=== PATIENT | female | born 1945 | race Hispanic/Latino ===

== ENCOUNTER 2022-07-14 13:40 | Inpatient (IN) | payer MEDICARE, MEDICAID, SELFPAY ==
[2022-07-14] VITALS (11 sets, daily range): BP systolic 140–164; BP diastolic 77–98; PULSE 63–81; RESP 12–17; TEMP 36.3–37.1; O2SAT 96–100; BMI 23.0
--- NOTE | ~2022-07-14 | MR_ITS ---
MRI of the brain Clinical History: Altered mental status, left arm weakness Technique: Axial and sagittal T1-weighted images were acquired. These were followed by axial T2-weigh noa, diffusion weighted, gradient, and FLAIR images. Following intravenous administration of 10 cc Mu ltiHance gadolinium, T1-weighted fat-sat imaging was performed in the axial and coronal planes. Findings: There is no acute infarct, acute intracranial hemorrhage, or mass lesion. There are moderat e to advanced chronic white matter changes throughout the periventricular white matter bilaterally. P robable small chronic lacunar infarct in the right periventricular white matter. Ventricles and subarachnoid spaces are unremarkable. Orbits are unremarkable. Paranasal sinuses and m astoid air cells are clear. Major intracranial flow voids are intact. Sagittal midline structures are intact. No abnormal postcontrast enhancement identified. IMPRESSION: No acute infarct, intracranial hemorrhage or mass lesion. Moderate to advanced chronic microvascular ischemic changes and small chronic lacunar infarct in the right periventricular white matter. Reviewed, dictated and finalized at location M. IMPRESSION: No acute infarct, intracranial hemorrhage or mass lesion. Moderate to advanced chronic microvascular ischemic changes and small chronic l acunar infarct in the right periventricular white matter.
--- NOTE | ~2022-07-14 | XR_ITS ---
EXAMINATION: XR elbow LT 2V DATE: 07/14/2022 18:20 INDICATION: Limited movement at the left elbow TECHNIQUE: Anteroposterior and lateral views of the left elbow were obtained. COMPARISON: None. FINDINGS: Smooth corticated margins along a chronic nonunited fracture across the base of the olecranon with ap proximately 5 mm proximal distraction. No other fractures identified. Mild osteoarthritis at the left elbow with nonuniform joint space narrowing greatest at the radiocapitellar articulation. Small simi inal osteophytes about the radial head. Prominent soft tissue swelling about the left elbow without e vident joint effusion. IMPRESSION: 1. 5 mm distraction of a chronic nonunited fracture across the base of the olecranon. Reviewed, dictated and finalized at location A. IMPRESSION: 1. 5 mm distraction of a chronic nonunited fracture across the base of the olec ranon.
--- NOTE | ~2022-07-14 | US_ITS ---
EXAMINATION: US arterial ankle brachial ind DATE: 07/16/2022 17:05 INDICATION: Claudication. Peripheral arterial disease. TECHNIQUE: Segmental pressures and plethysmographic and Doppler waveforms of the brachial and lower e xtremity arteries were obtained. COMPARISON: None. FINDINGS: Right and left brachial artery pressures of 131 mm Hg and 118 mm Hg, respectively, are concordant (no rmal difference <= 30 mmHg). The right ankle-brachial index (ALICIA) could not be measured due to inability to cuff occlude the arter ies (normal >= 0.9-1.0). The right great toe-brachial index (TBI) is 0.69 (normal >= 0.65). Arterial Doppler waveforms are biphasic at the ankle. The left ALICIA could not be measured due to inability to cuff occlude the arteries. The left TBI is 0.4 8. Arterial Doppler waveforms are biphasic at the ankle. IMPRESSION: 1. Mildly decreased left TBI and nondiagnostic left ALICIA, consistent with left-sided arterial occlusiv e disease. 2. Normal right TBI and nondiagnostic right ALICIA. No significant right-sided arterial occlusive diseas e. Reviewed, dictated and finalized at location A. IMPRESSION: 1. Mildly decreased left TBI and nondiagnostic left ALICIA, consistent with left-s ided arterial occlusive disease. 2. Normal right TBI and nondiagnostic right ALICIA. No significant right-sided art erial occlusive disease.
--- NOTE | ~2022-07-14 | US_ITS ---
EXAMINATION: US abdomen limited DATE: 07/15/2022 11:39 INDICATION: Elevated liver enzymes TECHNIQUE: Multiple grayscale and Doppler ultrasound images of the abdomen were obtained. COMPARISON: None available FINDINGS: The head and body of the pancreas are normal. The pancreatic tail is obscured by bowel gas. The liver is normal with normal echogenicity and echotexture. No surface nodularity. Normal hepatope meagan flow in the main portal vein. The gallbladder is normal with no abnormal wall thickening, pericho lecystic fluid or stones. The normal common bile duct measures 3 mm. There was no sonographic Babcock sign. IMPRESSION: 1. Normal sonographic study of the gallbladder. Reviewed, dictated and finalized at location F.
--- NOTE | ~2022-07-14 | XR_ITS ---
EXAMINATION: XR chest 1V portable DATE: 07/14/2022 15:54 INDICATION: Shortness of breath TECHNIQUE: frontal view of the chest was obtained. COMPARISON: None FINDINGS: Cardiomegaly with pulmonary vascular congestion, diffuse bilateral increased interstitial pattern wit h a few peripheral Toni B-lines consistent with mild pulmonary edema. No pneumothorax or definitive pleural effusion. Median sternotomy wires and mediastinal surgical clips are seen, likely from prior coronary artery bypass grafting. Moderate degenerative skeletal changes in the thoracic spine and ri ght shoulder. IMPRESSION: 1. Likely congestive heart failure with cardiomegaly and mild pulmonary edema. Reviewed, dictated and finalized at location A.
--- NOTE | ~2022-07-14 | CT_ITS ---
EXAMINATION: CT brain wo con DATE: 07/14/2022 16:40 INDICATION: Left arm weakness. Recurrent falls. TECHNIQUE: Computed tomography (CT) of the head was performed without intravenous contrast. Sagittal and coronal reconstructions were performed. The mA was adjusted according to patient size. Iterative reconstruction technique was employed. The dose-length product was 756.67 mGy-cm. COMPARISON: None FINDINGS: No fracture. Small old lacunar infarcts at the bilateral basal ganglia. No acute intracranial hemorrh age, acute infarction or abnormal extra axial fluid collection. There is moderate scattered white mat ter hypoattenuation consistent with chronic small vessel ischemic disease. Symmetric prominence of th e sulci and ventricles consistent with moderate age-appropriate diffuse cerebral volume loss. No mass /mass effect. Changes of bilateral intraocular lens replacement. The orbits, paranasal sinuses and ma stoid air cells are normal. Arachnoid granulations eroding into the bilateral occipital bones at the level of the transverse sinuses. Intracranial calcified cerebral atherosclerosis is noted. IMPRESSION: 1. Small old lacunar infarcts at the bilateral basal ganglia. No acute intracranial process. 2. Age-related changes including moderate diffuse volume loss and moderate scattered white matter hyp oattenuation consistent with chronic small vessel ischemic disease. Reviewed, dictated and finalized at location A. IMPRESSION: 1. Small old lacunar infarcts at the bilateral basal ganglia. No acute intracra nial process. 2. Age-related changes including moderate diffuse volume loss and moderate scat tered white matter hypoattenuation consistent with chronic small vessel ischemi c disease.
--- NOTE | 2022-07-14 14:12 | ECG_ITS ---
Measurements Intervals [place] Rate: 62 P: 71 CA: 162 QRS: -38 QRSD: 169 T: 159 QT: 505 QTc: 517 Interpretive Statements SINUS RHYTHM MARKED LEFT AXIS DEVIATION [QRS AXIS < -30] LEFT BUNDLE BRANCH BLOCK [120+ ms QRS DURATION, 80+ ms Q/S IN V1/V2, 85+ ms R IN I/aVL/V5/V6] NO PREVIOUS ECG AVAILABLE FOR COMPARISON Electronically Signed On 07-15-2022 13:35:25 CDT by Genny Mendosa M.D.
[2022-07-14 15:24] LABS: Basophils Percent Auto 0.4 % (0.2-1.2); Eosinophils Percent Auto 0.1 % (0-4.4); Hematocrit 41.2 % (37.0-47.0); Hemoglobin 12.7 g/dL (12.0-15.0); Immature Granulocyte Absolute 0.02 K/mm3 (0.00-0.031); Immature Granulocyte Percent A 0.3 % (0-0.5); Lymphocytes Absolute Auto 0.42 K/mm3 (0.9-3.2); Lymphocytes Percent Auto 5.8 % (18.3-44.2); Mean Corpuscular HGB Conc 30.8 g/dl (32-36); Mean Corpuscular Hemoglobin 26.6 pg (26-34); Mean Corpuscular Volume 86.2 fl (80-100); Mean Platelet Volume 11.1 fl (7.4-10.4); Monocytes Absolute Auto 0.7 K/mm3 (0.1-0.6); Monocytes Percent Auto 9.9 % (2.6-8.5); Neutrophils Percent Auto 83.5 % (45.5-73.1); Platelet Count Result 239 k/mm3 (150-375); Red Blood Count 4.78 M/mm3 (4.2-5.4); Red Cell Distribution Width 17.6 % (11.5-14.5); White Blood Count 7.2 K/mm3 (4.5-10.0)
--- NOTE | 2022-07-14 15:30 | PC.NURSE ---
Patient has medicine bottles from [facility] in [place], [place]. That pharmacy is closed at this time. Patient nor daughter at bedside able to verify what medications patient is taking.
[2022-07-14 16:29] LABS: INR 1.1
[2022-07-14 16:30] LABS: Partial Thromboplastin Time 25.7 SECONDS (22.3-36.8)
[2022-07-14 16:32] LABS: Add Urine Microscopic? YES; Appearance Urine Clear (Clear); Bacteria Urine None Seen /hpf; Bilirubin Urine Negative (Negative); Color Urine Yellow (Yellow); Glucose Urine UA 1+ mg/dL (Negative); Ketones Urine Negative (Negative); Leukocyte Esterase Ur 1+ LEU/UL (Negative); Need Manual Microscopic Reviewed; Nitrate Urine Negative (Negative); Protein Urine 2+ mg/dL (Negative); RBC Urine 0-2 /hpf (0-2); Specific Grav Ur 1.022 (1.001-1.035); Squamous Epithelial Cell Urine None seen /hpf (Few); Urobilinogen Urine 0.2 mg/dL (<2.0); WBC Urine 0-5 /hpf
[2022-07-14 17:06] LABS: Alanine Aminotransferase 69 U/L (6-35); Albumin Level 2.9 g/dL (3.5-5.1); Alkaline Phosphatase 186 U/L (38-126); Anion Gap 5 mmol/L (8-16); Aspartate Amino Transferase 36 U/L (14-36); Blood Urea Nitrogen 32 mg/dL (7-17); Calcium 8.2 mg/dL (8.4-10.2); Carbon Dioxide 25 mmol/L (22-30); Chloride 107 mmol/L (98-107); Estimated CRCL calculation 42 ml/min; Estimated Glomerular Filt Rate > 60; Glucose 290 mg/dL (65-110); Sodium 137 mmol/L (137-145)
[2022-07-14 17:07] LABS: NT Pro B Type Natriuretic Pept 12100 pg/mL (19.9-100)
--- NOTE | 2022-07-14 17:33 | ED.GENADULT ---
HPI - General Adult General Chief complaint: Extremity Problem,Nontraumatic Stated complaint: extremity swelling Time Seen by Provider: 07/14/22 15:29 Source: patient, family and RN notes reviewed Mode of arrival: wheelchair Limitations: dementia History of Present Illness HPI narrative: This is a 77 year old female with history of DM, hypertension, CAD s/p CABG who presents for failure to thrive. Patient's daughter states they were called by patient's neighbor's 3 weeks ago, and they reported patient was unable to take care of herself. They report patient was having decline in health. She has had swelling to bilateral legs and hands for 3 weeks. Her daughter states they went to [place] to move patient out of her apartment 4 days ago. She states she noticed patient seemed to be shortness of breath with exertion and patient also reported to her chest pain. She also noticed patient has been unable to move her left hand for 4 days. Patient denies headache, nausea, vomiting. Patient's daughter states she has not seen patient in 5 years . Her sister saw patient in February, and they report she was fine and able to dance. Related Data Home Medications Medication Instructions Recorded Confirmed atorvastatin 40 mg tablet 40 mg PO DAILY 07/14/22 07/14/22 escitalopram oxalate 5 mg tablet 5 mg PO HS 07/14/22 07/14/22 glipizide 5 mg tablet 5 mg PO BID 07/14/22 07/14/22 lisinopril 40 mg tablet 40 mg PO DAILY 07/14/22 07/14/22 olmesartan 20 mg tablet (Benicar) 20 mg PO DAILY 07/14/22 07/14/22 Allergies Allergy/AdvReac Type Severity Reaction Status Date / Time No Known Allergies Allergy Verified 07/14/22 21:08 Review of Systems Constitutional: Constitutional: Denies weakness Cardiovascular: Cardiovascular: Reports chest pain, Denies syncope, Denies rapid heart rate, Denies irregular heart rhythm, Reports leg edema and Reports dyspnea Respiratory: Respiratory: Denies chest congestion, Denies hemoptysis, Denies excessive phlegm production and Reports dyspnea Gastrointestinal: Gastrointestinal: Denies abdominal pain, Denies hematochezia, Denies diarrhea and Denies vomiting Genitourinary: Genitourinary: Denies hematuria and Denies dysuria Musculoskeletal: Musculoskeletal: Denies joint swelling, Denies loss of height and Denies muscle weakness Neurologic: Denies syncope, Reports focal weakness and Denies weakness PMFSH Past Medical History Medical History (Updated 07/14/22 @ 23:59 by Joyce Alfaro MD) CAD (coronary artery disease) Congestive heart failure Diabetes mellitus Fracture of left elbow Hyperlipidemia Hypertension Surgical History Surgical History (Updated 07/14/22 @ 17:34 by Joyce Alfaro MD) Hx of CABG Family History Family History (Updated 07/14/22 @ 20:49 by Vicki Merino NP) Unknown Adopted Social History Social History (Updated 07/14/22 @ 20:50 by Vicki Merino NP) Social History: The patient is and has 2 children. 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 Up until 4 days ago she was living in a senior citizen apartment complex. Her daughter is the durable power contracts attorney for healthcare. Code status full code Smoking status: Never smoker Second hand tobacco smoke exposure: No Alcohol intake: never Substance use: never Substance use type: does not use Lack of Transportation: No Lack of Food: Never True Current Housing: I Have Housing Concerned About Future Housing: No Difficulty Paying Gas/Electric Bills: No Difficulty Paying for Meds: No Currently Unemployed: No Education: Grade School Difficulty w/ Childcare or Family Care: No Spiritual care concerns: No Exam Const: General: no acute distress and ill appearing Other: oriented to person and place. She thinks its 1995 HENGA: Head: normal to inspection Ears: external ears normal Mouth: Yes Normal oral and palatal mucosa present, Yes lip n
--- NOTE | 2022-07-14 18:11 | PM.IMHP ---
H&P: HPI History of Present Illness Date/Time: 07/14/22 18:11 Chief Complaint: Extremity swelling Narrative: This is a 77-year-old female patient who was recently brought back from [place] by her 2 daughters. The patient had been living in [facility] on her own in a senior citizen apartment complex. The patient's daughter stated that she was called by the patient's neighbors proximally 3 weeks ago and they reported that the patient was unable to take care of herself. She had a decline in her health. She had bilateral leg swelling and hands for 3 weeks. The patient will be staying with her daughter. The patient was also noticed to have difficulty moving her left arm. The patient's daughter stated that she has not seen this patient in the last 5 years. However her other sister did see her in February and stated that she was moving around fine and dancing. It is not known what medications the patient has been taking or if she even has been taking them. Some of the medicine bottles were dated as being refilled last year. Left elbow x-ray was read as?5 mm distraction of a chronic nonunited fracture across the base of the olecranon. Head CT was read as the followingSmall old lacunar infarcts at the bilateral basal ganglia. No acute intracranial process. 2. Age-related changes including moderate diffuse volume loss and moderate scattered white matter hypoattenuation consistent with chronic small vessel ischemic disease. Chest x-ray was read as likely congestive heart failure with cardiomegaly and mild pulmonary edema. The patient has swelling to her lower extremities with multiple ulcerated areas and swelling to her hands with a bruise to her right hand. Blood glucose was noted to be 290. Troponin 0.058 alk line phosphatase 186. ALT 69 BNP [id number]. The patient was given IV Lasix in the emergency room. The patient is being admitted to inpatient status on the date of service of 07/14/2022 Review of Systems Review of Systems: All systems reviewed & are unremarkable except as noted in HPI and below Constitutional: Constitutional: Reports as per HPI and Reports no additional constitutional complaints Eyes: Eyes: Reports as per HPI and Reports no additional eye complaints ENT: Reports system reviewed and no additional complaints, except as documented and Reports Normal hearing present Cardiovascular: Cardiovascular: Reports no additional cardiovascular complaints Respiratory: Respiratory: Reports no additional respiratory complaints and Reports no additional respiratory complaints Gastrointestinal: Gastrointestinal: Reports as per HPI and Reports no additional gastrointestinal complaints Musculoskeletal: Musculoskeletal: Reports no additional musculoskeletal complaints Integumentary/Breasts: Skin/Breast: Reports system reviewed and no additional complaints, except as docu and Reports as per HPI Neurologic: Reports system reviewed and no additional complaints, except as documented, Reports as per HPI and Reports Normal hearing present Psychiatric: Psychiatric: Reports no additional psychiatric complaints and Reports as per HPI Endocrine: Endocrine: Reports no additional endocrine complaints Hematologic/Lymphatic: Hematologic/Lymphatic: Reports no additional hematologic/lymphatic complaints Allergic/Immunologic: Allergic/Immunologic: Reports no additional allergic/immunologic complaints [facility] Past Medical History Medical History (Updated 07/14/22 @ 21:01 by Vicki Merino NP) CAD (coronary artery disease) Congestive heart failure Diabetes mellitus Fracture of left elbow Hyperlipidemia Hypertension Surgical History Surgical History (Updated 07/14/22 @ 17:34 by Joyce Alfaro MD) Hx of CABG Family History Family History (Updated 07/14/22 @ 20:49 by Vicki Merino NP) Unknown Adopted Social History Social History (Updated 07/14/22 @ 20:50 by Vicki Merino NP) Social History: The patient is and has 2
--- NOTE | 2022-07-14 20:24 | ADMGEN ---
This patient, Oksana Wheeler, was admitted to IMU Room 213-01 on 07/14/22 at 2016. Patient/family oriented to hospital policies and general routines including ID bracelet, bed and alarms, visiting hours, pain management, procedures, bathroom and other care routines, personal items, smoking policy, room service/diet, and visiting hours. Information on how to activate the Rapid Response Team has been discussed. Patient/Family are encouraged to report perceived risks to care and to ask questions if they do not understand what they are told or what they should do.
[2022-07-14 21:00] LABS: Glucose Point of Care 321 mg/dl (65-105)
[2022-07-14] MEDS: FUROSEMIDE INJ 40 MG/4 ML VIAL IV PUSH (21:36)
[2022-07-14] MEDS: metroNIDAZOLE 500 MG/ISO 100ML 500 MG/100 ML BAG 100 MG IVPB (21:44)
[2022-07-14 22:13] LABS: Troponin I 0.052 ng/mL (0.000-0.034)
[2022-07-15] VITALS (16 sets, daily range): BP systolic 112–160; BP diastolic 48–82; PULSE 54–81; RESP 14–20; TEMP 36.4–36.5; O2SAT 97–100
[2022-07-15 02:04] LABS: Troponin I 0.052 ng/mL (0.000-0.034)
[2022-07-15] MEDS: metroNIDAZOLE 500 MG/ISO 100ML 500 MG/100 ML BAG 100 MG IVPB ×3 (06:21→21:37)
[2022-07-15 06:40] LABS: Basophils Percent Auto 0.3 % (0.2-1.2); Eosinophils Percent Auto 0.4 % (0-4.4); Hematocrit 42.5 % (37.0-47.0); Hemoglobin 13.2 g/dL (12.0-15.0); Immature Granulocyte Absolute 0.02 K/mm3 (0.00-0.031); Immature Granulocyte Percent A 0.3 % (0-0.5); Lymphocytes Percent Auto 7.4 % (18.3-44.2); Mean Corpuscular HGB Conc 31.1 g/dl (32-36); Mean Corpuscular Hemoglobin 26.7 pg (26-34); Monocytes Absolute Auto 0.8 K/mm3 (0.1-0.6); Monocytes Percent Auto 11.3 % (2.6-8.5); Neutrophils Absolute Auto 5.4 K/mm3 (1.3-6.7); Neutrophils Percent Auto 80.3 % (45.5-73.1); Platelet Count Result 230 k/mm3 (150-375); Red Blood Count 4.94 M/mm3 (4.2-5.4); Red Cell Distribution Width 17.7 % (11.5-14.5); White Blood Count 6.7 K/mm3 (4.5-10.0)
[2022-07-15 06:57] LABS: Lactic Acid Reflex 1.9 mmol/L (0.7-2.0)
[2022-07-15 07:01] LABS: Alanine Aminotransferase 64 U/L (6-35); Alkaline Phosphatase 177 U/L (38-126); Anion Gap 6 mmol/L (8-16); Aspartate Amino Transferase 29 U/L (14-36); Bilirubin,Total 1.1 mg/dL (0.2-1.3); Blood Urea Nitrogen 28 mg/dL (7-17); Carbon Dioxide 28 mmol/L (22-30); Chloride 103 mmol/L (98-107); Estimated CRCL calculation 42 ml/min; Estimated Glomerular Filt Rate > 60; Glucose 337 mg/dL (65-110); Magnesium 1.8 mg/dL (1.6-2.3); Potassium 3.2 mmol/L (3.4-5.0); Sodium 137 mmol/L (137-145)
[2022-07-15 07:10] LABS: Hemoglobin A1C 11.6 % (<5.7)
[2022-07-15 07:28] LABS: Hepatitis B Surface Antigen Negative (Negative)
[2022-07-15 07:34] LABS: HAV RESULT Negative (Negative); Hepatitis B Core IgM Result Negative (Negative)
[2022-07-15 07:46] LABS: Hepatitis C Virus Antibody Negative (Negative)
[2022-07-15 07:59] LABS: Glucose Point of Care 312 mg/dl (65-105)
[2022-07-15] MEDS: OLMESARTAN MEDOXOMIL 20 MG TABLET PO (10:01)
[2022-07-15] MEDS: ATORVASTATIN 40 MG TABLET PO (10:01)
[2022-07-15] MEDS: ENOXAPARIN 40 MG/0.4 ML SYRINGE SUB-Q (10:02)
[2022-07-15] MEDS: lisinopriL 20 MG TABLET 40 MG PO (10:02)
[2022-07-15] MEDS: ASPIRIN 81 MG ENTERIC TABLET PO (10:02)
[2022-07-15] MEDS: FUROSEMIDE INJ 40 MG/4 ML VIAL IV PUSH ×2 (10:02→21:05)
[2022-07-15] MEDS: glipiZIDE 5 MG TABLET PO ×2 (10:13→18:13)
--- NOTE | 2022-07-15 11:41 | PCSTNOTE ---
Patient is a Samoan speaker, understands a little Mohawk and knows a few Mohawk words. Her daughter Gail is present at bedside and helping as buggy driver. Portions of [place] Adult Language and Speech Evaluation were administered. Moderately impaired auditory comprehension and verbal expression are present, and cognitive linguistic abilities appear to be impaired (20% correct out of 5 orientation questions). Daughter states that patient resides with her now and family will be providing care and assistance. Due to cognitive linguistic deficits patient is a poor candidate for speech/language therapy to address language impairments. No further speech therapy is recommended for this patient. Thank you for the referral of this patient.
[2022-07-15 11:50] LABS: Glucose Point of Care 272 mg/dl (65-105)
[2022-07-15] MEDS: INSULIN ASPART (*BKC) 100 UNITS/ML SUB-Q ×2 (13:13→18:13)
--- NOTE | 2022-07-15 13:40 | PM.IMPN ---
Progress Note: A&P Assessment and Plan (1) Cellulitis: Code(s): L03.90 - Cellulitis, unspecified Status: Acute Assessment and Plan: The patient has multiple abrasions to her lower extremity. She is diabetic. She was started on antibiotics is per antibiotic stewardship for diabetic cellulitis. She was started on Flagyl, vancomycin, and cefepime. Blood cultures have been ordered White blood cell count normal Lactic acid normal CRP elevated at 5.1 continue to trend. Procalcitonin pending (2) Congestive heart failure: Qualifiers: Heart failure chronicity: acute on chronic Heart failure type: unspecified Qualified Code(s): I50.9 - Heart failure, unspecified Code(s): I50.9 - Heart failure, unspecified Status: Acute Assessment and Plan: Per patient's daughter patient has history of heart disease post CABG although unsure of heart failure. Patient is not on any medications indicating congestive heart failure. The patient has anasarca. Abdominal ultrasound has been ordered due to elevated liver enzymes however this could just be portal hypertension. CK normal An echo has been ordered Continue with IV Lasix. May consider Dykes catheter due to her multiple sores to her legs an accurate I&O Congestive heart failure teaching Strict I&O Elevated troponin although they are flat and trending down. Elevation likely due to dehydration and CHF exacerbation. (3) Hypertension: Code(s): I10 - Essential (primary) hypertension Status: Acute Assessment and Plan: The patient was started on lisinopril P.r.n. hydralazine (4) Fracture of left elbow: Code(s): S42.402A - Unspecified fracture of lower end of left humerus, initial encounter for closed fracture Status: Acute Assessment and Plan: PT OT evaluation greatly be appreciated sales development coordinator consult for rehab (5) Hyperlipidemia: Code(s): E78.5 - Hyperlipidemia, unspecified Status: Acute Assessment and Plan: Continue with home medications (6) Diabetes mellitus: Code(s): E11.9 - Type 2 diabetes mellitus without complications Status: Acute Assessment and Plan: Patient started on Lantus 12 units q.h.s. and moderate sliding scale Accu-Cheks, hypoglycemic protocol Hemoglobin A1c 11.6 May resume home medications Subjective Date/time seen: 07/15/22 13:40 Interval history: Swedish-speaking elderly woman that has daughter at bedside able to translate. Patient told the daughter that her right lower leg has been painful. She does have some discoloration of the lower extremities and states that this is all new. Patient had a fall not too long ago and refused to be seen in the ED. the cause of the fall is not known. Since the fall patient has steadily declined. She presented with bilateral lower extremity edema and fluid weeping from the lower extremities. Per daughter patient was confused. Today patient is less confused and able to recognize her daughter by name. Review of Systems Review of Systems: All systems reviewed & are unremarkable except as noted in HPI and below Exam Narrative: GENERAL: Comfortable, no acute distress HENMT: moist mucous membranes EYES: EOM intact b/l NECK: no lymphadenopathy RESPIRATORY: clear to auscultation CARDIO: RRR GI: soft, nontender, bowel sounds present SKIN/EXTREMITIES: Bilateral lower extremity erythema and multiple sores present from mid should to the ankles. Plus two pitting edema over the hips. Objective Data Vital Signs Vital Signs: Vital Signs - 24 hr 07/14/22 14:05 07/14/22 15:01 07/14/22 15:31 Temperature 97.3 F L Pulse Rate 69 63 74 Respiratory Rate 14 12 17 Blood Pressure 142/83 H 150/88 H 150/90 H Pulse Oximetry 98 Oxygen Delivery Room Air 07/14/22 16:46 07/14/22 17:01 07/14/22 18:31
[2022-07-15 14:12] LABS: Creatine Kinase 53 U/L (30-135)
[2022-07-15 14:35] LABS: Troponin I 0.042 ng/mL (0.000-0.034)
[2022-07-15 14:59] LABS: CRP 5.1 mg/dL (<1.0)
[2022-07-15 15:46] LABS: Procalcitonin 0.1 ng/mL
[2022-07-15 16:47] LABS: Lactic Acid Reflex 2.9 mmol/L (0.7-2.0)
[2022-07-15 16:48] LABS: Glucose Point of Care 214 mg/dl (65-105)
[2022-07-15 19:36] LABS: Reflex Lactic Acid Yes or No Add Lactic
[2022-07-15 20:19] LABS: Glucose Point of Care 266 mg/dl (65-105)
[2022-07-15 20:39] LABS: Lactic Acid 2.6 mmol/L (0.7-2.0)
[2022-07-15] MEDS: ESCITALOPRAM OXALATE 5 MG TABLET PO (21:04)
[2022-07-15] MEDS: INSULIN GLARGINE (*BKC) 100 UNITS/ML 12 UNITS SUB-Q (21:05)
[2022-07-16] VITALS (17 sets, daily range): BP systolic 101–145; BP diastolic 44–67; PULSE 49–64; RESP 14–16; TEMP 35.9–36.5; O2SAT 97–100
[2022-07-16 04:49] LABS: Basophils Percent Auto 0.4 % (0.2-1.2); Eosinophils Absolute Auto 0.1 K/mm3 (0-0.3); Hematocrit 41.6 % (37.0-47.0); Hemoglobin 13.1 g/dL (12.0-15.0); Immature Granulocyte Absolute 0.03 K/mm3 (0.00-0.031); Immature Granulocyte Percent A 0.4 % (0-0.5); Lymphocytes Absolute Auto 0.84 K/mm3 (0.9-3.2); Lymphocytes Percent Auto 11.9 % (18.3-44.2); Mean Corpuscular HGB Conc 31.5 g/dl (32-36); Mean Corpuscular Hemoglobin 26.7 pg (26-34); Mean Corpuscular Volume 84.9 fl (80-100); Mean Platelet Volume 11.7 fl (7.4-10.4); Monocytes Absolute Auto 0.7 K/mm3 (0.1-0.6); Monocytes Percent Auto 10.1 % (2.6-8.5); Neutrophils Absolute Auto 5.3 K/mm3 (1.3-6.7); Neutrophils Percent Auto 75.2 % (45.5-73.1); Platelet Count Result 242 k/mm3 (150-375); Red Cell Distribution Width 17.2 % (11.5-14.5); White Blood Count 7.1 K/mm3 (4.5-10.0)
[2022-07-16 05:00] LABS: Alanine Aminotransferase 59 U/L (6-35); Albumin Level 3.1 g/dL (3.5-5.1); Alkaline Phosphatase 165 U/L (38-126); Anion Gap 3 mmol/L (8-16); Aspartate Amino Transferase 39 U/L (14-36); Bilirubin,Total 0.9 mg/dL (0.2-1.3); Blood Urea Nitrogen 34 mg/dL (7-17); Calcium 8.1 mg/dL (8.4-10.2); Carbon Dioxide 37 mmol/L (22-30); Chloride 98 mmol/L (98-107); Estimated CRCL calculation 31 ml/min; Estimated Glomerular Filt Rate 48; Glucose 83 mg/dL (65-110); Magnesium 1.6 mg/dL (1.6-2.3); Phosphorus 3.8 mg/dL (2.5-4.5); Potassium 3.1 mmol/L (3.4-5.0); Sodium 138 mmol/L (137-145)
[2022-07-16] MEDS: metroNIDAZOLE 500 MG/ISO 100ML 500 MG/100 ML BAG 100 MG IVPB ×3 (05:27→22:43)
--- NOTE | 2022-07-16 06:00 | ECHO_ITS ---
Patient Info Name: Oksana Wheeler Age: 77 years : 1945 Gender: Female Ht: 63 in Wt: 129 lbs BSA: 1.62 m2 HR: 49 bpm BP: 131 / 65 mmHg Heart Rhythm: Sinus Rhythm, Bradycardia Technical Quality: Good Exam Date: 07/16/2022 8:42 AM Exam Location: [facility] Card Pulmonary Patient Status: Inpatient Admit Date: 07/14/2022 Staff Ordering Physician: Joyce Alfaro MD Director Career Services: Belle Beyer RDCS Attending Provider: Chuy Coe MD Referring Physician: Angelina WILKES; Exam Type: CA echo doppler color flow Study Info Indications - chf Complete two-dimensional, color flow and Doppler transthoracic echocardiogram is performed. Summary 1. Complete two-dimensional, color flow and Doppler transthoracic echocardiogram is performed. 2. Left ventricular chamber dimension is moderately enlarged. 3. Left ventricular systolic function is severely reduced, estimated at 25-30%. 4. There is no increased left ventricular wall thickness. 5. Left ventricular septal wall motion is abnormal with septal motion related to bundle branch block. 6. The left ventricular diastolic function is grade III diastolic dysfunction. 7. Left atrial chamber dimension is moderately enlarged. 8. There is no aortic valve stenosis. 9. There is moderate to severe mitral valve regurgitation. 10. There is mild tricuspid valve regurgitation. 11. Mild pulmonary hypertension, estimated pulmonary arterial systolic pressure is 44 mmHg. 12. Left pleural effusion. Left Ventricle Left ventricular chamber dimension is moderately enlarged. Left ventricular systolic function is severely reduced, estimated at 25-30%. There is no increased left ventricular wall thickness. Left ventricular septal wall motion is abnormal with septal motion related to bundle branch block. The left ventricular diastolic function is grade III diastolic dysfunction. Right Ventricle Right ventricular chamber dimension is normal. Right ventricular systolic function is reduced. TAPSE 1.2. Left Atria Left atrial chamber dimension is moderately enlarged. Right Atria Right atrial chamber dimension is mildly enlarged. Aortic Valve The aortic valve is trileaflet. There is no aortic valve stenosis. There is trace aortic valve regurgitation. Pulmonic Valve The pulmonic valve is normal. There is mild pulmonic regurgitation. Mitral Valve The mitral valve has thickened leaflets. There is moderate to severe mitral valve regurgitation. The mitral valve annulus is mildly calcified. Tricuspid Valve The tricuspid valve leaflets are normal. There is mild tricuspid valve regurgitation. Mild pulmonary hypertension, estimated pulmonary arterial systolic pressure is 44 mmHg. Pericardium/Pleural The pericardium appears normal. There is trivial pericardial effusion. Left pleural effusion. Inferior Vena Cava Normal inferior vena cava with <50% collapse upon inspiration consistent with elevated right atrial pressure, 10 mmHg. Aorta The aortic root size at the sinus of Valsalva is normal. There is mild aortic atherosclerosis. Left Ventricular Outflow Tract Name Value Normal LVOT 2D LVOT Diameter 2.0 cm LVOT Doppler LVOT Peak Gradient 4 mmHg
[2022-07-16 08:14] LABS: Glucose Point of Care 75 mg/dl (65-105)
[2022-07-16] MEDS: POTASSIUM CHLORIDE 20 MEQ TABLET 40 MEQ PO (10:18)
[2022-07-16] MEDS: ATORVASTATIN 40 MG TABLET PO (10:19)
[2022-07-16] MEDS: ENOXAPARIN 40 MG/0.4 ML SYRINGE SUB-Q (10:19)
[2022-07-16] MEDS: OLMESARTAN MEDOXOMIL 20 MG TABLET PO (10:19)
[2022-07-16] MEDS: lisinopriL 20 MG TABLET 40 MG PO (10:19)
[2022-07-16] MEDS: ASPIRIN 81 MG ENTERIC TABLET PO (10:19)
[2022-07-16] MEDS: glipiZIDE 5 MG TABLET PO (10:19)
[2022-07-16] MEDS: FUROSEMIDE INJ 40 MG/4 ML VIAL IV PUSH (10:19)
[2022-07-16 13:26] LABS: Glucose Point of Care 180 mg/dl (65-105)
--- NOTE | 2022-07-16 16:01 | P.PNIM_ITS ---
Progress Note: A&P Assessment and Plan (1) Cellulitis: Code(s): L03.90 - Cellulitis, unspecified Status: Acute Assessment and Plan: The patient has multiple abrasions to her lower extremity. She is diabetic. She was started on antibiotics is per antibiotic stewardship for diabetic cellulitis. * She was started on Flagyl, vancomycin, and cefepime. * Blood cultures No growth to date * White blood cell count normal * Lactic acid elevated at 2.9 and trending down * CRP elevated at 5.1. continue to trend. * Procalcitonin 0.1 (2) Congestive heart failure: Qualifiers: Heart failure chronicity: acute on chronic Heart failure type: unspecified Qualified Code(s): I50.9 - Heart failure, unspecified Code(s): I50.9 - Heart failure, unspecified Status: Acute Assessment and Plan: Per patient's daughter patient has history of heart disease post CABG although unsure of heart failure. Patient is not on any medications indicating congestive heart failure. * The patient has anasarca. * Abdominal ultrasound has been ordered due to elevated liver enzymes however this could just be portal hypertension. * CK normal * EKG revealing left bundle-branch block, sinus rhythm * Echocardiogram with EF of 25-30%, septal wall motion is abnormal with septal motion related to bundle branch block, grade 3 diastolic dysfunction, moderate to severe mitral valve regurg, mild tricuspid valve regurg, mild pulmonary hypertension at 44 mm Hg and left pleural effusion. * Continue with IV Lasix. * Dykes catheter due to her multiple sores to her legs an accurate I&O * Congestive heart failure teaching * Strict I&O * Elevated troponin although they are flat and trending down. Elevation likely due to dehydration and CHF exacerbation. (3) Hypertension: Code(s): I10 - Essential (primary) hypertension Status: Acute Assessment and Plan: * The patient was started on lisinopril * P.r.n. hydralazine (4) Fracture of left elbow: Code(s): S42.402A - Unspecified fracture of lower end of left humerus, initial encounter for closed fracture Status: Acute Assessment and Plan: * PT OT evaluation greatly be appreciated * blood bank coordinator consult for rehab (5) Hyperlipidemia: Code(s): E78.5 - Hyperlipidemia, unspecified Status: Acute Assessment and Plan: Continue with home medications (6) Diabetes mellitus: Code(s): E11.9 - Type 2 diabetes mellitus without complications Status: Acute Assessment and Plan: * Patient started on Lantus 12 units q.h.s. and moderate sliding scale * Accu-Cheks, hypoglycemic protocol * Hemoglobin A1c 11.6 * May resume home medications Subjective Date/time seen: 07/16/22 16:01 Interval history: Use nurse wound care today to communicate with the patient. She is still having pain in her lower extremities with sitting and standing. The pain has improved since she has arrived to the hospital. Patient states that she had lower extremity swelling for approximately 3 weeks and she did see a doctor and he did not give her any medication for this. She appears to be more lively today and is requesting a shower. She denies ever having chest pain and shortness of breath. Lower extremity edema resolved with mild pitting edema over her hips. Review of Systems Review of Systems: Daniel mchugh
--- NOTE | 2022-07-16 16:01 | PM.IMPN ---
Progress Note: A&P Assessment and Plan (1) Cellulitis: Code(s): L03.90 - Cellulitis, unspecified Status: Acute Assessment and Plan: The patient has multiple abrasions to her lower extremity. She is diabetic. She was started on antibiotics is per antibiotic stewardship for diabetic cellulitis. She was started on Flagyl, vancomycin, and cefepime. Blood cultures No growth to date White blood cell count normal Lactic acid elevated at 2.9 and trending down CRP elevated at 5.1. continue to trend. Procalcitonin 0.1 (2) Congestive heart failure: Qualifiers: Heart failure chronicity: acute on chronic Heart failure type: unspecified Qualified Code(s): I50.9 - Heart failure, unspecified Code(s): I50.9 - Heart failure, unspecified Status: Acute Assessment and Plan: Per patient's daughter patient has history of heart disease post CABG although unsure of heart failure. Patient is not on any medications indicating congestive heart failure. The patient has anasarca. Abdominal ultrasound has been ordered due to elevated liver enzymes however this could just be portal hypertension. CK normal EKG revealing left bundle-branch block, sinus rhythm Echocardiogram with EF of 25-30%, septal wall motion is abnormal with septal motion related to bundle branch block, grade 3 diastolic dysfunction, moderate to severe mitral valve regurg, mild tricuspid valve regurg, mild pulmonary hypertension at 44 mm Hg and left pleural effusion. Continue with IV Lasix. Dykes catheter due to her multiple sores to her legs an accurate I&O Congestive heart failure teaching Strict I&O Elevated troponin although they are flat and trending down. Elevation likely due to dehydration and CHF exacerbation. (3) Hypertension: Code(s): I10 - Essential (primary) hypertension Status: Acute Assessment and Plan: The patient was started on lisinopril P.r.n. hydralazine (4) Fracture of left elbow: Code(s): S42.402A - Unspecified fracture of lower end of left humerus, initial encounter for closed fracture Status: Acute Assessment and Plan: PT OT evaluation greatly be appreciated family services coordinator consult for rehab (5) Hyperlipidemia: Code(s): E78.5 - Hyperlipidemia, unspecified Status: Acute Assessment and Plan: Continue with home medications (6) Diabetes mellitus: Code(s): E11.9 - Type 2 diabetes mellitus without complications Status: Acute Assessment and Plan: Patient started on Lantus 12 units q.h.s. and moderate sliding scale Accu-Cheks, hypoglycemic protocol Hemoglobin A1c 11.6 May resume home medications Subjective Date/time seen: 07/16/22 16:01 Interval history: Use muffler hand today to communicate with the patient. She is still having pain in her lower extremities with sitting and standing. The pain has improved since she has arrived to the hospital. Patient states that she had lower extremity swelling for approximately 3 weeks and she did see a doctor and he did not give her any medication for this. She appears to be more lively today and is requesting a shower. She denies ever having chest pain and shortness of breath. Lower extremity edema resolved with mild pitting edema over her hips. Review of Systems Review of Systems: All systems reviewed & are unremarkable except as noted in HPI and below Exam Narrative: GENERAL: Comfortable, no acute distress HENMT: moist mucous membranes EYES: EOM intact b/l NECK: no lymphadenopathy RESPIRATORY: clear to auscultation CARDIO: RRR GI: soft, nontender, bowel sounds present SKIN/EXTREMITIES: Bilateral lower extremity erythema and multiple sores present from mid should to the ankles. +1 pitting edema over the hips. Objective Data Vital Signs Vital Signs: Vital Signs - 24 hr
[2022-07-16 18:17] LABS: Glucose Point of Care 160 mg/dl (65-105)
[2022-07-16 20:06] LABS: Glucose Point of Care 182 mg/dl (65-105)
[2022-07-16] MEDS: ESCITALOPRAM OXALATE 5 MG TABLET PO (20:38)
[2022-07-16] MEDS: FUROSEMIDE INJ 40 MG/4 ML VIAL 20 MG IV PUSH (20:39)
[2022-07-16] MEDS: INSULIN GLARGINE (*BKC) 100 UNITS/ML 12 UNITS SUB-Q (22:41)
[2022-07-16] MEDS: POTASSIUM CHLORIDE 20 MEQ TABLET.ER PO (22:52)
[2022-07-17] VITALS (10 sets, daily range): BP systolic 84–136; BP diastolic 45–64; PULSE 53–66; RESP 14–18; TEMP 36.2–36.5; O2SAT 96–99
[2022-07-17 04:53] LABS: Basophils Percent Auto 0.6 % (0.2-1.2); Eosinophils Absolute Auto 0.2 K/mm3 (0-0.3); Eosinophils Percent Auto 2.9 % (0-4.4); Hematocrit 39.6 % (37.0-47.0); Hemoglobin 12.6 g/dL (12.0-15.0); Immature Granulocyte Absolute 0.01 K/mm3 (0.00-0.031); Immature Granulocyte Percent A 0.2 % (0-0.5); Lymphocytes Absolute Auto 0.78 K/mm3 (0.9-3.2); Lymphocytes Percent Auto 14.9 % (18.3-44.2); Mean Corpuscular HGB Conc 31.8 g/dl (32-36); Mean Corpuscular Hemoglobin 26.8 pg (26-34); Mean Corpuscular Volume 84.3 fl (80-100); Mean Platelet Volume 11.6 fl (7.4-10.4); Monocytes Absolute Auto 0.5 K/mm3 (0.1-0.6); Monocytes Percent Auto 10.2 % (2.6-8.5); Neutrophils Absolute Auto 3.7 K/mm3 (1.3-6.7); Neutrophils Percent Auto 71.2 % (45.5-73.1); Platelet Count Result 220 k/mm3 (150-375); Red Cell Distribution Width 16.9 % (11.5-14.5); White Blood Count 5.2 K/mm3 (4.5-10.0)
[2022-07-17 05:05] LABS: Potassium 3.2 mmol/L (3.4-5.0)
[2022-07-17 05:13] LABS: Alanine Aminotransferase 48 U/L (6-35); Albumin Level 2.7 g/dL (3.5-5.1); Alkaline Phosphatase 119 U/L (38-126); Anion Gap 1 mmol/L (8-16); Aspartate Amino Transferase 31 U/L (14-36); Bilirubin,Total 0.9 mg/dL (0.2-1.3); Blood Urea Nitrogen 29 mg/dL (7-17); Calcium 7.8 mg/dL (8.4-10.2); Carbon Dioxide 39 mmol/L (22-30); Chloride 96 mmol/L (98-107); Estimated CRCL calculation 42 ml/min; Estimated Glomerular Filt Rate > 60; Glucose 146 mg/dL (65-110); Magnesium 1.5 mg/dL (1.6-2.3); Sodium 136 mmol/L (137-145)
[2022-07-17] MEDS: metroNIDAZOLE 500 MG/ISO 100ML 500 MG/100 ML BAG 100 MG IVPB ×3 (05:59→22:02)
[2022-07-17 07:39] LABS: Glucose Point of Care 86 mg/dl (65-105)
[2022-07-17] MEDS: OLMESARTAN MEDOXOMIL 20 MG TABLET PO (08:23)
[2022-07-17] MEDS: ENOXAPARIN 40 MG/0.4 ML SYRINGE SUB-Q (08:23)
[2022-07-17] MEDS: lisinopriL 20 MG TABLET 40 MG PO (08:23)
[2022-07-17] MEDS: POTASSIUM CHLORIDE 20 MEQ TABLET PO (08:23)
[2022-07-17] MEDS: FUROSEMIDE INJ 40 MG/4 ML VIAL 20 MG IV PUSH ×2 (08:23→20:59)
[2022-07-17] MEDS: ATORVASTATIN 40 MG TABLET PO (08:23)
[2022-07-17] MEDS: POTASSIUM CHLORIDE 20 MEQ TABLET.ER PO ×2 (08:24→17:27)
[2022-07-17] MEDS: glipiZIDE 5 MG TABLET PO ×2 (08:24→17:27)
[2022-07-17] MEDS: ASPIRIN 81 MG ENTERIC TABLET PO (08:24)
[2022-07-17] MEDS: MAGNESIUM SULFATE 3GM/D5W100ML 3 GM/100 ML BAG IVPB (09:21)
--- NOTE | 2022-07-17 09:22 | P.CDI_ITS ---
CDI Query Clarification Request Elevated BNP on 07/14/22 lab work. Documented CHF in patients medical history. CHF noted in the assessment and plan. Chest Xray from 07/14/22 notes pulmonary edema. Edema noted in the documentation. Patient receiving Lasix. Please specify type and acuity of heart failure if known. * Acute * Chronic * Acute on Chronic * Unknown * Systolic * Diastolic * Combined Systolic and Diastolic * Unknown
[2022-07-17 12:35] LABS: Glucose Point of Care 202 mg/dl (65-105)
[2022-07-17] MEDS: INSULIN ASPART (*BKC) 100 UNITS/ML SUB-Q ×2 (13:28→17:26)
--- NOTE | 2022-07-17 14:19 | P.PNIM_ITS ---
Progress Note: A&P Assessment and Plan (1) Cellulitis: Code(s): L03.90 - Cellulitis, unspecified Status: Acute Assessment and Plan: The patient has multiple abrasions to her lower extremity. She is diabetic. She was started on antibiotics is per antibiotic stewardship for diabetic cellulitis. * She was started on Flagyl, vancomycin, and cefepime. * Blood cultures No growth to date * White blood cell count normal * Lactic acid elevated at 2.9 and trending down * CRP elevated at 5.1. continue to trend. * Procalcitonin 0.1 (2) Congestive heart failure: Qualifiers: Heart failure chronicity: acute on chronic Heart failure type: unspecified Qualified Code(s): I50.9 - Heart failure, unspecified Code(s): I50.9 - Heart failure, unspecified Status: Acute Assessment and Plan: Per patient's daughter patient has history of heart disease post CABG although unsure of heart failure. Patient is not on any medications indicating congestive heart failure. * The patient has anasarca. * Abdominal ultrasound has been ordered due to elevated liver enzymes however this could just be portal hypertension. * CK normal * EKG revealing left bundle-branch block, sinus rhythm * Echocardiogram with EF of 25-30%, septal wall motion is abnormal with septal motion related to bundle branch block, grade 3 diastolic dysfunction, moderate to severe mitral valve regurg, mild tricuspid valve regurg, mild pulmonary hypertension at 44 mm Hg and left pleural effusion. * Cardiology consulted. * Continue with IV Lasix. * Dykes catheter due to her multiple sores to her legs an accurate I&O * Congestive heart failure teaching * Strict I&O * Elevated troponin although they are flat and trending down. Elevation likely due to dehydration and CHF exacerbation. (3) Hypertension: Code(s): I10 - Essential (primary) hypertension Status: Acute Assessment and Plan: * The patient was started on lisinopril * P.r.n. hydralazine (4) Fracture of left elbow: Code(s): S42.402A - Unspecified fracture of lower end of left humerus, initial encounter for closed fracture Status: Acute Assessment and Plan: * PT OT evaluation greatly be appreciated * talent coordinator consult for rehab (5) Hyperlipidemia: Code(s): E78.5 - Hyperlipidemia, unspecified Status: Acute Assessment and Plan: Continue with home medications (6) Diabetes mellitus: Code(s): E11.9 - Type 2 diabetes mellitus without complications Status: Acute Assessment and Plan: * Patient started on Lantus 12 units q.h.s. and moderate sliding scale * Accu-Cheks, hypoglycemic protocol * Hemoglobin A1c 11.6 * May resume home medications Subjective Date/time seen: 07/17/22 14:19 Interval history: Pt up to chair with daughter in the room. She is doing well today. She appears to be in better spirits. she is still having some lower extremity pain with standing and experiencing itching due to dry skin over lower extremities. Denies chest pain, shortness of breath. feeling less weak overall. Review of Systems Review of Systems: All systems reviewed & are unremarkable except as noted in HPI and below Exam Narrative: GENERAL: Comfortable, no acute distress HENMT: moist mucous membranes EYES: EOM inta
--- NOTE | 2022-07-17 14:19 | PM.IMPN ---
Progress Note: A&P Assessment and Plan (1) Cellulitis: Code(s): L03.90 - Cellulitis, unspecified Status: Acute Assessment and Plan: The patient has multiple abrasions to her lower extremity. She is diabetic. She was started on antibiotics is per antibiotic stewardship for diabetic cellulitis. She was started on Flagyl, vancomycin, and cefepime. Blood cultures No growth to date White blood cell count normal Lactic acid elevated at 2.9 and trending down CRP elevated at 5.1. continue to trend. Procalcitonin 0.1 (2) Congestive heart failure: Qualifiers: Heart failure chronicity: acute on chronic Heart failure type: unspecified Qualified Code(s): I50.9 - Heart failure, unspecified Code(s): I50.9 - Heart failure, unspecified Status: Acute Assessment and Plan: Per patient's daughter patient has history of heart disease post CABG although unsure of heart failure. Patient is not on any medications indicating congestive heart failure. The patient has anasarca. Abdominal ultrasound has been ordered due to elevated liver enzymes however this could just be portal hypertension. CK normal EKG revealing left bundle-branch block, sinus rhythm Echocardiogram with EF of 25-30%, septal wall motion is abnormal with septal motion related to bundle branch block, grade 3 diastolic dysfunction, moderate to severe mitral valve regurg, mild tricuspid valve regurg, mild pulmonary hypertension at 44 mm Hg and left pleural effusion. Cardiology consulted. Continue with IV Lasix. Dykes catheter due to her multiple sores to her legs an accurate I&O Congestive heart failure teaching Strict I&O Elevated troponin although they are flat and trending down. Elevation likely due to dehydration and CHF exacerbation. (3) Hypertension: Code(s): I10 - Essential (primary) hypertension Status: Acute Assessment and Plan: The patient was started on lisinopril P.r.n. hydralazine (4) Fracture of left elbow: Code(s): S42.402A - Unspecified fracture of lower end of left humerus, initial encounter for closed fracture Status: Acute Assessment and Plan: PT OT evaluation greatly be appreciated medical office coordinator consult for rehab (5) Hyperlipidemia: Code(s): E78.5 - Hyperlipidemia, unspecified Status: Acute Assessment and Plan: Continue with home medications (6) Diabetes mellitus: Code(s): E11.9 - Type 2 diabetes mellitus without complications Status: Acute Assessment and Plan: Patient started on Lantus 12 units q.h.s. and moderate sliding scale Accu-Cheks, hypoglycemic protocol Hemoglobin A1c 11.6 May resume home medications Subjective Date/time seen: 07/17/22 14:19 Interval history: Pt up to chair with daughter in the room. She is doing well today. She appears to be in better spirits. she is still having some lower extremity pain with standing and experiencing itching due to dry skin over lower extremities. Denies chest pain, shortness of breath. feeling less weak overall. Review of Systems Review of Systems: All systems reviewed & are unremarkable except as noted in HPI and below Exam Narrative: GENERAL: Comfortable, no acute distress HENMT: moist mucous membranes EYES: EOM intact b/l NECK: no lymphadenopathy RESPIRATORY: clear to auscultation CARDIO: RRR GI: soft, nontender, bowel sounds present SKIN/EXTREMITIES: Bilateral lower extremity erythema and multiple sores present from mid should to the ankles. +1 pitting edema over right hip Objective Data Vital Signs Vital Signs: Vital Signs - 24 hr 07/16/22 16:00 07/16/22 16:00 07/16/22 18:09 Temperature 97.1 F L Pulse Rate 61 60 Respiratory Rate 16 Blood Pressure 138/67 Pulse Oximetry 99 Oxygen Delivery Room Air 07/16/22 18:00 07/16/22 20:0
[2022-07-17 16:45] LABS: Glucose Point of Care 327 mg/dl (65-105)
[2022-07-17] MEDS: SODIUM CHLORIDE 0.9% IV 500 ML IV CONT (17:26)
[2022-07-17 19:57] LABS: Glucose Point of Care 409 mg/dl (65-105)
[2022-07-17] MEDS: ESCITALOPRAM OXALATE 5 MG TABLET PO (21:00)
[2022-07-17] MEDS: INSULIN GLARGINE (*BKC) 100 UNITS/ML 12 UNITS SUB-Q (21:10)
[2022-07-17 22:33] LABS: Glucose Point of Care 305 mg/dl (65-105)
--- NOTE | 2022-07-18 00:34 | PC.NURSE ---
Patient's daughter was here tonight. She stated that she works and would not be able to stay with her mother around the clock. She feels that her mother would benefit from physical rehab to get stronger before she comes home. Daughter left a copy of patients medicare card which has been placed on the chart.
--- NOTE | 2022-07-18 04:44 | PC.NURSE ---
[facility] faxed and verbal Report given to Maria Isabel DOYLE on [facility]. Patient transferring via bed with all belongings to room 254. No change from previous assessment.
--- NOTE | 2022-07-18 04:59 | PC.NURSE ---
RECEIVED PT VIA TRANSFER FROM [facility] IN BED. PT BELONGINGS, CHART, AND MEDS GIVEN TO ME BY FENCE MANUFACTURE SUPERVISOR. PT APPEARS COMFORTABLE IN BED
[2022-07-18] MEDS: metroNIDAZOLE 500 MG/ISO 100ML 500 MG/100 ML BAG 100 MG IVPB ×2 (05:11→14:49)
[2022-07-18 07:53] LABS: Hematocrit 41.7 % (37.0-47.0); Hemoglobin 12.9 g/dL (12.0-15.0); Mean Corpuscular HGB Conc 30.9 g/dl (32-36); Mean Corpuscular Hemoglobin 26.7 pg (26-34); Mean Corpuscular Volume 86.2 fl (80-100); Mean Platelet Volume 11.4 fl (7.4-10.4); Platelet Count Result 252 k/mm3 (150-375); Red Blood Count 4.84 M/mm3 (4.2-5.4); Red Cell Distribution Width 16.9 % (11.5-14.5); White Blood Count 6.7 K/mm3 (4.5-10.0)
[2022-07-18 08:15] LABS: Glucose Point of Care 69 mg/dl (65-105)
[2022-07-18 08:16] LABS: Blood Urea Nitrogen 25 mg/dL (7-17); Calcium 8.5 mg/dL (8.4-10.2); Carbon Dioxide > 40 mmol/L (22-30); Chloride 96 mmol/L (98-107); Estimated CRCL calculation 47 ml/min; Estimated Glomerular Filt Rate > 60; Glucose 72 mg/dL (65-110); Potassium 3.5 mmol/L (3.4-5.0); Sodium 138 mmol/L (137-145)
[2022-07-18 09:33] VITALS: BP 100/47; PULSE 62; RESP 16; TEMP 36.3; O2SAT 99
--- NOTE | 2022-07-18 09:45 | PC.NURSE ---
call to IMU to see if IV antibiotic dose is on their unit, they will look for dose and send if it is there
[2022-07-18] MEDS: OLMESARTAN MEDOXOMIL 20 MG TABLET PO (09:52)
[2022-07-18] MEDS: glipiZIDE 5 MG TABLET PO ×2 (09:56→17:49)
[2022-07-18] MEDS: lisinopriL 20 MG TABLET 40 MG PO (09:56)
[2022-07-18] MEDS: FUROSEMIDE INJ 40 MG/4 ML VIAL 20 MG IV PUSH (09:56)
[2022-07-18] MEDS: ATORVASTATIN 40 MG TABLET PO (09:56)
[2022-07-18] MEDS: ASPIRIN 81 MG ENTERIC TABLET PO (09:56)
[2022-07-18] MEDS: POTASSIUM CHLORIDE 20 MEQ TABLET.ER PO (09:57)
[2022-07-18] MEDS: ENOXAPARIN 40 MG/0.4 ML SYRINGE SUB-Q (09:57)
[2022-07-18] MEDS: EUCERIN CREAM 120 GM JAR 1 APPLIC TOPICAL (09:57)
--- NOTE | 2022-07-18 10:35 | PM.CNCAR ---
Assessment and Plan Assessment and plan (1) Congestive heart failure: Qualifiers: Heart failure chronicity: acute on chronic Heart failure type: unspecified Qualified Code(s): I50.9 - Heart failure, unspecified Code(s): I50.9 - Heart failure, unspecified Status: Acute (2) CAD (coronary artery disease): Code(s): I25.10 - Atherosclerotic heart disease of creek coronary artery without angina pectoris Status: Acute Plan This is a 77-year-old lady known to have multivessel coronary disease who underwent surgical revascularization in 2009 and appears to have been lost to follow-up since then. She enters the hospital with a variety of complaints she does have some volume overload on exam with lower extremity edema and has been treated with some intravenous furosemide with improvement. She has a very small amount of edema now and essentially clear sounding chest. I recommend starting by transitioning her medication for optimal guideline directed medical therapy for LV systolic dysfunction. I will discontinue the furosemide at this time and replace that with spironolactone. I will discontinue her lisinopril and anticipate starting Entresto while she is in the hospital. I will start low-dose metoprolol succinate as well. At this point it is my impression we will be treating this lady in a conservative fashion in terms of invasive evaluation etc.. Before any of that could be considered or discuss she needs to be placed on appropriate medical therapy for her LV systolic dysfunction obviously she has a newly diagnosed ischemic cardiomyopathy which is clearly chronic. If the medication list is accurate she was being treated both with JUVENAL-inhibitor and ARB which is generally discouraged. Will follow this lady with you and arrange for appropriate office follow-up after this discharge Enio Ross MD [facility] History of Present Illness History of Present Illness Consult date/time: 07/18/22 10:35 Reason For Visit: chf exacerbation,left arm weakness Narrative: This is a 77-year-old woman I am seeing at the request of the hospitalist because of left ventricular systolic dysfunction noted on echocardiogram that was performed couple of days ago. The patient is unknown to me prior to this encounter. The history is very difficult since she speaks very little [place]ian. The patient according to the record was brought to the hospital several days ago for evaluation because of symptoms of generalized weakness, inability to take care of herself, lower extremity edema and difficulty moving her left arm. She was found her evaluation to have sinus rhythm left bundle branch block on her ECG. An echocardiogram was done 07/16/2022 and interpreted by my partner, Dr. Rg as showing evidence of chronic appearing left ventricular systolic dysfunction with LV enlargement and a low ejection fraction of 20-25%. As result of this we are seeing her in consultation. The patient is a very poor historian regarding the details of her previous health or of the reason that she is hospitalized now. Her principal complaint to me was that she came into the hospital because of lower extremity pain. She says that is better now and she does not have any symptoms of chest pain shortness of breath she denies any orthopnea or PND. According to the records the patient has a history of coronary artery disease and underwent a coronary angiogram at this hospital in March of 2009 which demonstrated multivessel coronary disease at that time according to records she had preserved LV systolic function and coronary bypass grafting was recommended this was performed at [facility] in March of 2009. The patient received a LAURA graft to her LAD, a saphenous vein graft to the posterolateral branch of the right coronary had a radial artery graft to the obtuse marginal branch. Reasons that I do not have available to me she was obviously lost a follow-up and katia
[2022-07-18 11:00] VITALS: BMI 23.0
[2022-07-18 11:12] LABS: Glucose Point of Care 255 mg/dl (65-105)
[2022-07-18 11:54] LABS: Glucose Point of Care 203 mg/dl (65-105)
--- NOTE | 2022-07-18 12:18 | P.DS_ITS ---
DS: Admitting Diagnosis Discharge Date 07/18/22 Admitting Diagnosis CHF exacerbation DS: Discharge Diagnosis Discharge Diagnosis (1) Cellulitis: Code(s): L03.90 - Cellulitis, unspecified Status: Acute Assessment and Plan: The patient has multiple abrasions to her lower extremity. She is diabetic. She was started on antibiotics is per antibiotic stewardship for diabetic cellulitis. * She was started on Flagyl, vancomycin, and cefepime. * Blood cultures No growth to date * White blood cell count normal * Lactic acid elevated at 2.9 and trending down * CRP elevated at 5.1. continue to trend. * Procalcitonin 0.1 (2) Congestive heart failure: Qualifiers: Heart failure chronicity: chronic Heart failure type: systolic Qualified Code(s): I50.22 - Chronic systolic (congestive) heart failure Code(s): I50.9 - Heart failure, unspecified Status: Acute Assessment and Plan: Per patient's daughter patient has history of heart disease post CABG although unsure of heart failure. Patient is not on any medications indicating congestive heart failure. * The patient has anasarca. * Abdominal ultrasound has been ordered due to elevated liver enzymes however this could just be portal hypertension. * CK normal * EKG revealing left bundle-branch block, sinus rhythm * Echocardiogram with EF of 25-30%, septal wall motion is abnormal with septal motion related to bundle branch block, grade 3 diastolic dysfunction, moderate to severe mitral valve regurg, mild tricuspid valve regurg, mild pulmonary hypertension at 44 mm Hg and left pleural effusion. * Cardiology consulted. * Continue with IV Lasix. * Dykes catheter due to her multiple sores to her legs an accurate I&O * Congestive heart failure teaching * Strict I&O * Elevated troponin although they are flat and trending down. Elevation likely due to dehydration and CHF exacerbation. Patient with left ventricular systolic dysfunction and newly diagnose ischemic cardiomyopathy that is chronic (3) Hypertension: Code(s): I10 - Essential (primary) hypertension Status: Acute Assessment and Plan: * The patient was started on lisinopril * P.r.n. hydralazine (4) Fracture of left elbow: Code(s): S42.402A - Unspecified fracture of lower end of left humerus, initial encounter for closed fracture Status: Acute Assessment and Plan: * PT OT evaluation greatly be appreciated * accounts payable payroll coordinator consult for rehab (5) Hyperlipidemia: Code(s): E78.5 - Hyperlipidemia, unspecified Status: Acute Assessment and Plan: Continue with home medications (6) Diabetes mellitus: Code(s): E11.9 - Type 2 diabetes mellitus without complications Status: Acute Assessment and Plan: * Patient started on Lantus 12 units q.h.s. and moderate sliding scale * Accu-Cheks, hypoglycemic protocol * Hemoglobin A1c 11.6 * May resume home medications DS: Summary Hospital Course Hospital Course: This is a 77-year-old female that presented to the ED on 06/24/2022 with chief complaint of bilateral lower extremity weakness and swelling. Patient is from [place] and was recently brought back to [place] due to being unable to take care of herself. Patient's daughter states that she is typically very active and is able to take care of herself, walk and talk but they got a c
--- NOTE | 2022-07-18 12:18 | PM.DS ---
DS: Admitting Diagnosis Discharge Date 07/18/22 Admitting Diagnosis CHF exacerbation DS: Discharge Diagnosis Discharge Diagnosis (1) Cellulitis: Code(s): L03.90 - Cellulitis, unspecified Status: Acute Assessment and Plan: The patient has multiple abrasions to her lower extremity. She is diabetic. She was started on antibiotics is per antibiotic stewardship for diabetic cellulitis. She was started on Flagyl, vancomycin, and cefepime. Blood cultures No growth to date White blood cell count normal Lactic acid elevated at 2.9 and trending down CRP elevated at 5.1. continue to trend. Procalcitonin 0.1 (2) Congestive heart failure: Qualifiers: Heart failure chronicity: chronic Heart failure type: systolic Qualified Code(s): I50.22 - Chronic systolic (congestive) heart failure Code(s): I50.9 - Heart failure, unspecified Status: Acute Assessment and Plan: Per patient's daughter patient has history of heart disease post CABG although unsure of heart failure. Patient is not on any medications indicating congestive heart failure. The patient has anasarca. Abdominal ultrasound has been ordered due to elevated liver enzymes however this could just be portal hypertension. CK normal EKG revealing left bundle-branch block, sinus rhythm Echocardiogram with EF of 25-30%, septal wall motion is abnormal with septal motion related to bundle branch block, grade 3 diastolic dysfunction, moderate to severe mitral valve regurg, mild tricuspid valve regurg, mild pulmonary hypertension at 44 mm Hg and left pleural effusion. Cardiology consulted. Continue with IV Lasix. Dykes catheter due to her multiple sores to her legs an accurate I&O Congestive heart failure teaching Strict I&O Elevated troponin although they are flat and trending down. Elevation likely due to dehydration and CHF exacerbation. Patient with left ventricular systolic dysfunction and newly diagnose ischemic cardiomyopathy that is chronic (3) Hypertension: Code(s): I10 - Essential (primary) hypertension Status: Acute Assessment and Plan: The patient was started on lisinopril P.r.n. hydralazine (4) Fracture of left elbow: Code(s): S42.402A - Unspecified fracture of lower end of left humerus, initial encounter for closed fracture Status: Acute Assessment and Plan: PT OT evaluation greatly be appreciated regional office coordinator consult for rehab (5) Hyperlipidemia: Code(s): E78.5 - Hyperlipidemia, unspecified Status: Acute Assessment and Plan: Continue with home medications (6) Diabetes mellitus: Code(s): E11.9 - Type 2 diabetes mellitus without complications Status: Acute Assessment and Plan: Patient started on Lantus 12 units q.h.s. and moderate sliding scale Accu-Cheks, hypoglycemic protocol Hemoglobin A1c 11.6 May resume home medications DS: Summary Hospital Course Hospital Course: This is a 77-year-old female that presented to the ED on 06/24/2022 with chief complaint of bilateral lower extremity weakness and swelling. Patient is from [place] and was recently brought back to [place] due to being unable to take care of herself. Patient's daughter states that she is typically very active and is able to take care of herself, walk and talk but they got a call from her neighbor stating that patient had been acting weird over the past couple weeks. When patient presented she had bilateral lower extremity weakness with weeping bilateral ankles and wounds. Patient has no known history of CHF. Head CT revealing small old lacunar infarcts at the bilateral basal ganglia with no acute intracranial process, age-related changes. Chest x-ray likely congestive heart failure with cardiomegaly and mild pulmonary edema. Patient had recently fallen approximately 3 weeks ago and si
[2022-07-18] MEDS: INSULIN ASPART (*BKC) 100 UNITS/ML SUB-Q ×2 (12:35→17:47)
[2022-07-18 13:23] VITALS: BP 96/54; PULSE 67; RESP 16; TEMP 36.6; O2SAT 98
--- NOTE | 2022-07-18 16:31 | P.PNIM_ITS ---
Progress Note: A&P Assessment and Plan (1) Cellulitis: Code(s): L03.90 - Cellulitis, unspecified Status: Acute Assessment and Plan: The patient has multiple abrasions to her lower extremity. She is diabetic. She was started on antibiotics is per antibiotic stewardship for diabetic cellulitis. * She was started on Flagyl, vancomycin, and cefepime and transitioned to doxy for a total of 7 days of therapy. * Blood cultures No growth to date * White blood cell count normal * Lactic acid elevated at 2.9 and trending down * CRP elevated at 5.1. continue to trend. * Procalcitonin 0.1 (2) Congestive heart failure: Qualifiers: Heart failure chronicity: chronic Heart failure type: systolic Qualified Code(s): I50.22 - Chronic systolic (congestive) heart failure Code(s): I50.9 - Heart failure, unspecified Status: Acute Assessment and Plan: Per patient's daughter patient has history of heart disease post CABG although unsure of heart failure. Patient is not on any medications indicating congestive heart failure. * The patient has anasarca. * Abdominal ultrasound has been ordered due to elevated liver enzymes however this could just be portal hypertension. * CK normal * EKG revealing left bundle-branch block, sinus rhythm * Echocardiogram with EF of 25-30%, septal wall motion is abnormal with septal motion related to bundle branch block, grade 3 diastolic dysfunction, moderate to severe mitral valve regurg, mild tricuspid valve regurg, mild pulmonary hypertension at 44 mm Hg and left pleural effusion. * Cardiology consulted. * Continue with IV Lasix. * Dykes catheter due to her multiple sores to her legs an accurate I&O * Congestive heart failure teaching * Strict I&O * Elevated troponin although they are flat and trending down. Elevation likely due to dehydration and CHF exacerbation. Patient with left ventricular systolic dysfunction and newly diagnose ischemic cardiomyopathy that is chronic (3) Hypertension: Code(s): I10 - Essential (primary) hypertension Status: Acute Assessment and Plan: * The patient was started on lisinopril * P.r.n. hydralazine (4) Fracture of left elbow: Code(s): S42.402A - Unspecified fracture of lower end of left humerus, initial encounter for closed fracture Status: Acute Assessment and Plan: * PT OT evaluation greatly be appreciated * occupational health coordinator consult for rehab (5) Hyperlipidemia: Code(s): E78.5 - Hyperlipidemia, unspecified Status: Acute Assessment and Plan: Continue with home medications (6) Diabetes mellitus: Code(s): E11.9 - Type 2 diabetes mellitus without complications Status: Acute Assessment and Plan: * Patient started on Lantus 12 units q.h.s. and moderate sliding scale * Accu-Cheks, hypoglycemic protocol * Hemoglobin A1c 11.6 * May resume home medications Subjective Date/time seen: 07/18/22 16:31 Interval history: Patient is doing well needing and working well with therapy. Patient was seen by Cardiology today and they made some medication changes. Is advised patient do follow-up with Cardiology when she is discharged. per cardiology patient was supposed to be on Entresto although has not been started yet. I imagine patient will be started on Entresto before she is discharged. Patient is not having any chest pa
--- NOTE | 2022-07-18 16:31 | PM.IMPN ---
Progress Note: A&P Assessment and Plan (1) Cellulitis: Code(s): L03.90 - Cellulitis, unspecified Status: Acute Assessment and Plan: The patient has multiple abrasions to her lower extremity. She is diabetic. She was started on antibiotics is per antibiotic stewardship for diabetic cellulitis. She was started on Flagyl, vancomycin, and cefepime and transitioned to doxy for a total of 7 days of therapy. Blood cultures No growth to date White blood cell count normal Lactic acid elevated at 2.9 and trending down CRP elevated at 5.1. continue to trend. Procalcitonin 0.1 (2) Congestive heart failure: Qualifiers: Heart failure chronicity: chronic Heart failure type: systolic Qualified Code(s): I50.22 - Chronic systolic (congestive) heart failure Code(s): I50.9 - Heart failure, unspecified Status: Acute Assessment and Plan: Per patient's daughter patient has history of heart disease post CABG although unsure of heart failure. Patient is not on any medications indicating congestive heart failure. The patient has anasarca. Abdominal ultrasound has been ordered due to elevated liver enzymes however this could just be portal hypertension. CK normal EKG revealing left bundle-branch block, sinus rhythm Echocardiogram with EF of 25-30%, septal wall motion is abnormal with septal motion related to bundle branch block, grade 3 diastolic dysfunction, moderate to severe mitral valve regurg, mild tricuspid valve regurg, mild pulmonary hypertension at 44 mm Hg and left pleural effusion. Cardiology consulted. Continue with IV Lasix. Dykes catheter due to her multiple sores to her legs an accurate I&O Congestive heart failure teaching Strict I&O Elevated troponin although they are flat and trending down. Elevation likely due to dehydration and CHF exacerbation. Patient with left ventricular systolic dysfunction and newly diagnose ischemic cardiomyopathy that is chronic (3) Hypertension: Code(s): I10 - Essential (primary) hypertension Status: Acute Assessment and Plan: The patient was started on lisinopril P.r.n. hydralazine (4) Fracture of left elbow: Code(s): S42.402A - Unspecified fracture of lower end of left humerus, initial encounter for closed fracture Status: Acute Assessment and Plan: PT OT evaluation greatly be appreciated career based intervention coordinator consult for rehab (5) Hyperlipidemia: Code(s): E78.5 - Hyperlipidemia, unspecified Status: Acute Assessment and Plan: Continue with home medications (6) Diabetes mellitus: Code(s): E11.9 - Type 2 diabetes mellitus without complications Status: Acute Assessment and Plan: Patient started on Lantus 12 units q.h.s. and moderate sliding scale Accu-Cheks, hypoglycemic protocol Hemoglobin A1c 11.6 May resume home medications Subjective Date/time seen: 07/18/22 16:31 Interval history: Patient is doing well needing and working well with therapy. Patient was seen by Cardiology today and they made some medication changes. Is advised patient do follow-up with Cardiology when she is discharged. per cardiology patient was supposed to be on Entresto although has not been started yet. I imagine patient will be started on Entresto before she is discharged. Patient is not having any chest pain or shortness of breath. She has mild lower extremity pain with ambulation but at rest she feels great. She is to be discharged home when it is time. Expect patient can be discharged tomorrow. Review of Systems Review of Systems: All systems reviewed & are unremarkable except as noted in HPI and below Exam Narrative: GENERAL: Comfortable, no acute distress HENMT: moist mucous membranes EYES: EOM intact b/l NECK: no lymphadenopathy RESPIRATORY: clear to auscultation CARDIO: RRR GI: soft,
[2022-07-18 16:52] LABS: Glucose Point of Care 248 mg/dl (65-105)
[2022-07-18] MEDS: INSULIN GLARGINE (*BKC) 100 UNITS/ML 15 UNITS SUB-Q (20:03)
[2022-07-18] MEDS: DOXYCYCLINE HYCLATE 100 MG TABLET PO (20:04)
[2022-07-18] MEDS: ESCITALOPRAM OXALATE 5 MG TABLET PO (20:04)
[2022-07-18 20:06] VITALS: BP 144/66; PULSE 69; RESP 16; TEMP 36.7; O2SAT 97
[2022-07-18 20:13] LABS: Glucose Point of Care 224 mg/dl (65-105)
[2022-07-19 06:11] LABS: Potassium 3.5 mmol/L (3.4-5.0)
[2022-07-19 08:16] LABS: Glucose Point of Care 57 mg/dl (65-105)
[2022-07-19 08:23] VITALS: BP 155/74; PULSE 67; RESP 16; TEMP 36.3; O2SAT 99
[2022-07-19 08:24] VITALS: O2SAT 99
[2022-07-19 08:42] LABS: Glucose Point of Care 77 mg/dl (65-105)
[2022-07-19] MEDS: SPIRONOLACTONE 25 MG TABLET PO (08:47)
[2022-07-19] MEDS: ENOXAPARIN 40 MG/0.4 ML SYRINGE SUB-Q (08:47)
[2022-07-19] MEDS: OLMESARTAN MEDOXOMIL 20 MG TABLET PO (08:47)
[2022-07-19] MEDS: ASPIRIN 81 MG ENTERIC TABLET PO (08:47)
[2022-07-19] MEDS: DOXYCYCLINE HYCLATE 100 MG TABLET PO (08:47)
[2022-07-19] MEDS: ATORVASTATIN 40 MG TABLET PO (08:47)
[2022-07-19] MEDS: EMPAGLIFLOZIN 10 MG TABLET PO (08:47)
--- NOTE | 2022-07-19 08:47 | PM.PNCARD ---
Progress Note: A&P Assessment and Plan (1) Congestive heart failure: Qualifiers: Heart failure chronicity: chronic Heart failure type: systolic Qualified Code(s): I50.22 - Chronic systolic (congestive) heart failure Code(s): I50.9 - Heart failure, unspecified Status: Acute Assessment and Plan: Combined systolic and diastolic heart failure. She has been transitioned to appropriate GDMT. Continue current medical regimen with Metoprolol, spironolactone, jardiance. Last JUVENAL dose yesterday a.m. - can start Entresto this evening (36 hour washout period) lasix p.r.n. - looks euvolemic today CHF counseling Outpatient follow up (2) CAD (coronary artery disease): Code(s): I25.10 - Atherosclerotic heart disease of [place] coronary artery without angina pectoris Status: Acute Assessment and Plan: History of multivessel CAD s/p CABG in 2009. Her CAD is stable at this time. Continue ASA Continue statin Continue aggressive risk factor modification for CAD Subjective Date/time seen: 07/19/22 08:47 Cardiology follow up for CMY, CHF Interval history: She states she is feeling much better today. She notes she has no pain or itching in her legs. Denies any shortness of breath. No swelling. Review of Systems Review of Systems: All systems reviewed & are unremarkable except as noted in HPI and below Exam Const: General: comfortable and no acute distress Other: Thin chronically ill-appearing lady watching television and 80 her lunch appears to be in no distress of any kind HENMT: Mouth: Yes moist mucous membranes Eyes: Sclera: sclerae normal Pupils: Equal, round and reactive pupils present Neck: Neck: supple Thyroid: thyroid normal Resp: Effort & Inspection: normal respiratory effort Auscultation: clear to auscultation bilaterally, no crackles, no rales, no rhonchi and no wheezes Cardio: Rate: regular rate Rhythm: regular rhythm Heart sounds: Murmur heart sound present systolic GI: Auscultation: normal bowel sounds Skin: General skin exam: normal color Neuro: Cranial nerves: Yes Equal, round and reactive pupils present Other: Alert and oriented Extrem: Other: Extremities are adequately perfused distal pulses are diminished. No edema. Objective Data Vital Signs Vital Signs: Vital Signs - 24 hr 07/18/22 09:33 07/18/22 13:23 07/18/22 20:06 Temperature 36.3 C L 36.6 C 36.7 C Pulse Rate 62 67 69 Respiratory Rate 16 16 16 Blood Pressure 100/47 L 96/54 L 144/66 H Pulse Oximetry 99 98 97 Oxygen Delivery 07/18/22 20:00 07/19/22 08:23 07/19/22 08:24 Temperature 36.3 C L Pulse Rate 67 Respiratory Rate 16 Blood Pressure 155/74 H Pulse Oximetry 99 99 Oxygen Delivery Room Air Room Air Intake/Output Intake/Output: Intake & Output 07/16/22 07/17/22 07/18/22 07/19/22 23:59 23:59 23:59 23:59 Intake Total 1120 1530 1760 50 Output Total 4600 1500 2550 Balance -3480 30 -790 50 Meds/Results Medications: Active Medications Generic Name Dose Route Start Last Admin Trade Name Freq PRN Reason Stop Dose Admin Acetaminophen 650 mg 07/18/22 16:37 Acetaminophen 325 Mg Tablet PO Q4H PRN Mild Pain (1-3) or Fever Aspirin 81 mg 07/15/22 09:00 07/18/22 09:56 Aspirin 81 Mg Enteric Tablet PO 81 mg QAM SONNY Administration Atorvastatin Calcium 40 mg 07/15/22 09:00 07/18/22 09:56 Atorvastatin 40 Mg Tablet PO 40 mg DAILY SONNY Administration Dextrose 12.5 gm 07/14/22 20:48 Dextrose 50% 25 Gm/50 Ml Syringe IV PUSH PRN PRN Hypoglycemia Protocol Doxycycline Hyclate 100 mg 07/18/22 21:00 07/18/22 20:04 Doxycycline Hyclate 100 Mg Tablet PO 07/21/22 23:59 100 mg Q12HR SONNY Administration Empagliflozin 10 mg 07/19/22 09:00 Empagliflozin 10 Mg Tablet PO DAILY SONNY Enoxaparin Sodium 40 mg 07/15/22 09:00 07/18/22 09:57 Enoxaparin 40 Mg
[2022-07-19] MEDS: EUCERIN CREAM 120 GM JAR 1 APPLIC TOPICAL (08:48)
[2022-07-19 08:53] VITALS: BP 151/74; PULSE 63; RESP 14; O2SAT 97
[2022-07-19 08:55] VITALS: PULSE 63
[2022-07-19] MEDS: METOPROLOL SUCCINATE EXT REL 25 MG TABCR PO (08:55)
[2022-07-19 09:14] LABS: Basophils Percent Auto 0.7 % (0.2-1.2); Eosinophils Absolute Auto 0.1 K/mm3 (0-0.3); Eosinophils Percent Auto 1.3 % (0-4.4); Hematocrit 41.2 % (37.0-47.0); Hemoglobin 12.6 g/dL (12.0-15.0); Immature Granulocyte Absolute 0.02 K/mm3 (0.00-0.031); Immature Granulocyte Percent A 0.3 % (0-0.5); Lymphocytes Absolute Auto 0.72 K/mm3 (0.9-3.2); Lymphocytes Percent Auto 12.1 % (18.3-44.2); Mean Corpuscular HGB Conc 30.6 g/dl (32-36); Mean Corpuscular Hemoglobin 26.3 pg (26-34); Mean Platelet Volume 11.8 fl (7.4-10.4); Monocytes Absolute Auto 0.8 K/mm3 (0.1-0.6); Monocytes Percent Auto 13.2 % (2.6-8.5); Neutrophils Absolute Auto 4.3 K/mm3 (1.3-6.7); Neutrophils Percent Auto 72.4 % (45.5-73.1); Platelet Count Result 249 k/mm3 (150-375); Red Blood Count 4.79 M/mm3 (4.2-5.4); Red Cell Distribution Width 16.5 % (11.5-14.5)
[2022-07-19 09:24] LABS: Alanine Aminotransferase 63 U/L (6-35); Albumin Level 2.9 g/dL (3.5-5.1); Alkaline Phosphatase 138 U/L (38-126); Anion Gap 1 mmol/L (8-16); Aspartate Amino Transferase 90 U/L (14-36); Bilirubin,Total 0.8 mg/dL (0.2-1.3); Blood Urea Nitrogen 30 mg/dL (7-17); Calcium 8.6 mg/dL (8.4-10.2); Carbon Dioxide 38 mmol/L (22-30); Chloride 97 mmol/L (98-107); Estimated CRCL calculation 47 ml/min; Estimated Glomerular Filt Rate > 60; Glucose 52 mg/dL (65-110); Magnesium 1.9 mg/dL (1.6-2.3); Potassium 3.8 mmol/L (3.4-5.0); Sodium 136 mmol/L (137-145)
--- NOTE | 2022-07-19 11:30 | P.DS_ITS ---
DS: Admitting Diagnosis Discharge Date 07/19/22 1130 Admitting Diagnosis CHF exacerbation/cellulitis DS: Discharge Diagnosis Discharge Diagnosis (1) Cellulitis: Code(s): L03.90 - Cellulitis, unspecified Status: Acute Assessment and Plan: The patient has multiple abrasions to her lower extremity.? She is diabetic.? She was started on antibiotics is per antibiotic stewardship for diabetic cellulitis. * She was started on Flagyl, vancomycin, and cefepime and transitioned to doxy for a total of 7 days of therapy. * Blood cultures No growth to date * White blood cell count normal * Lactic acid elevated at 2.9? and trending down * CRP elevated at 5.1. continue to trend. * Procalcitonin 0.1 (2) Congestive heart failure: Qualifiers: Heart failure chronicity: chronic Heart failure type: systolic Qual ified Code(s): I50.22 - Chronic systolic (congestive) heart failure Code(s): I50.9 - Heart failure, unspecified Status: Acute Assessment and Plan: Per patient's daughter patient has history of heart disease post CABG although unsure of heart failure.? Patient is not on any medications indicating congestive heart failure. * The patient has anasarca. * Abdominal ultrasound has been ordered due to elevated liver enzymes however this could just be portal hypertension. * CK normal * EKG revealing left bundle-branch block, sinus rhythm * Echocardiogram with EF of 25-30%, septal wall motion is abnormal with septal motion related to bundle branch block, grade 3 diastolic dysfunction, moderate to severe mitral valve regurg, mild tricuspid valve regurg, mild pulmonary hypertension at 44 mm Hg and left pleural effusion. * Appears to be a acute on chronic systolic and diastolic heart failure and exacerbation * Cardiology consulted. * Congestive heart failure teaching * Strict I&O * Elevated troponin although they are flat and trending down. Elevation likely due to dehydration and CHF exacerbation. ?Patient with left ventricular systolic dysfunction and newly diagnose ischemic cardiomyopathy that is chronic (3) Hypertension: Code(s): I10 - Essential (primary) hypertension Status: Acute Assessment and Plan: * The patient was started on lisinopril * P.r.n. hydralazine * Blood pressure stable at 151/74 (4) Fracture of left elbow: Code(s): S42.402A - Unspecified fracture of lower end of left humerus, initial encounter for closed fracture Status: Acute Assessment and Plan: * PT OT evaluation greatly be appreciated * fulfillment coordinator consult for rehab (5) Hyperlipidemia: Code(s): E78.5 - Hyperlipidemia, unspecified Status: Acute Assessment and Plan: Continue with home medications (6) Diabetes mellitus: Code(s): E11.9 - Type 2 diabetes mellitus without complications Status: Acute Assessment and Plan: * Patient started on Lantus 12 units q.h.s. and moderate sliding scale * Accu-Cheks, hypoglycemic protocol * Hemoglobin A1c 11.6 * May resume home medications * Glucose noted to be low this morning at 52 however recheck was 77. Patient remained asymptomatic DS: Summary Hospital Course Hospital Course: This is a 77-year-old female that presented to the ED on 06/24/2022 with chief complaint of bilateral lower extremity weakness and swelling. Patient is from [facility]
--- NOTE | 2022-07-19 11:30 | PM.DS ---
DS: Admitting Diagnosis Discharge Date 07/19/22 1130 Admitting Diagnosis CHF exacerbation/cellulitis DS: Discharge Diagnosis Discharge Diagnosis (1) Cellulitis: Code(s): L03.90 - Cellulitis, unspecified Status: Acute Assessment and Plan: The patient has multiple abrasions to her lower extremity.? She is diabetic.? She was started on antibiotics is per antibiotic stewardship for diabetic cellulitis. She was started on Flagyl, vancomycin, and cefepime and transitioned to doxy for a total of 7 days of therapy. Blood cultures No growth to date White blood cell count normal Lactic acid elevated at 2.9? and trending down CRP elevated at 5.1. continue to trend. Procalcitonin 0.1 (2) Congestive heart failure: Qualifiers: Heart failure chronicity: chronic Heart failure type: systolic Qualified Code(s): I50.22 - Chronic systolic (congestive) heart failure Code(s): I50.9 - Heart failure, unspecified Status: Acute Assessment and Plan: Per patient's daughter patient has history of heart disease post CABG although unsure of heart failure.? Patient is not on any medications indicating congestive heart failure. The patient has anasarca. Abdominal ultrasound has been ordered due to elevated liver enzymes however this could just be portal hypertension. CK normal EKG revealing left bundle-branch block, sinus rhythm Echocardiogram with EF of 25-30%, septal wall motion is abnormal with septal motion related to bundle branch block, grade 3 diastolic dysfunction, moderate to severe mitral valve regurg, mild tricuspid valve regurg, mild pulmonary hypertension at 44 mm Hg and left pleural effusion. Appears to be a acute on chronic systolic and diastolic heart failure and exacerbation Cardiology consulted. Congestive heart failure teaching Strict I&O Elevated troponin although they are flat and trending down. Elevation likely due to dehydration and CHF exacerbation. ?Patient with left ventricular systolic dysfunction and newly diagnose ischemic cardiomyopathy that is chronic (3) Hypertension: Code(s): I10 - Essential (primary) hypertension Status: Acute Assessment and Plan: The patient was started on lisinopril P.r.n. hydralazine Blood pressure stable at 151/74 (4) Fracture of left elbow: Code(s): S42.402A - Unspecified fracture of lower end of left humerus, initial encounter for closed fracture Status: Acute Assessment and Plan: PT OT evaluation greatly be appreciated field care coordinator consult for rehab (5) Hyperlipidemia: Code(s): E78.5 - Hyperlipidemia, unspecified Status: Acute Assessment and Plan: Continue with home medications (6) Diabetes mellitus: Code(s): E11.9 - Type 2 diabetes mellitus without complications Status: Acute Assessment and Plan: Patient started on Lantus 12 units q.h.s. and moderate sliding scale Accu-Cheks, hypoglycemic protocol Hemoglobin A1c 11.6 May resume home medications Glucose noted to be low this morning at 52 however recheck was 77. Patient remained asymptomatic DS: Summary Hospital Course Hospital Course: This is a 77-year-old female that presented to the ED on 06/24/2022 with chief complaint of bilateral lower extremity weakness and swelling. Patient is from [place] and was recently brought back to [place] due to being unable to take care of herself. Patient's daughter states that she is typically very active and is able to take care of herself, walk and talk but they got a call from her neighbor stating that patient had been acting weird over the past couple weeks. When patient presented she had bilateral lower extremity weakness with weeping bilateral ankles and wounds. Patient has no known history of CHF. Head CT revealing small old lacunar infarcts at the bilateral basal ganglia with no acute
[2022-07-19 12:12] LABS: Glucose Point of Care 192 mg/dl (65-105)
[2022-07-19 14:36] VITALS: BP 125/71; PULSE 64; RESP 17; TEMP 36.3; O2SAT 100
== END 2022-07-19 16:40 | disposition home or self-care (01) | DRG 602 ==
LOC: ANHED 15:29 → ANHIMU 20:06 → ANH2MED 07-18 12:43 → ANHIMU 07-20 12:05
PROVIDERS: Emergency Medicine; Internal Medicine Critical Care Medicine; Nurse Practitioner; Admitting Provider Family Medicine; Emergency Provider General Practice; Visit Provider Nurse Practitioner
DX: L03.115 Cellulitis of right lower limb (principal); I50.43 Acute on chronic combined systolic (congestive) and diastolic (congestive) heart failure; I43 Cardiomyopathy in diseases classified elsewhere; S52.022K Displaced fracture of olecranon process without intraarticular extension of left ulna, subsequent encounter for closed fracture with nonunion; L03.116 Cellulitis of left lower limb; E11.628 Type 2 diabetes mellitus with other skin complications; E11.65 Type 2 diabetes mellitus with hyperglycemia; E86.0 Dehydration; E78.5 Hyperlipidemia, unspecified; I25.10 Atherosclerotic heart disease of native coronary artery without angina pectoris; I27.20 Pulmonary hypertension, unspecified; I08.1 Rheumatic disorders of both mitral and tricuspid valves; I11.0 Hypertensive heart disease with heart failure; R79.89 Other specified abnormal findings of blood chemistry; W19.XXXD Unspecified fall, subsequent encounter; Z86.73 Personal history of transient ischemic attack (TIA), and cerebral infarction without residual deficits; Z95.1 Presence of aortocoronary bypass graft; Z79.84 Long term (current) use of oral hypoglycemic drugs
CPT/HCPCS: 36415; 70450; 70553; 71045; 73070; 76705; 80048; 80053; 80074; 80202; 81001; 82550; 82948; 83036; 83605; 83735; 83880; 84100; 84132; 84145; 84443; 84484; 85025; 85027; 85610; 85730; 86140; 87040; 92523; 93005; 93306; 93922; 96365; 97110; 97161; 97165; 97530; 97535; 99285; A9270; A9577; J0692; J1650; J1815; J1940; J3370; J3475; J7040

== ENCOUNTER 2022-08-30 13:44 | Observation (INO) | payer OTHER, MEDICAID, SELFPAY ==
[2022-08-30] VITALS (30 sets, daily range): BP systolic 140–158; BP diastolic 68–100; PULSE 60–88; RESP 13–20; TEMP 36.4; O2SAT 90–100; BMI 21.0
--- NOTE | ~2022-08-30 | XR_ITS ---
XR chest 2V 08/30/2022 14:25 Indication: Shortness of breath. Procedure: AP and lateral views of the chest Comparison: 07/14/2022 Findings: Cardiomegaly. Mild interstitial edema. Status post median sternotomy for CABG. No pleural e ffusion or pneumothorax. No acute osseous abnormality. There is a chronic superior endplate compressi on fracture of the upper lumbar spine. There are degenerative changes of the right shoulder with loos e bodies inferior to the joint space. Impression: 1: Cardiomegaly with mild interstitial edema. Reviewed, dictated and finalized at location L. Impression: 1: Cardiomegaly with mild interstitial edema.
--- NOTE | ~2022-08-30 | CT_ITS ---
EXAMINATION: CT abdomen pelvis w con DATE: 08/31/2022 14:48 INDICATION: Abnormal liver function tests. TECHNIQUE: Computed tomography (CT) of the abdomen and pelvis was performed with 100 mL Omnipaque 350 intravenous contrast. Automated exposure control and iterative reconstruction technique were employe d. The dose-length product was 347.49 mGy-cm. COMPARISON: Chest CT 08/30/2022, chest two views 08/29/22, chest single view 07/14/22. FINDINGS: The visualized portions of the lung bases demonstrate small pleural effusions and mild depe ndent atelectasis. There is smooth septal thickening, consistent with mild pulmonary edema. Cardiomeg nellie is noted. There are coronary artery calcifications. No pericardial effusion. Median sternotomy wi res are noted. The liver is normal. There is contrast in the gallbladder. Gallbladder wall thickening is likely secondary to interstitial edema. The spleen, pancreas, and adrenal glands are normal. Ther e is cortical thinning of the kidneys. Body wall edema is noted. There is trace pelvic ascites. There is diverticulosis of the colon without evidence of diverticulitis. There are changes of appendectomy . There are no dilated loops of bowel. There are no pathologically enlarged lymph nodes. There is gricelda cified atherosclerosis of the aorta and many of the other arteries. There is moderate stenosis of yannick iac axis. There is a subacute burst fracture of L1 with 2/5 loss of height, new or worsened from 07/14. There is mild thoracic spondylosis and severe lumbar spondylosis. IMPRESSION: 1. Anasarca including mild pulmonary edema and small pleural effusions. 2. Subacute burst fracture of L1, new or worsened from 07/14/2022. Reviewed, dictated and finalized at location A.
--- NOTE | ~2022-08-30 | CT_ITS ---
EXAMINATION: CTA chest PE protocol DATE: 08/30/2022 18:29 INDICATION: +dimer, CP, SOB TECHNIQUE: Computed tomography angiography (CTA) of the chest was performed with 100 mL Omnipaque-350 intravenous contrast timed to evaluate the pulmonary arteries. Coronal maximum intensity projection 3D-reconstructions were created by the technologist. The dose-length product (DLP) was 199.26 mGy-cm. Automated exposure control and iterative reconstruction technique were employed. COMPARISON: X-ray chest, same date. FINDINGS: Lung parenchyma and airways: Scattered groundglass opacities in a somewhat mosaic distribution, with interlobular septal thickening. Pleura: Small volume bilateral pleural fluid collections. Thoracic inlet, axillae and chest wall: Unremarkable. Thoracic aorta: Ascending arch ectasia. Moderate aortic calcification. Mediastinum: Dilated central pulmonary arteries as can be seen with pulmonary arterial hypertension. Heart and pericardium: Cardiomegaly. Contrast is limited to the right side of the heart. Coronary artery calcifications: Moderate. Upper abdomen: Hepatic vein contrast reflux. Moderate anterior wedge deformity at L1, with vertebral body sclerosis. Bones: No acute osseous finding. Pulmonary arteries: Study quality: Adequate. No pulmonary emboli detected. IMPRESSION: No CT evidence of acute pulmonary embolus. Mild pulmonary edema. Small bilateral pleural effusions. E vidence of right heart strain/failure and decreased cardiac output. Moderate anterior wedge compressi on fracture at L1, presumably chronic unless accompanied by acute pain/tenderness, possibly pathologi c given associated sclerosis, correlate with history of malignancy. Reviewed, dictated and finalized at location K. IMPRESSION: No CT evidence of acute pulmonary embolus. Mild pulmonary edema. Small bilatera l pleural effusions. Evidence of right heart strain/failure and decreased cardi ac output. Moderate anterior wedge compression fracture at L1, presumably chron ic unless accompanied by acute pain/tenderness, possibly pathologic given assoc iated sclerosis, correlate with history of malignancy.
--- NOTE | 2022-08-30 13:50 | ECG_ITS ---
Measurements Intervals [place] Rate: 63 P: 20 [place]: 160 QRS: -28 QRSD: 172 T: 143 QT: 530 QTc: 546 Interpretive Statements SINUS RHYTHM LEFT BUNDLE BRANCH BLOCK [120+ ms QRS DURATION, 80+ ms Q/S IN V1/V2, 85+ ms R IN I/aVL/V5/V6] COMPARED TO ECG 07/14/2022 14:16:01 NO SIGNIFICANT CHANGES Electronically Signed On 08-30-2022 14:07:28 CDT by Genny Mendosa M.D.
[2022-08-30 14:20] LABS: Basophils Absolute Auto 0.1 K/mm3 (0.0-0.1); Basophils Percent Auto 0.9 % (0.2-1.2); Eosinophils Absolute Auto 0.1 K/mm3 (0-0.3); Eosinophils Percent Auto 1.7 % (0-4.4); Hematocrit 36.6 % (37.0-47.0); Hemoglobin 10.9 g/dL (12.0-15.0); Immature Granulocyte Absolute 0.01 K/mm3 (0.00-0.031); Immature Granulocyte Percent A 0.2 % (0-0.5); Lymphocytes Absolute Auto 0.72 K/mm3 (0.9-3.2); Lymphocytes Percent Auto 12.4 % (18.3-44.2); Mean Corpuscular HGB Conc 29.8 g/dl (32-36); Mean Corpuscular Hemoglobin 26.3 pg (26-34); Mean Corpuscular Volume 88.2 fl (80-100); Monocytes Absolute Auto 0.6 K/mm3 (0.1-0.6); Monocytes Percent Auto 9.5 % (2.6-8.5); Neutrophils Absolute Auto 4.4 K/mm3 (1.3-6.7); Neutrophils Percent Auto 75.3 % (45.5-73.1); Nucleated Red Blood Cells Perc 0.5 % (0.0-0.2); Platelet Count Result 247 k/mm3 (150-375); Red Blood Count 4.15 M/mm3 (4.2-5.4); Red Cell Distribution Width 17.8 % (11.5-14.5); White Blood Count 5.8 K/mm3 (4.5-10.0)
[2022-08-30 14:31] LABS: Alanine Aminotransferase 81 U/L (6-35); Albumin Level 3.6 g/dL (3.5-5.1); Alkaline Phosphatase 193 U/L (38-126); Anion Gap 7 mmol/L (8-16); Aspartate Amino Transferase 69 U/L (14-36); Bilirubin,Total 1.4 mg/dL (0.2-1.3); Blood Urea Nitrogen 35 mg/dL (7-17); Calcium 8.6 mg/dL (8.4-10.2); Carbon Dioxide 22 mmol/L (22-30); Chloride 111 mmol/L (98-107); Estimated Glomerular Filt Rate > 60; Glucose 264 mg/dL (65-110); Potassium 4.4 mmol/L (3.4-5.0); Sodium 140 mmol/L (137-145)
--- NOTE | 2022-08-30 16:06 | ED.SOB ---
HPI - SOB/Dyspnea General Chief Complaint: Shortness of Breath/Dyspnea <ANGEL Rubin Last Filed: 08/30/22 20:54> Stated Complaint: difficulty breathing <ANGEL Rubin Last Filed: 08/30/22 20:54> Time Seen by Provider: 08/30/22 15:33 <ANGEL Rubin Last Filed: 08/30/22 20:54> Source: patient and family <ANGEL Rubin Last Filed: 08/30/22 20:54> Mode of arrival: ambulatory <ANGEL Rubin Last Filed: 08/30/22 20:54> Limitations: language barrier <ANGEL Rubin Last Filed: 08/30/22 20:54> History of Present Illness HPI Narrative: Patient is a 77-year-old female, with PMH CHF, DM, hypertension, CAD s/p CABG, who presents to the ED with report of nausea/vomiting and shortness of breath. Patient is primarily Nauruan-speaking. Daughter at bedside assisted in providing information. Patient developed nausea and vomiting this morning and had multiple episodes of emesis. She also developed shortness of breath, worse with exertion. Daughter reports patient became easily winded with even walking to and from the bathroom. Daughter states she noticed some shortness of breath yesterday as well, but this became worse today. Patient also reported having midsternal chest pain associated with the shortness of breath and vomiting this morning. She denies any current nausea, shortness of breath, chest pain. She denies abdominal pain, fevers, cough, lower extremity pain or swelling. Daughter reports patient was recently admitted here for congestive heart failure and did have marked lower extremity edema at that time. <ANGEL Rubin Last Filed: 08/30/22 20:54> Related Data Home Medications: Home Medications Medication Instructions Recorded Confirmed atorvastatin 40 mg tablet 40 mg PO DAILY 07/14/22 08/30/22 escitalopram oxalate 5 mg tablet 5 mg PO HS 07/14/22 08/30/22 <ANGEL Rubin Last Filed: 08/30/22 20:54> Allergies/Adverse Reactions: Allergies Allergy/AdvReac Type Severity Reaction Status Date / Time No Known Allergies Allergy Verified 07/14/22 21:08 <Alee Cantrell PA-C - Last Filed: 08/30/22 20:54> Review of Systems Review of Systems: CONSTITUTIONAL: Denies fever, chills, or sweats. ENT: Denies rhinorrhea, congestion, sore throat. CARDIOVASCULAR: See HPI. RESPIRATORY: See HPI. GASTROINTESTINAL: See HPI. GENITOURINARY: Denies dysuria or hematuria. SKIN: Denies rash or itching. MUSCULOSKELETAL: Denies back pain, joint pain, or myalgia. NEUROLOGIC: Denies headache, numbness, or weakness. <Alee Cantrell PA-C - Last Filed: 08/30/22 20:54> All systems reviewed & are unremarkable except as noted in HPI and below <Alee Cantrell PA-C - Last Filed: 08/30/22 20:54> [facility] Past Medical History Medical History: Medical History CAD (coronary artery disease) Congestive heart failure Diabetes mellitus Fracture of left elbow Hyperlipidemia Hypertension <Alee Cantrell PA-C - Last Filed: 08/30/22 20:54> Surgical History Surgical History: Surgical History Hx of CABG <Alee Cantrell PA-C - Last Filed: 08/30/22 20:54> Family History Family History: Family History Unknown Adopted <Alee Cantrell PA-C - Last Filed: 08/30/22 20:54> Social History Social History: Social History Social History: The patient is and has 2 children. 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 Up until 4 days ago she was living in a senior citizen apartment complex. Her daughter is the durable power state's attorney for healthcare. Code status full code S
[2022-08-30 16:22] LABS: Schistocytes None Seen (NORMAL)
[2022-08-30 16:26] LABS: INR 1.4; Prothrombin Time 17.7 Seconds (11.1-14.7)
[2022-08-30 16:27] LABS: Partial Thromboplastin Time 27.4 SECONDS (22.3-36.8)
[2022-08-30 16:33] LABS: Hypochromasia 1+ (NORMAL); Ovalocytes 1+ (NORMAL); Platelet Estimate Adequate (Adequate)
[2022-08-30 16:38] LABS: NT Pro B Type Natriuretic Pept 20000 pg/mL (19.9-100); Troponin I < 0.012 ng/mL (0.000-0.034)
[2022-08-30 16:55] LABS: D Dimer 3.38 ug/mL (<0.48)
[2022-08-30 19:55] LABS: Troponin I < 0.012 ng/mL (0.000-0.034)
[2022-08-30 21:21] LABS: Creatine Kinase 67 U/L (30-135)
[2022-08-30 21:34] LABS: Troponin I 0.014 ng/mL (0.000-0.034)
[2022-08-30] MEDS: FUROSEMIDE INJ 40 MG/4 ML VIAL IV PUSH (21:57)
--- NOTE | 2022-08-30 22:39 | ADMGEN ---
This patient, Oksana Wheeler, was admitted to IMU Room 209-01. Patient/family oriented to hospital policies and general routines including ID bracelet, bed and alarms, visiting hours, pain management, procedures, bathroom and other care routines, personal items, smoking policy, room service/diet, and visiting hours. Information on how to activate the Rapid Response Team has been discussed. Patient/Family are encouraged to report perceived risks to care and to ask questions if they do not understand what they are told or what they should do.
--- NOTE | 2022-08-30 23:32 | PM.IMHP ---
H&P: HPI History of Present Illness Date/Time: 08/30/22 23:32 Chief Complaint: Chest pain Narrative: This is a 77-year-old female with past medical history significant for heart failure ejection fraction calculated to be between 25% to 30%, recent admission and discharge from [facility] treated for congestive heart failure exacerbation patient discharged home comes back today with daughter due to retrosternal chest pain, nonradiating, shortness of breath mainly at exertion. Patient denies any dizziness, lightheadedness, syncope, near syncope, no palpitations, no nausea, no vomiting, no abdominal pain, no fevers ,no rigors ,no chills. Preliminary workup was significant for brain natriuretic peptide of 20,000, elevated D-dimer, troponin x3 was undetectable. CT PE protocol was reported as: EXAMINATION: CTA chest PE protocol DATE: 08/30/2022 18:29 INDICATION: +dimer, CP, SOB TECHNIQUE: Computed tomography angiography (CTA) of the chest was performed with 100 mL Omnipaque-350 intravenous contrast timed to evaluate the pulmonary arteries. Coronal maximum intensity projection 3D-reconstructions were created by the technologist. The dose-length product (DLP) was 199.26 mGy-cm. Automated exposure control and iterative reconstruction technique were employed. COMPARISON: X-ray chest, same date. ? FINDINGS:? Lung parenchyma and airways: Scattered groundglass opacities in a somewhat mosaic distribution, with interlobular septal thickening. Pleura: Small volume bilateral pleural fluid collections. Thoracic inlet, axillae and chest wall: Unremarkable. Thoracic aorta: Ascending arch ectasia. Moderate aortic calcification. Mediastinum: Dilated central pulmonary arteries as can be seen with pulmonary arterial hypertension. Heart and pericardium: Cardiomegaly. Contrast is limited to the right side of the heart. Coronary artery calcifications: Moderate. Upper abdomen: Hepatic vein contrast reflux. Moderate anterior wedge deformity at L1, with vertebral body sclerosis. Bones: No acute osseous finding. Pulmonary arteries: Study quality: Adequate. No pulmonary emboli detected. IMPRESSION: No CT evidence of acute pulmonary embolus. Mild pulmonary edema. Small bilateral pleural effusions. Evidence of right heart strain/failure and decreased cardiac output. Moderate anterior wedge compression fracture at L1, presumably chronic unless accompanied by acute pain/tenderness, possibly pathologic given associated sclerosis, correlate with history of malignancy. A chest x-ray was reported as: XR chest 2V 08/30/2022 14:25 Indication: Shortness of breath. Procedure: AP and lateral views of the chest Comparison: 07/14/2022 Findings: Cardiomegaly. Mild interstitial edema. Status post median sternotomy for CABG. No pleural effusion or pneumothorax. No acute osseous abnormality. There is a chronic superior endplate compression fracture of the upper lumbar spine. There are degenerative changes of the right shoulder with loose bodies inferior to the joint space. Impression: 1: Cardiomegaly with mild interstitial edema. EKG Rate 63 VT 160 QRSd 172 QT 530 QTc 546 --[place]-- P 20 QRS -28 T 143 SINUS RHYTHM LEFT BUNDLE BRANCH BLOCK [120+ ms QRS DURATION, 80+ ms Q/S IN V1/V2, 85+ ms R IN I/aVL/V5/V6] COMPARED TO ECG 07/14/2022 14:16:01 NO SIGNIFICANT CHANGES Electronically Signed On 08-30-2022 14:07:28 CDT by Genny Mendosa M.D. Review of Systems Review of Systems: Shortness of breath, retrosternal chest pain Constitutional: Constitutional: Denies chills, Denies fatigue, Denies fever(s), Denies malaise and Denies night sweats Comments: Decreased stamina Eyes: Eyes: Denies change in vision ENT: Denies dysphagia and Denies odynophagia Cardiovascular: Cardiovascular: Reports chest pain, Denies edema, Denies lightheadedness, Denies radiating jaw, neck or arm pain, Denies palpitations, Reports dyspnea and Reports orthopnea Respiratory
[2022-08-31] VITALS (10 sets, daily range): BP systolic 131–168; BP diastolic 68–92; PULSE 56–76; RESP 14–20; TEMP 35.6–36.4; O2SAT 95–100
[2022-08-31] MEDS: SACUBITRIL/VALSARTAN 24-26 MG TABLET 1 TAB PO ×3 (01:20→20:41)
[2022-08-31] MEDS: ESCITALOPRAM OXALATE 5 MG TABLET PO ×2 (01:21→20:41)
[2022-08-31] MEDS: ATORVASTATIN 40 MG TABLET PO (08:36)
[2022-08-31] MEDS: FUROSEMIDE INJ 40 MG/4 ML VIAL 20 MG IV PUSH (08:36)
[2022-08-31] MEDS: SPIRONOLACTONE 25 MG TABLET PO (08:36)
[2022-08-31] MEDS: METOPROLOL SUCCINATE EXT REL 25 MG TABCR PO (08:36)
[2022-08-31] MEDS: ASPIRIN 81 MG ENTERIC TABLET PO (08:36)
--- NOTE | 2022-08-31 09:04 | P.PNIM_ITS ---
Progress Note: A&P Assessment and Plan (1) Acute on chronic systolic CHF (congestive heart failure), NYHA class 4: Code(s): I50.23 - Acute on chronic systolic (congestive) heart failure Status: Acute Assessment and Plan: Patient presented to the ED with complaints of chest pain and dyspnea on exertion. * 07/16/2022 transthoracic echocardiogram showed chronic combined systolic and diastolic heart failure with EF 25-30% moderate to severe mitral regurgitation, tricuspid regurgitation and mild pulmonary hypertension. * ED workup showed BNP 61501, and increased from prior admission * Chest x-ray and CTA chest showed cardiomegaly and mild interstitial edema * Patient was treated with Lasix 40 mg IV x1 in the ED and initiated on IV 20 mg b.i.d. upon admission * Continue daily weights, strict I's and O's. 08/31 patient appears to be-1.4 L since admission and weight 54 kg improved from prior admission * Cardiology consulted and appreciate recommendations-no further diuresis was recommended patient is on optimal goal directed medical therapy at this time * Continue Entresto, spironolactone, metoprolol, and Jardiance at home doses * Monitor BMP daily while on diuretic therapy (2) Compression fracture of L1 lumbar vertebra: Qualifiers: Encounter type: initial encounter Qualified Code(s): S32.010A - Wedge compression fracture of first lumbar vertebra, initial encounter for closed fracture Code(s): S32.010A - Wedge compression fracture of first lumbar vertebra, initial encounter for closed fracture Status: Acute Assessment and Plan: Noted on imaging. Pathologic fracture cannot be ruled out. * No known h/o malignancy. * Her daughter reports she has had multiple falls. * No c/o back pain. * CT abd/pelvis with subacute fracture. (3) Transaminitis: Code(s): R74.01 - Elevation of levels of liver transaminase levels Status: Acute Assessment and Plan: On admission T bili 1.4, AST 69, ALT 81, alk-phos 193. * Prior ultrasound with no sonographic evidence of the liver or gallbladder disease * CT abdomen and pelvis obtained no liver disease but does show some anasarca and mild pulmonary edema. May be secondary to hepatic congestion * L1 compression fracture might be contributing to elevated alk phos (4) Pulmonary hypertension: Code(s): I27.20 - Pulmonary hypertension, unspecified Status: Chronic Assessment and Plan: Chronic, no oxygen needs at this time. (5) Diabetes mellitus: Qualifiers: Diabetes mellitus complication status: with hyperglycemia Diabetes mellitus terminal makeup operator insulin use: without terminal makeup operator use Diabetes mellitus type: type 2 Qualified Code(s): E11.65 - Type 2 diabetes mellitus with hyperglycemia Code(s): E11.9 - Type 2 diabetes mellitus without complications Status: Chronic Assessment and Plan: Chronic, A1c 11% on prior admission. * Continue Jardiance. * Accu-checks AC/HS with moderate aspart sliding scale and hypoglycemic protocol * She does not appear to be on any other diabetes medications. Adjust medications based on glucose levels. (6) Hypertension: Qualifiers: Hypertension type: primary hypertension Qualified Code(s): I10 - Essential (primary) hypertension Code(s): I10 - Essential (primary) hypertension Status: Chronic Assessment and Plan: Chronic, monitor vitals. Continue Entresto, spironolactone, and metoprolol at home doses. (7) Ischemic cardiomyopathy: Code(s): I25.5 - Ischemi
--- NOTE | 2022-08-31 09:04 | PM.IMPN ---
Progress Note: A&P Assessment and Plan (1) Acute on chronic systolic CHF (congestive heart failure), NYHA class 4: Code(s): I50.23 - Acute on chronic systolic (congestive) heart failure Status: Acute Assessment and Plan: Patient presented to the ED with complaints of chest pain and dyspnea on exertion. 07/16/2022 transthoracic echocardiogram showed chronic combined systolic and diastolic heart failure with EF 25-30% moderate to severe mitral regurgitation, tricuspid regurgitation and mild pulmonary hypertension. ED workup showed BNP 39957, and increased from prior admission Chest x-ray and CTA chest showed cardiomegaly and mild interstitial edema Patient was treated with Lasix 40 mg IV x1 in the ED and initiated on IV 20 mg b.i.d. upon admission Continue daily weights, strict I's and O's. 08/31 patient appears to be-1.4 L since admission and weight 54 kg improved from prior admission Cardiology consulted and appreciate recommendations-no further diuresis was recommended patient is on optimal goal directed medical therapy at this time Continue Entresto, spironolactone, metoprolol, and Jardiance at home doses Monitor BMP daily while on diuretic therapy (2) Compression fracture of L1 lumbar vertebra: Qualifiers: Encounter type: initial encounter Qualified Code(s): S32.010A - Wedge compression fracture of first lumbar vertebra, initial encounter for closed fracture Code(s): S32.010A - Wedge compression fracture of first lumbar vertebra, initial encounter for closed fracture Status: Acute Assessment and Plan: Noted on imaging. Pathologic fracture cannot be ruled out. No known h/o malignancy. Her daughter reports she has had multiple falls. No c/o back pain. CT abd/pelvis with subacute fracture. (3) Transaminitis: Code(s): R74.01 - Elevation of levels of liver transaminase levels Status: Acute Assessment and Plan: On admission T bili 1.4, AST 69, ALT 81, alk-phos 193. Prior ultrasound with no sonographic evidence of the liver or gallbladder disease CT abdomen and pelvis obtained no liver disease but does show some anasarca and mild pulmonary edema. May be secondary to hepatic congestion L1 compression fracture might be contributing to elevated alk phos (4) Pulmonary hypertension: Code(s): I27.20 - Pulmonary hypertension, unspecified Status: Chronic Assessment and Plan: Chronic, no oxygen needs at this time. (5) Diabetes mellitus: Qualifiers: Diabetes mellitus complication status: with hyperglycemia Diabetes mellitus usp insulin use: without laborer marine terminal use Diabetes mellitus type: type 2 Qualified Code(s): E11.65 - Type 2 diabetes mellitus with hyperglycemia Code(s): E11.9 - Type 2 diabetes mellitus without complications Status: Chronic Assessment and Plan: Chronic, A1c 11% on prior admission. Continue Jardiance. Accu-checks AC/HS with moderate aspart sliding scale and hypoglycemic protocol She does not appear to be on any other diabetes medications. Adjust medications based on glucose levels. (6) Hypertension: Qualifiers: Hypertension type: primary hypertension Qualified Code(s): I10 - Essential (primary) hypertension Code(s): I10 - Essential (primary) hypertension Status: Chronic Assessment and Plan: Chronic, monitor vitals. Continue Entresto, spironolactone, and metoprolol at home doses. (7) Ischemic cardiomyopathy: Code(s): I25.5 - Ischemic cardiomyopathy Status: Chronic Assessment and Plan: Chronic, continue aspirin, lipitor and beta-star. Plan CODE STATUS: FULL CODE Discharge disposition: from home. Discharge home if stable tomorrow. Time Spent With Patient Time with patient: 25 - 35 minutes Subjective Date/time seen: 08/31/22 09:04 Interval history: Patient primarily Grenadian-spea
[2022-08-31 10:20] LABS: Alanine Aminotransferase 89 U/L (6-35); Albumin Level 3.5 g/dL (3.5-5.1); Alkaline Phosphatase 183 U/L (38-126); Anion Gap 8 mmol/L (8-16); Aspartate Amino Transferase 71 U/L (14-36); Bilirubin,Total 1.5 mg/dL (0.2-1.3); Blood Urea Nitrogen 36 mg/dL (7-17); Calcium 8.7 mg/dL (8.4-10.2); Carbon Dioxide 26 mmol/L (22-30); Chloride 108 mmol/L (98-107); Estimated CRCL calculation 37 ml/min; Estimated Glomerular Filt Rate > 60; Glucose 202 mg/dL (65-110); Potassium 3.7 mmol/L (3.4-5.0); Sodium 142 mmol/L (137-145)
--- NOTE | 2022-08-31 10:40 | PM.CNCAR ---
Assessment and Plan Assessment and plan (1) Ischemic cardiomyopathy: Code(s): I25.5 - Ischemic cardiomyopathy Status: Acute Plan This is a 77-year-old lady who is known to have multivessel coronary disease and a significant ischemic myopathy. Recent admission here with decompensated heart failure seems to be well compensated at this time. She entered the hospital emergency room yesterday with some nausea also reporting some symptoms of exertional shortness of breath. She does have a low cardiac output and very large ventricle and so I would not be surprised if exertional shortness of breath continues to be part of her symptoms. She does not appear at this time to be in a state of decompensated heart failure appears to be essentially euvolemic. She has very small pleural effusions on chest x-ray but comparison to the x-ray from the recent admission to things look much better in my opinion. I do not believe I would recommend adding more diuretics to her regimen at this time as objectively she is quite stable. Appropriate follow-up in our office is already scheduled for this. He is on appropriate guideline directed medical regimen for her ischemic cardiomyopathy. Enio Ross MD [facility] History of Present Illness History of Present Illness Consult date/time: 08/31/22 10:40 Reason For Visit: CHF Exacerbation,R Heart Strain,Pleural Effusions Narrative: This is a 77-year-old woman with coronary artery disease and a well-delineated history of ischemic cardiomyopathy was being seen at the request of the hospitalist today for the stated reason of CHF exacerbation. She is a somewhat difficult historian since she speaks little Mauritian but apparently was brought to the hospital yesterday because of symptoms of some shortness of breath and some nausea that were occurring at home. The patient appears to be comfortable at this time she denies any difficulty breathing at this time nor does she have any she symptoms of chest pain. She appears to be resting comfortably flat in bed breathing room air when I came in to see her. She has a history of coronary artery disease dating back to 2009 at which time she underwent catheterization at this hospital demonstrating multivessel disease and a prompting referral over at [facility] for surgical myocardial revascularization. These details are dictated in my consult note from 1 month ago. In any event she was lost to follow-up in the intervening years and came into the hospital here I just over a month ago with shortness of breath obvious volume overload decompensated heart failure. She had an echocardiogram at that time demonstrating a low ejection fraction significant mitral regurgitation and secondary pulmonary hypertension to a moderate extent. She was started on standard medical regimen for this including aspirin, atorvastatin, metoprolol succinate, Entresto, spironolactone and Jardiance. She stabilized she became euvolemic and was discharged to home. She was seen in our office for follow-up 1 1 occasion since the discharge and was compensated at that time. She offers no other complaints at this time. Troponins were sampled yesterday upon a recurrent admission to the hospital and they are negative. Her electrocardiogram shows sinus rhythm with a left bundle branch block is unchanged from a tracing from the recent admission. In this setting I am seeing her in consultation. Review of Systems Constitutional: Constitutional: Reports lethargy Eyes: Eyes: Reports no additional eye complaints ENT: Reports system reviewed and no additional complaints, except as documented Cardiovascular: Cardiovascular: Reports as per HPI Respiratory: Respiratory: Reports dyspnea on exertion Gastrointestinal: Gastrointestinal: Reports as per HPI and Reports nausea Musculoskeletal: Musculoskeletal: Reports no additional musculoskeletal complaints Integumentary/Breasts: Skin/Breast: Rep
[2022-08-31] MEDS: ENOXAPARIN 40 MG/0.4 ML SYRINGE SUB-Q (10:48)
--- NOTE | 2022-08-31 10:55 | PCCARD ---
Verbal cancellation of echocardiogram given by Manager Hris , .
[2022-08-31 12:26] LABS: Glucose Point of Care 218 mg/dl (65-105)
[2022-08-31] MEDS: INSULIN ASPART (*BKC) 100 UNITS/ML SUB-Q ×2 (12:27→20:41)
[2022-08-31 16:43] LABS: Glucose Point of Care 82 mg/dl (65-105)
--- NOTE | 2022-08-31 17:13 | PC.NURSE ---
This patient, Oksana Wheeler, was transferred to [[id number] ] on 08/31/22 at 1713. Personal belongings sent with patient. Report given to [VIVEK Kruse @ [phone] ]. Appropriate documentation sent with patient.
--- NOTE | 2022-08-31 17:35 | PCDIET ---
This patient, Oksana Wheeler, was received from [facility] on 08/31/22 at 1725. Patient/family oriented to unit policies and routines.
[2022-08-31 21:12] LABS: Glucose Point of Care 223 mg/dl (65-105)
[2022-09-01] VITALS: BP 151/73; PULSE 63; RESP 14; TEMP 36.4; O2SAT 96
[2022-09-01 06:00] VITALS: BP 173/88; PULSE 66; RESP 14; TEMP 36.5; O2SAT 94
[2022-09-01 07:31] LABS: Anion Gap 10 mmol/L (8-16); Blood Urea Nitrogen 36 mg/dL (7-17); Calcium 8.5 mg/dL (8.4-10.2); Carbon Dioxide 22 mmol/L (22-30); Chloride 109 mmol/L (98-107); Estimated CRCL calculation 37 ml/min; Estimated Glomerular Filt Rate > 60; Glucose 273 mg/dL (65-110); Lactate Dehydrogenase 400 U/L (120-246); Potassium 3.8 mmol/L (3.4-5.0); Sodium 141 mmol/L (137-145)
[2022-09-01 08:00] VITALS: PULSE 80; RESP 14; O2SAT 94
[2022-09-01 08:01] LABS: Glucose Point of Care 260 mg/dl (65-105)
[2022-09-01 08:36] VITALS: PULSE 80
[2022-09-01] MEDS: EMPAGLIFLOZIN 10 MG TABLET PO (08:36)
[2022-09-01] MEDS: SACUBITRIL/VALSARTAN 24-26 MG TABLET 1 TAB PO (08:36)
[2022-09-01] MEDS: ATORVASTATIN 40 MG TABLET PO (08:36)
[2022-09-01] MEDS: METOPROLOL SUCCINATE EXT REL 25 MG TABCR PO (08:36)
[2022-09-01] MEDS: SPIRONOLACTONE 25 MG TABLET PO (08:36)
[2022-09-01] MEDS: ENOXAPARIN 40 MG/0.4 ML SYRINGE SUB-Q (08:36)
[2022-09-01] MEDS: ASPIRIN 81 MG ENTERIC TABLET PO (08:36)
[2022-09-01] MEDS: INSULIN ASPART (*BKC) 100 UNITS/ML SUB-Q ×2 (08:37→12:14)
--- NOTE | 2022-09-01 09:42 | PM.PNCARD ---
Progress Note: A&P Assessment and Plan (1) Ischemic cardiomyopathy: Code(s): I25.5 - Ischemic cardiomyopathy Status: Chronic Assessment and Plan: : Feels okay with any chest pain or shortness of breath. Continue metoprolol, Entresto, spironolactone. Blood pressure is elevated today and there is room for up titration of medical regimen which can be performed as an outpatient. (2) CAD (coronary artery disease): Code(s): I25.10 - Atherosclerotic heart disease of [place] coronary artery without angina pectoris Status: Acute Assessment and Plan: Continue aspirin, statin and BP regimen as above (3) Hypertension: Qualifiers: Hypertension type: primary hypertension Qualified Code(s): I10 - Essential (primary) hypertension Code(s): I10 - Essential (primary) hypertension Status: Chronic Assessment and Plan: Titrate Entresto and metoprolol as an outpatient Subjective Date/time seen: 09/01/22 09:42 Interval history: 77-year-old lady who is known to have multivessel coronary disease and a significant ischemic myopathy. Date of service 09/01/2022: She feels okay without any chest pain or shortness of breath today. Review of Systems Constitutional: Constitutional: Reports lethargy Eyes: Eyes: Denies blurry vision ENT: Reports Normal hearing present Cardiovascular: Cardiovascular: Denies chest pain Respiratory: Respiratory: Denies dyspnea Gastrointestinal: Gastrointestinal: Reports as per HPI and Reports nausea Musculoskeletal: Musculoskeletal: Reports no additional musculoskeletal complaints Integumentary/Breasts: Skin/Breast: Reports system reviewed and no additional complaints, except as docu Neurologic: Reports system reviewed and no additional complaints, except as documented Endocrine: Endocrine: Reports no additional endocrine complaints Hematologic/Lymphatic: Hematologic/Lymphatic: Reports no additional hematologic/lymphatic complaints Allergic/Immunologic: Allergic/Immunologic: Reports no additional allergic/immunologic complaints Exam Const: General: comfortable and no acute distress Other: Pleasant frail elderly lady comfortable cooperative reports no active complaints of dyspnea or chest pain HENMT: Mouth: Yes moist mucous membranes Eyes: Sclera: sclerae normal Neck: Neck: supple Other: No carotid bruits, patient has about 2 cm of JVD with a V-wave visible with the patient at about 30?. Resp: Effort & Inspection: normal respiratory effort Auscultation: clear to auscultation bilaterally Cardio: Rate: regular rate Rhythm: regular rhythm Other: The PMI is enlarged and laterally displaced in the anterior axillary line. There is a grade 1-2 holosystolic murmur at the apex. GI: Auscultation: normal bowel sounds Skin: General skin exam: normal color Neuro: Other: Alert and oriented x3 Extrem: Other: Adequately perfused, no edema at all Objective Data Vital Signs Vital Signs: Vital Signs - 24 hr 08/31/22 10:00 08/31/22 16:31 08/31/22 17:30 Temperature 36.1 C L 36.0 C L Pulse Rate 71 59 L 56 L Respiratory Rate 18 16 Blood Pressure 131/68 142/78 H Pulse Oximetry 100 95 Oxygen Delivery 08/31/22 22:38 09/01/22 00:00 09/01/22 06:00 Temperature 36.4 C 36.4 C 36.5 C Pulse Rate 72 63 66 Respiratory Rate 14 14 14 Blood Pressure 168/92 H 151/73 H 173/88 H Pulse Oximetry 96 96 94 Oxygen Delivery 09/01/22 08:36 09/01/22 08:00 Temperature Pulse Rate 80 80 Respiratory Rate 14 Blood Pressure Pulse Oximetry 94 Oxygen Delivery Room Air Intake/Output Intake/Output: Intake & Output 08/29/22 08/30/22 08/31/22 09/01/22 23:59 23:59 23:59 23:59 Intake Total 640 690 Output Total 2900 Balance -2260 690 Meds/Results Medications: Active Medications Generic Name Dose Route Start Last Admin Trade Name Freq PRN Reason Stop Dose Admin Acetaminophe
[2022-09-01] MEDS: metFORMIN HCL XR 500 MG TAB.SR.24H PO (10:35)
--- NOTE | 2022-09-01 11:54 | P.DS_ITS ---
DS: Admitting Diagnosis Discharge Date 09/01/2022 Admitting Diagnosis Acute on chronic CHF exacerbation L1 compression fracture DS: Discharge Diagnosis Discharge Diagnosis (1) Acute on chronic systolic CHF (congestive heart failure), NYHA class 4: Code(s): I50.23 - Acute on chronic systolic (congestive) heart failure Status: Acute Assessment and Plan: Patient presented to the ED with complaints of chest pain and dyspnea on exertion. * 07/16/2022 transthoracic echocardiogram showed chronic combined systolic and diastolic heart failure with EF 25-30% moderate to severe mitral regurgitation, tricuspid regurgitation and mild pulmonary hypertension. * ED workup showed BNP 81873, and increased from prior admission * Chest x-ray and CTA chest showed cardiomegaly and mild interstitial edema * Patient was treated with Lasix 40 mg IV x1 in the ED and initiated on IV 20 mg b.i.d. upon admission * Continue daily weights, strict I's and O's. * 08/31 patient appears to be-1.4 L since admission and weight 54 kg improved from prior admission * 09/01 I/O -1L and weight 52.8 kg * Cardiology consulted and appreciate recommendations-no further diuresis was recommended patient is on optimal goal directed medical therapy at this time * Continue Entresto, spironolactone, metoprolol, and Jardiance at home doses * Stable. Appears euvolemic. (2) Compression fracture of L1 lumbar vertebra: Qualifiers: Encounter type: initial encounter Qualified Code(s): S32.010A - Wedge compression fracture of first lumbar vertebra, initial encounter for closed fracture Code(s): S32.010A - Wedge compression fracture of first lumbar vertebra, initial encounter for closed fracture Status: Acute Assessment and Plan: Noted on imaging. Pathologic fracture cannot be ruled out. * No known h/o malignancy. * Her daughter reports she has had multiple falls. * No c/o back pain. * CT abd/pelvis with subacute fracture, no evidence of malignancy. (3) Transaminitis: Code(s): R74.01 - Elevation of levels of liver transaminase levels Status: Acute Assessment and Plan: On admission T bili 1.4, AST 69, ALT 81, alk-phos 193. * Prior ultrasound with no sonographic evidence of the liver or gallbladder disease * Hepatitis last admission negative. * CT abdomen and pelvis obtained no liver disease but does show some anasarca and mild pulmonary edema. May be secondary to hepatic congestion although patient appears compensated. * L1 compression fracture might be contributing to elevated alk phos (4) Pulmonary hypertension: Code(s): I27.20 - Pulmonary hypertension, unspecified Status: Chronic Assessment and Plan: Chronic, no oxygen needs at this time. (5) Diabetes mellitus: Qualifiers: Diabetes mellitus complication status: with hyperglycemia Diabetes mellitus alf insulin use: without terminal supervisor use Diabetes mellitus type: type 2 Qualified Code(s): E11.65 - Type 2 diabetes mellitus with hyperglycemia Code(s): E11.9 - Type 2 diabetes mellitus without complications Status: Chronic Assessment and Plan: Chronic, A1c 11% on prior admission. * Glucose >200s but <250s. Continue Jardiance, but increase dose to 25 mg daily for DMT2 coverage as well as CHF. * Added Metformin XL 500 mg PO daily in am. * Accu-checks AC/HS with moderate aspart sliding scale and hypoglycemic protocol * She does not appear to be on any other diabetes medications. Adjust medications based on glucose levels.
--- NOTE | 2022-09-01 11:54 | PM.DS ---
DS: Admitting Diagnosis Discharge Date 09/01/2022 Admitting Diagnosis Acute on chronic CHF exacerbation L1 compression fracture DS: Discharge Diagnosis Discharge Diagnosis (1) Acute on chronic systolic CHF (congestive heart failure), NYHA class 4: Code(s): I50.23 - Acute on chronic systolic (congestive) heart failure Status: Acute Assessment and Plan: Patient presented to the ED with complaints of chest pain and dyspnea on exertion. 07/16/2022 transthoracic echocardiogram showed chronic combined systolic and diastolic heart failure with EF 25-30% moderate to severe mitral regurgitation, tricuspid regurgitation and mild pulmonary hypertension. ED workup showed BNP 89645, and increased from prior admission Chest x-ray and CTA chest showed cardiomegaly and mild interstitial edema Patient was treated with Lasix 40 mg IV x1 in the ED and initiated on IV 20 mg b.i.d. upon admission Continue daily weights, strict I's and O's. 08/31 patient appears to be-1.4 L since admission and weight 54 kg improved from prior admission 09/01 I/O -1L and weight 52.8 kg Cardiology consulted and appreciate recommendations-no further diuresis was recommended patient is on optimal goal directed medical therapy at this time Continue Entresto, spironolactone, metoprolol, and Jardiance at home doses Stable. Appears euvolemic. (2) Compression fracture of L1 lumbar vertebra: Qualifiers: Encounter type: initial encounter Qualified Code(s): S32.010A - Wedge compression fracture of first lumbar vertebra, initial encounter for closed fracture Code(s): S32.010A - Wedge compression fracture of first lumbar vertebra, initial encounter for closed fracture Status: Acute Assessment and Plan: Noted on imaging. Pathologic fracture cannot be ruled out. No known h/o malignancy. Her daughter reports she has had multiple falls. No c/o back pain. CT abd/pelvis with subacute fracture, no evidence of malignancy. (3) Transaminitis: Code(s): R74.01 - Elevation of levels of liver transaminase levels Status: Acute Assessment and Plan: On admission T bili 1.4, AST 69, ALT 81, alk-phos 193. Prior ultrasound with no sonographic evidence of the liver or gallbladder disease Hepatitis last admission negative. CT abdomen and pelvis obtained no liver disease but does show some anasarca and mild pulmonary edema. May be secondary to hepatic congestion although patient appears compensated. L1 compression fracture might be contributing to elevated alk phos (4) Pulmonary hypertension: Code(s): I27.20 - Pulmonary hypertension, unspecified Status: Chronic Assessment and Plan: Chronic, no oxygen needs at this time. (5) Diabetes mellitus: Qualifiers: Diabetes mellitus complication status: with hyperglycemia Diabetes mellitus prison insulin use: without bed bug exterminator use Diabetes mellitus type: type 2 Qualified Code(s): E11.65 - Type 2 diabetes mellitus with hyperglycemia Code(s): E11.9 - Type 2 diabetes mellitus without complications Status: Chronic Assessment and Plan: Chronic, A1c 11% on prior admission. Glucose >200s but <250s. Continue Jardiance, but increase dose to 25 mg daily for DMT2 coverage as well as CHF. Added Metformin XL 500 mg PO daily in am. Accu-checks AC/HS with moderate aspart sliding scale and hypoglycemic protocol She does not appear to be on any other diabetes medications. Adjust medications based on glucose levels. Discussed hyperglycemia with the patient's daughter who is fluent in [place]. She reports the patient's PCP has discussed starting insulin but have planned to reevaluate at her September appointment. Will defer initiating insulin therapy to her PCP. (6) Hypertension: Qualifiers: Hypertension type: primary hypertension Qualified Code(s): I10 - Essential (primary) hypertension [place]
[2022-09-01 11:55] LABS: Glucose Point of Care 227 mg/dl (65-105)
[2022-09-06 19:38] LABS: Haptoglobin 197 mg/dL (43-212)
== END 2022-09-01 12:55 | disposition home or self-care (01) ==
LOC: ANHED 20:54 → ANHIMU 22:50 → ANH3MEDSUR 09-01 09:24 → ANHIMU 09-04 09:26
PROVIDERS: Emergency Medicine; Nurse Practitioner Family; Admitting Provider Internal Medicine; Emergency Provider Physician Assistant; PCP Physician Assistant; Visit Provider Student in an Organized Health Care Education/Training Program
DX: I11.0 Hypertensive heart disease with heart failure (principal); I50.23 Acute on chronic systolic (congestive) heart failure; S32.010A Wedge compression fracture of first lumbar vertebra, initial encounter for closed fracture; R74.01 Elevation of levels of liver transaminase levels; I25.10 Atherosclerotic heart disease of native coronary artery without angina pectoris; Z95.5 Presence of coronary angioplasty implant and graft; E11.65 Type 2 diabetes mellitus with hyperglycemia; I27.20 Pulmonary hypertension, unspecified; R79.89 Other specified abnormal findings of blood chemistry; I26.99 Other pulmonary embolism without acute cor pulmonale; I25.5 Ischemic cardiomyopathy; R79.1 Abnormal coagulation profile; R94.5 Abnormal results of liver function studies; J90 Pleural effusion, not elsewhere classified; R07.9 Chest pain, unspecified; R60.0 Localized edema; I08.3 Combined rheumatic disorders of mitral, aortic and tricuspid valves; I44.7 Left bundle-branch block, unspecified; E78.5 Hyperlipidemia, unspecified; Z79.82 Long term (current) use of aspirin; Z79.84 Long term (current) use of oral hypoglycemic drugs; Z79.899 Other long term (current) drug therapy
CPT/HCPCS: 36415; 71046; 71275; 74177; 80048; 80053; 82550; 82948; 83010; 83615; 83880; 84484; 85025; 85380; 85610; 85730; 93005; 96372; 96374; 96376; 99285; A9270; G0378; J1650; J1815; J1940; Q9967

== ENCOUNTER 2022-12-14 14:00 | Outpatient (RCR) | payer MEDICARE, OTHER, MEDICAID, SELFPAY ==
--- NOTE | 2022-11-01 15:01 | OTOPEVAL1 ---
Assessment and note entered by Michael Lemus, SARAH/Leila, CHT Evaluation Information Assessment Status Evaluation Diagnosis CVA Subjective Information Patient comes with dx of CVA. She presents with her daughter who translates for her. Daughter and patient reports difficulties with her left ring finger, specifically the PIP joint. 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 Reported Pain Level Pain Score 8: Self Report Assessment OT Clinical Summary Patient referred to outpatient OT with a decline in the use of her left hand. They report no particular injury, but note that imaging showed she had an old CVA, unknown date. The finger appears to be tender on the volar aspect of the ring finger PIP joint and has an extension lag actively as well as passively. She has tenderness to palpation on the volar surface. It appers to be a volar plate injury. She has not had x-rays. Issued ROM HEP and fabricated a splint to stretch the PIP joint into extension. Plan to have her wear the splint for 1 hour sessions, 3 times a day . She is to follow up with therapy in 1 weeks to assess ROM and progress ROM and the splint as tolerated. Plan of Care Interventions Therapeutic Exercise,Manual Therapy,Therapeutic Activities,Hot Pack/Cold Pack,Check Out for Orthotic/Pr,Ultrasound,Paraffin OT Services Indicated Yes Treatment Frequency and 1x/week for 4 weeks Duration These treatments will address the objective and functional deficits as defined above. The patient will be advanced safely and appropriately in order for the patient to progress towards his/her prior level of function. Additional exercises will be introduced and as well as a comprehensive home exercise program upon discharge, if needed, ?to ensure carryover of functional gains achieved in the clinic. This treatment plan has been reviewed and agreement upon by the patient.
--- NOTE | 2022-11-01 15:01 | OPREHPOC ---
Outpatient Therapy Plan of Care This is a Multidisciplinary Plan of Care that may contain components documented by all disciplines (PT, OT, and ST.) OT Problem 1 OT Problem #1 Knowledge Deficit OT Goal 1 Goal 1. Patient/daughter to be independent with instructed materials. Target Visit 4 OT Problem 2 OT Problem #2 Pain OT Goal 1 Goal 1. Patient to report reduced pain in the left hand , reporting 4/10 or less at worst . Target Visit 4 OT Problem 3 OT Problem #3 Impaired Range of Motion OT Goal 1 Goal 1. Increase active extension of the left ring finger PIP joint to -20 degrees. Target Visit 4 OT Problem 4 OT Problem #4 Impaired Strength OT Goal 1 Goal 1. Increase left child care education coordinator strength by 5 lbs. Target Visit 4
--- NOTE | 2022-11-08 08:35 | PCOTNOTE ---
Late note for appointment on 11/06/22: Patient's treatment was cancelled due to the therapist being out sick.
--- NOTE | 2022-11-23 15:00 | OTOPPROG ---
Assessment and note entered by Michael Lemus, WMR/Leila, CHT Evaluation Information Assessment Status Progress Subjective Information Patient reporting difficulties with her left ring finger, specifically the PIP joint. 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 At the start of care, a finger extension splint was fabricated for the flexion contracture. The PIP was flexed in 55 degree bend and it improved to a 35 degree bend activity. Passive it is able to go to a 15 degree bend. Remolded the splint to accommodate for her progress and upgraded her HEP to strengthening. Assessment OT Clinical Summary Patient referred to outpatient OT with a decline in the use of her left hand. The left ring finger IP joint and has an extension lag actively as well as passively. She has been wearing a static orthotic for extension and has made good progress. We were able to progress the orthosis into more extension today and upgrade her HEP. Plan to have her follow up in 3 weeks to assess for discharge. Plan of Care Interventions Therapeutic Exercise,Manual Therapy,Therapeutic Activities,Hot Pack/Cold Pack,Check Out for Orthotic/Pr,Ultrasound,Paraffin OT Services Indicated Yes Treatment Frequency and Follow up in 3 weeks Duration These treatments will address the objective and functional deficits as defined above. The patient will be advanced safely and appropriately in order for the patient to progress towards his/her prior level of function. Additional exercises will be introduced and as well as a comprehensive home exercise program upon discharge, if needed, ?to ensure carryover of functional gains achieved in the clinic. This treatment plan has been reviewed and agreement upon by the patient.
--- NOTE | 2022-11-23 15:00 | OPREHPOC ---
Outpatient Therapy Plan of Care This is a Multidisciplinary Plan of Care that may contain components documented by all disciplines (PT, OT, and ST.) OT Problem 1 OT Problem #1 Knowledge Deficit OT Goal 1 Goal 1. Patient/daughter to be independent with instructed materials. ---OT POC UPDATE 11/23/22--- 1. Met, continue as HEP is progressed Target Visit 4 OT Problem 2 OT Problem #2 Pain OT Goal 1 Goal 1. Patient to report reduced pain in the left hand , reporting 4/10 or less at worst . ---OT POC UPDATE 11/23/22--- 1. Met, patient reporting no pain Target Visit 4 OT Problem 3 OT Problem #3 Impaired Range of Motion OT Goal 1 Goal 1. Increase active extension of the left ring finger PIP joint to -20 degrees. ---OT POC UPDATE 11/23/22--- 1. Progressing, continue Target Visit 4 OT Problem 4 OT Problem #4 Impaired Strength OT Goal 1 Goal 1. Increase left communications intern strength by 5 lbs. ---OT POC UPDATE 11/23/22--- 1. Not met, continue Target Visit 4
--- NOTE | 2022-12-14 14:23 | OTOPDC ---
Assessment and note entered by Michael Lemus, SARAH/Leila, T Discharge Summary 12/14/22 Subjective Information Patient reporting difficulties with the left ring finger. 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 Today she is reporting no pain and that she is able to use her left hand to open jars , hold her coffee cup, and band presser items without difficulty. Therapy has consisted of static progressive extension splinting to the PIP joint as well as strengthening of the fingers. PIP extension improved from 55 deg. extension lag to 35 deg. Drill Press Operator Numerical Control strength improved from 18 lbs. to 25 lbs. Assessment OT Clinical Summary Patient referred to outpatient OT with a decline in the use of her left hand. The left ring finger IP joint and has an extension lag actively as well as passively. She has been wearing a static orthotic for extension and has made good progress. At this time the patient is no longer having any pain or functional limitations. The PIP joint has reached a progress plateau at 35 degrees of flexion. Overall she is more functional, having less pain, and is measuring improved band presser strength. Discharging today with patient independent with her HEP.
== END 2022-12-14 14:50 | disposition home or self-care (01) ==
LOC: ANHOT 14:00
PROVIDERS: PCP Physician Assistant; Visit Provider Physician Assistant
DX: I63.9 Cerebral infarction, unspecified (principal)
CPT/HCPCS: 97110; 97165; 97763; L3933

== ENCOUNTER 2024-04-29 19:46 | Emergency (ER) | payer MEDICARE, MEDICAID, SELFPAY ==
--- NOTE | ~2024-04-29 | XR_ITS ---
HISTORY: fall, impaired mobility, pain COMPARISON: Reference is made to a film evaluation of the chest dated 08/30/2022 TECHNIQUE: 2 views of the right shoulder were performed. FINDINGS: Acute impacted comminuted fracture of the right humeral neck is identified with inferior and medial d isplacement of the fracture fragments. Redemonstration of loose bodies inferior to the glenohumeral joint space, unchanged from prior. IMPRESSION: Acute right humeral neck fracture, with anterior dislocation. Reviewed, dictated and finalized at location A. DER TRIMMER
[2024-04-29 19:48] VITALS: BP 200/68; PULSE 68; RESP 15; TEMP 36.5; O2SAT 99
--- OUTSIDE RECORDS SUMMARY | 2024-04-29 19:48 | XMS_ITS | Continuity of Care Document ---
Author Organization [facility] Address [address] [place] [address] Phone Care Team Providers Care Trip Rider Name Role Phone Margarito Diamond MD Unavailable Unavailable Allergies, Adverse Reactions, Alerts Substance Reaction Status Criticality No Known Allergies Active No Inform ation Medications Medication Instructions Dosage Effective Dates (start - stop) Status Comments Aspir-81 81 mg tablet,delayed release take 1 tablet by oral route every day - Active fenofibrate 160 mg tablet take 1 tablet by oral route every day 160 MG - Active amlodipine 10 mg tablet take 1 tablet by oral route every day 10 MG - Active glipizide 5 mg tablet take 1 tablet by o ral route 2 times every day before meals 5 MG - Active Fish Oil 1,000 mg capsule take 1 by oral route every day - Active Procedures Procedure Date Refraction P O Visit Surgeon P O Visit Surgeon Cat/ Ex With Phaco With IOL OC Biometry P O Visit Surgeon P O Visit Surgeon Cat/ Ex With [place]aco With IOL OC Biometry OC Biometry Pre-operative Exam Est Pt Routine Exam Capitated Copay Refraction EP Compre Exam W Or Withou Ref 16 Refraction EP Compre Exam W Or Withou Ref 15 Linen Room Attendant Exam Refraction Glare Test Dilated Retinal Exam W/Int Advance Directives Directive Yes / No Effective Date File Name No Information Encounters Encounter Description Practice Location Reason(s) For Visit Diagnoses Date Provider Providers Copied on Encounter [facility], [address] [place], [place], [id number] , [place] tel: [phone] [facility] [place] No Information Dara Pimentel. [address] [place], [place], [id number], [place]. tel:[phone] [facility], [address] [place], [place], [id number] , [place] tel: [phone] [facility] [place] PO (chief complaint) Presence of intraocular lensType 2 diabetes mellitus without complications Sep-2 7 Dara Pimentel. [address] [place], [place], [id number], [place]. tel:[phone] Referring Provider: Juan Terrazas MD, [address] [facility] [address], [place], [address] . tel:[phone] sulting Provider: Margarito Laird, [address], [place], [address] . tel:[phone] [facility], [address] [place], [place], [id number] , [place] tel: [phone] [facility] [place] post op (chief complaint) Presence of intraocular lens Sep-0 7 Dara Pimentel. [address], [place], [place], [id number], [place]. tel:[phone] Referring Provider: Juan Terrazas MD, [address] [facility] [address], [place], [address] . tel:[phone] sulting Provider: Margarito Laird, [address], [place], [address] . tel:[phone] [facility], [address] [place], [place], [id number] , [place] tel: [phone] [facility] Age-related nuclear cataract, left eyeAge-related cataract of left eye Sep-0 7 [facility]. [address] [place], [place], [id number], [place]. tel:[phone] [facility], [address] [place], [place], [address] , [place] tel: [phone] [facility] No Information Sep-0 7 Dara Pimentel. [address] [place], [place], [id number], [place]. tel:[phone] Referring Provider: Juan Terrazas MD, [address] [facility] [address], [place], [address] . tel: [phone] sulting Provider: Margarito Diamond MD D, [address] [place], [address] . tel:[phone] [facility], [address] [place], [place], [id number] , [place] tel: [phone] [facility] [place] Age-related nuclear cataract, left eye Sep-0 7 Dara Pimentel. [address] [place], [place], [id number], [place]. tel:[phone] [facility], [address] [place], [place], [address] , [place] tel: [phone] [facility] [place] PO (chief complaint) Presence of intraocular lensAge-related nuclear cataract, left eye 7 Dara Pimentel. [address], [place], [place], [id number], [place]. tel:[phone] Referring Provider: Juan Terrazas MD, [address] [facility] [address], [place], [address] . [phone] Provider: Margarito Laird, [address] [place], [address] . tel:[phone] [facility], [address], [place], [address] , [place] tel:[phone] [facility] [place] Post Op (chief complaint) cataract (chief complaint) Presence of intraocular lensAge-related nuclear cataract, left eye Dara Pimentel. [address] [place], [place], [address], [place]. tel:[phone] Referring Provider: Juan Terrazas MD, [address] [facility] [address], [place], [address] . tel:[phone] Provider: Margarito Laird, [address] [place], [address] . tel:[phone] [facility], [address], [place], [id number] , [place] tel:[phone] [facility] P Age-related nuclear cataract, right eye 7 [facility]. [address] [place], [place], [id number], [place]. tel:[phone] [facility], [address] [place], [place], [id number] , [place] tel:[phone] [facility] No Information 7 Dara Pimentel. [address] [place], [place], [id number], [place]. tel:[phone] Referring Provider: Juan Terrazas MD, [address] [facility] [address], [place], [address] . tel:[phone] sulting Provider: Margarito Laird, [address] [place], [address] . tel:[phone] [facility], [address], [address] , [place] tel: [phone] [facility] Age-related nuclear cataract, right eye Dara Pimentel. [address], [place], [address], [place]. tel:[phone] [facility], [address], [place], [address] , [place] tel: [phone] [facility] [place] Age-related nuclear cataract, bilateralAge-rel ated nuclear cataract, right eyeAge-related cataract of left eye Dara Pimentel. [address], [place], [id number], [place]. tel:[phone] Referring Provider: Juan Terrazas MD, [address] [address], [place], [address] . tel:[phone] [facility], [address], [place], [address] , [place] tel:[phone] [facility] glare (chief complaint) itching (chief complaint) Type 2 diabetes mellitus without complicationsAge -related nuclear cataract, bilateralAge-rel ated nuclear cataract, right eyeUnspecified disorder of refraction 7 Dara Pimentel. [address] [place], [place], [address], [place]. [phone] Referring Provider: Juan Terrazas MD, [address] [facility] [address], [place], [address] . tel:[phone] [facility], [address], [place], [address] , [place] tel:[phone] [facility] [place] diabetic eye exam (chief complaint) Type 2 diabetes mellitus without complicationsAge -related nuclear cataract, bilateral Sep-2 2- 6 Dara Pimentel. [address] [place], [place], [id number], [place]. [phone] Referring Provider: Teresa Seymour MD, [address] [place] [address], [place], [address] . tel:[phone] [facility], [address], [place], [address] , [place] tel:[phone] [facility] Diabetic exam (chief complaint) Diabetes Mellitus Type 2, Uncomplicated Nov- 4 5 Dara Pimentel. [address], [place], [id number], [place]. [phone] Referring Provider: Margarito Laird, [address] [place], [address] . tel:[phone] [facility], [address], [place], [address] , [place] [phone] [facility] [place] Cataract NuclearDiabetes Mellitus Type 2, Uncomplicated Jean- 4 Janna Hubbard. [address], [place], [address], [place]. tel:[phone] Referring Provider: Stevie Vidales, [address] [place], [address] . tel:[phone] Family History Family Member Type Diagnosis Age At Onset No Information Payers Payer name Insurance type Covered constitution party ID Authoriza tion(s) No Information Social History Type Description Quantity Date Captured Comments Sex Female Smoking Status No Information Chief Complaint And Reason For Visit No Information Reason For Referral Reason For Referral No Information Plan Of Treatment Date Type Action Status Patient Education Diabetic Retinopathy: C are Instruction completed Patient Education Diabetic Retinopathy: C are Instruction completed Patient Education Diabetic Retinopathy: A fter Your Visit completed History Of Present Illness Encounter Date Complaint History Of Prese nt Illness PO Returns for 2.5 week PO for CE/IOL OS and 4 week PO for CE/IOL OD. VA OU has improved. Using PO gtt in OS qid as directed. post op 1 day PO CE IOL OS. VA OS has improved for seeing objects at a distance since the surgery. Denies any pain or discomfort. Using PO gtts as directed. PO Returns for 2.5 week PO for CE/IOL OD. VA OD has improved some. Using PO gtt as directed. Post Op 1 day PO CE/IOL OD. VA OD is doing well. Pt notes improvement. No pain or discomfort. Pt using ketor, pres, and poly last time used was 0800 this morning. cataract C/O glare and se nsitivity to light, especially tv and sunlight OS. It helps if she moves farther back from TV. She wishes to proceed with surgery OS. glare C/O glare and se nsitivity to light, especially tv and sunlight OU. It helps if she moves farther back from TV. itching C/O occassional itching OS and watering OU. Washing face with warm water helps relieve itch. diabetic eye exam Returns 2mos e alfredo for 1 year Diabetic eye exam OU. BS is under good control with pills. Last BS was 99 this am. A1C unknown. VA doing well OU without distance correction. Using reading glasses PRN for writing and reading fine print. diabetic eye exam Diabetic type II eye exam OU. Takes pills. Blood sugars controlled, 135 blood sugar today and A1C 6.0 x 7/16. VA OU blurry for reading small print and close up work worsening since last visit. Having issues with bright lights affecting daily activities. Diabetic exam Returns for 1 ye ar dilated Diabetic exam OU. Type II diabetic, BSL 110 today, stable with oral medication. VA OU stable for distance and near since last visit. Current reading glasses are helping. Functional Status Date Functional Assessmen t No Information Instructions Date Instruction Additional Infor mation Return 1 year with Dru Diamond M.D. for long refract Related to Type 2 diabetes mellitus without complications Impression/Plan Related to Type 2 diabetes mellitus without complications Follow up - Return 1 year with Margarito Diamond M.D. for long refract Related to Type 2 diabetes mellitus without complications Impression/Plan - St atus post CE/IOL OU, doing well. Discussed post op medication and care. Patient instructed to call the office immediately if they notice any sudden decrease in visual acuity or increase in pain or redness. Related to Presence of intraocular lens Return December 06 with Margarito Diamond M.D. for intermediate refract Related to Presence of intraocular lens Follow up - Return S epte with Margarito Diamond M.D. for intermediate refract Related to Presence of intraocular lens Impression/Plan - Po st-op day 1 s/p CE/IOL OS, POW 4 s/p CE/IOL OD, doing well. Discussed post op medication and care. Patient instructed to call the office immediately if they notice any sudden decrease in visual acuity or increase in pain or redness. Related to Presence of intraocular lens Return for surgery Related to Ag e-related nuclear cataract, left eye Impression/Plan - 2 week post CE OD, doing well. Finish surgery drops. Related to Presence of intraocular lens Follow up - Return for surgery R elated to Age-related nuclear cataract, left eye Impression/Plan - Ca taract surgery proposed OS, discussed complications, benefits and risks with patient. Discussed cataract, recommend patient proceed with proposed surgery. Consent signed in clinic. All questions were answered. Patient elects to proceed with cataract surgery OS. Related to Age-related nuclear cataract, left eye Return November 12 wit h Margarito Diamond M.D. for intermediate refract Related to Presence of intraocular lens Impression/Plan - Po st-op day 1 s/p CE/IOL OD, doing well. Discussed post op medication and care. Patient instructed to call the office immediately if they notice any sudden decrease in visual acuity or increase in pain or redness. Related to Presence of intraocular lens Follow up - Return A ugust 28 with Margarito Diamond M.D. for intermediate refract Related to Presence of intraocular lens Impression/Plan - Ta rget distance, declined astigmatism correction. mm Related to Age-related nuclear cataract, bilateral Return for surgery Related to Ag e-related nuclear cataract, bilateral Impression/Plan - Di scussed cataract changes OU. Proposed cataract surgery OD, discussed complications, benefits, risks with patient. Explained 20/20 vision is not a guarantee and may still need to wear glasses after surgery. All questions were answered. Patient understands and wishes to proceed with cataract surgery OD. Will consider cataract surgery OS pending continued visual complaint. Related to Age-related nuclear cataract, bilateral Follow up - Return for surgery R elated to Age-related nuclear cataract, bilateral Impression/Plan - Di abetes type II: no background retinopathy, no signs of neovascularization noted. Recommend keeping HBa1C close to 6.0. Discussed ocular and systemic benefits of blood sugar control. Related to Type 2 diabetes mellitus without complications Return 1 year with Dru Diamond M.D. for Related to Type 2 diabetes mellitus without complications Impression/Plan Related to Type 2 diabetes mellitus without complications Impression/Plan - Di abetes type II: no background retinopathy, no signs of neovascularization noted. Recommend keeping HBa1C close to 6.0. Discussed ocular and systemic benefits of blood sugar control. Related to Type 2 diabetes mellitus without complications Impression/Plan - Ca taracts OU discussed. Will discuss CE in the future when necessary. Recommend taking multivitamins, avoid cigarette smoking, and wear sunglasses outdoors. Related to Age-related nuclear cataract, bilateral Follow up - Return 1 year with Margarito Diamond M.D. for Related to Type 2 diabetes mellitus without complications Return 1 year with Dru Diamond M.D. for long refract Related to Diabetes Mellitus Type 2, Uncomplicated Impression/Plan - Di abetes type II: no background retinopathy, no signs of neovascularization noted. Recommend keeping HBa1C close to 6.0. Discussed ocular and systemic benefits of blood sugar control. Related to Diabetes Mellitus Type 2, Uncomplicated Follow up - Return 1 year with Margarito Diamond M.D. for long refract Related to Diabetes Mellitus Type 2, Uncomplicated Diabetes II controll ed s retino OU - Diabetes type II: no background retinopathy, no signs of neovascularization noted. Recommend keeping HBa1C close to 6.0. Discussed ocular and systemic benefits of blood sugar control. Related to Diabetes II controlled s retino - Return 1 year with Stevie Saldivar M.D. for long refract Related to Diabetes II controlled s retino Cataract, nuclear sc lerosis senile OU - Cataracts OU discussed. No indication for surgery at this time. Will discuss CE in the future when more symptomatic OU. Glasses RX given today. Will continue to observe. Related to Cataract, nuclear sclerosis senile Assessments Type Assessment Date No Information Patient Care Teams Name Effective Dates (start - stop) Status Members No Information
--- OUTSIDE RECORDS SUMMARY | 2024-04-29 19:48 | XMS_ITS | Data Portability ---
Author Organization [facility] Address [address] [place] [address] Care Team Providers Care Stock Preparer Name Role Phone CRYSTAL GILLESPIE Primary Care Provider [phone] Assessment Encounter Date Assessment Date Assessment LastModified by Organization Details LastModified Time 08/26/2023 08/26/2023 based on CMP lab will stop metformin if cr>1.5 patient and daughter notified Not available 08/26/2023 18:35:34 02/26/2024 02/26/2024 based on CMP lab will stop metformin if cr>1.5 patient and daughter notified Not available 02/29/2024 08:32:36 Plan of Treatment Reminders Order Date Submit Date Provider Last Modified By Organization Details Last Modified Time Details Appointments ANY 30 2024 03:30P Shawn Ching MD Not available Not available Not available Lab CMP, serum or plasma 2023 024 [facility], [address] [place], [place] [address], [address], [place], [address], 08/28/2023 08:26:58 albumin/c reatinine , mass ratio, urine 2023 024 [facility], [address], [address], [place], [address], 08/28/2023 08:26:56 HbA1c (hemoglob in A1c), blood 2023 024 [email or web address] In-Office Order, Internal Use Only DO Not Attach Compendium DO Not Attach Compendium, Do Not Delete/merge, [id number] 08/26/2023 16:50:09 urinalysi s, dipstick, reflex micro [address] (Lab), [address], [place], [address], 04/23/2024 09:40:30 BMP, serum or plasma [address] (Lab), [address], [place], [address], 04/23/2024 09:40:30 CBC w/ auto diff [address] (Lab), [address], [place], [address], 04/23/2024 09:40:30 microalbu min/creat inine, mass ratio, urine [address] (Lab), [address], [place], [address], 04/23/2024 09:40:30 protein:c reatinine ratio, urine [address] (Lab), [address], [place], [address], 04/23/2024 09:40:30 immunoele ctrophore sis, serum [address] (Lab), [address], [place], [address], 04/23/2024 09:40:31 CMP, serum or plasma 2023 024 [facility], [address], [address], [place], [address], 02/28/2024 07:17:50 HbA1c (hemoglob in A1c), blood 2023 024 [facility] In-Office Order, Internal Use Only DO Not Attach Compendium DO Not Attach Compendium, Do Not Delete/merge, [id number] 02/26/2024 17:03:39 Referral diabetic ophthalmo logy referral 2023 024 michael Perez, [address], [place], [address], 08/26/2023 16:51:42 Procedures None recorded. Surgeries None recorded. Imaging None recorded. Medication Orders Jardiance 25 mg tablet 2023 024 [place] [id number], [address] , [place], [place], [id number], 08/26/2023 16:50:15 metformin ER 500 mg 24 hr tablet,ex tended release (gastric retention ) 2023 024 [place] [facility]68382, [address] , [place], [place], [id number], 08/26/2023 16:50:14 Accu-Chek Guide test strips 2023 024 [place] [facility] #[facility]27, [address] , [place], [place], [id number], 08/26/2023 17:00:50 Jardiance 25 mg tablet 2023 024 [facility], [address] , [place], [place], [id number], 02/26/2024 16:42:11 metformin ER 500 mg 24 hr tablet,ex tended release (gastric retention ) 2023 024 [place] [facility] #70758, [address] , [place], [place], [id number], 02/26/2024 16:42:10 Accu-Chek Guide test strips 2023 024 [facility] #02101, [address] , [place], [place], [phone], 02/26/2024 16:42:04 Patient TargetsNo targets recorded. Patient Instructions Encounter Date Encounter Id Patient Instructions Last Modified By Organization Details Last Modified Time 07/02/2023 [id number] learning about type 2 diabetes fharry Not available 07/02/2023 16:21:18 type 2 diabetes: care instructions fharry Not available 07/02/2023 16:21:18 toenail fungus: care instructions fharry Not available 07/02/2023 16:21:18 athlete's foot: care instructions fharry Not available 07/02/2023 16:21:18 10/01/2023 [id number] learning about type 2 diabetes fharry Not available 10/01/2023 15:46:03 type 2 diabetes: care instructions fharry Not available 10/01/2023 15:46:03 toenail fungus: care instructions fharry Not available 10/01/2023 15:46:04 athlete's foot: care instructions fharry Not available 10/01/2023 15:46:04 Reason for Referral Diabetic Ophthalmology Refer ral for Type 2 diabetes mellitus Referring Physician: Crystal Gillespie, Cosmetician, Encounter Date: 08/26/2023 Results Created Date Observation Date Name Description Value Unit Range Abnormal Flag Note LastModifiedBy Organization Detail LastModifiedTime 06/06/19 24 06/07/2023 COMP. METAB OLIC PANEL (14) glucose 181 mg/dL 70-99 above high normal Not Available [facility] ([facility]) [address] [place], [address], 06/07/2023 07:16:33 06/06/19 24 06/07/2023 COMP. METAB OLIC PANEL (14) BUN 31 mg/dL 8-27 above high normal Not Available [facility] ([facility]) [address] [facility], [place], [address], 06/07/2023 07:16:33 06/06/19 24 06/07/2023 COMP. METAB OLIC PANEL (14) creatinine 1.11 mg/dL 0.57-1 .00 above high normal Not Available [facility] ([facility]) [address], [place], [address], 06/07/2023 07:16:33 06/06/19 24 06/07/2023 COMP. METAB OLIC PANEL (14) eGFR 51 mL/mi n/1.7 3 >59 below low normal Not Available [facility] ([facility]) [address], [place], [address], 06/07/2023 07:16:33 06/06/19 24 06/07/2023 COMP. METAB OLIC PANEL (14) BUN/creatini ne ratio 28 12-28 Not Available [facility] ([facility]) [address] [place], [address], 06/07/2023 07:16:33 06/06/19 24 06/07/2023 COMP. METAB OLIC PANEL (14) sodium 140 mmol/ L 134-14 4 Not Available [facility] ([facility]) [address] [place], [address], 06/07/2023 07:16:33 06/06/19 24 06/07/2023 COMP. METAB OLIC PANEL (14) potassium 4.3 mmol/ L 3.5-5. 2 Not Available [facility] ([place] [facility]) [address] [facility] [place], [address], 06/07/2023 07:16:33 06/06/19 24 06/07/2023 COMP. METAB OLIC PANEL (14) chloride 102 mmol/ L 96-106 Not Available [facility] ([place] [facility]) [address] [facility] [place], [address], 06/07/2023 07:16:33 06/06/19 24 06/07/2023 COMP. METAB OLIC PANEL (14) carbon dioxide, total 21 mmol/ L 20-29 Not Available [facility] ([place] [facility]) [address] [facility] [place], [address], 06/07/2023 07:16:33 06/06/19 24 06/07/2023 COMP. METAB OLIC PANEL (14) calcium 9.9 mg/dL 8.7-10 .3 Not Available [facility] ([facility]) [address] [place], [address], 06/07/2023 07:16:33 06/06/19 24 06/07/2023 COMP. METAB OLIC PANEL (14) protein, total 7.6 g/dL 6.0-8. 5 Not Available [facility] ([facility]) [address] [place], [address], 06/07/2023 07:16:33 06/06/19 24 06/07/2023 COMP. METAB OLIC PANEL (14) albumin 4.2 g/dL 3.8-4. 8 Not Available [facility] ([facility]) [address] [place], [address], 06/07/2023 07:16:33 06/06/19 24 06/07/2023 COMP. METAB OLIC PANEL (14) globulin, total 3.4 g/dL 1.5-4. 5 Not Available [facility] ([facility]) [address] [place], [address], 06/07/2023 07:16:33 06/06/19 24 06/07/2023 COMP. METAB OLIC PANEL (14) A/G ratio 1.2 1.2-2. 2 Not Available [facility] ([facility]) [address] [place], [address], 06/07/2023 07:16:33 06/06/19 24 06/07/2023 COMP. METAB OLIC PANEL (14) bilirubin, total 0.8 mg/dL 0.0-1. 2 Not Available [facility] ([facility]) [address] [facility] [place], [address], 06/07/2023 07:16:33 06/06/19 24 06/07/2023 COMP. METAB OLIC PANEL (14) alkaline phosphatase 92 IU/L 44-121 Not Available [facility]) [address] [facility] [place], [address], 06/07/2023 07:16:33 06/06/19 24 06/07/2023 COMP. METAB OLIC PANEL (14) AST (SGOT) 22 IU/L 0-40 Not Available [facility] ([facility]) [address] [facility] [place], [address], 06/07/2023 07:16:33 06/06/19 24 06/07/2023 COMP. METAB OLIC PANEL (14) ALT (SGPT) 18 IU/L 0-32 Not Available [facility] ([facility]) [address] [place], [address], 06/07/2023 07:16:33 08/26/19 24 08/28/2023 ALBUM IN/CR EATIN INE RATIO ,URIN E creatinine, urine - mg/dL Test not perfo rmed. No urine speci men recei wisam. Not Available [facility] ([facility]) [address] [place], [address], 08/28/2023 08:26:56 08/26/19 24 08/28/2023 ALBUM IN/CR EATIN INE RATIO ,URIN E albumin, urine - Test not perfo rmed Not Available [facility] ([facility]) [address] [place], [address], 08/28/2023 08:26:56 08/26/19 24 08/28/2023 LIPID PANEL cholesterol, total 136 mg/dL 100-19 9 Not Available [facility] ([facility]) [address] [place], [address], 08/28/2023 08:26:58 08/26/19 24 08/28/2023 LIPID PANEL triglyceride s 98 mg/dL 0-149 Not Available [facility] ([facility]) [address] [place], [address], 08/28/2023 08:26:58 08/26/19 24 08/28/2023 LIPID PANEL HDL cholesterol 46 mg/dL >39 Not Available [facility] ([facility]) [address] [place], [address], 08/28/2023 08:26:58 08/26/19 24 08/28/2023 LIPID PANEL VLDL cholesterol gricelda 18 mg/dL 5-40 Not Available [facility] ([facility]) [address] [place], [address], 08/28/2023 08:26:58 08/26/19 24 08/28/2023 LIPID PANEL LDL chol calc ([facility]) 72 mg/dL 0-99 Not Available [facility] ([facility]) [address] [place], [address], 08/28/2023 08:26:58 08/26/19 24 08/28/2023 COMP. METAB OLIC PANEL (14) glucose 141 mg/dL 70-99 above high normal Not Available [facility] ([facility]) [address] [place], [address], 08/28/2023 08:26:58 08/26/19 24 08/28/2023 COMP. METAB OLIC PANEL (14) BUN 31 mg/dL 8-27 above high normal Not Available [facility] ([facility]) [address] [place], [address], 08/28/2023 08:26:58 08/26/19 24 08/28/2023 COMP. METAB OLIC PANEL (14) creatinine 1.04 mg/dL 0.57-1 .00 above high normal Not Available [facility] ([facility]) [address] [place], [address], 08/28/2023 08:26:58 08/26/19 24 08/28/2023 COMP. METAB OLIC PANEL (14) eGFR 55 mL/mi n/1.7 3 >59 below low normal Not Available [facility] ([facility]) [address] [facility], [place], [address], 08/28/2023 08:26:58 08/26/19 24 08/28/2023 COMP. METAB OLIC PANEL (14) BUN/creatini ne ratio 30 12-28 above high normal Not Available [facility] ([facility]) [address] [facility], [place], [address], 08/28/2023 08:26:58 08/26/19 24 08/28/2023 COMP. METAB OLIC PANEL (14) sodium 141 mmol/ L 134-14 4 Not Available [facility] ([facility]) [address] [facility], [place], [address], 08/28/2023 08:26:58 08/26/19 24 08/28/2023 COMP. METAB OLIC PANEL (14) potassium 4.3 mmol/ L 3.5-5. 2 Not Available [facility] ([facility]) [address] [facility], [place], [address], 08/28/2023 08:26:58 08/26/19 24 08/28/2023 COMP. METAB OLIC PANEL (14) chloride 105 mmol/ L 96-106 Not Available [facility] ([facility]) [address] [place], [address], 08/28/2023 08:26:58 08/26/19 24 08/28/2023 COMP. METAB OLIC PANEL (14) carbon dioxide, total 16 mmol/ L 20-29 below low normal Not Available [facility] ([facility]) [address] [place], [address], 08/28/2023 08:26:58 08/26/19 24 08/28/2023 COMP. METAB OLIC PANEL (14) calcium 9.7 mg/dL 8.7-10 .3 Not Available [facility] ([facility]) [address] [facility], [place], [address], 08/28/2023 08:26:58 08/26/19 24 08/28/2023 COMP. METAB OLIC PANEL (14) protein, total 7.4 g/dL 6.0-8. 5 Not Available [facility] ([facility]) [address] [facility], [place], [address], 08/28/2023 08:26:58 08/26/19 24 08/28/2023 COMP. METAB OLIC PANEL (14) albumin 4.2 g/dL 3.8-4. 8 Not Available [facility] ([facility]) [address] [facility], [place], [address], 08/28/2023 08:26:58 08/26/19 24 08/28/2023 COMP. METAB OLIC PANEL (14) globulin, total 3.2 g/dL 1.5-4. 5 Not Available [facility] ([facility]) [address] [place], [address], 08/28/2023 08:26:58 08/26/19 24 08/28/2023 COMP. METAB OLIC PANEL (14) A/G ratio 1.3 Not Available [facility] ([facility]) [address] [place], [address], 08/28/2023 08:26:58 08/26/19 24 08/28/2023 COMP. METAB OLIC PANEL (14) bilirubin, total 0.9 mg/dL 0.0-1. 2 Not Available [facility] ([facility]) [address] [facility], [place], [address], 08/28/2023 08:26:58 08/26/19 24 08/28/2023 COMP. METAB OLIC PANEL (14) alkaline phosphatase 81 IU/L 44-121 Not Available [facility] ([facility]) [address] [place], [address], 08/28/2023 08:26:58 08/26/19 24 08/28/2023 COMP. METAB OLIC PANEL (14) AST (SGOT) 20 IU/L 0-40 Not Available [facility] ([facility]) [address] [place], [address], 08/28/2023 08:26:58 08/26/19 24 08/28/2023 COMP. METAB OLIC PANEL (14) ALT (SGPT) 17 IU/L 0-32 Not Available [facility] ([facility]) [address] [place], [address], 08/28/2023 08:26:58 08/26/19 24 08/26/2023 HbA1c (hemo globi n A1c), blood HbA1c 9.1 Not Available In-Office Order Internal Use Only DO Not Attach Compendium DO Not Attach Compendium, Do Not Delete/merge, [id number] 08/26/2023 16:47:30 02/26/20 24 02/28/2024 COMP. METAB OLIC PANEL (14) glucose 57 mg/dL 70-99 below low normal Not Available [facility] ([facility]) [address] [place], [address], 02/28/2024 07:17:50 02/26/20 24 02/28/2024 COMP. METAB OLIC PANEL (14) BUN 30 mg/dL 8-27 above high normal Not Available [facility] ([facility]) [address] [place], [address], 02/28/2024 07:17:50 02/26/20 24 02/28/2024 COMP. METAB OLIC PANEL (14) creatinine 1.02 mg/dL 0.57-1 .00 above high normal Not Available [facility] ([facility]) [address] [place], [address], 02/28/2024 07:17:50 02/26/20 24 02/28/2024 COMP. METAB OLIC PANEL (14) eGFR 56 mL/mi n/1.7 3 >59 below low normal Not Available [facility] ([facility]) [address] [facility], [place], [address], 02/28/2024 07:17:50 02/26/20 24 02/28/2024 COMP. METAB OLIC PANEL (14) BUN/creatini ne ratio 29 12-28 above high normal Not Available [facility] ([facility]) [address] [facility] [place], [address], 02/28/2024 07:17:50 02/26/20 24 02/28/2024 COMP. METAB OLIC PANEL (14) sodium 141 mmol/ L 134-14 4 Not Available [facility] ([facility]) [address] [facility], [place], [address], 02/28/2024 07:17:50 02/26/20 24 02/28/2024 COMP. METAB OLIC PANEL (14) potassium 4.7 mmol/ L 3.5-5. 2 Not Available [facility] ([facility]) [address] [facility], [place], [address], 02/28/2024 07:17:50 02/26/20 24 02/28/2024 COMP. METAB OLIC PANEL (14) chloride 104 mmol/ L 96-106 Not Available [facility] ([facility]) [address] [facility] [place], [address], 02/28/2024 07:17:50 02/26/20 24 02/28/2024 COMP. METAB OLIC PANEL (14) carbon dioxide, total 21 mmol/ L 20-29 Not Available [facility] ([facility]) [address] [facility] [place], [address], 02/28/2024 07:17:50 02/26/20 24 02/28/2024 COMP. METAB OLIC PANEL (14) calcium 9.3 mg/dL 8.7-10 .3 Not Available [facility] ([facility]) [address] [facility], [place], [address], 02/28/2024 07:17:50 02/26/20 24 02/28/2024 COMP. METAB OLIC PANEL (14) protein, total 7.3 g/dL 6.0-8. 5 Not Available [facility] ([facility]) [address] [facility], [place], [address], 02/28/2024 07:17:50 02/26/20 24 02/28/2024 COMP. METAB OLIC PANEL (14) albumin 4.1 g/dL 3.8-4. 8 Not Available [facility] ([facility]) [address] [facility], [place], [address], 02/28/2024 07:17:50 02/26/20 24 02/28/2024 COMP. METAB OLIC PANEL (14) globulin, total 3.2 g/dL 1.5-4. 5 Not Available [facility] ([facility]) [address] [facility], [place], [address], 02/28/2024 07:17:50 02/26/20 24 02/28/2024 COMP. METAB OLIC PANEL (14) bilirubin, total 0.5 mg/dL 0.0-1. 2 Not Available [facility] ([facility]) [address] [facility], [place], [address], 02/28/2024 07:17:50 02/26/20 24 02/28/2024 COMP. METAB OLIC PANEL (14) alkaline phosphatase 79 IU/L 44-121 Not Available [facility]) [address] [facility], [place], [address], 02/28/2024 07:17:50 02/26/20 24 02/28/2024 COMP. METAB OLIC PANEL (14) AST (SGOT) 26 IU/L 0-40 Not Available [facility] ([facility]) [address] [facility], [place], [address], 02/28/2024 07:17:50 02/26/20 24 02/28/2024 COMP. METAB OLIC PANEL (14) ALT (SGPT) 13 IU/L 0-32 Not Available [facility] ([facility]) [address] [facility], [place], [address], 02/28/2024 07:17:50 02/26/20 24 02/26/2024 HbA1c (hemo globi n A1c), blood HbA1c 6.9 Not Available In-Office Order Internal Use Only DO Not Attach Compendium DO Not Attach Compendium, Do Not Delete/merge, [id number] 02/26/2024 16:40:48 Result Notes None recorded. Problems Name Problem SNOMED Code Status Onset Date Resolution Date Notes Provider Name and Address Organization Details Recorded Time Microalbuminur ic diabetic nephropathy 903252743 Active 2022 NANDO SEPULVEDA Attn: Accountin g,[address] [facility], [place], [address], [place] [facility] 3 16:17:40 Heart failure 32002685 Active 2022 NANDO SEPULVEDA Attn: Accountin g,[address] [facility], [place], [address], [place] [facility] 3 14:16:06 Type 2 diabetes mellitus 22046181 Active 2022 NANDO SEPULVEDA Attn: Accountin g,[address], [place], [address], [place] [facility] 3 14:16:08 Cerebrovascula r accident 834898879 Active 2022 NANDO SEPULVEDA Attn: Accountin g,[address], [place], [address], [place] [facility] 3 14:16:13 At increased risk for falls 702045119 Active 2022 NANDO SEPULVEDA Attn: Howie godfrey,[address] [facility], [place], [address], [place] - [facility] 3 14:58:51 Urinary incontinence 551688515 Active 2022 NANDO SEPULVEDA Attn: Howie godfrey,[address] [facility], [place], [address], [place] [facility] 3 14:58:53 Neuropathy 424602066 Active 2022 NANDO SEPULVEDA Attn: Accountkrupa g,[address] [facility], [place], [address], [facility] 3 14:59:25 Bradycardia 55902536 Active 2022 NANDO SEPULVEDA Attn: Howie godfrey,[address] [facility], [place], [address], [facility] 3 15:04:15 Tinea pedis 1644732 Active 2022 NANDO SEPULVEDA Attn: Howie godfrey,[address] [facility], [place], [address], [facility] 3 15:04:16 Abnormal foot pulse 78164436 Active 2022 NANDO SEPULVEDA Attn: Howie godfrey,[address] [facility], [place], [address], [facility] 3 15:04:20 Problem Notes None recorded. Procedures Surgical History Date Name Laterality Status Provider Name and Address Organization Details Recorded Time 4 Routine Foot Care completed PETER RICH DPM [address], [place], [address], [facility] 10/01/2023 15:12:53 4 Routine Foot Care completed PETER RICH DPM [address] [place], [address], [facility] 07/02/2023 16:20:48 4 Routine Foot Care completed PETER RICH DPM [address], [place], [address], [place] [facility] 04/26/2023 16:30:53 Imaging Results None recorded. Procedure Notes None recorded. Medical Equipment None Reported. Allergies No known drug allergies Medications Name Sig Start Date Stop Date Status Note LastModified by Organization Details LastModified Time alcohol swabs 70 % pads active Not Available Not Available Not Available pioglitazon e 15 mg tablet Take 1 tablet every day by oral route. 10/05 completed Not Available Not Available Not Available atorvastati n 40 mg tablet TAKE 1 TABLET BY MOUTH EVERY DAY AT BEDTIME 2024 active Not Available Not Available Not Avai lable BD Alcohol Swabs DIRECTED 2024 active Not Available Not Available Not Avai lable doxycycline hyclate 100 mg capsule TAKE 1 CAPSULE BY MOUTH TWICE DAILY 08/22 completed Not Available Not Available Not Available spironolact one 25 mg tablet TAKE 1 TABLET BY MOUTH EVERY DAY active Not Available Not Available No t Available metoprolol succinate ER 25 mg tablet,exte nded release 24 hr TAKE 1 TABLET BY MOUTH EVERY DAY 2024 active Not Available Not Available Not Avai lable ketoconazol e 2 % topical cream APPLY TOPICALLY TO THE AFFECTED AREA EVERY DAY active Not Available Not Available No t Available metformin ER 500 mg tablet,exte nded release 24 hr TAKE 2 TABLETS BY MOUTH TWICE DAILY active Not Available Not Available No t Available clotrimazol e 1 % topical cream APPLY TOPICALLY TO THE AFFECTED AND SURROUNDI NG AREAS OF SKIN TWICE DAILY IN THE MORNING AND IN THE EVENING active Not Available Not Available No t Available glipizide 5 mg tablet TAKE 1 TABLET BY MOUTH TWICE DAILY 2024 active Not Available Not Available Not Avai lable Microlet Lancet TEST ONCE DAILY active Not Available Not Available No t Available escitalopra m 5 mg tablet TAKE 1 TABLET BY MOUTH EVERY DAY 2024 active Not Available Not Available Not Avai lable metformin ER 500 mg 24 hr tablet,exte nded release (gastric retention) Take 2 tablets twice a day by oral route for 90 days. 2023 active Not Available Not Available Not Avai lable Contour Next EZ Meter DIRECTED active Not Available Not Available No t Available Jardiance 10 mg tablet TAKE 1 TABLET BY MOUTH EVERY DAY IN THE MORNING 02/14 completed Not Available Not Available Not Available Jardiance 25 mg tablet Take 1 tablet every day by oral route for 90 days. active Not Available Not Available No t Available Entresto 49 mg-51 mg tablet TAKE 1 TABLET BY MOUTH TWICE DAILY active Not Available Not Available No t Available Entresto 24 mg-26 mg tablet TAKE 1 TABLET BY MOUTH TWICE DAILY active Not Available Not Available No t Available Accu-Chek Guide test strips Take 1 strip every day by miscell. route for 100 days. 2023 active Not Available Not Available Not Avai lable Vitals Date Recorded Body height Body mass index (BMI) Body weight Heart rate Body temperature Systolic blood pressure Diastolic blood pressure Provider Name and Address Organization Details Last Updated DateTime 156.85 cm 22 kg/m2 06742.9 3 g 62 /min 97.9 [degF] 151 mm[Hg] 74 mm[Hg] Smita Suero MA [facility] 4 15:44:56 Date Recorded Body height Body mass index (BMI) Body weight Provider Name and Address Organization Details Last Updated DateTime 08/26/2023 156.85 cm 21.9 kg/m2 10715.49 g Ce Dempsey [facility] 08/26/2023 16:44:58 Date Recorded Heart rate Systolic blood pressure Diastolic blood pressure Provider Name and Address Organization Details Last Updated DateTime 08/26/2023 66 /min 136 mm[Hg] 76 mm[Hg] NANDO SEPULVEDA Attn: Accounting,[address] [place], [address], [facility] 08/26/2023 18:31:45 Date Recorded Body height Body mass index (BMI) Body weight Heart rate Body temperature Pain severity - 0-10 verbal numeric rating [Score] - Reported Systolic blood pressure Diastolic blood pressure Provider Name and Address Organization Details Last Updated DateTime 156.85 cm 22.2 kg/m2 17922.5 2 g 60 /min 98.3 [degF] 0 150 mm[Hg] 74 mm[Hg] Smita Suero MA [facility] 15:07:46 Date Recorded Body height Oxygen saturation Oxygen saturation in Arterial blood by Pulse oximetry Pain severity - 0-10 verbal numeric rating [Score] - Reported Heart rate Respiratory rate Body temperature Body mass index (BMI) Body weight Systolic blood pressure Diastolic blood pressure Provider Name and Address Organization Details Last Updated DateTime 4 156.85 cm 98 % 98 % 0 52 /min 18 /min 97.2 [degF] 21.2 kg/m2 38422.1 2 g 164 mm[Hg] 79 mm[Hg] Antonieta Carvalho MA [facility] 4 16:43:55 Date Recorded Body height Body mass index (BMI) Body weight Heart rate Oxygen saturation Oxygen saturation in Arterial blood by Pulse oximetry Provider Name and Address Organization Details Last Updated DateTime 4 156.85 cm 22.3 kg/m2 61553.6 8 g 50 /min 98 % 98 % Ce Dempsey [facility] 4 16:35:35 Date Recorded Systolic blood pressure Diastolic blood pressure Provider Name and Address Organization Details Last Updated DateTime 02/26/2024 130 mm[Hg] 86 mm[Hg] NANDO SEPULVEDA Attn: Accounting,[address] [place], [address], [facility] 02/29/2024 08:35:33 Social History Question Answer Notes LastModified by Organizat ion Details LastModified Time Tobacco Smoking Status Never Smoker Ce Dempsey [facility] 08/22/2022 14:45:33 Do You Have An Advance Directive? No Information not available 08/22/2022 What Is Your Level Of Alcohol Consumption? None Information not available 08/22/2022 In The 14 Days Before Symptom Onset, Have You Had Close Contact With A Laboratory-confir med COVID-19 While That Case Was Ill? No Information not available 08/22/2022 In The 14 Days Before Symptom Onset, Have You Had Close Contact With A Person Who Is Under Investigation For COVID-19 While That Person Was Ill? No Information not available 08/22/2022 Have You Been To An Area Known To Be High Risk For COVID-19? Yes [place] 07/19/2022 Information not available 08/22/2022 What Was The Date Of Your Most Recent Tobacco Screening? 02/26/2024 Information not available 02/26/2024 Do You Have Smoke And Carbon Monoxide Detectors In Your Home? Yes Information not available 08/22/2022 Are You Passively Exposed To Smoke? No Information no t available 08/22/2022 Do You Use Any Illicit Or Recreational Drugs? No Information not available 08/22/2022 Has Tobacco Cessation Counseling Been Provided? Yes Information not available 08/22/2022 On What Date Was Tobacco Cessation Counseling Provided? 02/26/2024 Information not available 02/26/2024 Sex: Female Functional Status None recorded. Mental Status None recorded. Family History Relationship Description Onset Age of this Age Resolved Age Notes LastModified by Organization Details LastModified Time Unspecified Relation Heart disease Not available 2022 14:45:10 Unspecified Relation Diabetes mellitus Not available 2022 14:45:17 Medical History Condition Response Coronary Artery Disease N Other N Atrial Fibrillation N High Blood Pressure N Kidney or Bladder Problems N Thyroid Problems N GI Problems N Depression N COPD N Blood Clots N Skin Problems N Anemia N Heart Attack ([place]) N Anxiety Disorder N Diabetes N Muscle, Joint, or Bone Problems N Seizures/Epilepsy N Acid Reflux (GERD) N Cancer N Stroke N Asthma N Allergies N High Cholesterol N Hepatitis N Liver Disease N Headaches N Heart Failure N Osteoporosis N Gynecological History Statement/Question Response Age at Menarche 12 Date of Last Mammogram Age at First Child 25 Obstetrics History GPAL:G 2 P 2 0 0 2 Type Value Multiple Births 0 Full Term 2 Induced 0 Spontaneous 0 Premature 0 Living 2 Ectopics 0 Total 2 Immunizations Vaccine Type Date Status Note Provider Nam e and Address Organization Details Recorded Time Pneumococcal conjugate PCV20, polysaccharide [id number] conjugate, adjuvant, PF 3 completed ADRIANA Hahn - [facility] 11/15/2022 16:25:55 Past Encounters Encounter ID Performer Location Encounter Start Date Encounter Closed Date Diagnosis/Indication Diagnosis SNOMED-CT Code Diagnosis ICD10 Code Diagnosis Note [id number] NANDO SEPULVEDA [facility] [address] [place] [address] 08/22/2022 14:19:02 08/22/2022 15:25:48 Heart failure 34475610 I50.9 Continue entresto, jardiance, metoprolol , spironolac toneclose f/uneed records, poor historian 1. Avoid alcohol 3. Weigh yourself every morning after you urinate and with as little of clothing as possible. (use the same scale every day). 4. Call office immediatel y for any of the following: Shortness of breath that doesn't go away with rest or is becoming progressiv elyworse. Weight gain of 2 to 3 pounds in a day or 5 pounds in 1 week. Swelling of ankles or feet becomes worse, even after elevation and rest. Continuing to feel more tired or weaker than usual. Heart rate that is faster than usual. Pain, heaviness, or tightness in the chest that is more frequent or more severe than usual. 5. Exercise daily to your capacity6. Follow a low sodium diet. Check food labels, and limit salt and sodium to 1,500 to 2,000 milligrams per day. Replace salt and other high-sodiu m seasonings with alternativ es that have no salt or are low in sodium (such as Mrs. Cruz). When eating out, think about hidden sources of salt and sodium, such as saladdress ings and soups. Ask for options low in salt and sodium. Choose meats and other foods that are low in saturated fat to help lower yourcholes terol levels. Depressive disorder 4861 5510 F32.A continue for now. Type 2 dick betes mellitus 56285292 E11.9 A1C 9.7% (08/2022) not controlled Foot exam: next visitEye Exam: orderedAlb /Cr: orderedSta tin: compliantp neumonia vaccine: ??? 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 Continue entresto, jardiance 25, metoprolol , spironolac toneclose f/uneed records, poor historian 3. Weigh yourself every morning after you urinate and with as little of clothing as possible. (use the same scale every day). 4. Call office immediatel y for any of the following: Shortness of breath that doesn't go away with rest or is becoming progressiv elyworse.W eight gain of 2 to 3 pounds in a day or 5 pounds in 1 week.Swell ing of ankles or feet becomes worse, even after elevation and rest.Miranda nuing to feel more tired or weaker than usual.Hear t rate that is faster than usual.Pain , heaviness, or tightness in the chest that is more frequent or more severe than usual. 5. Exercise daily to your capacity6. Follow a low sodium diet.Check food labels, and limit salt and sodium to 1,500 to 2,000 milligrams per day.Replac e salt and other high-sodiu m seasonings with alternativ es that have no salt or are low in sodium (such as Mrs. Cruz).When eating out, think about hidden sources of salt and sodium, such as saladdress ings and soups. Ask for options low in salt and sodium.Cho ose meats and other foods that are low in saturated fat to help lower yourcholes terol levels. Type 2 dick betes mellitus 33189058 E11.9 A1C 9.7% (08/2022) not controlled bg 190 (post meal) medication s: jardiance 25mg, metformin 500MG QD (Increase today to bid)Foot exam: abnormal (09/2022) dry flaky skinEye Exam: orderedAlb /Cr: orderedSta tin: compliantp neumonia vaccine: ??? 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 left leg weakness post stroke. would beneift from PT and OT. Urinary incontinence 165 838044 R32 wears adult pull-ups5- 7 per day Abnormal foot pulse 6943 7003 R09.89 diminished pulses Neuropathy 630369601 G62 .9 abnormal monofilame nt exam b/l feet to mid leg Tinea pedis 4181512 B35. 3 maceration b/w toes. will treat with clotrimazo lereferral for podiatry Bradycardia 40223055 R00 .1 trial cutting BB in half [id number] Vanita Hardwick CMA [facility] [address] [place] [address] 10/18/2022 16:08:57 10/18/2022 16:32:04 [id number] NANDO SEPULVEDA [facility] [address] [place] [address] 11/15/2022 15:42:46 11/15/2022 16:30:27 Type 2 diabetes mellitus 61383574 E11.9 A1C 8.5% (11/15/2022 ) 9.7% (08/2022) not controlled bg 190 (post meal) medication s: jardiance 25mg, metformin 500MG QD (Increase today to bid)Foot exam: abnormal (09/2022) dry flaky skinEye Exam: orderedAlb /Cr: orderedSta tin: compliantp neumonia vaccine: 11/15/22 given [id number] Administra tion of pneumococcal vaccine 02170403 Z23 Urinary incontinence 165 144015 R32 wears adult pull-ups5- 7 per dayneeds night pads for the bed [id number] NANDO SEPULVEDA [facility] [address] [place] [address] 02/14/2023 16:03:17 02/14/2023 16:46:54 Type 2 diabetes mellitus 88059839 E11.9 A1C 8.9% (01/2023 ) 8.5% (11/15/2022 ) 9.7% (08/2022) not controlled .A1C goal 7-7.5% at next check she has been taking one more metformin as prescribed but for some reason has been getting jardiance 10mg instead of 25. daughter will monitor at lunch too and call back with BG. bg 190 (post meal) medication s: jardiance 25mg, metformin 500MG QD (Increase today to bid)Foot exam: abnormal (09/2022) dry flaky skinEye Exam: orderedAlb /Cr: orderedSta tin: compliantp neumonia vaccine: 11/15/22 given Depressive disorder 6817 900 F32.A continue for now. [id number] PETER RICH DPM [facility] [address] [place] [address] 04/26/2023 15:51:50 04/29/2023 08:12:48 Tinea pedis 6140428 B35.3 The patient was educated why and how the fungal infection evolved in their feet and the patient was given informatio n regarding how to prevent further infection. The patient was told to keep feet dry and change socks. The patient was told to be careful with old shoes and excessive sweating. The patient was educated regarding both OTC and prescripti on treatments . Type 2 dick betes mellitus 70563344 E11.51 Patient was educated about the systemic risks of diabetes and importance of proper glucose control, dangers of neuropathy and loss of gift of pain and risk stratifica tion and exam frequency. Patient was educated on high pressure areas including risks and offloading solutions. Reviewed with patient proper foot care instructio ns and daily self-exami nation and monitoring of the feet Bilateral atherosclerosis of arteries of lower limbs 6501811670 8278887 I70.203 The patient was educated about the importance of exercise, diet and the need to protect their feet in order to prevent injury or ulceration . Pain in right foot 19449 30351 00803 M79.671 Pain in left foot 797812 5318 08931 M79.672 Onychomycosis 024954395 B35.1 Latimer - lesion 025272516 L84 Xerosis du e to atopic dermatitis 685407841 L85.3 The patient was educated regarding proper hydration of their feet/ankle s and the patient was given several recommenda tions for proper creams to protect/hy drate and keep the area healthy. [id number] NANDO SEPULVEDA [facility] [address] [place] [address] 05/20/2023 16:03:58 05/20/2023 16:26:32 Type 2 diabetes mellitus 13724220 E11.9 A1C 9.4 (05/3033) 8.9% (01/2023 ) 8.5% (11/15/2022 ) 9.7% (08/2022) not controlled .A1C goal 7-7.5% at next check bg 190 (post meal) medication s: jardiance 25mg, metformin 500MG QD (Increase today to bid).Foot exam: abnormal (09/2022) dry flaky skinEye Exam: orderedAlb /Cr: orderedSta tin: compliantp neumonia vaccine: 11/15/22 given [id number] Depressive disorder 3521 9007 F32.A continue for now. Heart failure 93089795 I 50.9 Has cardiology f/u 08/[address] Ross Echo TTE (08/2022): EF 25-30%, MOD-SEVRE REGURGITAT ION AND mild pulm htn.BNP>20 000. Continue entresto, jardiance 25, metoprolol , spironolac toneclose f/uneed records, poor historian 3. Weigh yourself every morning after you urinate and with as little of clothing as possible. (use the same scale every day). 4. Call office immediatel y for any of the following: Shortness of breath that doesn't go away with rest or is becoming progressiv elyworse.W eight gain of 2 to 3 pounds in a day or 5 pounds in 1 week.Swell ing of ankles or feet becomes worse, even after elevation and rest.Miranda nuing to feel more tired or weaker than usual.Hear t rate that is faster than usual.Pain , heaviness, or tightness in the chest that is more frequent or more severe than usual. 5. Exercise daily to your capacity6. Follow a low sodium diet.Check food labels, and limit salt and sodium to 1,500 to 2,000 milligrams per day.Replac e salt and other high-sodiu m seasonings with alternativ es that have no salt or are low in sodium (such as Mrs. Dash).When eating out, think about hidden sources of salt and sodium, such as saladdress ings and soups. Ask for options low in salt and sodium.Cho ose meats and other foods that are low in saturated fat to help lower yourcholes terol levels. Microalbum inuric diabetic nephropathy 502647181 E11.21 nephrology referral sent At [facility] risk for falls 781010058 Z91.81 able to stand from wheelchair with some struggle. left leg weakness post stroke. would beneift from PT and OT. [id number] Ce Dempsey [facility] [address] [place] [address] 06/06/2023 11:08:48 06/06/2023 11:22:22 Type 2 diabetes mellitus 94681457 E11.9 A1C 9.4 (05/3033) 8.9% (01/2023 ) 8.5% (11/15/2022 ) 9.7% (08/2022) not controlled .A1C goal 7-7.5% at next check bg 190 (post meal) medication s: jardiance 25mg, metformin 500MG QD (Increase today to bid).Foot exam: abnormal (09/2022) dry flaky skinEye Exam: orderedAlb /Cr: orderedSta tin: compliantp neumonia vaccine: 11/15/22 given [id number] PETER RICH DPM [facility] [address] [address] 07/02/2023 15:20:19 07/03/2023 07:30:21 Tinea pedis 1521521 B35.3 The patient was educated why and how the fungal infection evolved in their feet and the patient was given informatio n regarding how to prevent further infection. The patient was told to keep feet dry and change socks. The patient was told to be careful with old shoes and excessive sweating. The patient was educated regarding both OTC and prescripti on treatments .-continue ketoconazo le 25 cream daily prn Type 2 dick betes mellitus 90113295 E11.51 Patient was educated about the systemic risks of diabetes and importance of proper glucose control, dangers of neuropathy and loss of gift of pain and risk stratifica tion and exam frequency. Patient was educated on high pressure areas including risks and offloading solutions. Reviewed with patient proper foot care instructio ns and daily self-exami nation and monitoring of the feet Bilateral atherosclerosis of arteries of lower limbs 8863524643 9943530 I70.203 The patient was educated about the importance of exercise, diet and the need to protect their feet in order to prevent injury or ulceration . Pain in right foot 98319 03818 30923 M79.671 Pain in left foot 808915 6935 76708 M79.672 Onychomycosis 636553918 B35.1 Latimer - lesion 411346818 L84 Xerosis du e to atopic dermatitis 390607901 L85.3 The patient was educated regarding proper hydration of their feet/ankle s and the patient was given several recommenda tions for proper creams to protect/hy drate and keep the area healthy. [id number] NANDO SEPULVEDA [facility] [address] [place] [address] 08/26/2023 16:36:38 08/27/2023 18:27:06 Type 2 diabetes mellitus 71299344 E11.9 A1C 9.1% (08/2023) 9.4 (05/3033) 8.9% (01/2023 ) 8.5% (11/15/2022 ) 9.7% (08/2022) not controlled .A1C goal 7-7.5% at next check bg 190 (post meal) medication s: jardiance 25mg, metformin 500MG QD (Increase today to two tabs bid).Foot exam: abnormal (09/2022) dry flaky skinEye Exam: orderedAlb /Cr: orderedSta tin: compliantp neumonia vaccine: 11/15/22 given [id number] Heart failure 21903831 I 50.9 Had cardiology f/u 08/[address] Ross. no changes at this time. next visit 02/2024 Echo TTE (08/2022): EF 25-30%, MOD-SEVRE REGURGITAT ION AND mild pulm htn.BNP>20 000. Continue entresto, jardiance 25, metoprolol , spironolac tone 3. Weigh yourself every morning after you urinate and with as little of clothing as possible. (use the same scale every day). 4. Call office immediatel y for any of the following: Shortness of breath that doesn't go away with rest or is becoming progressiv elyworse.W eight gain of 2 to 3 pounds in a day or 5 pounds in 1 week.Swell ing of ankles or feet becomes worse, even after elevation and rest.Miranda nuing to feel more tired or weaker than usual.Hear t rate that is faster than usual.Pain , heaviness, or tightness in the chest that is more frequent or more severe than usual. 5. Exercise daily to your capacity6. Follow a low sodium diet.Check food labels, and limit salt and sodium to 1,500 to 2,000 milligrams per day.Replac e salt and other high-sodiu m seasonings with alternativ es that have no salt or are low in sodium (such as Mrs. Cruz).When eating out, think about hidden sources of salt and sodium, such as saladdress ings and soups. Ask for options low in salt and sodium.Cho ose meats and other foods that are low in saturated fat to help lower yourcholes terol levels. Microalbum inuric diabetic nephropathy 380446440 E11.21 nephrology referral [facility] led At [facility] risk for falls 292830251 Z91.81 able to stand from table slowly with some help. would benefit from having a walker with a seat as she cannot walk long distances. She would benefit from safety standpoint to use it around her house. She would feels safer with a wheelchair . left leg weakness post stroke. slow gait. loss of balance when standing from sitting. would benefit from PT and OT. [id number] PETER RICH DPM [facility] [address] [place] [address] 10/01/2023 14:57:36 10/02/2023 08:17:51 Tinea pedis 0217356 B35.3 The patient was educated why and how the fungal infection evolved in their feet and the patient was given informatio n regarding how to prevent further infection. The patient was told to keep feet dry and change socks. The patient was told to be careful with old shoes and excessive sweating. The patient was educated regarding both OTC and prescripti on treatments .-continue ketoconazo le 25 cream daily prn Type 2 dick betes mellitus 77972607 E11.51 Patient was educated about the systemic risks of diabetes and importance of proper glucose control, dangers of neuropathy and loss of gift of pain and risk stratifica tion and exam frequency. Patient was educated on high pressure areas including risks and offloading solutions. Reviewed with patient proper foot care instructio ns and daily self-exami nation and monitoring of the feet Bilateral atherosclerosis of arteries of lower limbs 9469433374 4174176 I70.203 The patient was educated about the importance of exercise, diet and the need to protect their feet in order to prevent injury or ulceration . Pain in right foot 16979 80504 87018 M79.671 Pain in left foot 257058 3552 46045 M79.672 Onychomycosis 155983547 B35.1 Latimer - lesion 261816285 L84 Xerosis du e to atopic dermatitis 322465380 L85.3 The patient was educated regarding proper hydration of their feet/ankle s and the patient was given several recommenda tions for proper creams to protect/hy drate and keep the area healthy. 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 will w/u as per orders.Is already on ARB (Entresto) , empagliflo zin. May consider Kerendia in the future if K level will permitGoal s of treatment d/w patient's daughter who is the tree scout today.No NSAID for pain Type 2 dick betes mellitus 99053456 E11.9 Keep HgA1c < 7 Essential hypertension 63667487 I10 BP to be less than 140/90 , then lower as tolerated towards 130/80 [id number] NANDO SEPULVEDA [facility] [address] [place] [address] 02/26/2024 16:26:43 02/26/2024 16:54:58 Type 2 diabetes mellitus 39267229 E11.9 A1C 6.9% (02/2024) 9.1% (08/2023) 9.4 (05/3033) 8.9% (01/2023 ) 8.5% (11/15/2022 ) 9.7% (08/2022) not controlled . A1C goal : AT GOALbg 140 (post meal) and low 100's fasting at home medication s: jardiance 25mg, metformin 500MG BID (Increase today to two tabs bid).Foot exam: abnormal (09/2022) dry flaky skinEye Exam: orderedAlb /Cr: orderedSta tin: compliantp neumonia vaccine: 11/15/22 given Heart failure 56642546 I 50.9 Had cardiology f/u 08/[address] Ross. no changes at this time. next visit 02/2024 Echo TTE (08/2022): EF 25-30%, MOD-SEVRE REGURGITAT ION AND mild pulm htn.BNP>20 000. Continue entresto, jardiance 25, metoprolol , spironolac tone 3. Weigh yourself every morning after you urinate and with as little of clothing as possible. (use the same scale every day). 4. Call office immediatel y for any of the following: Shortness of breath that doesn't go away with rest or is becoming progressiv elyworse.W eight gain of 2 to 3 pounds in a day or 5 pounds in 1 week.Swell ing of ankles or feet becomes worse, even after elevation and rest.Miranda nuing to feel more tired or weaker than usual.Hear t rate that is faster than usual.Pain , heaviness, or tightness in the chest that is more frequent or more severe than usual. 5. Exercise daily to your capacity6. Follow a low sodium diet.Check food labels, and limit salt and sodium to 1,500 to 2,000 milligrams per day.Replac e salt and other high-sodiu m seasonings with alternativ es that have no salt or are low in sodium (such as Mrs. Cruz).When eating out, think about hidden sources of salt and sodium, such as saladdress ings and soups. Ask for options low in salt and sodium.Cho ose meats and other foods that are low in saturated fat to help lower yourcholes terol levels. At [facility] risk for falls 127225106 Z91.81 able to stand from table slowly with some help. would benefit from having a walker with a seat as she cannot walk long distances. She would benefit from safety standpoint to use it around her house. She would feels safer with a wheelchair . left leg weakness post stroke. slow gait. loss of balance when standing from sitting. would benefit from PT and OT. Urinary incontinence 165 588091 R32 wears adult pull-ups5- 7 per dayneeds night pads for the bed Health Concerns Section Related Observation LastModified by Organization Detai ls LastModified Time None Recorded Concern Status LastModified by Organization Details LastModified Time None Recorded Advance Directives Directive N: Payers Encounter Date Sequence Insurance Name Policy Number Policy Jewell Covered Member ID Jewell Member ID Guarantor Name 07/02/2023 1 [place] Oksana Wheeler [id number] Oksana Wheeler 07/02/2023 2 [place] OR MEDIC[place] REPLACEMENT PRIMARY) Oksana Wheeler [id number] Oksana Wheeler 08/26/2023 2 [place] REPLACEMENT PRIMARY) Oksana Wheeler [id number] Oksana Wheeler 08/26/2023 1 [place] [facility] Oksana Wheeler [id number] Oksana Wheeler 10/01/2023 1 [place] Oks[place] Wheeler [id number] Oksana Wheeler 10/01/2023 2 [place] REPLACEMENT [place]) Oksana Wheeler [id number] Oksana Wheeler 12/10/2023 2 [place] REPLACEMENT PRIMARY) Oksana Wheeler [id number] Oksana Wheeler 12/10/2023 1 [place] [facility] Oksana Wheeler [id number] Oksana Wheeler 02/26/2024 2 [place] OR [place] REPLACEMENT [place]) Oksana Wheeler [id number] Oksana Wheeler 02/26/2024 1 [place] [facility] Oksana Wheeler [id number] Oksana Wheeler Notes Date Note Type Note Provider Name and Address Organization Details Recorded Time 07/02/2023 text/html Patient presents today for evaluation and treatment of nail deformities as well as generalized foot care. The patient states their nails are uncomfortable. The patient has been unable to provide self care due to the severe nature of the deformity and their medical condition(s). The patient is receiving medically necessary foot care in order to prevent further problems as well as to relieve irritation and discomfort. Patient relates a history of diabetes and cannot recall last blood glucose Denies nausea, vomiting, fever, chills, shortness of breath, chest pain, difficulty breathing, calf pain. Patient reports thickened skin on the inside of her big toes, thickened toenails, toe nail changes, skin changes on lower legs, and denies tingling and numbness in toes and feet PETER RICH DPM [address] [place], [address], [facility] 07/02/2023 16:21:51 08/26/2023 text/html Oksana is a 78 YO HF here with daughter for f/u DM and repeat kidney labs BG 160 morning and after eating 180. On an occasion has been >240. taking medication as prescribed. Looks like was taking metformin from different bottle with instructions to take one am and one pm instead of 2 tablets bid. Has not seen nephrology yet but is scheduled. She completed therapy and feels it helped some. denies cp, sob, palpitations. she never got her walker from last visit. she feels unsteady getting up from sitting and walking at times. would like to have chair to use in her home. I don't want to fall. She has left leg weakness post stroke. did complete PT with some improvement in strength. nephrology 11/2023neurology: april 24 Myles. has f/u october 02, 20194cardiology: Dr Ross was seen 08/2023.no changes to medications.ischem ic cardiomyopathy: continue BB, lipitor and aspirin NANDO SEPULVEDA Attn: Accounting[address] [place], [address], [facility] 08/26/2023 18:43:18 10/01/2023 text/html Patient presents today for evaluation and treatment of nail deformities as well as generalized foot care. The patient states their nails are uncomfortable. The patient has been unable to provide self care due to the severe nature of the deformity and their medical condition(s). The patient is receiving medically necessary foot care in order to prevent further problems as well as to relieve irritation and discomfort. Patient relates a history of diabetes and cannot recall last blood glucose Denies nausea, vomiting, fever, chills, shortness of breath, chest pain, difficulty breathing, calf pain. Patient reports thickened skin on the inside of her big toes, thickened toenails, toe nail changes, skin changes on lower legs, and denies tingling and numbness in toes and feet PETER RICH, DPM [address], [place], [address], [facility] 10/01/2023 15:49:25 12/10/2023 text/html 78 yo female, DM ,. HTN, CHF. There is report of protein in the urine.Ther is no retinopathy. There is a h/o CVA. No h/o PAD, had CABG in 2000 or thereabouts..Creat inine is noted to be 1.04 mg/dL. CO2 is 16.Urine albumin to creatinine ratio of 372 in May 2023.Renal pertinent medication:Entrest o, Jardiance, metformin, spironolactone. Sugar control is on the higher side, metformin dose increased, has helped the blood sugars.No urinary complaints, except for incontinence. Sometimes has memory deficit. No dysuria, no blood in urine. Notes foam in the urine,No frequent UTI, renal stones.No lever diseaseNo hepatitisNo blood transfusion Appetite is OK, weight is steady. Per patient, reported EF 30% Talon Ching MD Attn: Accounting[address] [facility], [place], [address], [facility] 12/10/2023 17:01:39 02/26/2024 text/html Oksana is a 79 YO HF here with daughter for f/u DM and repeat kidney labs BG is now low 100's. Since she has been better controlled daughter states she does not check daily. after eating 140. taking medication as prescribed. She completed therapy and feels it helped some and got her out of the wheel chair. denies cp, sob, palpitations. she never got her walker from last visit. she feels unsteady getting up from sitting and walking at times. would like to have chair to use in her home. I don't want to fall. She has left leg weakness post stroke. did complete PT with some improvement in strength. Patient needs refills of her depends. She goes through about 7 per day. She has hard time getting to bathrooms and has incontinence. nephrology 11/2023neurology: followingcardiolog y: Dr Ross was seen 08/2023.no changes to medications.ischem ic cardiomyopathy: continue BB, lipitor and aspirin NANDO SEPULVEDA Attn: Accounting,[address] [facility], [place], [address], [place] [facility] 02/29/2024 08:36:05 OBGyn Episode No OBEpisode recorded.
--- OUTSIDE RECORDS SUMMARY | 2024-04-29 19:48 | XMS_ITS | Patient Health Record ---
Author Organization [facility] Address [address] [place] [address] Care Team Providers Care Civil Engineer'S Aide Name Role Phone Unpanelled Primary Care Provider Gil Heaton Unavailable [phone] Allergies No Known Allergies Reason For Referral No Information Medications Medication SIG (Take, Route, Frequency, Duration) Notes Start Date End Date Status amLODIPine Besylate 10 MG 1 tablet Orall y Once a day for 90 days Active metFORMIN HCl 1000 MG 1 tablet with a me al Orally twice a day for 90 days Active Farxiga 5 MG 1 tablet Orally Once a day Unknown Atorvastatin Calcium 40 MG 1 tablet Oral ly Once a day for 90 days Active Chlorthalidone 25 MG 1 tablet in the mor josue with food Orally Once a day for 90 days 01/11/2020 Active Escitalopram Oxalate 5 MG 1 tablet Orall y Once a day for 90 day(s) 11/07/2021 Unknown Glimepiride 1 MG 1 tablet with breakf ast or the first main meal of the day Orally Once a day Active Lisinopril 40 MG 1 tablet Orally Once a day for 90 days Active Immunizations Vaccine Route Administration Date Status Comme nts Influenza (Fluarix, Flulaval, Fluzone or Afluria) (IIV4) 0.5mL (single-dose syringe) IM Intramuscular 02/23/2022 Administered Immunization Gi gaurang by from source eCW:: Problems Problem Type SNOMED Code ICD Code Onset Dates Problem Status W/U Status Risk Notes Problem Hypertension (02140428) Hypertension (I10) Active confirmed Problem Diabetes mellitus without complication (824910834) Diabetes (E11.9) Inactive confirmed Problem 8064322 Arthritis (M19.90) Active confirmed Problem Hyperlipidemia (28608482) Hyperlipidemia, unspecified (E78.5) Inactive confirmed Problem 15958684 Recurrent major depressive disorder, in remission (F33.40) Active confirmed Problem Right knee pain, unspecified chronicity (M25.561) Active confirmed Problem 04640256 Type 2 diabetes mellitus with other specified complication (E11.69) Active confirmed Associated with Hyperlipide michael. On Metformin and statins. Problem Cardiac arrhythmia (163602938) Cardiac arrhythmia (I49.9) Active confirmed Problem Hyperlipidemia (64093280) Hyperlipidemia (E78.5) Active confirmed Controlled with statins. Problem 091979651 Stage 3a chronic kidney disease (N18.31) Active confirmed Problem Knee arthralgia (M25.569) Active confirmed Plan Of Treatment Pending Test Test Name Order Date CULTURE, URINE, ROUTINE 10/25/2021 PCP - COA 01/11/2020 LIPID PANEL 10/25/2021 CMP 10/25/2021 CBC (INCLUDES DIFF/PLT) 10/25/2021 HEMOGLOBIN A1c 10/25/2021 TSH+FREE T4 10/25/2021 ALBUMIN, RANDOM URINE (W/CREATININE) 12/2021 Future Test Test Name Order Date ALBUMIN, RANDOM URINE (W/CREATININE) 09/2021 LIPID PANEL 02/21/2022 CMP 02/21/2022 CBC (INCLUDES DIFF/PLT) 02/21/2022 HEMOGLOBIN A1c 02/21/2022 Insurance Providers Payer Name Payer Address Payer Phone Subscriber Number Group Number Insured Name Patient Relationship to Insured Coverage Start Date Coverage End Date HU[employer]NA RISK CAP MCR ADV HMO ASSIGNED [address] [address] [place] [address] [id number] BRIDGET LOPEZ Self - patient is the insured [place] M[place] [address] [address] [place] [phone] [id number] BRIDGET LOPEZ Self - patient is the insured Medical (General) History Medical History History ICD Code hypertension diabetes mellitus high cholesterol Surgical History Surgery Date(Month/Year) appendectomy 07/2012 hysterectomy 11/1982 heart bypass surgery 03/2009 Hospitalization History Reason Date(Month/Year) High blood pressure 12/2019
--- OUTSIDE RECORDS SUMMARY | 2024-04-29 19:48 | XMS_ITS | Continuity of Care Document ---
Author Organization [facility] Address [address] [place] [address] utive [facility] [address] [place] [address] Phone Care Team Providers Care Manager Truck Name Role Phone Sarath Koenig Unavailable Unavailable Procedures Procedure Date Office/outpatient Visit, [facility] Dilated Retinal Exam W Interpretation Ma Advance Directives Directive Yes / No Effective Date File Name No Information Encounters Encounter Description Practice Location Reason(s) For Visit Diagnoses Date Provider Providers Copied on Encounter Office/outpat ient Visit, [facility], [address], [place], [place], [id number], [place] tel:[phone] [facility] No Information 0 Arya Sarath. [address] [facility] [address], [place], [address], [place]. tel:[phone] Family History Family Member Type Diagnosis Age At Onset No Information Payers Payer name Insurance type Covered libertarian ID Authoriza tion(s) [place] [id number] Social History Type Description Quantity Date Captured Comments Sex Female Smoking Status No Information Chief Complaint And Reason For Visit No Information Reason For Referral Reason For Referral No Information History Of Present Illness Encounter Date Complaint History Of Prese nt Illness No Information Functional Status Date Functional Assessmen t No Information Instructions Date Instruction Additional Infor mation No Information Assessments Type Assessment Date No Information Patient Care Teams Name Effective Dates (start - stop) Status Members No Information
--- OUTSIDE RECORDS SUMMARY | 2024-04-29 19:48 | XMS_ITS | Patient Health Record ---
Author Organization [facility] Address [address] [place] [address] Care Team Providers Care Data Migration Lead Name Role Phone Charito Barker Primary Care Provider Reason For Referral No Information Medications Medication SIG (Take, Route, Frequency, Duration) Notes Start Date End Date Status metFORMIN HCl 1000 MG 1 tablet with a me al Oral Twice a day for 30 days Active Blood Pressure Monitor 1 as directed Top ical qd for 30 days 04/16/2019 Active Embrace Blood Glucose Test - as directed In Vitro qd for 30 days 04/16/2019 Active Atorvastatin Calcium 20 MG 1 tablet Oral Once a day for 30 days Active Farxiga 5 MG 1 tablet Orally Once a day for 30 day(s) 04/30/2019 Active Vitamin D 39730cv 1 tablet PO q week for 30 Active Aspirin 81 MG 1 tablet Orally Once a day for 30 day(s) Active Bystolic 10 MG 1 tablet Oral Once a day for 30 days Active Embrace Blood Glucose Monitor 1 as directed sq qd for 30 days 04/16/2019 Active Potassium Chloride ER 10 MEQ 1 capsule with food Oral Once a day for 30 days Active Glucometer ( any brand covered by insurance ) N/A monitor blood glucose SC qd for 30 days 04/16/2019 Active Social History Tobacco Use: Social History Observation Description Date Details (start date - stop date) Never Smoker NA - NA Tobacco Use/Smoking Question Answer Notes Are you a nonsmoker Alcohol Screen (Audit-C) Question Answer Notes Did you have a drink containing alcohol in the p ast year? No Points 0 Interpretation Negative Problems Problem Type SNOMED Code ICD Code Onset Dates Problem Status W/U Status Risk Notes Problem Type II diabetes mellitus without complication (152187596) Type 2 diabetes mellitus without complications (E11.9) Active confirmed Problem Hyperlipidemia (06338478) Hyperlipidemia, unspecified (E78.5) Active confirmed Problem Essential hypertension (83585700) Essential (primary) hypertension (I10) Active confirmed Problem Electrocardiogram abnormal (294422795) Abnormal electrocardiogram [ECG] [EKG] (R94.31) Active confirmed Plan Of Treatment Pending Test Test Name Order Date Electrocardiogram (EKG) 04/16/2019 Urinalysis Visual 05/20/2019 Accu Check 04/16/2019 Accu Check 05/20/2019 173 LIPID PANEL 04/16/2019 1000 CBC W/AUTO DIFF 04/16/2019 1501 URINALYSIS W/REFLEX MICRO 0 2708 HEMOGLOBIN A1c 04/16/2019 2835 TSH 04/16/2019 4958 VITAMIN D, 25 OH 04/16/2019 9179 COMPREHENSIVE METABOLIC PANEL 04/16 VITAMIN D,25-OH,TOTAL,IA 04/23/2019 HEMOGLOBIN A1c 04/23/2019 CBC (INCLUDES DIFF/PLT) 04/23/2019 URINALYSIS, REFLEX 04/23/2019 LIPID PANEL 04/23/2019 COMPREHENSIVE METABOLIC PANEL 04/23/2019 TSH 04/23/2019 Insurance Providers Payer Name Payer Address Payer Phone Subscriber Number Group Number Insured Name Patient Relationship to Insured Coverage Start Date Coverage End Date [employer] PLANS do not use [address] [address] [place] [address] [id number] Oksana Wheeler Self - patient is the insured 0 Medical (General) History Medical History History ICD Code Hypertension Diabetes High Cholesterol Surgical History Surgery Date(Month/Year) Bypass 2009
--- OUTSIDE RECORDS SUMMARY | 2024-04-29 19:49 | XMS_ITS | Referral Summary ---
Author Organization [facility] [address] Address [address] [place] [address] Care Team Providers Care Physical Therapist Name Role Phone Jeannette Castelan Primary Care Provider + Allergies No known active allergies Medications escitalopram (LEXAPRO) 5 mg tablet 05/31/2022 Active empagliflozin (JARDIANCE ORAL) Take 25 mg by mouth daily 07/19/2022 Active glipiZIDE (GLUCOTROL) 5 mg tablet 06/20/2022 Active metoprolol XL (TOPROL-XL) 25 mg extended release tablet Take 1 tablet (25 mg total) by mouth every morning 07/19/2022 Active atorvastatin (LIPITOR) 40 mg tablet Take 1 tablet (40 mg total) by mouth daily Active aspirin 81 mg enteric coated tablet Take 1 tablet (81 mg total) by mouth daily Active pioglitazone (ACTOS) 15 mg tabletIndicatio ns:type 2 diabetes mellitus Take 1 tablet (15 mg total) by mouth daily Active metFORMIN XR (GLUCOPHAGE XR) 500 mg 24 hr tablet Take 1 tablet (500 mg total) by mouth 2 (two) times a day 10/05/2022 Active Entresto 49-51 mg tablet TAKE 1 TABLET BY MOUTH TWICE DAILY 180 tablet 3 11/21/2023 Active spironolactone (ALDACTONE) 25 mg tablet TAKE 1 TABLET(25 MG) BY MOUTH EVERY MORNING 90 tablet 2 02/19/2024 Active Active Problems Problem Noted Date Diagnosed Date Hx of CABG 11/08/2022 Chronic systolic congestive heart failure (CMS/H CC) 11/08/2022 Nonrheumatic mitral valve regurgitation 11/09/19 Social History Tobacco Use Types Packs/Day Years Used Date Smoking Tobacco: Never Smokeless Tobacco: Never Tobacco Cessation:Counseling Given: Not Answered Personal Safety Answer Date Recorded Getting School Help Needed Not on file 05/19 Comments Unknown Sex and Gender Information Value Date Recorded Sex Assigned at Not on file 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 Care Teams Physical Therapist Relationship Specialty Start Date End Date Jeannette Castelan PA [facility] [place] [address] PCP - General Physician Supervisor [employer] 08/08/22
--- OUTSIDE RECORDS SUMMARY | 2024-04-29 19:49 | XMS_ITS | Patient Health Record ---
Author Organization [facility] Address [address] [place] [address] Care Team Providers Care Numerical Control Machine Operator Name Role Phone Gil Garcia Unavailable [phone] Allergies No Known Allergies Reason For Referral No Information Medications Medication SIG (Take, Route, Frequency, Duration) Notes Start Date End Date Status Lisinopril 40 MG 1 tablet Orally Once a day for 90 days Active Escitalopram Oxalate 5 MG 1 tablet Orall y Once a day for 90 day(s) 11/07/2021 Unknown Atorvastatin Calcium 40 MG 1 tablet Oral ly Once a day for 90 days Active Farxiga 5 MG 1 tablet Orally Once a day Unknown Glimepiride 1 MG 1 tablet with breakf ast or the first main meal of the day Orally Once a day Active amLODIPine Besylate 10 MG 1 tablet Orall y Once a day for 90 days Active metFORMIN HCl 1000 MG 1 tablet with a me al Orally twice a day for 90 days Active Chlorthalidone 25 MG 1 tablet in the mor josue with food Orally Once a day for 90 days 01/11/2020 Active Immunizations Vaccine Route Administration Date Status Comme nts Fluarix Quadrivalent. for 6 months of age and older IM Intramuscular 02/23/2022 Administered Social History Tobacco Use: Social History Observation Description Date Details (start date - stop date) Never Smoker NA - NA Tobacco Use/Smoking Question Answer Notes Are you a nonsmoker Tobacco use other than smoking: Question Answer Notes Are you an other tobacco user? n on smoker Problems Problem Type SNOMED Code ICD Code Onset Dates Problem Status W/U Status Risk Notes Problem 19639870 Type 2 diabetes mellitus with other specified complication (E11.69) Active confirmed Associated with Hyperlipide michael. On Metformin and statins. Problem Hyperlipidemia (31676937) Hyperlipidemia, unspecified (E78.5) Inactive confirmed Problem 1372966 Arthritis (M19.90) Active confirmed Problem Right knee pain, unspecified chronicity (M25.561) Active confirmed Problem 51354255 Recurrent major depressive disorder, in remission (F33.40) Active confirmed Problem Cardiac arrhythmia (994703336) Cardiac arrhythmia (I49.9) Active confirmed Problem Hyperlipidemia (02633202) Hyperlipidemia (E78.5) Active confirmed Controlled with statins. Problem Hypertension (53863989) Hypertension (I10) Active confirmed Problem Diabetes mellitus without complication (921605495) Diabetes (E11.9) Inactive confirmed Problem Knee arthralgia (M25.569) Active confirmed Problem 449745143 Stage 3a chronic kidney disease (N18.31) Active confirmed Plan Of Treatment Pending Test [...] Insured Coverage Start Date Coverage End Date MCR-HUMANA MEDICARE [address] [address] [place] [address] [id number] Oksana Wheeler Self - patient is the insured [place] [address] [address] [place] [id number] [phone] [id number] Oksana Wheeler Self - patient is the insured Medical (General) History Medical History History ICD Code hypertension diabetes mellitus high cholesterol Surgical History Surgery Date(Month/Year) appendectomy 07/2012 hysterectomy 11/1982 heart bypass surgery 03/2009 Hospitalization History Reason Date(Month/Year) High blood pressure 12/2019
--- OUTSIDE RECORDS SUMMARY | 2024-04-29 19:49 | XMS_ITS | Clinical Summary ---
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 Gender Identity Not on file Sexual Orientation Not on file Obstetrics History Last Filed Vital Signs Vital Sign Reading [...] 08/22/2023 3:39 PM CDT Plan of Treatment Health Maintenance Due Date Last Done Comments Depression Screening 1944 Fall Risk Assessment 1945 Osteoporosis Screening-Bone Density Scan 1945 DTaP/Tdap/Td Vaccine (1 - Tdap) 02/08/1955 Hepatitis B Screening 02/08/1962 Zoster Vaccine (1 of 2) 02/08/1994 Well Visit 65+ 02/08/2009 Influenza Vaccine (#1) 2023 Pneumococcal vaccine 65+ Completed 11/15/2022 Insurance [place] [id number] [place] MEDICARE MEDICARE [facility] Address: [address] [address] [place] [address] IDPA Care Teams Kier Operator Relationship Specialty Start Date End Date Jeannette Castelan PA [facility] [place] [address] PCP - General Physician Petroleum Inspector 08/08/22
--- OUTSIDE RECORDS SUMMARY | 2024-04-29 19:49 | XMS_ITS | Continuity of Care Document ---
Author Organization [facility] Address [address] [place] [address] Phone Care Team Providers Care Furniture Dipper Name Role Phone Guy CANALES, Navi Unavailable Unavailable Allergies, Adverse Reactions, Alerts Substance Reaction Status Criticality No Known Allergies Active No Inform ation Medications Medication Instructions Dosage Effective Dates (start - stop) Status Comments metformin 1,000 mg tablet take 1 tablet by oral route 2 times every day with morning and evening meals 1000 MG - Active carvedilol 12.5 mg tablet take 1 tablet by oral route 2 times every day with food 12.5 MG - Active glipizide 5 mg tablet take 1 tablet by o ral route 2 times every day before meals 5 MG - Active losartan 100 mg tablet take 1 tablet by oral route every day 100 MG - Active atorvastatin 20 mg tablet take 1 tablet by oral route every day 20 MG - Active Tradjenta 5 mg tablet take 1 tablet by o ral route every day 5 MG - Active Procedures Procedure Date Left W/O Being Seen [facility] 45 MATERIAL CONTROL ANALYST Advance Directives Directive Yes / No Effective Date File Name No Information Encounters Encounter Description Practice Location Reason(s) For Visit Diagnoses Date Provider Providers Copied on Encounter [facility] , [address], [place], [id number], [place] tel:[phone] [facility] Office No Information 4 Guy Mcelroy. [address], [place], [id number] , [place]. [phone] [facility] , [address], [place], [place], [id number], [place] tel:[phone] [facility] Office No Information 9 Guy Mcelroy. [address], [place] , [place], [id number] , [place]. tel: [phone] [facility] 45 MATERIAL CONTROL ANALYST [facility] , [address], [place], [place], [id number], [place] tel:[phone] [facility] Office diabetic eye exam (chief complaint) Type 2 diabetes mellitus without complicationsLong term (current) use of oral hypoglycemic drugsOther secondary cataract, bilateral Guy Mcelroy. [address], [place], [id number] , [place]. tel:[phone] Referring Provider: Federico Whitlock MD [facility], [address] [place], [address] . tel:[phone] Family History Family Member Type Diagnosis Age At Onset No Information Payers Payer name Insurance type Covered green party ID Authoriza tion(s) No Information Social History Type Description Quantity Date Captured Comments Sex Female Smoking Status No Information Chief Complaint And Reason For Visit No Information Reason For Referral Reason For Referral No Information Plan Of Treatment Date Type Action Status Patient Education Type 2 Diabetes: After Your Visit completed History Of Present Illness Encounter Date Complaint History Of Prese nt Illness diabetic eye exam The 72 year ol d female presents for evaluation of diabetic eye exam in the right eye and left eye. Diagnosed with DM 2 about 2 years ago, controlled with oral meds. Glucose is not checked at home by patient. Last glucose was 102mg/dl 1 month ago by PCP. HgA1c unknown by patient. Follows up with PCP every 2-3 months. Functional Status Date Functional Assessmen t No Information Instructions Date Instruction Additional Infor henok Return in [address] Tovar for a diabetic evaluation. Related to Type 2 diabetes mellitus without complications Impression/Plan - No treatment is required at this time. Will continue to observe condition and or symptoms. Related to Other secondary cataract, bilateral Impression/Plan - Th e patient is diabetic without evidence of retinopathy. The patient was advised to keep his/her blood glucose level below 120 mg/dl, to maintain medication(s) compliance, and to follow up with his/her primary care physician as instructed. Information on diabetic eye disease given. Recommend strict blood sugar control. Related to Type 2 diabetes mellitus without complications Impression/Plan - Fo r blood sugar control. Patient to continue as prescribed by PCP. See #1. 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 Tovar for a diabetic evaluation. Related to Type 2 diabetes mellitus without complications Assessments Type Assessment Date No Information Patient Care Teams Name Effective Dates (start - stop) Status Members No Information
--- NOTE | 2024-04-29 19:52 | ECG_ITS ---
Test Date: 2024-04-29 19:56:02 Measurements Intervals [place] Rate: 62 P: 8 SC: 132 QRS: -38 QRSD: 181 T: 138 QT: 508 QTc: 520 Interpretive Statements SINUS RHYTHM LEFT AXIS DEVIATION LEFT BUNDLE BRANCH BLOCK BASELINE ARTIFACT- I, III, AVR, AVL, AVF ABNORMAL ECG No previous ECG available for comparison Electronically Signed On 04-30-2024 05:30:14 PIPE FOREMAN by Russell Dodd D.O.
[2024-04-29] MEDS: HYDROcodone/acetaminophen (*CRX) 5-325 MG TABLET 1 TAB PO (20:46)
--- NOTE | 2024-04-29 20:46 | ED_ITS ---
HPI - Fall General Chief Complaint: Fall Stated Complaint: fall, R arm pain Time Seen by Provider: 04/29/24 20:45 History of Present Illness HPI Narrative: Patient got up quickly and then got dizzy, lost her balance and fell, landing on her right shoulder, she has no injury anywhere else, did not hit her head, she is not feeling dizzy now, she has no chest pain or shortness of breath. Related Data Home Medications ?Medication ?Instructions ?Recorded ?Confirmed ?Last Taken ?Type atorvastatin 40 mg tablet 40 mg PO DAILY 07/14/22 08/30/22 Unknown History escitalopram oxalate 5 mg tablet 5 mg PO HS 07/14/22 08/30/22 Unknown History Allergies Allergy/AdvReac Type Severity Reaction Status Date / Time No Known Allergies Allergy Verified 04/29/24 19:53 Review of Systems Review of Systems: All systems reviewed & are unremarkable except as noted in HPI and below PMFSH Past Medical History Medical History CAD (coronary artery disease) Congestive heart failure Diabetes mellitus Fracture of left elbow Hyperlipidemia Hypertension Surgical History Surgical History Hx of CABG Family History Family History Unknown Adopted Social History Social History Social History: The patient is and has 2 children. 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 Up until 4 days ago she was living in a senior citizen apartment complex. Her daughter is the durable power mergers and acquisitions attorney for healthcare. Code status full code Smoking status: Never smoker Second hand tobacco smoke exposure: No Alcohol intake: never Substance use: never Substance use type: does not use Lack of Transportation: No Lack of Food: Never True Current Housing: I Have Housing Concerned About Future Housing: No Difficulty Paying Gas/Electric Bills: No Difficulty Paying for Meds: No Currently Unemployed: No Education: High School Diploma/GED Difficulty w/ Childcare or Family Care: No Spiritual care concerns: No Exam Narrative: EXAMINATION OF ORGAN SYSTEMS/BODY AREAS: Constitutional: Vital signs per nursing GENERAL:[No acute distress, non-toxic appearing.] HEAD: Normal with no signs of head trauma. EYES: EOMI, conjunctiva normal ENT: Hearing grossly intact LUNGS: Nonlabored breathing. HEART: [Regular rate and rhythm], normal radial pulse ABD: [Soft], [nontender to palpation] EXT: Deformity and tenderness to the right shoulder/upper arm SKIN: [No rashes or lesions.] NEURO: [Alert and oriented x 3. No gross focal sensory or strength deficits.] Ambulating with normal steady gait. PSYCH: Normal affect Course Vital Signs Vital signs: Vital Signs Temperature 97.7 F 04/29/24 19:48 Pulse Rate 68 04/29/24 19:48 Respiratory Rate 15 04/29/24 19:48 Blood Pressure 200/68 H 04/29/24 19:48 Pulse Oximetry 99 04/29/24 19:48 Oxygen Delivery Room Air 04/29/24 19:48 Temperature 97.7 F 04/29/24 19:48 Pulse Rate 68 04/29/24 19:48 Respiratory Rate 15 04/29/24 19:48 Blood Pressure 200/68 H 04/29/24 19:48 Pulse Oximetry 99 04/29/24 19:48 Oxygen Delivery Room Air 04/29/24 19:48 Procedures Orthopedic Splinting/Casting Injury #1: Splinting/Casting Date: 04/29/24 Side: right Upper Extremity Injury Location: shoulder Upper Extremity Immobilizer: sling/shoulder immobilizer Pre-Procedure Neuro Vascular Exam: normal Post-Procedure Neuro Vascular Exam: normal MDM - Fall MDM Narrative Medical decision making narrative: Patient presents here for after she fell when she got dizzy after standing up suddenly, she is now denying any dizziness, she had no chest pain or shortness of breath when this happened, she denies any head injury, and on evaluation, there is no signs of injury anywhere else of tenderness to her right shoulder, she is neurovascularly intact. Shoulder x-ray on my independent interpretation unfortunately does show a humeral neck fracture. Her blood pressure is elevated here however she denies any headache, chest pain, shortness of breath, or any other concerning signs, I suspect this may be from her pain as she does appear quite uncomfortable, she will be given pain medication, will recheck blood pressure, she does also have a history of hypertension for which she is already on medications, and I do feel she can follow up with her primary care doctor for this. She is placed in a sling, have discussed need for follow-up to Orthopedics with patient and daughter at bedside and will provide pain medication. Return precautions discussed. Patient and family at bedside agreeable to this plan. Discharge Plan Discharge Clinical Impression: Closed right humeral fracture Patient Disposition: Home, Self-Care Condition: Stable Instructions: Proximal Humerus Fracture (ED) Additional Instructions: Please follow-up with orthopedic surgeon. Keep your arm in a sling. You can always come back to the emergency room for any further issues, especially if you start having any dizziness, chest pain or shortness breath, or new numbness or weakness in your arm. Patient Language: Stateless Prescriptions: New acetaminophen [Tylenol Extra Strength] 500 mg tablet 1,000 mg PO Q6H PRN (Reason: pain) Qty: 50 0RF methocarbamol 750 mg tablet 750 mg PO TID PRN (Reason: muscle spasm) Qty: 30 0RF lidocaine 5 % adhesive patch,medicated 1 patch topical DAILY Qty: 15 0RF Rx Instructions: leave on most painful area for up to 12 hrs oxycodone 5 mg capsule 5 mg PO Q6H PRN (Reason: pain) Qty: 14 0RF No Action atorvastatin 40 mg Tablet 40 mg PO DAILY escitalopram oxalate 5 mg Tablet 5 mg PO HS aspirin 81 mg Tablet,Delayed Release (Dr/Ec) 81 mg PO QAM Qty: 30 0RF spironolactone 25 mg Tablet 25 mg PO QAM Qty: 30 0RF metoprolol succinate [Toprol XL] 25 mg Tablet Extended Release 24 Hr 25 mg PO QAM Qty: 30 0RF Entresto 24-26 mg Tablet 1 tab PO Q12HR Qty: 60 0RF Jardiance 25 mg Tablet 25 mg PO DAILY Qty: 30 0RF metformin 500 mg tablet extended release 24hr 500 mg PO DAILY Qty: 30 0RF Follow-up/Referrals: Yonis Bueno MD [Physician] - 2 Days Flip,NANDO Acosta [Primary Care Provider] - 2 Days
[2024-04-29 21:05] VITALS: BP 109/53
--- OUTSIDE RECORDS SUMMARY | 2024-04-29 21:09 | XMS_ITS | Referral Summary ---
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
--- OUTSIDE RECORDS SUMMARY | 2024-04-29 21:09 | XMS_ITS | Clinical Summary ---
Author Organization 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
--- OUTSIDE RECORDS SUMMARY | 2024-04-29 21:09 | XMS_ITS | Continuity of Care Document ---
Author Organization [facility] Address [address] [place] [address] utive [facility] [address] [place] [address] Phone Care Team Providers Care Pricing/Signage Team Member Name Role Phone Sarath Koenig Unavailable Unavailable Procedures Procedure Date Office/outpatient Visit, [facility] Dilated Retinal Exam W Interpretation Ma Advance Directives Directive Yes / No Effective Date File Name No Information Encounters Encounter Description Practice Location Reason(s) For Visit Diagnoses Date Provider Providers Copied on Encounter Office/outpat ient Visit, [facility], [address], [place], [place], [id number], [place] tel:[phone] [facility] No Information 0 Arya Sarath. [address] [facility] [address], [place], [address], [place]. tel:[phone] Family History Family Member Type Diagnosis Age At Onset No Information Payers Payer name Insurance type Covered republican ID Authoriza tion(s) [place] [id number] Social History Type Description Quantity Date Captured [...]
--- OUTSIDE RECORDS SUMMARY | 2024-04-29 21:09 | XMS_ITS | Continuity of Care Document ---
Author Organization [facility] Address [address] [place] [address] Phone Care Team Providers Care Tip Fixer Name Role Phone Guy CANALES, Navi Unavailable [...] Procedures Procedure Date Left W/O Being Seen [facility] 45 HEAD WAITER Advance Directives Directive Yes / No Effective Date File Name No Information Encounters Encounter Description Practice Location Reason(s) For Visit Diagnoses Date Provider Providers Copied on Encounter [facility] , [address], [place], [id number], [place] tel:[phone] [facility] Office No Information 4 Guy Mcelroy. [address], [place], [id number] , [place]. [phone] [facility] , [address], [place], [place], [id number], [place] tel:[phone] [facility] Office No Information 9 Guy Mcelroy. [address], [place] , [place], [id number] , [place]. tel: [phone] [facility] 45 HEAD WAITER [facility] , [address], [place], [place], [id number], [place] tel:[phone] [facility] Office diabetic eye exam (chief complaint) Type 2 diabetes mellitus without complicationsLong term (current) use of oral hypoglycemic drugsOther secondary cataract, bilateral Guy Mcelroy. [address], [place], [id number] , [place]. tel:[phone] Referring Provider: Federico Whitlock MD [facility], [address] [place], [address] . tel:[phone] Family History Family Member Type Diagnosis Age At Onset No Information Payers Payer name Insurance type Covered libertarian ID Authoriza tion(s) No Information Social History [...] prescribed by PCP. See #1. 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 Tovar for a diabetic evaluation. Related to Type 2 diabetes mellitus without complications Assessments Type Assessment Date No Information Patient Care Teams Name Effective Dates (start - stop) Status Members No Information
--- OUTSIDE RECORDS SUMMARY | 2024-04-29 21:09 | XMS_ITS | Continuity of Care Document ---
Author Organization [facility] Address [address] [place] [address] Phone Care Team Providers Care Civil Engineering Design Draftsperson Name Role Phone Margarito Diamond MD Unavailable [...] Compre Exam W Or Withou Ref 15 Polysomnography Technician Exam Refraction Glare Test Dilated Retinal Exam W/Int Advance Directives Directive Yes / No Effective Date File Name No Information Encounters Encounter Description Practice Location Reason(s) For Visit Diagnoses Date Provider Providers Copied on Encounter [facility], [address] [place], [place], [id number] , [place] tel: [phone] [facility] [place] No Information Dara Pimentel. [address] [place], [place], [id number], [place]. tel:[phone] [facility], [address] [place], [place], [id number] , [place] tel: [phone] [facility] [place] PO (chief complaint) Presence of intraocular lensType 2 diabetes mellitus without complications Sep-2 7 Dara Pimentel. [address] [place], [place], [id number], [place]. tel:[phone] Referring Provider: Juan Terrazas MD, [address] [facility] [address], [place], [address] . tel:[phone] sulting Provider: Margarito Laird, [address], [place], [address] . tel:[phone] [facility], [address] [place], [place], [id number] , [place] tel: [phone] [facility] [place] post op (chief complaint) Presence of intraocular lens Sep-0 7 Dara Pimentel. [address], [place], [place], [id number], [place]. tel:[phone] Referring Provider: Juan Terrazas MD, [address] [facility] [address], [place], [address] . tel:[phone] sulting Provider: Margarito Laird, [address], [place], [address] . tel:[phone] [facility], [address] [place], [place], [id number] , [place] tel: [phone] [facility] Age-related nuclear cataract, left eyeAge-related cataract of left eye Sep-0 7 [facility]. [address] [place], [place], [id number], [place]. tel:[phone] [facility], [address] [place], [place], [id number] , [place] tel: [phone] [facility] No Information Sep-0 7 Dara Pimentel. [address] [place], [place], [id number], [place]. tel:[phone] Referring Provider: Juan Terrazas MD, [address] [facility] [address], [place], [address] . tel: [phone] sulting Provider: Margarito Diamond MD D, [address] [place], [address] . tel:[phone] [facility], [address] [place], [place], [id number] , [place] tel: [phone] [facility] [place] Age-related nuclear cataract, left eye Sep-0 7 Dara Pimentel. [address] [place], [place], [id number], [place]. tel:[phone] [facility], [address] [place], [place], [id number] , [place] tel: [phone] [facility] [place] PO (chief complaint) Presence of intraocular lensAge-related nuclear cataract, left eye 7 Dara Pimentel. [address], [place], [place], [id number], [place]. tel:[phone] Referring Provider: Juan Terrazas MD, [address] [facility] [facility] [address], [place], [address] . [phone] Provider: Margarito Laird, [address] [place], [address] . tel:[phone] [facility], [address], [place], [id number] , [place] tel:[phone] [facility] [place] Post Op (chief complaint) cataract (chief complaint) Presence of intraocular lensAge-related nuclear cataract, left eye Dara Pimentel. [address] [place], [place], [id number], [place]. tel:[phone] Referring Provider: Juan Terrazas MD, [address] [facility] [address], [place], [address] . tel:[phone] Provider: Margarito Laird, [address] [place], [address] . tel:[phone] [facility], [address], [place], [id number] , [place] tel:[phone] [facility] P Age-related nuclear cataract, right eye 7 [facility]. [address] [place], [place], [id number], [place]. tel:[phone] [facility], [address] [place], [place], [id number] , [place] tel:[phone] [facility] P No Information 7 Dara Pimentel. [address] [place], [place], [id number], [place]. tel:[phone] Referring Provider: Juan Terrazas MD, [address] [facility] [address], [place], [address] . tel:[phone] sulting Provider: Margarito Laird, [address] [place], [address] . tel:[phone] [facility], [address], [id number] , [place] tel: [phone] [facility] [place] Age-related nuclear cataract, right eye Dara Pimentel. [address], [place], [id number], [place]. tel:[phone] [facility], [address], [place], [id number] , [place] tel: [phone] [facility] [place] Age-related nuclear cataract, bilateralAge-rel ated nuclear cataract, right eyeAge-related cataract of left eye Dara Pimentel. [address], [place], [address], [place]. tel:[phone] Referring Provider: Juan Terrazas MD, [address] [address], [place], [address] . tel:[phone] [facility], [address], [place], [id number] , [place] tel:[phone] [facility] glare (chief complaint) itching (chief complaint) Type 2 diabetes mellitus without complicationsAge -related nuclear cataract, bilateralAge-rel ated nuclear cataract, right eyeUnspecified disorder of refraction 7 Dara Pimentel. [address] [place], [place], [address], [place]. [phone] Referring Provider: Juan Terrazas MD, [address] [facility] [address], [place], [address] . tel:[phone] [facility], [address], [place], [id number] , [place] tel:[phone] [facility] [place] diabetic eye exam (chief complaint) Type 2 diabetes mellitus without complicationsAge -related nuclear cataract, bilateral Sep-2 2- 6 Dara Pimentel. [address] [place], [place], [address], [place]. [phone] Referring Provider: Teresa Seymour MD, [address] [place] [address], [place], [address] . tel:[phone] [facility], [address], [place], [id number] , [place] tel:[phone] [facility] Diabetic exam (chief complaint) Diabetes Mellitus Type 2, Uncomplicated Nov- 4 5 Dara Pimentel. [address], [place], [id number], [place]. [phone] Referring Provider: Margarito Laird, [address] [place], [address] . tel:[phone] [facility], [address], [place], [id number] , [place] [phone] [facility] [place] Cataract NuclearDiabetes Mellitus Type 2, Uncomplicated Jean- 4 Janna Hubbard. [address], [place], [id number], [place]. tel:[phone] Referring Provider: Stevie Vidales, [address] [place], [address] . tel:[phone] Family History Family Member Type Diagnosis Age [...] Instructions Date Instruction Additional Infor henok Return 1 year with Dru Diamond M.D. [...] of intraocular lens Follow up - Return 1 year with Margarito Diamond M.D. for long refract Related to Type 2 diabetes mellitus without complications Impression/Plan Related to Type 2 diabetes mellitus without complications Return December 06 with Margarito Diamond M.D. [...] intraocular lens Follow up - Return S eptemb with Margarito Diamond M.D. for intermediate refract Related to Presence of intraocular lens Return for surgery Related to Ag e-related nuclear cataract, left eye Follow up - Return for surgery R elated to Age-related nuclear cataract, left eye Impression/Plan - 2 week post CE OD, doing well. Finish surgery drops. Related to Presence of intraocular lens Impression/Plan - Ca taract surgery proposed OS, discussed complications, benefits and risks with patient. Discussed cataract, recommend patient proceed with proposed surgery. Consent signed in clinic. All questions were answered. Patient elects to proceed with cataract surgery OS. Related to Age-related nuclear cataract, left eye Return November 12 wit Margarito Diamond M.D. for intermediate refract Related to Presence of intraocular lens Follow up - Return A with Margarito Diamond M.D. for intermediate refract Related to Presence of intraocular lens Impression/Plan - Po st-op day 1 s/p CE/IOL OD, doing well. Discussed post op medication and care. Patient instructed to call the office immediately if they notice any sudden decrease in visual acuity or increase in pain or redness. Related to Presence of intraocular lens Impression/Plan - Ta rget distance, declined astigmatism correction. mm Related to Age-related nuclear cataract, bilateral Return for surgery Related to Ag e-related nuclear cataract, bilateral Impression/Plan - Di abetes type II: no background retinopathy, no signs of neovascularization noted. Recommend keeping HBa1C close to 6.0. Discussed ocular and systemic benefits of blood sugar control. Related to Type 2 diabetes mellitus without complications Follow up - Return for surgery R elated to Age-related nuclear cataract, bilateral Impression/Plan - Di scussed [...] complaint. Related to Age-related nuclear cataract, bilateral Return 1 year with Dru Diamond M.D. [...] outdoors. Related to Age-related nuclear cataract, bilateral Impression/Plan - [...] Related to Diabetes Mellitus Type 2, Uncomplicated Cataract, nuclear sc lerosis senile OU - Cataracts OU discussed. No indication for surgery at this time. Will discuss CE in the future when more symptomatic OU. Glasses RX given today. Will continue to observe. Related to Cataract, nuclear sclerosis senile - Return 1 year with Stevie Saldivar M.D. for long refract Related to Diabetes II controlled s retino Diabetes II controll ed s retino OU - Diabetes type II: no background retinopathy, no signs of neovascularization noted. Recommend keeping HBa1C close to 6.0. Discussed ocular and systemic benefits of blood sugar control. Related to Diabetes II controlled s retino Assessments Type Assessment Date No Information Patient Care Teams Name Effective Dates (start - stop) Status Members No Information
== END 2024-04-29 21:35 | disposition home or self-care (01) ==
PROVIDERS: Emergency Provider Emergency Medicine; PCP Physician Assistant
DX: S42.211A Unspecified displaced fracture of surgical neck of right humerus, initial encounter for closed fracture (principal); I25.10 Atherosclerotic heart disease of native coronary artery without angina pectoris; I50.9 Heart failure, unspecified; I11.0 Hypertensive heart disease with heart failure; E11.9 Type 2 diabetes mellitus without complications; E78.5 Hyperlipidemia, unspecified; Z95.1 Presence of aortocoronary bypass graft; I44.7 Left bundle-branch block, unspecified; Z79.82 Long term (current) use of aspirin; Z79.84 Long term (current) use of oral hypoglycemic drugs; Z79.899 Other long term (current) drug therapy; W18.39XA Other fall on same level, initial encounter
CPT/HCPCS: 73060; 93005; 99284; A4565; A9270

== ENCOUNTER 2024-06-27 17:33 | Inpatient (IN) | payer MEDICARE, MEDICAID, SELFPAY ==
[2024-06-27] VITALS (31 sets, daily range): BP systolic 119–133; BP diastolic 69–78; PULSE 58–74; RESP 13–27; TEMP 36.6; O2SAT 66–100
--- NOTE | ~2024-06-27 | US_ITS ---
EXAMINATION: US venous doppler [facility] DATE: 06/28/2024 15:05 INDICATION: Lower limb pain. TECHNIQUE: Grayscale images without and with compression and Doppler images of the bilateral lower ex tremity veins were obtained. COMPARISON: None FINDINGS: The right common femoral vein, profunda (deep) femoral vein, femoral vein, popliteal vein, peroneal v ein, posterior tibial veins, gastrocnemius vein, and greater saphenous vein are patent. The left common femoral vein, profunda (deep) femoral vein, femoral vein, popliteal vein, peroneal v ein, posterior tibial veins, gastrocnemius vein, and greater saphenous vein are patent. IMPRESSION: Patent bilateral lower extremity veins. No evidence of deep venous thrombosis. Reviewed, dictated and finalized at location K.
--- NOTE | ~2024-06-27 | XR_ITS ---
XR chest 1V portable Ordering provider: Daniela Neves MD History: 79 years Female with . dyspnea . Comparison: August 30, 2022 FINDINGS: MEDIASTINUM: The cardiac silhouette is moderately enlarged. Postoperative changes in the mediastinum. Prominent darci. LUNGS: No infiltrates, effusions or pneumothorax. Minimal interstitial changes which may indicate fib rotic changes versus edema. Pneumonitis also possible. OTHER: No free air under the diaphragm. Healing fracture in the right humeral proximal metaphysis the. IMPRESSION: Cardiomegaly with possible cardiac decompensation and pulmonary edema. Underlying fibrotic changes an d interstitial edema is not excluded. Reviewed, dictated and finalized at location A. IMPRESSION: Cardiomegaly with possible cardiac decompensation and pulmonary edema. Underlyi ng fibrotic changes and interstitial edema is not excluded.
--- NOTE | ~2024-06-27 | US_ITS ---
EXAM: RENAL ULTRASOUND HISTORY: RAHUL COMPARISON: None FINDINGS: RIGHT KIDNEY: 11.2 x 3.8 x 3.3 cm. The parenchyma of the right kidney is unremarkable in echogenicity. No hydronephrosis or bulky renal calculi. LEFT KIDNEY: 10.1 x 4.7 x 3.6 cm No hydronephrosis or renal calculi. The parenchyma of the left kidney is unremarkable in echogenicity. BLADDER: The bladder is minimally distended, with a left ureteral jet visualized. Despite prolonged interrogation, the right ureteral jet was not demonstrated on the static images.. IMPRESSION: No hydronephrosis or renal calculi. No sonographic findings to suggest medical renal disease. Reviewed, dictated and finalized at location A.
--- NOTE | ~2024-06-27 | US_ITS ---
Limited Abdominal Sonogram: Real-time sonographic imaging of the right upper quadrant was performed. Clinical History: Abnormal gallbladder on CT Findings: The liver appears normal with no evidence of mass lesion or bile duct dilatation. Main por meagan vein demonstrates normal direction of flow. The gallbladder demonstrates mild wall thickening up to 4 mm. No definite stone seen. The common bile duct measures 5 mm. The visualized pancreas, aorta, and IVC are unremarkable. Impression: Mild nonspecific gallbladder wall thickening. No gallstone evident. Reviewed, dictated and finalized at location M. Impression: Mild nonspecific gallbladder wall thickening. No gallstone evident.
--- NOTE | ~2024-06-27 | CT_ITS ---
CTA chest PE abdomen pel Ordering provider: Daniela Neves MD History: . SOB; dimer >4; transaminitis . Comparison: None. Technique: CT angiogram chest was performed following timed intravenous injection of contrast. Thin s lice axial images and reformatted coronal images were obtained. Three dimensional reformatted images of the chest were also obtained using a [employer] workstation. Also, CT of the abdomen and pelvis was pe rformed with IV contrast. . Automated exposure control and iterative reconstruction technique were e mployed. The dose-length product was 637.98 mGy-cm. 100 mL Omnipaque 350 was given IV. FINDINGS: CHEST: --PULMONARY ARTERIES: No pulmonary embolus. --VISUALIZED THORACIC INLET: Areas seen in the right side of the neck --MEDIASTINUM: Aorta/coronary arteries: Mild atheromatous disease. Heart/other: The heart is moderately enlarged. contrast is seen into the IVC and hepatic veins suggestive of right-sided heart failure. Enlarged lef t ventricle. Lymph nodes: No mediastinal or hilar adenopathy. --LUNGS: No pulmonary nodules or masses. No infiltrates or effusions. No pneumothorax. --MUSCULOSKELETAL: Bones: Age appropriate degenerative changes of the spine. Healing fracture in the left 12th and ninth ribs. Postoperative changes in the sternum and mediastinum. Dextroscoliosis. Superficial soft tissues: The superficial soft tissues are normal. ABDOMEN/PELVIS: --MUSCULOSKELETAL: Superficial soft tissues: The superficial soft tissues are normal. Bones: Age appropriate degenerative changes of the spine. Healing fracture in the left pubic bone. Le voscoliosis. Old compression fracture of L1 is noted. --UPPER ABDOMINAL ORGANS: Liver: Normal. Gallbladder: Thickened wall which may indicate cholecystitis. No stones seen. Clinical correlation ad vised. Spleen: Normal. Stomach/duodenum: Normal. Pancreas: Normal. Adrenals: Normal. Kidneys: Hyperdense area seen in the right kidney midpole which may be contrast. Stone is less likely . 2 right renal arteries. Calcification seen in the right upper abdomen near to the ureter is most likely outside. --PELVIC ORGANS: The bladder is normal. No bladder stones. --BOWEL AND MESENTERY: Colon: No evidence of diverticulitis. Thickened wall of the rectum is noted which may indicate procti tis. Clinical correlation advised.. Appendix is not demonstrated. Small Bowel: Normal. No obstruction. Peritoneum/mesentery: No free air or free fluid. No mesenteric lymphadenopathy. --RETROPERITONEUM: Mild atheromatous disease of the abdominal aorta. No retroperitoneal lymphadenop athy. IMPRESSION: CHEST: 1. No pulmonary embolism. 2. No acute cardiopulmonary pathology. 3. Cardiomegaly. Right-sided heart failure is highly suggestive. Enlarged left ventricle. 4. Healing fractures in the left lower thorax. ABDOMEN/PELVIS: 1. Thickened wall of the gallbladder which may indicate cholecystitis. 2. Thickened wall of the rectum which may indicate proctitis. Clinical correlation advised. 3. Healing fracture in the left pubic bone. Reviewed, dictated and finalized at location A. IMPRESSION: CHEST: 1. No pulmonary embolism. 2. No acute cardiopulmonary pathology. 3. Cardiomegaly. Right-sided heart failure is highly suggestive. Enlarged left ventricle. 4. Healing fractures in the left lower thorax. ABDOMEN/PELVIS: 1. Thickened wall of the gallbladder which may indicate cholecystitis. 2. Thickened wall of the rectum which may indicate proctitis. Clinical correla tion advised. 3. Healing fracture in the left pubic bone.
--- NOTE | 2024-06-27 17:39 | ECG_ITS ---
Test Date: 2024-06-27 17:41:57 Measurements Intervals [place] Rate: 65 P: 28 OR: 160 QRS: -40 QRSD: 190 T: 145 QT: 536 QTc: 558 Interpretive Statements SINUS RHYTHM LEFT AXIS DEVIATION POSSIBLE LEFT ATRIAL ENLARGEMENT LEFT BUNDLE BRANCH BLOCK ABNORMAL ECG Compared to ECG 04/29/2024 19:56:02 No significant changes Electronically Signed On 06-27-2024 18:49:46 CDT by Russell Dodd D.O.
--- NOTE | 2024-06-27 17:44 | ED.SOB ---
HPI - SOB/Dyspnea General Chief Complaint: Shortness of Breath/Dyspnea Stated Complaint: increased SOB since yesterday Time Seen by Provider: 06/27/24 17:34 Source: patient, family (Daughter Gail), EMS and RN notes reviewed Mode of arrival: EMS Limitations: language barrier (Yari #[id number]) and other History of Present Illness HPI Narrative: Patient presents with variable complaints. EMS had been called for shortness of breath. When patient first 1st got to the emergency department, she denied any shortness of breath and she continues to deny this my assessment. However, her daughter states that is why they called 911, because she has labored breathing verbal becoming dyspneic with walking to the bathroom. EMS reported that her respiratory rate was 15 per minute she was saturating 96% on your however they had applied oxygen for comfort initially. Patient states that she has been eating and drinking okay however daughter states that she has lost her appetite. Patient recently had an upper extremity fracture that is currently non operative based on her comorbidities according to the daughter. Daughter denies any subsequent falls in the interim. Patient denies any pain. She notes that she had been feeling nauseous but had not vomited however her daughter states that she did vomit last night. She denies currently being nauseated. She denies any abdominal pain. Patient denies any cough but her daughter states that she has had some congestion of phlegm. When asked patient has myalgias, she states that her back has been hurting. No recent antibiotics or travel. Lives with her daughter who has not been sick. Denies any previous abdominal surgeries. Does have a history of a CABG at [facility]. Related Data Home Medications ?Medication ?Instructions ?Recorded ?Confirmed ?Last Taken ?Type escitalopram oxalate 5 mg tablet 5 mg PO HS 07/14/22 06/28/24 06/27/24 History metformin 500 mg tablet,extended 1,000 mg PO BID 05/26/24 06/28/24 06/27/24 History release 24hr (osmotic) sacubitril 49 mg-valsartan 51 mg 1 tablet PO BID 05/26/24 06/28/24 06/27/24 History tablet (Entresto) atorvastatin 40 mg tablet 40 mg PO QPM 06/28/24 06/28/24 06/26/24 History Allergies Allergy/AdvReac Type Severity Reaction Status Date / Time No Known Allergies Allergy Verified 05/26/24 11:52 [facility] Past Medical History Medical History Non-insulin dependent diabetes mellitus Proximal humeral fracture Congestive heart failure Fracture of left elbow Hyperlipidemia Hypertension CAD (coronary artery disease) Surgical History Surgical History Hx of CABG Religious [place] Family History Family History Unknown Adopted Social History Social History (Updated 06/27/24 @ 18:57 by Daniela Neves MD) Social History: The patient is and has 2 children. She is retired from [employer] in the [employer] line. Previously living in a senior citizen apartment complex. Her daughter is the durable power petal shaper hand for healthcare. Code status full code Smoking status: Never smoker Second hand tobacco smoke exposure: No Alcohol intake: never Substance use: never Substance use type: does not use Do You Feel Safe in your Home?: Yes Lack of Transportation: No Lack of Food: Never True Current Housing: I Have Housing Concerned About Future Housing: No Difficulty Paying Gas/Electric Bills: No Difficulty Paying for Meds: No Currently Unemployed: No Education: Grade School Difficulty w/ Childcare or Family Care: No Living arrangements: with family Additional living arrangements comments: daughter Gail Spiritual care concerns: No Exam Narrative: GENERAL: Well-appearing, well-nourished, and in no acute distress. HEAD: Normocephalic, atraumatic. EYES: Non injected, non icteric ENT: Nares clear, no rhinorrhea or epistaxis. NECK: Supple. CHEST: No respiratory distress. Nonlabored. Poor air movement, diminished at the bases. Well-healed surgical scar along chest. HEART: Regular rate and rhythm. . ABDOMEN: Soft, nondistended. EXTREMITIES: Right upper extremity in sling. 1+ bilateral lower extremity edema. SKIN: Warm, dry, no rash. NEURO: No focal deficits. Alert and oriented. Difficulty providing history. PSYCH: Congruent mood and affect. Course Vital Signs Vital signs: Vital Signs Pulse Rate 73 06/27/24 17:39 Respiratory Rate 14 06/27/24 17:39 Temperature 97.9 F 06/28/24 05:30 Pulse Rate 70 06/28/24 06:00 Respiratory Rate 22 H 06/28/24 05:30 Blood Pressure 134/72 06/28/24 05:30 Pulse Oximetry 96 06/28/24 05:30 Oxygen Delivery Room Air 06/28/24 04:50 MDM - SOB/Dyspnea MDM Narrative Medical decision making narrative: Patient presents with unclear concerns. EMS had been called for shortness of breath which patient denies but patient's daughter states that that is the reason they called 911, because her mother had been having dyspnea when walking even short distances. She has a history of heart failure. Also recently had a fracture of RUE, non operative. In the emergency department she is afebrile with vital signs that show mild tachypnea. She has an RAHUL, Cr 1.5 from previous 0.9. Will give 500 cc fluid, being judicious initially given underlying heart failure as well as the presence of cardiomegaly and some pulmonary edema on chest x-ray. She has chronic transaminitis. Hyperglycemia with an anion gap and acidosis on chemistry. Beta hydroxybutyrate mildly elevated. Will await urinalysis, ABG, and repeat BMP before officially calling her presentation DKA. After fluids given, will also give Lasix ( push pull ) for acute on chronic heart failure. Patient has elevated troponin. Aspirin ordered as is 3 hour troponin. Patient denies any chest pain. Normocytic anemia, 2g drop from previous. Dimer >4, will proceed with CTA PE study with the addition of abdomen and pelvis. Patient signed out to oncoming ED physician. She is pending her imaging, 3 hour troponin, and repeat BMP. I did the updates to patient's daughter regarding the rest of the workup that is pending and that her mother would need to be admitted once her ED workup was complete. She verifies understanding is in agreement. She does confirm that her mother had previously stated Full Code status. 4U subQ insulin given though patient currently non insulin dependent diabetic. HA1C ordered as well. Differential Diagnosis Differential diagnosis: Likely congestive heart failure, community acquired pneumonia, pulmonary embolism and other (Acute viral syndrome) Lab Data Attestation: I reviewed the patient's lab results. 06/28/24 05:19 06/28/24 05:19 Labs: Lab Results 06/27/24 06/27/24 06/27/24 Range/Units 18:05 18:05 18:07 WBC (4.5-10.0) K/mm3 RBC (4.2-5.4) M/mm3 Hgb (12.0-15.0) g/dL Hct (37.0-47.0) % MCV (80-100) fl MCH (26-34) pg MCHC (32-36) g/dl RDW (11.5-14.5) % Plt Count (150-375) k/mm3 MPV (7.4-10.4) fl Immature Gran % (Auto) (0-0.5) % Neut % (Auto) (45.5-73.1) % Lymph % (Auto) (18.3-44.2) % Keith % (Auto) (2.6-8.5) % Eos % (Auto) (0-4.4) % Baso % (Auto) (0.2-1.2) % Lymph # (Auto) (0.9-3.2) K/mm3 Keith # (Auto) (0.1-0.6) K/mm3 Eos # (Auto) (0-0.3) K/mm3 Baso # (Auto) (0.0-0.1) K/mm3 Abs Immat Gran (auto) (0.00-0.031) K/mm3 Absolute Neuts (auto) (1.3-6.7) K/mm3 Absolute Nucleated RBC (0.0-0.012) K/mm3 Band Neutrophils % (0-6) % Nucleated RBC % (0.0-0.2) % Platelet Estimate (Adequate) Hypochromasia Anisocytosis Schistocytes PT 17.4 H (11.1-14.7) Seconds INR 1.4 APTT 26.0 (22.3-36.8) Seconds D-Dimer 4.13 H (<0.48) ug/mL Sodium 141 (137-145) mmol/L Potassium 4.7 (3.4-5.0) mmol/L Chloride 106 (98-107) mmol/L Carbon Dioxide 13 L (22-30) mmol/L Anion Gap 22 H (4-12) mmol/L BUN 70 H D (7-17) mg/dL Creatinine 1.51 H (0.7-1.0) mg/dL Estim Creat Clear Calc 21 ml/min Estimated GFR 33 L (59 - ) Glucose 233 H (65-110) mg/dL POC Capillary Glucose (65-105) mg/dl Hemoglobin A1c (<5.7) % Calcium 9.0 (8.4-10.2) mg/dL Magnesium 2.3 Cancelled (1.6-2.3) mg/dL Total Bilirubin 1.8 H (0.2-1.3) mg/dL AST 172 H (14-36) U/L ALT 138 H (6-35) U/L Alkaline Phosphatase 298 H (38-126) U/L Troponin I 0.549 H* (0.000-0.034) ng/mL NT-Pro-B Natriuret Pep > 50724 H (19.9-100) pg/mL Total Protein 8.0 (6.3-8.2) g/dL Albumin 4.2 (3.5-5.1) g/dL Beta-Hydroxybutyrate/Acetoacetate 0.48 H (0.02-0.27) mmol/L Urine Color (Yellow) Urine Appearance (Clear) Urine pH (5.0-9.0) Ur Specific [place] (1.001-1.035) Urine Protein (Negative) mg/dL Urine Glucose (UA) (Negative) mg/dL Urine Ketones (Negative) mg/dL Ur Blood (Man) (Negative) Urine Nitrate (Negative) Urine Bilirubin (Negative) Urine Urobilinogen (<2.0) mg/dL Add Ur Microanalysis Leukocyte Esterase Rfl (Negative) JAGRUTI/UL Urine RBC (0-2) /hpf Urine WBC (0-3) /hpf Ur Squamous Epith Cells (Few) /hpf Urine Bacteria /hpf Urine Casts Influenza A (RT-PCR) Negative (Negative) Influenza B (RT-PCR) Negative (Negative) RSV (RT-PCR) Negative (Negative) SARS-CoV-2 RNA (RT-PCR) Negative (Negative) 06/27/24 06/27/24 06/27/24 Range/Units 19:01 19:08 19:39 WBC 5.5 (4.5-10.0) K/mm3 RBC 3.39 L (4.2-5.4) M/mm3 Hgb 8.9 L (12.0-15.0) g/dL Hct 30.6 L (37.0-47.0) % MCV 90.3 (80-100) fl MCH 26.3 (26-34) pg MCHC 29.1 L (32-36) g/dl RDW 16.1 H (11.5-14.5) % Plt Count 239 (150-375) k/mm3 MPV 12.1 H (7.4-10.4) fl Immature Gran % (Auto) 0.4 (0-0.5) % Neut % (Auto) 83.8 H (45.5-73.1) % Lymph % (Auto) 8.0 L (18.3-44.2) % Keith % (Auto) 7.1 (2.6-8.5) % Eos % (Auto) 0.2 (0-4.4) % Baso % (Auto) 0.5 (0.2-1.2) % Lymph # (Auto) 0.44 L (0.9-3.2) K/mm3 Keith # (Auto) 0.4 (0.1-0.6) K/mm3 Eos # (Auto) 0.0 (0-0.3) K/mm3 Baso # (Auto) 0.0 (0.0-0.1) K/mm3 Abs Immat Gran (auto) 0.02 (0.00-0.031) K/mm3 Absolute Neuts (auto) 4.6 (1.3-6.7) K/mm3 Absolute Nucleated RBC 0.030 H (0.0-0.012) K/mm3 Band Neutrophils % 0 (0-6) % Nucleated RBC % 0.5 H (0.0-0.2) % Platelet Estimate Adequate (Adequate) Hypochromasia 1+ Anisocytosis 2+ Schistocytes None seen PT (11.1-14.7) Seconds INR APTT (22.3-36.8) Seconds D-Dimer (<0.48) ug/mL Sodium (137-145) mmol/L Potassium (3.4-5.0) mmol/L Chloride (98-107) mmol/L Carbon Dioxide (22-30) mmol/L Anion Gap (4-12) mmol/L BUN (7-17) mg/dL Creatinine (0.7-1.0) mg/dL Estim Creat Clear Calc ml/min Estimated GFR (59 - ) Glucose (65-110) mg/dL POC Capillary Glucose (65-105) mg/dl Hemoglobin A1c 8.1 H (<5.7) % Calcium (8.4-10.2) mg/dL Magnesium (1.6-2.3) mg/dL Total Bilirubin (0.2-1.3) mg/dL AST (14-36) U/L ALT (6-35) U/L Alkaline Phosphatase (38-126) U/L Troponin I (0.000-0.034) ng/mL NT-Pro-B Natriuret Pep (19.9-100) pg/mL Total Protein (6.3-8.2) g/dL Albumin (3.5-5.1) g/dL Beta-Hydroxybutyrate/Acetoacetate (0.02-0.27) mmol/L Urine Color Yellow (Yellow) Urine Appearance Cloudy H (Clear) Urine pH 5.0 (5.0-9.0) Ur Specific [place] 1.032 (1.001-1.035) Urine Protein 2+ H (Negative) mg/dL Urine Glucose (UA) 3+ H (Negative) mg/dL Urine Ketones Trace H (Negative) mg/dL Ur Blood (Man) Negative (Negative) Urine Nitrate Negative (Negative) Urine Bilirubin Negative (Negative) Urine Urobilinogen 1.0 (<2.0) mg/dL Add Ur Microanalysis Reviewed Leukocyte Esterase Rfl Negative (Negative) JAGRUTI/UL Urine RBC 0-2 (0-2) /hpf Urine WBC 11-20 H (0-3) /hpf Ur Squamous Epith Cells Occasional (Few) /hpf Urine Bacteria None seen /hpf Urine Casts 11-20 Influenza A (RT-PCR) (Negative) Influenza B (RT-PCR) (Negative) RSV (RT-PCR) (Negative) SARS-CoV-2 RNA (RT-PCR) (Negative) 06/27/24 06/27/24 Range/Units 22:19 22:30 WBC (4.5-10.0) K/mm3 RBC (4.2-5.4) M/mm3 Hgb (12.0-15.0) g/dL Hct (37.0-47.0) % MCV (80-100) fl MCH (26-34) pg MCHC (32-36) g/dl RDW (11.5-14.5) % Plt Count (150-375) k/mm3 MPV (7.4-10.4) fl Immature Gran % (Auto) (0-0.5) % Neut % (Auto) (45.5-73.1) % Lymph % (Auto) (18.3-44.2) % Keith % (Auto) (2.6-8.5) % Eos % (Auto) (0-4.4) % Baso % (Auto) (0.2-1.2) % Lymph # (Auto) (0.9-3.2) K/mm3 Keith # (Auto) (0.1-0.6) K/mm3 Eos # (Auto) (0-0.3) K/mm3 Baso # (Auto) (0.0-0.1) K/mm3 Abs Immat Gran (auto) (0.00-0.031) K/mm3 Absolute Neuts (auto) (1.3-6.7) K/mm3 Absolute Nucleated RBC (0.0-0.012) K/mm3 Band Neutrophils % (0-6) % Nucleated RBC % (0.0-0.2) % Platelet Estimate (Adequate) Hypochromasia Anisocytosis Schistocytes PT (11.1-14.7) Seconds INR APTT (22.3-36.8) Seconds D-Dimer (<0.48) ug/mL Sodium 142 (137-145) mmol/L Potassium 4.0 (3.4-5.0) mmol/L Chloride 106 (98-107) mmol/L Carbon Dioxide 19 L (22-30) mmol/L Anion Gap 17 H (4-12) mmol/L BUN 72 H (7-17) mg/dL Creatinine 1.57 H (0.7-1.0) mg/dL Estim Creat Clear Calc 20 ml/min Estimated GFR 32 L (59 - ) Glucose 136 H (65-110) mg/dL POC Capillary Glucose 147 H (65-105) mg/dl Hemoglobin A1c (<5.7) % Calcium 8.7 (8.4-10.2) mg/dL Magnesium (1.6-2.3) mg/dL Total Bilirubin (0.2-1.3) mg/dL AST (14-36) U/L ALT (6-35) U/L Alkaline Phosphatase (38-126) U/L Troponin I 0.559 H* (0.000-0.034) ng/mL NT-Pro-B Natriuret Pep (19.9-100) pg/mL Total Protein (6.3-8.2) g/dL Albumin (3.5-5.1) g/dL Beta-Hydroxybutyrate/Acetoacetate (0.02-0.27) mmol/L Urine Color (Yellow) Urine Appearance (Clear) Urine pH (5.0-9.0) Ur Specific [place] (1.001-1.035) Urine Protein (Negative) mg/dL Urine Glucose (UA) (Negative) mg/dL Urine Ketones (Negative) mg/dL Ur Blood (Man) (Negative) Urine Nitrate (Negative) Urine Bilirubin (Negative) Urine Urobilinogen (<2.0) mg/dL Add Ur Microanalysis Leukocyte Esterase Rfl (Negative) JAGRUTI/UL Urine RBC (0-2) /hpf Urine WBC (0-3) /hpf Ur Squamous Epith Cells (Few) /hpf Urine Bacteria /hpf Urine Casts Influenza A (RT-PCR) (Negative) Influenza B (RT-PCR) (Negative) RSV (RT-PCR) (Negative) SARS-CoV-2 RNA (RT-PCR) (Negative) ABG Data ABG results: 06/27/24 19:26 Puncture Site Right radial ABG pH 7.352 ABG pCO2 28.2 L ABG pO2 84.8 ABG PO2/FiO2 Ratio 4.04 ABG HCO3 15.3 L ABG O2 Saturation 96.2 ABG O2 Content 13.9 L ABG Base Excess -9.1 A-a Gradient 31.2 Oxyhemoglobin 94.5 Total Hemoglobin 10.4 L O2 Delivery Device Room air O2 Liters/Min Not Reportable FiO2 21 Imaging Data Attestation: I personally reviewed and interpreted this imaging study as follows: My impression: Cardiomegaly, sternotomy wires, some pulmonary edema Radiologist's impression: IMPRESSION: Cardiomegaly with possible cardiac decompensation and pulmonary edema. Underlying fibrotic changes and interstitial edema is not excluded. ECG Data EKG #1: Attestation: I personally reviewed and interpreted this ECG as follows: ECG completion date: 06/27/24 ECG completion time: 17:41 Prior ECG tracings: available for review (EKG from 04/29/2024 appears similarly in leads 3, 1, AVR, aVL, and AVF. Previously lead 2 appear to have an ST depression. Not today. Similar appearance in V1 and V3. ST segments and T-waves were more prominent in V2 previously. The appearance of the for similar. Appearance V5 V6 is different ) Interpretation: Normal sinus rhythm at a rate of 65 beats per minute. DC interval 160. QRS 190. QT/QTC 536/547. This is prolonged. Left axis deviation (QRS is positive with dominant R wave in Lead I; QRS is negative with dominant S wave in leads II, III, and aVF). Appears to be right ventricular conduction delay given the RSR pattern in V1 through V3. Poor R-wave progression across the precordial leads. No T-wave inversions. Discharge Plan Discharge Clinical Impression: Shortness of breath, Prolonged QT interval, RAHUL (acute kidney injury), Cardiomegaly, Transaminitis, Acute on chronic heart failure, Non-ST elevation LA (NSTEMI), Normocytic anemia Patient Disposition: Still a Patient Condition: Stable
--- OUTSIDE RECORDS SUMMARY | 2024-06-27 18:11 | XMS_ITS | Continuity of Care Document ---
Author Organization [facility] Address [address] [place] [address] Phone Care Team Providers Care Computer Laboratory Technician Name Role Phone Margarito Diamond MD Unavailable [...] Compre Exam W Or Withou Ref 15 Teacher Asst Exam Refraction Glare Test Dilated Retinal Exam W/Int Advance Directives Directive Yes / No Effective Date File Name No Information Encounters Encounter Description Practice Location Reason(s) For Visit Diagnoses Date Provider Providers Copied on Encounter [facility], [address] [place], [place], [id number] , [place] tel: [phone] [facility] [place] No Information Dara Pimentel. [address] [place], [place], [id number], [place]. tel:[phone] [facility], [address] [place], [place], [id number] , [place] tel: [phone] [facility] [place] PO (chief complaint) Presence of intraocular lensType 2 diabetes mellitus without complications Sep-2 7 Dara Pimentel. [address] [place], [place], [id number], [place]. tel:[phone] Referring Provider: Juan Terrazas MD, [address] [facility] [address], [place], [address] . tel:[phone] sulting Provider: Margarito Laird, [address], [place], [address] . tel:[phone] [facility], [address] [place], [place], [id number] , [place] tel: [phone] [facility] [place] post op (chief complaint) Presence of intraocular lens Sep-0 7 Dara Pimentel. [address], [place], [place], [id number], [place]. tel:[phone] Referring Provider: Juan Terrazas MD, [address] [facility] [address], [place], [address] . tel:[phone] sulting Provider: Margarito Laird, [address], [place], [address] . tel:[phone] [facility], [address] [place], [place], [id number] , [place] tel: [phone] [facility] Age-related nuclear cataract, left eyeAge-related cataract of left eye Sep-0 7 [facility] [address] [place], [place], [id number], [place]. tel:[phone] [facility], [address] [place], [place], [id number] , [place] tel: [phone] [facility] No Information Sep-0 7 Dara Pimentel. [address] [place], [place], [address], [place]. tel:[phone] Referring Provider: Juan Terrazas MD, [address] [facility] [address], [place], [address] . tel: [phone] sulting Provider: Margarito Diamond MD D, [address] [place], [address] . tel:[phone] [facility], [address] [place], [place], [id number] , [place] tel: [phone] [facility] [place] Age-related nuclear cataract, left eye Sep-0 7 Dara Pimentel. [address] [place], [place], [address], [place]. tel:[phone] [facility], [address] [place], [id number] , [place] tel: [phone] [facility] [place] PO (chief complaint) Presence of intraocular lensAge-related nuclear cataract, left eye 7 Dara Pimentel. [address], [place], [place], [address], [place]. tel:[phone] Referring Provider: Juan Terrazas MD, [address], [place], [address] . [phone] Provider: Margarito Laird, [address] [place], [address] . tel:[phone] [facility], [address], [place], [address] , [place] tel:[phone] [facility] [place] Post Op (chief complaint) cataract (chief complaint) Presence of intraocular lensAge-related nuclear cataract, left eye Dara Pimentel. [address] [place], [place], [address], [place]. tel:[phone] Referring Provider: Juan Terrazas MD, [address] [facility] [address], [place], [address] . tel:[phone] Provider: Margarito Laird, [address] [place], [address] . tel:[phone] [facility], [address], [place], [id number] , [place] tel:[phone] [facility] Age-related nuclear cataract, right eye 7 [facility]. [address] [place], [place], [id number], [place]. tel:[phone] [facility], [address] [place], [place], [address] , [place] tel:[phone] [facility] No Information 7 Dara Pimentel. [address] [place], [place], [id number], [place]. tel:[phone] Referring Provider: Juan Terrazas MD, [address] [facility] [address], [place], [address] . tel:[phone] sulting Provider: Margarito Laird, [address] [place], [address] . tel:[phone] [facility], [address] [place], [id number] , [place] tel: [phone] [facility] Age-related nuclear cataract, right eye Dara Pimentel. [address], [place], [address], [place]. tel:[phone] [facility], [address], [place], [address] , [place] tel: [phone] [facility] [place] Age-related nuclear cataract, bilateralAge-rel ated nuclear cataract, right eyeAge-related cataract of left eye Dara Pimentel. [address], [place], [id number], [place]. tel:[phone] Referring Provider: Juan Terrazas MD, [address] [address], [place], [address] . tel:[phone] [facility], [address], [place], [id number] , [place] tel:[phone] [facility] glare (chief complaint) itching (chief complaint) Type 2 diabetes mellitus without complicationsAge -related nuclear cataract, bilateralAge-rel ated nuclear cataract, right eyeUnspecified disorder of refraction 7 Dara Pimentel. [address] [place], [place], [address], [place]. [phone] Referring Provider: Juan Terrazas MD, [address] [facility] [address], [place], [address] . tel:[phone] [facility], [address], [place], [address] , [place] tel:[phone] [facility] [place] diabetic eye exam (chief complaint) Type 2 diabetes mellitus without complicationsAge -related nuclear cataract, bilateral Sep-2 2- 6 Dara Pimentel. [address] [place], [place], [id number], [place]. [phone] Referring Provider: Teresa Seymour MD, [address] [place] [address], [place], [address] . tel:[phone] [facility], [address], [place], [id number] , [place] tel:[phone] [facility] Diabetic exam (chief complaint) Diabetes Mellitus Type 2, Uncomplicated Nov- 4 5 Dara Pimentel. [address], [place], [address], [place]. [phone] Referring Provider: Margarito Laird, [address] [place], [address] . tel:[phone] [facility], [address], [place], [address] , [place] [phone] [facility] [place] Cataract NuclearDiabetes Mellitus Type 2, Uncomplicated Jean- 4 Janna Hubbard. [address], [place], [address], [place]. tel:[phone] Referring Provider: Stevie Vidales, [address] [place], [address] . tel:[phone] Family History Family Member Type Diagnosis Age [...] e-related nuclear cataract, left eye Impression/Plan - Ca taract surgery proposed OS, discussed complications, benefits and risks with patient. Discussed cataract, recommend patient proceed with proposed surgery. Consent signed in clinic. All questions were answered. Patient elects to proceed with cataract surgery OS. Related to Age-related nuclear cataract, left eye Impression/Plan - 2 week post CE OD, doing well. Finish surgery drops. Related to Presence of intraocular lens Follow up - Return for surgery R elated to Age-related nuclear cataract, left eye Return [...]
--- OUTSIDE RECORDS SUMMARY | 2024-06-27 18:11 | XMS_ITS | Data Portability ---
Author Organization [facility] [address] [facility] [place] [address] Care Team Providers Care Triage Registered Nurse Name Role Phone CRYSTAL GILLESPIE Primary Care Provider Assessment Encounter Date Assessment Date Assessment LastModified [...] Details Last Modified Time Details Appointments ANY 15 2024 04:00P M NANDO SEPULVEDA Not available Not available Not available Lab CMP, serum or plasma 2023 024 [facility], [address] [facility], [address], [place], [address], 02/28/2024 07:17:50 HbA1c (hemoglob in A1c), blood 2023 024 TIARA In-Office Order, Internal Use Only DO Not Attach Compendium DO Not Attach Compendium, Do Not Delete/merge, [id number] 02/26/2024 17:03:39 urinalysi s, dipstick, reflex micro 2023 024 [email or web address] [facility] ([facility] [address] [place], [address], 04/23/2024 09:40:30 BMP, serum or plasma [address] (Lab), [address], [place], [address], 04/23/2024 09:40:30 CBC w/ auto diff [address] (Lab), [address], [place], [address], 04/23/2024 09:40:30 microalbu min/creat inine, mass ratio, urine [address] (Lab), [address], [place], [address], 04/23/2024 09:40:30 protein:c reatinine ratio, urine [address] (Lab), [address], [place], [address], 04/23/2024 09:40:30 immunoele ctrophore sis, serum [address] (Lab), [address] [facility], [place], [address], 04/23/2024 09:40:31 CMP, serum or plasma 2023 024 [facility], [address] [place] [address], [facility] [address], [place], [address], 08/28/2023 08:26:58 albumin/c reatinine , mass ratio, urine 2023 024 [facility], [address] [place] [address], [facility] [address], [place], [address], 08/28/2023 08:26:56 HbA1c (hemoglob in A1c), blood 2023 024 [email or web address] In-Office Order, Internal Use Only DO Not Attach Compendium DO Not Attach Compendium, Do Not Delete/merge, [id number] 08/26/2023 16:50:09 Referral diabetic ophthalmo logy referral 2023 024 [email or web address], [address], [place], [address], 08/26/2023 16:51:42 Procedures None recorded. Surgeries None recorded. Imaging None recorded. Medication Orders Jardiance 25 mg tablet 2023 024 [id number], [address], [place], [place], [id number], 02/26/2024 16:42:11 metformin ER 500 mg 24 hr tablet,ex tended release (gastric retention ) 2023 024 [facility]28804, [address], [place], [place], [id number], 02/26/2024 16:42:10 Accu-Chek Guide test strips 2023 024 [facility], [address] , [place], [place], [id number], 02/26/2024 16:42:04 Jardiance 25 mg tablet 2023 024 [facility] #82815, [address], [place], [place], [id number], 08/26/2023 16:50:15 metformin ER 500 mg 24 hr tablet,ex tended release (gastric retention ) 2023 024 [facility] #40783, [address] , [place], [place], [id number], 08/26/2023 16:50:14 Accu-Chek Guide test strips 2023 024 [facility] #22247, [address] , [place], [place], [id number], 08/26/2023 17:00:50 Patient TargetsNo targets recorded. Patient Instructions Encounter Date Encounter Id Patient Instructions Last Modified By Organization Details Last Modified Time 07/02/2023 [id number] learning about type 2 diabetes fharry Not available 07/02/2023 16:21:18 type 2 diabetes: care instructions fharry Not available 07/02/2023 16:21:18 toenail fungus: care instructions fharry Not available 07/02/2023 16:21:18 athlete's foot: care instructions fharry Not available 07/02/2023 16:21:18 10/01/2023 [id number] learning about type 2 diabetes fharry Not available 10/01/2023 15:46:03 type 2 diabetes: care instructions fharry Not available 10/01/2023 15:46:03 toenail fungus: care instructions fharry Not available 10/01/2023 15:46:04 athlete's foot: care instructions fharry Not available 10/01/2023 15:46:04 Reason for Referral Diabetic Ophthalmology Refer ral for Type 2 diabetes mellitus Referring Physician: Crystal Gillespie, Field Agronomist, Encounter Date: 08/26/2023 Results Created Date Observation Date Name Description Value Unit Range Abnormal Flag Note LastModifiedBy Organization Detail LastModifiedTime 06/06/19 24 06/07/2023 COMP. METAB OLIC PANEL (14) glucose 181 mg/dL 70-99 above high normal Not Available [facility] ([facility]) [address] [place], [address], 06/07/2023 07:16:33 06/06/19 24 06/07/2023 COMP. METAB OLIC PANEL (14) BUN 31 mg/dL 8-27 above high normal Not Available [facility] ([facility]) [address] [facility], [place], [address], 06/07/2023 07:16:33 06/06/19 24 06/07/2023 COMP. METAB OLIC PANEL (14) creatinine 1.11 mg/dL 0.57-1 .00 above high normal Not Available [facility] ([facility]) [address], [place], [address], 06/07/2023 07:16:33 06/06/19 24 06/07/2023 COMP. METAB OLIC PANEL (14) eGFR 51 mL/mi n/1.7 3 >59 below low normal Not Available [facility] ([facility]) [address], [place], [address], 06/07/2023 07:16:33 06/06/19 24 06/07/2023 COMP. METAB OLIC PANEL (14) BUN/creatini ne ratio 28 12-28 Not Available [facility] ([facility]) [address] [place], [address], 06/07/2023 07:16:33 06/06/19 24 06/07/2023 COMP. METAB OLIC PANEL (14) sodium 140 mmol/ L 134-14 4 Not Available [facility] ([facility]) [address] [place], [address], 06/07/2023 07:16:33 06/06/19 24 06/07/2023 COMP. METAB OLIC PANEL (14) potassium 4.3 mmol/ L 3.5-5. 2 Not Available [facility] ([place] [facility]) [address] [place], [address], 06/07/2023 07:16:33 06/06/19 24 06/07/2023 COMP. METAB OLIC PANEL (14) chloride 102 mmol/ L 96-106 Not Available [facility] ([place] [facility]) [address] [facility] [place], [address], 06/07/2023 07:16:33 06/06/19 24 06/07/2023 COMP. METAB OLIC PANEL (14) carbon dioxide, total 21 mmol/ L 20-29 Not Available [facility] ([place] [facility]) [address] [facility] [place], [address], 06/07/2023 07:16:33 06/06/19 24 06/07/2023 COMP. METAB OLIC PANEL (14) calcium 9.9 mg/dL 8.7-10 .3 Not Available [facility] ([facility]) [address] [place], [address], 06/07/2023 07:16:33 06/06/19 24 06/07/2023 COMP. METAB OLIC PANEL (14) protein, total 7.6 g/dL 6.0-8. 5 Not Available [facility] ([facility]) [address] [place], [address], 06/07/2023 07:16:33 06/06/19 24 06/07/2023 COMP. METAB OLIC PANEL (14) albumin 4.2 g/dL 3.8-4. 8 Not Available [facility] ([facility]) [address] [place], [address], 06/07/2023 07:16:33 06/06/19 24 06/07/2023 COMP. METAB OLIC PANEL (14) globulin, total 3.4 g/dL 1.5-4. 5 Not Available [facility] ([facility]) [address] [place], [address], 06/07/2023 07:16:33 06/06/19 24 06/07/2023 COMP. METAB OLIC PANEL (14) A/G ratio 1.2 1.2-2. 2 Not Available [facility] ([facility]) [address] [place], [address], 06/07/2023 07:16:33 06/06/19 24 06/07/2023 COMP. METAB OLIC PANEL (14) bilirubin, total 0.8 mg/dL 0.0-1. 2 Not Available [facility] ([facility] [address] [facility] [place], [address], 06/07/2023 07:16:33 06/06/19 24 06/07/2023 COMP. METAB OLIC PANEL (14) alkaline phosphatase 92 IU/L 44-121 Not Available [facility] ([facility]) [address] [facility] [place], [address], 06/07/2023 07:16:33 06/06/19 24 06/07/2023 COMP. METAB OLIC PANEL (14) AST (SGOT) 22 IU/L 0-40 Not Available [facility] ([facility]) [address] [facility] [place], [address], 06/07/2023 07:16:33 06/06/19 24 06/07/2023 COMP. METAB OLIC PANEL (14) ALT (SGPT) 18 IU/L 0-32 Not Available [facility] ([facility]) [address] [place], [address], 06/07/2023 07:16:33 08/26/19 24 08/28/2023 ALBUM IN/CR EATIN INE RATIO ,URIN E creatinine, urine - mg/dL Test not perfo rmed. No urine speci men recei wisam. Not Available [facility] ([facility]) [address] [place], [address], 08/28/2023 08:26:56 08/26/19 24 08/28/2023 ALBUM IN/CR EATIN INE RATIO ,URIN E albumin, urine - Test not perfo rmed Not Available [facility] ([facility]) [address] [place], [address], 08/28/2023 08:26:56 08/26/19 24 08/28/2023 LIPID PANEL cholesterol, total 136 mg/dL 100-19 9 Not Available [facility] ([facility]) [address] [place], [address], 08/28/2023 08:26:58 08/26/19 24 08/28/2023 LIPID PANEL triglyceride s 98 mg/dL 0-149 Not Available [facility] ([facility]) [address] [place], [address], 08/28/2023 08:26:58 08/26/19 24 08/28/2023 LIPID PANEL HDL cholesterol 46 mg/dL >39 Not Available [facility] ([facility]) [address] [place], [address], 08/28/2023 08:26:58 08/26/19 24 08/28/2023 LIPID PANEL VLDL cholesterol gricelda 18 mg/dL 5-40 Not Available [facility] ([facility]) [address] [place], [address], 08/28/2023 08:26:58 08/26/19 24 08/28/2023 LIPID PANEL LDL chol calc ([facility]) 72 mg/dL 0-99 Not Available [facility] ([facility]) [address] [place], [address], 08/28/2023 08:26:58 08/26/19 24 08/28/2023 COMP. METAB OLIC PANEL (14) glucose 141 mg/dL 70-99 above high normal Not Available [facility] ([facility]) [address] [place], [address], 08/28/2023 08:26:58 08/26/19 24 08/28/2023 COMP. METAB OLIC PANEL (14) BUN 31 mg/dL 8-27 above high normal Not Available [facility] ([facility]) [address] [place], [address], 08/28/2023 08:26:58 08/26/19 24 08/28/2023 COMP. METAB OLIC PANEL (14) creatinine 1.04 mg/dL 0.57-1 .00 above high normal Not Available [facility] ([facility]) [address] [place], [address], 08/28/2023 08:26:58 08/26/19 24 08/28/2023 COMP. METAB OLIC PANEL (14) eGFR 55 mL/mi n/1.7 3 >59 below low normal Not Available [facility] ([facility]) [address] [facility], [place], [address], 08/28/2023 08:26:58 08/26/19 24 08/28/2023 COMP. METAB OLIC PANEL (14) BUN/creatini ne ratio 30 12-28 above high normal Not Available [facility] ([facility]) [address] [facility], [place], [address], 08/28/2023 08:26:58 08/26/19 24 08/28/2023 COMP. METAB OLIC PANEL (14) sodium 141 mmol/ L 134-14 4 Not Available [facility] ([facility]) [address] [facility], [place], [address], 08/28/2023 08:26:58 08/26/19 24 08/28/2023 COMP. METAB OLIC PANEL (14) potassium 4.3 mmol/ L 3.5-5. 2 Not Available [facility] ([facility]) [address] [facility], [place], [address], 08/28/2023 08:26:58 08/26/19 24 08/28/2023 COMP. METAB OLIC PANEL (14) chloride 105 mmol/ L 96-106 Not Available [facility] ([facility]) [address] [place], [address], 08/28/2023 08:26:58 08/26/19 24 08/28/2023 COMP. METAB OLIC PANEL (14) carbon dioxide, total 16 mmol/ L 20-29 below low normal Not Available [facility] ([facility]) [address] [place], [address], 08/28/2023 08:26:58 08/26/19 24 08/28/2023 COMP. METAB OLIC PANEL (14) calcium 9.7 mg/dL 8.7-10 .3 Not Available [facility] ([facility]) [address] [facility], [place], [address], 08/28/2023 08:26:58 08/26/19 24 08/28/2023 COMP. METAB OLIC PANEL (14) protein, total 7.4 g/dL 6.0-8. 5 Not Available [facility] ([facility]) [address] [facility], [place], [address], 08/28/2023 08:26:58 08/26/19 24 08/28/2023 COMP. METAB OLIC PANEL (14) albumin 4.2 g/dL 3.8-4. 8 Not Available [facility] ([facility]) [address] [facility], [place], [address], 08/28/2023 08:26:58 08/26/19 24 08/28/2023 COMP. METAB OLIC PANEL (14) globulin, total 3.2 g/dL 1.5-4. 5 Not Available [facility] ([facility]) [address] [place], [address], 08/28/2023 08:26:58 08/26/19 24 08/28/2023 COMP. METAB OLIC PANEL (14) A/G ratio 1.3 Not Available [facility] ([facility]) [address] [place], [address], 08/28/2023 08:26:58 08/26/19 24 08/28/2023 COMP. METAB OLIC PANEL (14) bilirubin, total 0.9 mg/dL 0.0-1. 2 Not Available [facility] ([facility]) [address] [facility], [place], [address], 08/28/2023 08:26:58 08/26/19 24 08/28/2023 COMP. METAB OLIC PANEL (14) alkaline phosphatase 81 IU/L 44-121 Not Available [facility] ([facility]) [address] [place], [address], 08/28/2023 08:26:58 08/26/19 24 08/28/2023 COMP. METAB OLIC PANEL (14) AST (SGOT) 20 IU/L 0-40 Not Available [facility] ([facility]) [address] [place], [address], 08/28/2023 08:26:58 08/26/19 24 08/28/2023 COMP. METAB OLIC PANEL (14) ALT (SGPT) 17 IU/L 0-32 Not Available [facility] ([facility]) [address] [place], [address], 08/28/2023 08:26:58 08/26/19 24 08/26/2023 HbA1c (hemo globi n A1c), blood HbA1c 9.1 Not Available In-Office Order Internal Use Only DO Not Attach Compendium DO Not Attach Compendium, Do Not Delete/merge, [id number] 08/26/2023 16:47:30 02/26/20 24 02/28/2024 COMP. METAB OLIC PANEL (14) glucose 57 mg/dL 70-99 below low normal Not Available [facility] ([facility]) [address] [place], [address], 02/28/2024 07:17:50 02/26/20 24 02/28/2024 COMP. METAB OLIC PANEL (14) BUN 30 mg/dL 8-27 above high normal Not Available [facility] ([facility]) [address] [place], [address], 02/28/2024 07:17:50 02/26/20 24 02/28/2024 COMP. METAB OLIC PANEL (14) creatinine 1.02 mg/dL 0.57-1 .00 above high normal Not Available [facility] ([facility]) [address] [place], [address], 02/28/2024 07:17:50 02/26/20 24 02/28/2024 COMP. METAB OLIC PANEL (14) eGFR 56 mL/mi n/1.7 3 >59 below low normal Not Available [facility] ([facility]) [address] [facility], [place], [address], 02/28/2024 07:17:50 02/26/20 24 02/28/2024 COMP. METAB OLIC PANEL (14) BUN/creatini ne ratio 29 12-28 above high normal Not Available [facility] ([facility]) [address] [facility] [place], [address], 02/28/2024 07:17:50 02/26/20 24 02/28/2024 COMP. METAB OLIC PANEL (14) sodium 141 mmol/ L 134-14 4 Not Available [facility] ([facility]) [address] [facility], [place], [address], 02/28/2024 07:17:50 02/26/20 24 02/28/2024 COMP. METAB OLIC PANEL (14) potassium 4.7 mmol/ L 3.5-5. 2 Not Available [facility] ([facility]) [address] [facility], [place], [address], 02/28/2024 07:17:50 02/26/20 24 02/28/2024 COMP. METAB OLIC PANEL (14) chloride 104 mmol/ L 96-106 Not Available [facility] ([facility]) [address] [place], [address], 02/28/2024 07:17:50 02/26/20 24 02/28/2024 COMP. METAB OLIC PANEL (14) carbon dioxide, total 21 mmol/ L 20-29 Not Available [facility] ([facility]) [address] [place], [address], 02/28/2024 07:17:50 02/26/20 24 02/28/2024 COMP. METAB OLIC PANEL (14) calcium 9.3 mg/dL 8.7-10 .3 Not Available [facility] ([facility]) [address] [facility], [place], [address], 02/28/2024 07:17:50 02/26/20 24 02/28/2024 COMP. METAB OLIC PANEL (14) protein, total 7.3 g/dL 6.0-8. 5 Not Available [facility] ([facility]) [address] [facility], [place], [address], 02/28/2024 07:17:50 02/26/20 24 02/28/2024 COMP. METAB OLIC PANEL (14) albumin 4.1 g/dL 3.8-4. 8 Not Available [facility] ([facility]) [address] [facility], [place], [address], 02/28/2024 07:17:50 02/26/20 24 02/28/2024 COMP. METAB OLIC PANEL (14) globulin, total 3.2 g/dL 1.5-4. 5 Not Available [facility] ([facility]) [address] [facility], [place], [address], 02/28/2024 07:17:50 02/26/20 24 02/28/2024 COMP. METAB OLIC PANEL (14) bilirubin, total 0.5 mg/dL 0.0-1. 2 Not Available [facility] ([facility]) [address] [facility], [place], [address], 02/28/2024 07:17:50 02/26/20 24 02/28/2024 COMP. METAB OLIC PANEL (14) alkaline phosphatase 79 IU/L 44-121 Not Available [facility]) [address] [facility], [place], [address], 02/28/2024 07:17:50 02/26/20 24 02/28/2024 COMP. METAB OLIC PANEL (14) AST (SGOT) 26 IU/L 0-40 Not Available [facility] ([facility]) [address] [facility], [place], [address], 02/28/2024 07:17:50 02/26/20 24 02/28/2024 COMP. METAB OLIC PANEL (14) ALT (SGPT) 13 IU/L 0-32 Not Available [facility] ([facility]) [address] [facility], [place], [address], 02/28/2024 07:17:50 02/26/20 24 02/26/2024 HbA1c (hemo globi n A1c), blood HbA1c 6.9 Not Available In-Office Order Internal Use Only DO Not Attach Compendium DO Not Attach Compendium, Do Not Delete/merge, [id number] 02/26/2024 16:40:48 04/29/19 25 04/29/2024 XR, ranjan us No observ ation record ed. [address], [place], [address], 05/04/2024 12:04:39 Result Notes None recorded. Problems Name Problem SNOMED Code Status Onset Date Resolution Date Notes Provider Name and Address Organization Details Recorded Time Microalbuminur ic diabetic nephropathy 521463646 Active 2022 NANDO SEPULVEDA Attn: Accountin g,[address], [place], [address], [place] [facility] 3 16:17:40 Heart failure 79448756 Active 2022 NANDO SEPULVEDA Attn: Accountin g,[address], [place], [address], [place] [facility] 3 14:16:06 Type 2 diabetes mellitus 32494892 Active 2022 NANDO SEPULVEDA Attn: Accountin g,[address], [place], [address], [place] [facility] 3 14:16:08 Cerebrovascula r accident 578280365 Active 2022 NANDO SEPULVEDA Attn: Accountin g,[address] [facility], [place], [address], [place] [facility] 3 14:16:13 At increased risk for falls 771961594 Active 2022 NANDO SEPULVEDA Attn: Accountin g,[address] [facility], [place], [address], [place] [facility] 3 14:58:51 Urinary incontinence 403463687 Active 2022 NANDO SEPULVEDA Attn: Accountin g,[address] [facility], [place], [address], [place] [facility] 3 14:58:53 Neuropathy 644644457 Active 2022 NANDO SEPULVEDA Attn: Accountin g,[address] [facility], [place], [address], [place] [facility] 3 14:59:25 Bradycardia 79466668 Active 2022 NANDO SEPULVEDA Attn: Accountin g,[address] [facility], [place], [address], [place] [facility] 3 15:04:15 Tinea pedis 6361621 Active 2022 NANDO SEPULVEDA Attn: Accountin g,[address] [facility], [place], [address], [place] [facility] 3 15:04:16 Abnormal foot pulse 92288716 Active 2022 NANDO SEPULVEDA Attn: Accountin g,[address] [facility], [place], [address], [place] [facility] 3 15:04:20 Problem Notes None recorded. Procedures Surgical History Date Name Laterality Status Provider Name and Address Organization Details Recorded Time 4 Routine Foot Care completed PETER RICH DPM [address] [place], [address], [place] [facility] 10/01/2023 15:12:53 4 Routine Foot Care completed PETER RICH DPM [address], [place], [address], [facility] 07/02/2023 16:20:48 4 Routine Foot Care completed PETER RICH DPM [address], [place], [address], [facility] 04/26/2023 16:30:53 Imaging Results Imaging Date Name Status LastModified by Organiz ation Details LastModified Time 04/29/2024 XR, humerus completed [email or web address] [facility] [address], [place], [address], 05/04/2024 12:04:39 Procedure Notes None recorded. Medical Equipment None [...] TABLET BY MOUTH EVERY DAY AT BEDTIME active Not Available Not Available No t Available doxycycline hyclate 100 mg capsule TAKE 1 CAPSULE BY MOUTH TWICE DAILY 08/22 completed Not Available Not Available Not Available spironolact one 25 mg tablet TAKE 1 TABLET BY MOUTH EVERY DAY active Not Available Not Available No t Available methocarbam ol 750 mg tablet TAKE 1 TABLET BY MOUTH THREE TIMES DAILY NEEDED FOR MUSCLE SPASM active Not Available Not Available No t Available oxycodone 5 mg capsule TAKE 1 CAPSULE BY MOUTH EVERY 6 HOURS NEEDED FOR PAIN active Not Available Not Available No t Available alcohol swabs USE DIRECTED 2024 active Not Available Not Available Not Avai lable metoprolol succinate ER 25 mg tablet,exte nded [...] 2024 active Not Available Not Available Not Tiffany feldman Microlet Lancet TEST ONCE DAILY active Not Available Not Available No t Available escitalopra m 5 mg tablet TAKE 1 TABLET BY MOUTH EVERY DAY active Not Available Not Available No t Available metformin ER 500 mg 24 hr tablet,exte nded release (gastric retention) Take 2 tablets twice a day by oral route for 90 days. 2023 active Not Available Not Available Not Tiffany feldman Contour Next EZ Meter DIRECTED active Not Available Not Available No t Available Jardiance 10 mg tablet TAKE 1 TABLET BY MOUTH EVERY DAY IN THE MORNING 02/14 completed Not Available Not Available Not Available Jardiance 25 mg tablet TAKE 1 TABLET BY MOUTH EVERY DAY active Not Available Not Available No t Available Entresto 49 mg-51 mg tablet TAKE 1 TABLET BY MOUTH TWICE DAILY active Not Available Not Available No t Available Entresto 24 mg-26 mg tablet TAKE 1 TABLET BY MOUTH TWICE DAILY active Not Available Not Available No t Available Accu-Chek Guide test strips USE 1 STRIP EVERY DAY FOR 100 DAYS 2024 active Not Available Not Available Not Tiffany feldman Vitals Date Recorded Body height Body mass index (BMI) Body weight Heart rate Body temperature Systolic blood pressure Diastolic blood pressure Provider Name and Address Organization Details Last Updated DateTime 4 156.85 cm 22 kg/m2 31425.9 3 g 62 /min 97.9 [degF] 151 mm[Hg] 74 mm[Hg] Smita Suero MA [facility] 4 15:44:56 Date Recorded Body height Body mass index (BMI) Body weight Provider Name and Address Organization Details Last Updated DateTime 08/26/2023 156.85 cm 21.9 kg/m2 41234.49 g Ce Dempsey MA [facility] 08/26/2023 16:44:58 Date Recorded Heart rate Systolic blood pressure Diastolic blood pressure Provider Name and Address Organization Details Last Updated DateTime 08/26/2023 66 /min 136 mm[Hg] 76 mm[Hg] NANDO SEPULVEDA Attn: Accounting,[address] [place], [address], [facility] 08/26/2023 18:31:45 Date Recorded Body height Body mass index (BMI) Body weight Heart rate Body temperature Pain severity - 0-10 verbal numeric rating [Score] - Reported Systolic blood pressure Diastolic blood pressure Provider Name and Address Organization Details Last Updated DateTime 4 156.85 cm 22.2 kg/m2 54981.5 2 g 60 /min 98.3 [degF] 0 150 mm[Hg] 74 mm[Hg] Smita Suero MA [facility] 4 15:07:46 Date Recorded Body height Oxygen saturation [...] /min 18 /min 97.2 [degF] 21.2 kg/m2 01774.1 2 g 164 mm[Hg] 79 mm[Hg] Antonieta Carvalho MA [facility] 4 16:43:55 Date Recorded Body height Body mass index (BMI) Body weight Heart rate Oxygen saturation Oxygen saturation in Arterial blood by Pulse oximetry Provider Name and Address Organization Details Last Updated DateTime 4 156.85 cm 22.3 kg/m2 58398.6 8 g 50 /min 98 % 98 % Ce Dempsey MA [facility] 4 16:35:35 Date Recorded Systolic blood pressure Diastolic blood pressure Provider Name and Address Organization Details Last Updated DateTime 02/26/2024 130 mm[Hg] 86 mm[Hg] NANDO SEPULVEDA Attn: Accounting,[address] [place], [address], [facility] 02/29/2024 08:35:33 Social History Question Answer Notes LastModified by Organizat ion Details LastModified Time Tobacco Smoking Status Never Smoker Ce Dempsey MA null, [facility] 08/22/2022 14:45:33 Do You Have An Advance [...] Skin Problems N Anemia N Heart Attack ([place]) N Anxiety Disorder N Diabetes N Muscle, [...] Immunizations Vaccine Type Date Status Note Provider Milton oliveira and Address Organization Details Recorded Time Pneumococcal conjugate PCV20, polysaccharide HHE375 conjugate, adjuvant, PF 3 completed Ce Dempsey [place] null, [place] [facility] 11/15/2022 16:25:55 Past Encounters Encounter ID Performer Location Encounter Start Date Encounter Closed Date Diagnosis/Indication Diagnosis SNOMED-CT Code Diagnosis ICD10 Code Diagnosis Note [id number] NANDO SEPULVEDA [facility] [address] [place] [address] 08/22/2022 14:19:02 08/22/2022 15:25:48 Heart failure 92015536 I50.9 Continue entresto, jardiance, metoprolol , spironolac [...] help lower yourcholes terol levels. Depressive disorder 6841 9000 F32.A continue for now. Type 2 dick ibrahim mellitus 11700637 E11.9 A1C 9.7% (08/2022) not controlled Foot exam: next visitEye Exam: orderedAlb /Cr: orderedSta tin: compliantp neumonia vaccine: ??? 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 Type 2 dick betes mellitus 60797121 E11.9 A1C 9.7% (08/2022) not controlled bg 190 (post meal) medication s: jardiance 25mg, metformin 500MG QD (Increase today to bid)Foot exam: abnormal (09/2022) dry flaky skinEye Exam: orderedAlb /Cr: orderedSta tin: compliantp neumonia vaccine: ??? need records Microalbum inuric diabetic nephropathy 316524637 E11.21 [facility] 472639027 Z91.81 able to stand from wheelchair with some struggle. left leg weakness post stroke. would beneift from PT and OT. Urinary incontinence 165 399312 R32 wears adult pull-ups5- 7 per day Abnormal foot pulse 6943 7003 R09.89 diminished pulses Neuropathy 763688254 G62 .9 abnormal monofilame nt exam b/l feet to mid leg Tinea pedis 9321653 B35. 3 maceration b/w toes. will treat with clotrimazo lereferral for podiatry Bradycardia 06265023 R00 .1 trial cutting BB in half [id number] Vanita Hardwick CMA [facility] [address] [place] [address] 10/18/2022 16:08:57 10/18/2022 16:32:04 [id number] NANDO SEPULVEDA [facility] [address] [place] [address] 11/15/2022 15:42:46 11/15/2022 16:30:27 Type 2 diabetes mellitus 37252459 E11.9 A1C 8.5% (11/15/2022 ) 9.7% (08/2022) not controlled bg 190 (post meal) medication s: jardiance 25mg, metformin 500MG QD (Increase today to bid)Foot exam: abnormal (09/2022) dry flaky skinEye Exam: orderedAlb /Cr: orderedSta tin: compliantp neumonia vaccine: 11/15/22 given [id number] Administra tion of pneumococcal vaccine 39909685 Z23 Urinary incontinence 165 773566 R32 wears adult pull-ups5- 7 per dayneeds night pads for the bed [id number] NANDO SEPULVEDA [facility] [address] [place] [address] 02/14/2023 16:03:17 02/14/2023 16:46:54 Type 2 diabetes mellitus 44315349 E11.9 A1C 8.9% (01/2023 ) 8.5% (11/15/2022 [...] orderedSta tin: compliantp neumonia vaccine: 11/15/22 given [id number] Depressive disorder 3548 9007 F32.A continue for now. [id number] PETER RICH DPM [facility] [address] [address] 04/26/2023 15:51:50 04/29/2023 08:12:48 Tinea pedis 4228633 B35.3 The patient was educated why and [...] treatments . Type 2 dick betes mellitus 01846247 E11.51 Patient was educated about the systemic [...] Bilateral atherosclerosis of arteries of lower limbs 3101317701 2740609 I70.203 The patient was educated about the importance of exercise, diet and the need to protect their feet in order to prevent injury or ulceration . Pain in right foot 71890 73582 60381 M79.671 Pain in left foot 169821 6879 55166 M79.672 Onychomycosis 876995139 B35.1 [place] - lesion 832514438 L84 Xerosis du e to atopic dermatitis 295550081 L85.3 The patient was educated regarding proper hydration of their feet/ankle s and the patient was given several recommenda tions for proper creams to protect/hy drate and keep the area healthy. [id number] NANOD SEPULVEDA [facility] [address] [place] [address] 05/20/2023 16:03:58 05/20/2023 16:26:32 Type 2 diabetes mellitus 07630629 E11.9 A1C 9.4 (05/3033) 8.9% (01/2023 ) 8.5% (11/15/2022 ) 9.7% (08/2022) not controlled .A1C goal 7-7.5% at next check bg 190 (post meal) medication s: jardiance 25mg, metformin 500MG QD (Increase today to bid).Foot exam: abnormal (09/2022) dry flaky skinEye Exam: orderedAlb /Cr: orderedSta tin: compliantp neumonia vaccine: 11/15/22 given [id number] Depressive disorder 3548 9007 F32.A continue for now. Heart failure 04329998 I 50.9 Has cardiology f/u 08/2023 with [...] yourcholes terol levels. Microalbum inuric diabetic nephropathy 512132599 E11.21 [facility] for [facility] 685270098 Z91.81 able to stand from wheelchair with some struggle. left leg weakness post stroke. would beneift from PT and OT. [id number] Ce Dempsey MA [facility] [address] [place] [address] 06/06/2023 11:08:48 06/06/2023 11:22:22 Type 2 diabetes mellitus 97332827 E11.9 A1C 9.4 (05/3033) 8.9% (01/2023 ) 8.5% (11/15/2022 ) 9.7% (08/2022) not controlled .A1C goal 7-7.5% at next check bg 190 (post meal) medication s: jardiance 25mg, metformin 500MG QD (Increase today to bid).Foot exam: abnormal (09/2022) dry flaky skinEye Exam: orderedAlb /Cr: orderedSta tin: compliantp neumonia vaccine: 11/15/22 given [id number] PETER RICH DPM [facility] [address] [place] [address] 07/02/2023 15:20:19 07/03/2023 07:30:21 Tinea pedis 3055885 B35.3 The patient was educated why and [...] daily prn Type 2 dick betes mellitus 34198306 E11.51 Patient was educated about the systemic [...] Bilateral atherosclerosis of arteries of lower limbs 9547168111 2771570 I70.203 The patient was educated about the importance of exercise, diet and the need to protect their feet in order to prevent injury or ulceration . Pain in right foot 67414 37212 51154 M79.671 Pain in left foot 693951 1549 68203 M79.672 Onychomycosis 759492231 B35.1 [place] - lesion 581741029 L84 Xerosis du e to atopic dermatitis 044402107 L85.3 The patient was educated regarding proper hydration of their feet/ankle s and the patient was given several recommenda tions for proper creams to protect/hy drate and keep the area healthy. [id number] NANDO SEPULVEDA [facility] [address] [place] [address] 08/26/2023 16:36:38 08/27/2023 18:27:06 Type 2 diabetes mellitus 77872987 E11.9 A1C 9.1% (08/2023) 9.4 (05/3033) 8.9% (01/2023 ) 8.5% (11/15/2022 ) 9.7% (08/2022) not controlled .A1C goal 7-7.5% at next check bg 190 (post meal) medication s: jardiance 25mg, metformin 500MG QD (Increase today to two tabs bid).Foot exam: abnormal (09/2022) dry flaky skinEye Exam: orderedAlb /Cr: orderedSta tin: compliantp neumonia vaccine: 11/15/22 given [id number] Heart failure 68577534 I 50.9 Had cardiology f/u 08/2023 with [...] yourcholes terol levels. Microalbum inuric diabetic nephropathy 694051848 E11.21 [facility] 238093639 Z91.81 able to stand from table slowly [...] sitting. would benefit from PT and OT. [id number] EPTER RICH DPM [facility] ts [address] [place] [address] 10/01/2023 14:57:36 10/02/2023 08:17:51 Tinea pedis 6709942 B35.3 The patient was educated why and [...] daily prn Type 2 dick betes mellitus 65757358 E11.51 Patient was educated about the systemic [...] Bilateral atherosclerosis of arteries of lower limbs 6759152965 1381253 I70.203 The patient was educated about the importance of exercise, diet and the need to protect their feet in order to prevent injury or ulceration . Pain in right foot 84825 48546 35846 M79.671 Pain in left foot 213863 8869 94431 M79.672 Onychomycosis 115437686 B35.1 [place] - lesion 092424819 L84 Xerosis du e to atopic dermatitis 513617258 L85.3 The patient was educated regarding proper hydration of their feet/ankle s and the patient was given several recommenda tions for proper creams to protect/hy drate and keep the area healthy. [id number] Talon Ching MD [facility] ([facility]) [address] [place] [address] 12/10/2023 16:11:13 12/13/2023 14:29:38 Abnormal renal function 99961082 R94.4 Likely to have diabetic renal disease. will w/u as per orders.Is already on ARB (Entresto) , empagliflo zin. May consider Kerendia in the future if K level will permitGoal s of treatment d/w patient's daughter who is the seed cleaning manager today.No NSAID for pain Type 2 dick betes mellitus 60684230 E11.9 Keep HgA1c < 7 Essential hypertension 75981659 I10 BP to be less than 140/90 , then lower as tolerated towards 130/80 [id number] NANDO SEPULVEDA [facility] [address] [place] [address] 02/26/2024 16:26:43 02/26/2024 16:54:58 Type 2 diabetes mellitus 45002507 E11.9 A1C 6.9% (02/2024) 9.1% (08/2023) 9.4 (05/3033) 8.9% (01/2023 ) 8.5% (11/15/2022 ) 9.7% (08/2022) not controlled . A1C goal : AT GOALbg 140 (post meal) and low 100's fasting at home medication s: jardiance 25mg, metformin 500MG BID (Increase today to two tabs bid).Foot exam: abnormal (09/2022) dry flaky skinEye Exam: orderedAlb /Cr: orderedSta tin: compliantp neumonia vaccine: 11/15/22 given [id number] Heart failure 06081840 I 50.9 Had cardiology f/u 08/2023 with [...] to help lower yourcholes terol levels. [facility] risk for falls 025292195 Z91.81 able to stand from table slowly [...] from PT and OT. Urinary incontinence 165 685271 R32 wears adult pull-ups5- 7 per dayneeds [...] Name 07/02/2023 1 [place] Oksana Wheeler [id number] Oksana Wheeler 07/02/2023 2 [place] WHEN [place] OR MEDICARE REPLACEMENT PRIMARY) Oksana Wheeler [id number] Oksana Wheeler 08/26/2023 2 [place] OR MEDIC[place] REPLACEMENT PRIMARY) Oksana Wheeler [id number] Oksana Wheeler 08/26/2023 1 [place] [facility] Oksana Wheeler [id number] Oksana Wheeler 10/01/2023 1 [place] Oksana Wheeler [id number] Oksana Wheeler 10/01/2023 2 [place] OR MEDIC[place] REPLACEMENT PRIMARY) Oksana Wheeler [id number] Oksana Wheeler 12/10/2023 2 [place] OR MEDICARE REPLACEMENT PRIMARY) Oksana Wheeler [id number] Oksana Wheeler 12/10/2023 1 [place]IC[place]: [facility] Oksana Wheeler [id number] Oksana Wheeler 02/26/2024 2 [place] OR MEDICARE REPLACEMENT PRIMARY) Oksana Wheeler [id number] Oksana Wheeler 02/26/2024 1 [place]: [facility] Oksana Wheeler [id number] Oksana Wheeler Notes Date Note Type Note [...] in toes and feet PETER RICH DPM [address] [place], [address], [place] [facility] 07/02/2023 16:21:51 08/26/2023 text/html Oksana is a [...] 11/2023neurology: april 24 Myles. has f/u october [id number]: Dr Ross was seen 08/2023.no changes to medications.ischem ic cardiomyopathy: continue BB, lipitor and aspirin NANDO SEPULVEDA Attn: Accounting[address] [place], [address], [facility] 08/26/2023 18:43:18 10/01/2023 text/html Patient presents today [...] and numbness in toes and feet PETER IRCH DPM [address] [place], [address], [facility] 10/01/2023 15:49:25 12/10/2023 text/html 78 yo female, [...] Talon Ching MD Attn: Accounting[address] [facility], [place], [address], [facility] 12/10/2023 17:01:39 02/26/2024 text/html Oksana is a [...] and aspirin NANDO SEPULVEDA Attn: Accounting[address] [facility], [place], [address], [facility] 02/29/2024 08:36:05 OBGyn Episode No OBEpisode recorded.
--- OUTSIDE RECORDS SUMMARY | 2024-06-27 18:11 | XMS_ITS | CONTINUITY OF CARE DOCUMENT ---
Author Name reno bojorquez Address Unknown Organization [facility] Address [address] [facility] [address] [place] [address] Phone [phone] Care Team Providers Care Lab Scientist Name Role Phone Kathy Fajardo MD Unavailable Kathy Fajardo MD Unavailable [phone] INSURANCE PROVIDERS Payer name Policy type / Coverage type [place] red constitution party ID [facility] AND FAMILY SERVICES Medicaid 2 [id number] [place] Medicare [id number]
--- OUTSIDE RECORDS SUMMARY | 2024-06-27 18:12 | XMS_ITS | Patient Health Record ---
Author Organization [facility] Address [address] [place] [address] Care Team Providers Care Lining Stuffer Name Role Phone Unpanelled Primary Care Provider Gil Heaton Unavailable [phone] Allergies No Known Allergies Reason For Referral [...] Status W/U Status Risk Notes Problem Hypertension (98185796) Hypertension (I10) Active confirmed Problem Type II diabetes mellitus without complication (099725120) Diabetes (E11.9) Inactive confirmed Problem 4180553 Arthritis (M19.90) Active confirmed Problem Hyperlipidemia (83858316) Hyperlipidemia, unspecified (E78.5) Inactive confirmed Problem 80700816 Recurrent major depressive disorder, in remission (F33.40) Active confirmed Problem Pain of right knee region (finding) (882875083391144 ) Right knee pain, unspecified chronicity (M25.561) Active confirmed Problem 05570022 Type 2 diabetes mellitus with other specified complication (E11.69) Active confirmed Associated with Hyperlipide michael. On Metformin and statins. Problem Cardiac arrhythmia (532831488) Cardiac arrhythmia (I49.9) Active confirmed Problem Hyperlipidemia (02694825) Hyperlipidemia (E78.5) Active confirmed Controlled with statins. Problem 472246248 Stage 3a chronic kidney disease (N18.31) Active [...] CAP MCR ADV HMO ASSIGNED [address] [address] [place] [address] [id number] BRIDGET LOPEZ Self - patient is the insured [place]FS [facility] [address] [address] [place] [phone] [id number] BRIDGET LOPEZ Self - patient is the insured Medical (General) History Medical History History ICD Code hypertension diabetes mellitus high cholesterol Surgical History Surgery Date(Month/Year) appendectomy 07/2012 hysterectomy 11/1982 heart bypass surgery 03/2009 Hospitalization History Reason Date(Month/Year) High blood pressure 12/2019
--- OUTSIDE RECORDS SUMMARY | 2024-06-27 18:12 | XMS_ITS | Clinical Summary ---
Author Organization [facility] [address] Address [address] [place] [address] Care Team Providers Care Strategic Debriefing Officer Name Role Phone Jeannette Castelan Primary Care Provider + Allergies No known active allergies Medications escitalopram (LEXAPRO) 5 mg tablet 3 Active empagliflozin (JARDIANCE ORAL) Take 25 mg by mouth daily 3 Active glipiZIDE (GLUCOTROL) 5 mg tablet 3 Active metoprolol XL (TOPROL-XL) 25 mg extended release tablet Take 1 tablet (25 mg total) by mouth every morning 3 Active atorvastatin (LIPITOR) 40 mg tablet Take [...] by mouth 2 (two) times a day 3 Active Entresto 49-51 mg tablet TAKE 1 TABLET BY MOUTH TWICE DAILY 180 tablet 3 4 Active spironolactone (ALDACTONE) 25 mg tablet Take 1 tablet (25 mg total) by mouth daily 90 tablet 3 5 Active spironolactone (ALDACTONE) 25 mg tablet TAKE 1 TABLET(25 MG) BY MOUTH EVERY MORNING 90 tablet 2 4 06/16/19 25 Discontinu ed(Reorder ) Active Problems Problem Noted Date Diagnosed Date Hx of CABG 11/08/2022 Chronic systolic congestive heart failure 2022 Nonrheumatic mitral valve regurgitation 11/09/19 23 Encounters Date Type Department Care Team Description 06/15/2024 Telephone [facility] Cardiology [address] [place] [address] Enio Ross MD from Last 3 Months Social History Tobacco Use Types Packs/Day Years Used Date Smoking Tobacco: Never Smokeless Tobacco: Never Tobacco Cessation:Counseling Given: Not Answered Personal Safety Answer Date Recorded Getting School Help Needed Not on file 05/19 Comments Unknown Sex and Gender Information Value Date Recorded Sex Assigned at Not on file 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 Gender Identity Not on file Sexual Orientation [...] 02/08/1994 Well Visit 65+ 02/08/2009 Influenza Vaccine (Season Ended) 2024 Pneumococcal vaccine 65+ Completed 11/15/2022 Insurance [place] MEDICARE ANTHEM MEDICARE HMO PPO Member Subscriber Plan / Payer (Ef fective 2022-Present) Name:Wheeler Oksana Relation to Subscriber:Self Name:Oksana Wheeler Payer ID:[id number] (NAIC) Group ID:[id number] Type:MEDICARE RISK OTHER Address: [address] [place] [id number] MEDICARE IDPA Care Teams Strategic Debriefing Officer Relationship Specialty Start Date End Date Jeannette Castelan PA PCP - General Physician Wet Pan Operator 08/08/22
--- OUTSIDE RECORDS SUMMARY | 2024-06-27 18:12 | XMS_ITS | Continuity of Care Document ---
Author Organization [facility] Address [address] [place] [address] Phone Care Team Providers Care Actuarial Technician Name Role Phone Guy CANALES, Navi Unavailable [...] Procedures Procedure Date Left W/O Being Seen [facility] 45 CAE ENGINEER Advance Directives Directive Yes / No Effective Date File Name No Information Encounters Encounter Description Practice Location Reason(s) For Visit Diagnoses Date Provider Providers Copied on Encounter [facility] , [address], [place], [id number], [place] tel:[phone] [facility] Office No Information 4 Guy Mcelroy. [address], [place], [id number] , [place]. [phone] [facility] , [address], [place], [place], [id number], [place] tel:[phone] [facility] No Information 9 Guy Mcelroy. [address], [place] , [place], [id number] , [place]. tel: [phone] Offic E[facility]M [facility] 45 CAE ENGINEER [facility] , [address], [place], [place], [id number], [place] tel:[phone] [facility] diabetic eye exam (chief complaint) Type 2 diabetes mellitus without complicationsLong term (current) use of oral hypoglycemic drugsOther secondary cataract, bilateral Guy Mcelroy. [address], [place], [id number] , [place]. tel:[phone] Referring Provider: Federico Whitlock MD [facility], [address] [place], [address] . tel:[phone] Family History Family Member Type Diagnosis Age [...] prescribed by PCP. See #1. Related to [facility] (current) use of oral hypoglycemic drugs Follow up - Return i n [address] Tovar for a diabetic evaluation. Related to Type 2 diabetes mellitus without complications Assessments Type Assessment Date No Information Patient Care Teams Name Effective Dates (start - stop) Status Members No Information
--- OUTSIDE RECORDS SUMMARY | 2024-06-27 18:12 | XMS_ITS | Continuity of Care Document ---
Author Organization [facility] Address [address] [place] [address] utive [facility] [address] [place] [address] Phone Care Team Providers Care Consumer Affairs Director Name Role Phone Sarath Koenig Unavailable Unavailable Procedures Procedure Date Office/outpatient Visit, [facility] Dilated Retinal Exam W Interpretation Ma Advance Directives Directive Yes / No Effective Date File Name No Information Encounters Encounter Description Practice Location Reason(s) For Visit Diagnoses Date Provider Providers Copied on Encounter Office/outpat ient Visit, [facility], [address], [place], [place], [id number], [place] tel:[phone] [facility] No Information 0 Arya Sarath. [address] [facility] [address], [place], [address], [place]. tel:[phone] Family History Family Member Type Diagnosis Age At Onset No Information Payers Payer name Insurance type Covered alliance party ID Authoriza tion(s) [place] [id number] Social History Type Description Quantity Date Captured [...]
--- OUTSIDE RECORDS SUMMARY | 2024-06-27 18:12 | XMS_ITS | Referral Summary ---
Author Organization [facility] [place] [address] [facility] [address] Address [address] [place] [address] Care Team Providers Care Icer Hand Name Role Phone Jeannette Castelan Primary Care Provider + Encounters Date Type Department Care Team Description 06/15/[address] [facility] Cardiology [address] [place] [address] Enio Ross MD from Last 3 Months Allergies No known active allergies Medications escitalopram [...] 2022 Nonrheumatic mitral valve regurgitation 11/09/19 23 Social History Tobacco Use Types Packs/Day Years Used Date Smoking Tobacco: Never Smokeless Tobacco: Never Tobacco Cessation:Counseling Given: Not Answered Personal Safety Answer Date Recorded Getting School Help Needed Not on file 05/19 Comments Unknown Sex and Gender Information Value Date Recorded Sex Assigned at Not on file Legal Sex Female 8:43 AM [employer] Gender Identity Not on file Sexual Orientation [...] on file [place] [id number] [place] MED[place]ARE MEDICARE IDPA Care Teams Icer Hand Relationship Specialty Start Date End Date Jeannette Castelan PA PCP - General Physician A R Collections Rep 08/08/22
--- OUTSIDE RECORDS SUMMARY | 2024-06-27 18:12 | XMS_ITS | Patient Health Record ---
Author Organization [facility] Address [address] [place] [address] Care Team Providers Care Final Cigar And Box Examiner Name Role Phone Charito Barker Primary Care [...] for 30 day(s) 04/30/2019 Active Vitamin D 50110vs 1 tablet PO q week for 30 [...] Problem Type II diabetes mellitus without complication (251761858) Type 2 diabetes mellitus without complications (E11.9) Active confirmed Problem Hyperlipidemia (64695812) Hyperlipidemia, unspecified (E78.5) Active confirmed Problem Essential hypertension (90612245) Essential (primary) hypertension (I10) Active confirmed Problem Electrocardiogram abnormal (972425808) Abnormal electrocardiogram [ECG] [EKG] (R94.31) Active confirmed Plan Of Treatment Pending Test Test Name Order Date Electrocardiogram (EKG) 04/16/2019 Urinalysis Visual 05/20/2019 Accu Check 05/20/2019 Accu Check 04/16/2019 173 LIPID PANEL 04/16/2019 1000 CBC W/AUTO [...] [employer] PLANS do not use [address] [address] [place] [address] [id number] Oksana Wheeler Self - patient is the insured 0 Medical (General) History Medical History History ICD Code Hypertension Diabetes High Cholesterol Surgical History Surgery Date(Month/Year) Bypass 2009
--- OUTSIDE RECORDS SUMMARY | 2024-06-27 18:12 | XMS_ITS | Patient Health Record ---
Author Organization [employer] Address [address] [place] [address] Care Team Providers Care Assistant Pastry Chef Name Role Phone Gil Garcia Unavailable [phone] Allergies No Known Allergies Reason For Referral [...] Problem Status W/U Status Risk Notes Problem 95954566 Type 2 diabetes mellitus with other specified complication (E11.69) Active confirmed Associated with Hyperlipide michael. On Metformin and statins. Problem Hyperlipidemia (53335014) Hyperlipidemia, unspecified (E78.5) Inactive confirmed Problem 8327233 Arthritis (M19.90) Active confirmed Problem Pain of right knee region (finding) (436765130325199 ) Right knee pain, unspecified chronicity (M25.561) Active confirmed Problem 81509928 Recurrent major depressive disorder, in remission (F33.40) Active confirmed Problem Cardiac arrhythmia (486969385) Cardiac arrhythmia (I49.9) Active confirmed Problem Hyperlipidemia (87688253) Hyperlipidemia (E78.5) Active confirmed Controlled with statins. Problem Hypertension (60663872) Hypertension (I10) Active confirmed Problem Type II diabetes mellitus without complication (979597678) Diabetes (E11.9) Inactive confirmed Problem Knee arthralgia (M25.569) Active confirmed Problem 375403555 Stage 3a chronic kidney disease (N18.31) Active [...] Coverage End Date [employer]ICARE [address] [address] [place] [address] [id number] Oksana Wheeler Self - patient is the insured [place] [address] [address] [place] FIELDS [phone] [id number] Oksana Wheeler Self - patient is the insured Medical (General) History Medical History History ICD Code hypertension diabetes mellitus high cholesterol Surgical History Surgery Date(Month/Year) appendectomy 07/2012 hysterectomy 11/1982 heart bypass surgery 03/2009 Hospitalization History Reason Date(Month/Year) High blood pressure 12/2019
--- OUTSIDE RECORDS SUMMARY | 2024-06-27 18:12 | XMS_ITS | Data Portability ---
Author Organization [employer], Main Office Address [address] [place] [address] Care Team Providers Care Grinder Set Up Operator Thread Name Role Phone CRYSTAL GILLESPIE Primary Care Provider CRYSTAL GILLESPIE Referring Provider [phone] Assessment Encounter Date Assessment Date Assessment LastModified by Organization Details LastModified Time 04/27/2024 04/27/2024 This note is dictated and transcribed by [employer]. Supervisor Force Adjustment variances may occur. Despite proofreading, typographical errors may occur. Occasional wrong-word or '[id number]' substitutions may have occurred due to the inherent limitations of voice recording. Read the chart carefully and recognize, using context, where substitutions have occurred. Not available 04/27/2024 17:19:57 Plan of Treatment Reminders Order Date Submit Date Provider Last Modified By Organization Details Last Modified Time Details Appointments None recorded. Lab None recorded. Referral None recorded. Procedures None recorded. Surgeries None recorded. Imaging US, duplex, arterial, lower extremity 2024 02 025 [facility] (Radiology), [address] [place] [address], [address], 10:01:54 Medication Orders None recorded. Patient TargetsNo targets recorded. Patient Instructions Encounter Date Encounter Id Patient Instructions Last Modified By Organization Details Last Modified Time 04/27/2024 [id number] (ALICIA) ankle brachial index* - both feet TIARA Not available 05/04/2024 12:16:06 diabetic foot care education Not available 04/27/2024 17:21:50 Reason for Referral None Reported. Results Created Date Observation Date Name Description Value Unit Range Abnormal Flag Note LastModifiedBy Organization Detail LastModifiedTime 05/04/19 25 05/04/2024 (ALICIA) ankle brach ial index * No observ ation record ed. [email or web address] [facility] ([facility]) [address] [place], [address], 05/04/2024 15:59:21 05/05/1905/04/2024 US, duple x, arter ial, lower extre mity No observ ation record ed. [email or web address] [facility] (Radiology) [address] [place], [address], 05/05/2024 10:02:01 Result Notes None recorded. Problems Name Problem SNOMED Code Status Onset Date Resolution Date Notes Provider Name and Address Organization Details Recorded Time Peripheral vascular disease 128286589 Active 025 Mason Jessica DPM [address] [facility], [place], [address], [facility] 17:19:52 Diabetes mellitus 42417954 Active 025 Mason Jessica DPM [address] [facility], [address], [place], [address], [facility] 17:21:18 Dystrophia unguium 63052675 Active 025 Mason Jessica DPM [address] [facility], [address], [place], [address], [facility] 17:21:25 Problem Notes None recorded. Procedures Surgical History Date Name Laterality Status Provider Name and Address Organization Details Recorded Time Nail Debridement completed Mason Jessica DPM [address] [facility], [address], [place], [address], [facility] 04/27/2024 17:24:16 Imaging Results Imaging Date Name Status [facility] Details LastModified Time 05/04/2024 (ALICIA) ankle brachial index* completed [email or web address] [facility] ([facility]) [address] [place], [address], 05/04/2024 15:59:21 05/04/2024 US, duplex, arterial, lower extremity completed [email or web address] (Radiology) [address] [place], [address], 05/05/2024 10:02:01 Procedure Notes None recorded. Medical Equipment None Reported. Allergies No known drug allergies Medications Name Sig Start Date Stop Date Status Note LastModified by Organization Details LastModified Time atorvastatin 40 mg tablet TAKE 1 TABLET BY MOUTH EVERY DAY AT BEDTIME active Not Available Not Available No t Available spironolactone 25 mg tablet active Not Available Not Available Not Available methocarbamol 750 mg tablet TAKE 1 TABLET BY MOUTH THREE TIMES DAILY NEEDED FOR MUSCLE SPASM active Not Available Not Available No t Available oxycodone 5 mg capsule TAKE 1 CAPSULE BY MOUTH EVERY 6 HOURS NEEDED FOR PAIN active Not Available Not Available No t Available alcohol swabs USE DIRECTED active Not Available Not Available No t Available metoprolol succinate ER 25 mg tablet,extende d release 24 hr TAKE 1 TABLET BY MOUTH EVERY DAY active Not Available Not Available No t Available metformin ER 500 mg tablet,extende d release 24 hr TAKE 2 TABLETS BY MOUTH TWICE DAILY active Not Available Not Available No t Available glipizide 5 mg tablet TAKE 1 TABLET BY MOUTH TWICE DAILY active Not Available Not Available No t Available Microlet Lancet TEST ONCE DAILY active Not Available Not Available No t Available escitalopram 5 mg tablet TAKE 1 TABLET BY MOUTH EVERY DAY active Not Available Not Available No t Available Contour Next EZ Meter DIRECTED active Not Available Not Available No t Available Jardiance 25 mg tablet TAKE 1 TABLET BY MOUTH EVERY DAY active Not Available Not Available No t Available Entresto 49 mg-51 mg tablet TAKE 1 TABLET BY MOUTH TWICE DAILY active Not Available Not Available No t Available Accu-Chek Guide test strips TEST DAILY active Not Available Not Available No t Available Vitals Date Recorded Body height Body mass index (BMI) Body weight Heart rate Respiratory rate Body temperature Oxygen saturation Oxygen saturation in Arterial blood by Pulse oximetry Systolic blood pressure Diastolic blood pressure Provider Name and Address Organization Details Last Updated DateTime 160.02 cm 20.4 kg/m2 26757.1 2 g 64 /min 14 /min 98.1 [degF] 97 % 97 % 110 mm[Hg] 70 mm[Hg] Brittany LOPEZ [facility] [employer] [facility] 17:00:05 Social History None recorded. Functional Status None recorded. Mental Status None recorded. Family History Nothing Reported. Medical History Condition Response DIABETES, TYPE Y HEART DISEASE/HEART PROBLEMS Y HIGH CHOLESTEROL / HYPERLIPIDEMIA Y Gynecological HistoryNo gynecological history recorded. Obstetrics History GPAL:G 0 P 0 0 0 0 Past Encounters Encounter ID Performer Location Encounter Start Date Encounter Closed Date Diagnosis/Indication Diagnosis SNOMED-CT Code Diagnosis ICD10 Code Diagnosis Note [id number] Mason Jessica DPM [facility] [address] [place] [address] 04/27/2024 16:29:35 05/05/2024 14:53:27 Peripheral vascular disease 035114554 I73.9 Obtain vascular studies due to intermitte nt claudicati on Diabetes mellitus 937232 09 E11.51 Dystrophia unguium 86433 009 L60.3 Nails 1 through 10 were debrided with sharp mechanical debridemen t without incident. Nails were debrided and greater than 50% length and thickness where needed. Health Concerns Section Related Observation LastModified by Organization Detai ls LastModified Time None Recorded Concern Status LastModified by Organization Details LastModified Time None Recorded Advance Directives Directive None Recorded Payers Encounter Date Sequence Insurance Name Policy Number Policy Jewell Covered Member ID Jewell Member ID Guarantor Name 04/27/2024 1 [place] Oksana Wheeler [id number] Oksana Wheeler 04/27/2024 2 [place] [employer] Oksana Wheeler [id number] Oksaan Wheeler Notes Date Note Type Note Provider Name and Address Organization Details Recorded Time 04/27/2024 text/html . Patient is an 79-year-old female diabetic she returns for routine diabetic foot care. Patient states she has had increase leg pain with cramping. Patient denies any wounds of the feet or legs. Mason Jessica DPM [address] [facility], [facility] [address], [place], [address], [facility] [employer] [facility] 04/30/2024 09:21:30 OBGyn Episode No OBEpisode recorded.
[2024-06-27 18:26] LABS: Alanine Aminotransferase 138 U/L (6-35); Albumin Level 4.2 g/dL (3.5-5.1); Alkaline Phosphatase 298 U/L (38-126); Anion Gap 22 mmol/L (4-12); Aspartate Amino Transferase 172 U/L (14-36); Bilirubin,Total 1.8 mg/dL (0.2-1.3); Blood Urea Nitrogen 70 mg/dL (7-17); Carbon Dioxide 13 mmol/L (22-30); Chloride 106 mmol/L (98-107); Estimated CRCL calculation 21 ml/min; Estimated Glomerular Filt Rate 33; Glucose 233 mg/dL (65-110); Magnesium 2.3 mg/dL (1.6-2.3); Potassium 4.7 mmol/L (3.4-5.0); Sodium 141 mmol/L (137-145)
[2024-06-27 18:36] LABS: INR 1.4; NT Pro B Type Natriuretic Pept > 30000 pg/mL (19.9-100); Prothrombin Time 17.4 Seconds (11.1-14.7)
[2024-06-27 18:49] LABS: Influenza A QL RT-PCR Negative (Negative); Influenza B QL RT-PCR Negative (Negative); RSV RNA, RT-PCR Negative (Negative); SARS-CoV-2 RNA PCR Negative (Negative)
[2024-06-27 18:58] LABS: Troponin I 0.549 ng/mL (0.000-0.034)
[2024-06-27 19:08] LABS: Beta-Hydroxybutyrate/Acetoacetate 0.48 mmol/L (0.02-0.27)
[2024-06-27] MEDS: ONDANSETRON INJ 4 MG/2 ML VIAL IV PUSH ×2 (19:10→23:55)
[2024-06-27] MEDS: SODIUM CHLORIDE 0.9% IV 500 ML 999 ML IV CONT (19:10)
[2024-06-27] MEDS: FUROSEMIDE INJ 40 MG/4 ML VIAL IV PUSH (19:10)
[2024-06-27 19:12] LABS: Basophils Percent Auto 0.5 % (0.2-1.2); Eosinophils Percent Auto 0.2 % (0-4.4); Hematocrit 30.6 % (37.0-47.0); Hemoglobin 8.9 g/dL (12.0-15.0); Immature Granulocyte Absolute 0.02 K/mm3 (0.00-0.031); Immature Granulocyte Percent A 0.4 % (0-0.5); Lymphocytes Absolute Auto 0.44 K/mm3 (0.9-3.2); Mean Corpuscular HGB Conc 29.1 g/dl (32-36); Mean Corpuscular Hemoglobin 26.3 pg (26-34); Mean Corpuscular Volume 90.3 fl (80-100); Mean Platelet Volume 12.1 fl (7.4-10.4); Monocytes Absolute Auto 0.4 K/mm3 (0.1-0.6); Monocytes Percent Auto 7.1 % (2.6-8.5); Neutrophils Absolute Auto 4.6 K/mm3 (1.3-6.7); Neutrophils Percent Auto 83.8 % (45.5-73.1); Nucleated Red Blood Cells Perc 0.5 % (0.0-0.2); Platelet Count Result 239 k/mm3 (150-375); Red Blood Count 3.39 M/mm3 (4.2-5.4); Red Cell Distribution Width 16.1 % (11.5-14.5); White Blood Count 5.5 K/mm3 (4.5-10.0)
[2024-06-27 19:18] LABS: Platelet Estimate Adequate (Adequate)
[2024-06-27] MEDS: ASPIRIN 81 MG CHEWABLE TABLET 324 MG PO (19:18)
[2024-06-27 19:19] LABS: Anisocytosis 2+; Hypochromasia 1+; Schistocytes None Seen
[2024-06-27 19:20] LABS: Band Neutrophils Percent 0 % (0-6)
[2024-06-27 19:22] LABS: D Dimer 4.13 ug/mL (<0.48)
[2024-06-27 19:51] LABS: Alveolar/Arterial O2 Gradient 31.2 mmHg; Base Excess ABG -9.1 mEq/l (+/-2.0); Fractional Inspired Oxygen 21 %; HCO3 ABG 15.3 mEq/l (22.0-26.0); Oxygen Content ABG 13.9 %vol (16.0-22.0); Oxygen Saturation ABG 96.2 % (95.0-100.0); Oxyhemoglobin 94.5 % THb (90.0-100.0); PCO2 ABG 28.2 mmHg (35.0-45.0); PO2 ABG 84.8 mmHg (80.0-100.0); PO2 FiO2 Ratio Arterial Blood 4.04 %; Total Hemoglobin 10.4 g/dL (12.0-18.0); pH ABG 7.352 (7.350-7.450)
[2024-06-27 19:52] LABS: Device ROOM AIR; Modified Allen's Test Pass; Site Drawn RIGHT RADIAL
[2024-06-27 20:00] LABS: Hemoglobin A1C 8.1 % (<5.7)
[2024-06-27] MEDS: INSULIN ASPART (*BKC) 100 UNITS/ML SUB-Q (20:31)
[2024-06-27 20:33] LABS: Add Urine Microscopic? YES; Appearance Urine Cloudy (Clear); Bacteria Urine None Seen /hpf; Bilirubin Urine Negative (Negative); Blood Urine Negative (Negative); Color Urine Yellow (Yellow); Glucose Urine UA 3+ mg/dL (Negative); Ketones Urine Trace mg/dL (Negative); Leukocyte Esterase Ur Negative LEU/UL (Negative); Need Manual Microscopic Reviewed; Nitrate Urine Negative (Negative); Protein Urine 2+ mg/dL (Negative); RBC Urine 0-2 /hpf (0-2); Specific Grav Ur 1.032 (1.001-1.035); Squamous Epithelial Cell Urine Occasional /hpf (Few)
--- NOTE | 2024-06-27 21:05 | ECG_ITS ---
Test Date: 2024-06-27 22:36:27 Measurements Intervals [place] Rate: 66 P: 40 ND: 166 QRS: -49 QRSD: 182 T: 152 QT: 508 QTc: 536 Interpretive Statements SINUS RHYTHM LEFT AXIS DEVIATION POSSIBLE LEFT ATRIAL ENLARGEMENT LEFT BUNDLE BRANCH BLOCK BASELINE ARTIFACT- AVR, AVL, AVF ABNORMAL ECG Compared to ECG 06/27/2024 17:41:57 No significant changes Electronically Signed On 06-28-2024 07:30:17 CDT by Russell Dodd D.O.
[2024-06-27 22:22] LABS: Glucose Point of Care 147 mg/dl (65-105)
[2024-06-27 22:44] LABS: Anion Gap 17 mmol/L (4-12); Blood Urea Nitrogen 72 mg/dL (7-17); Calcium 8.7 mg/dL (8.4-10.2); Carbon Dioxide 19 mmol/L (22-30); Chloride 106 mmol/L (98-107); Estimated CRCL calculation 20 ml/min; Estimated Glomerular Filt Rate 32; Glucose 136 mg/dL (65-110); Sodium 142 mmol/L (137-145)
[2024-06-27 23:01] LABS: Troponin I 0.559 ng/mL (0.000-0.034)
[2024-06-28] VITALS (21 sets, daily range): BP systolic 119–153; BP diastolic 52–100; PULSE 64–100; RESP 14–26; TEMP 36.4–37.1; O2SAT 93–100
--- NOTE | 2024-06-28 00:08 | P.HP_ITS ---
H&P: HPI History of Present Illness Date/Time: 06/28/24 00:08 Chief Complaint: 1. Shortness of breath Narrative: Oksana Wheeler is an 79 yo F with a mHx significant for dyslipidemia, depression, CHFrEF, CAD s/p CABG Over the last 2 weeks, she has been experiencing symptoms of dyspnea with exertion; it was at first aggravated by moderate exertion; alleviated by rest; associated with a restriction of her ADLs, chest tightness . In the last week it has been present with minimal exertion; She denies symptoms of cough, hemoptysis, PND, Orthopnea, bipedal edema, fevers, chills, rigors, flank pain, dysuria, skin/joint changes, Adopted, she does not know much about her family's cardiac history; she does not smoke/chew tobacco, drink alcohol or consume recreational/illicit drugs Work-up findings: VS demonstrate tachypnea, CBC 5.5; HGB 8.9; MCV 90; PLT 239 PT 17; INR 1.4; APTT 26; D-dimer 4.13 ABG: pH 7.3; pCO2 28; pO2 84; Na 141; K 4.7; Cl 106; CO2 13; AG 22; BUN 70; Cr 1.5; GFR 33 HbA1c 8.1% Troponin: 0.549 >> 0.559 BNP >20552 ECG: NSR; LBBB, LAD, LAE; HR 65; QTc 558 CXR: Cardiomegaly with possible cardiac decompensation and pulmonary edema. Underlying fibrotic changes and interstitial edema is not excluded. CTA Chest, Abdomen, Pelvis: CHEST: 1. No pulmonary embolism. 2. No acute cardiopulmonary pathology. 3. Cardiomegaly. Right-sided heart failure is highly suggestive. Enlarged left ventricle. 4. Healing fractures in the left lower thorax. ABDOMEN/PELVIS: 1. Thickened wall of the gallbladder which may indicate cholecystitis. 2. Thickened wall of the rectum which may indicate proctitis. Clinical correlation advised. 3. Healing fracture in the left pubic bone. Oksana Wheeler will be admitted, evaluated and managed for CHF exacerbation, NSTEMi Review of Systems Review of Systems: All systems reviewed & are unremarkable except as noted in HPI and below PMFSH Past Medical History Medical History Non-insulin dependent diabetes mellitus Proximal humeral fracture Congestive heart failure Fracture of left elbow Hyperlipidemia Hypertension CAD (coronary artery disease) Surgical History Surgical History Hx of [facility]G [facility] Family History Family History Unknown Adopted Social History Social History (Updated 06/27/24 @ 18:57 by Daniela Neves MD) Social History: The patient is and has 2 children. She is retired from [employer] in the [employer] line. Previously living in a senior citizen apartment complex. Her daughter is the durable power banking attorney for healthcare. Code status full code Smoking status: Never smoker Second hand tobacco smoke exposure: No Alcohol intake: never Substance use: never Substance use type: does not use Do You Feel Safe in your Home?: Yes Lack of Transportation: No Lack of Food: Never True Current Housing: I Have Housing Concerned About Future Housing: No Difficulty Paying Gas/Electric Bills: No Difficulty Paying for Meds: No Currently Unemployed: No Education: Grade School Difficulty w/ Childcare or Family Care: No Living arrangements: with family Additional living arrangements comments: daughter Gail Spiritual care concerns: No Meds Home Medications and Allergies Home Medications ?Medication ?Instructions ?Recorded ?Confirmed ?Type escitalopram oxalate 5 mg tablet 5 mg PO HS 07/14/22 06/28/24 History metoprolol succinate 25 mg 25 mg PO QAM #30 tabs 07/18/22 06/28/24 Rx tablet,extended release 24 hr (Toprol XL) empagliflozin 25 mg tablet 25 mg PO DAILY #30 tabs 09/01/22 06/28/24 Rx (Jardiance) metformin 500 mg tablet,extended 1,000 mg PO BID 05/26/24 06/28/24 History release 24hr (osmotic) sacubitril 49 mg-valsartan 51 mg 1 tablet PO BID 05/26/24 06/28/24 History tablet (Entresto) atorvastatin 40 mg tablet 40 mg PO QPM 06/28/24 06/28/24 History Allergies Allergy/AdvReac Type Severity Reaction Status Date / Time No Known Allergies Allergy Verified 05/26/24 11:52 Vital Signs Vital Signs - 24 hr 06/27/24 17:39 06/27/24 17:43 06/27/24 17:46 Temperature Pulse Rate 73 64 65 Respiratory Rate 14 22 H 15 Blood Pressure 126/76 124/78 Pulse Oximetry 98 100 Oxygen Delivery Room Air 06/27/24 17:52 06/27/24 18:00 06/27/24 18:23 Temperature Pulse Rate 64 64 66 Respiratory Rate 23 H 13 21 H Blood Pressure Pulse Oximetry 98 98 100 Oxygen Delivery 06/27/24 18:28 06/27/24 18:32 06/27/24 18:45 Temperature 97.8 F Pulse Rate 66 70 Respiratory Rate 22 H 21 H Blood Pressure Pulse Oximetry 100 100 Oxygen Delivery 06/27/24 19:00 06/27/24 19:15 06/27/24 19:42 Temperature Pulse Rate 66 58 L 66 Respiratory Rate 20 19 23 H Blood Pressure Pulse Oximetry 100 97 99 Oxygen Delivery 06/27/24 19:45 06/27/24 19:46 06/27/24 20:00 Temperature Pulse Rate 67 65 65 Respiratory Rate 19 16 18 Blood Pressure 121/72 Pulse Oximetry 100 100 97 Oxygen Delivery 06/27/24 20:01 06/27/24 21:07 06/27/24 21:15 Temperature Pulse Rate 65 67 68 Respiratory Rate 18 16 17 Blood Pressure 127/74 Pulse Oximetry 98 94 Oxygen Delivery 06/27/24 21:17 06/27/24 21:30 06/27/24 21:32 Temperature Pulse Rate 68 65 67 Respiratory Rate 16 18 19 Blood Pressure 128/74 133/76 Pulse Oximetry 66 L 97 Oxygen Delivery 06/27/24 21:45 06/27/24 21:46 06/27/24 22:00 Temperature Pulse Rate 66 66 65 Respiratory Rate 19 19 15 Blood Pressure 119/71 Pulse Oximetry 100 100 100 Oxygen Delivery 06/27/24 22:01 06/27/24 22:18 06/27/24 22:30 Temperature Pulse Rate 65 65 72 Respiratory Rate 24 H 17 23 H Blood Pressure 124/69 Pulse Oximetry 100 72 L Oxygen Delivery 06/27/24 22:31 06/27/24 23:20 06/27/24 23:43 Temperature Pulse Rate 67 66 71 Respiratory Rate 18 19 27 H Blood Pressure 125/73 Pulse Oximetry 100 Oxygen Delivery 06/27/24 23:58 Temperature Pulse Rate 74 Respiratory Rate 18 Blood Pressure Pulse Oximetry Oxygen Delivery Exam Const: General: comfortable HENMT: Ears: TM's normal bilaterally Face/Nose/Sinus: Normal nares present Eyes: General: appearance normal, both eyes and all related structures Pupils: Equal, round and reactive pupils present EOM: EOMs intact bilaterally Neck: Neck: supple Resp: Effort & Inspection: normal respiratory effort Cardio: Rate: regular rate Rhythm: regular rhythm Skin: General skin exam: normal color Neuro: General: gait normal Motor exam (neuro): 5/5 motor strength present throughout and Normal motor muscle tone present throughout Extrem: General: normal to inspection Psych: Mental Status: mental status grossly normal Affect: normal affect H&P: Results Labs Labs: Short CBC 06/27/24 Range/Units 19:08 WBC 5.5 (4.5-10.0) K/mm3 Hgb 8.9 L (12.0-15.0) g/dL Hct 30.6 L (37.0-47.0) % Plt Count 239 (150-375) k/mm3 BMP 06/27/24 06/27/24 18:05 22:30 Sodium 141 142 Potassium 4.7 4.0 Chloride 106 106 Carbon Dioxide 13 L 19 L BUN 70 H D 72 H Creatinine 1.51 H 1.57 H Glucose 233 H 136 H Calcium 9.0 8.7 Cardiac Enzymes 06/27/24 06/27/24 Range/Units 18:05 22:30 Troponin I 0.549 H* 0.559 H* (0.000-0.034) ng/mL Liver Function 06/27/24 Range/Units 18:05 Total Bilirubin 1.8 H (0.2-1.3) mg/dL AST 172 H (14-36) U/L ALT 138 H (6-35) U/L Alkaline Phosphatase 298 H (38-126) U/L Albumin 4.2 (3.5-5.1) g/dL Urine 06/27/24 Range/Units 19:39 Urine Color Yellow (Yellow) Urine Appearance Cloudy H (Clear) Urine pH 5.0 (5.0-9.0) Ur Specific [place] 1.032 (1.001-1.035) Urine Protein 2+ H (Negative) mg/dL Urine Glucose (UA) 3+ H (Negative) mg/dL Assessment and Plan Assessment and plan (1) Congestive heart failure: Qualifiers: Heart failure chronicity: acute on chronic Heart failure type: unspecified Qualified Code(s): I50.9 - Heart failure, unspecified Code(s): I50.9 - Heart failure, unspecified Status: Acute (2) Hypertension: Qualifiers: Hypertension type: primary hypertension Qualified Code(s): I10 - Essential (primary) hypertension Code(s): I10 - Essential (primary) hypertension Status: Chronic (3) Acute on chronic systolic CHF (congestive heart failure), NYHA class 4: Code(s): I50.23 - Acute on chronic systolic (congestive) heart failure Status: Acute (4) Ischemic cardiomyopathy: Code(s): I25.5 - Ischemic cardiomyopathy Status: Chronic (5) Prolonged QT interval: Code(s): R94.31 - Abnormal electrocardiogram [ECG] [EKG] Status: Acute Plan Acute and principal conditions 1. CHF exacerbation 2. Lactic acidemia. likely 2/2 Metformin 3. NSTEMi Rx: * Trend troponin w/ECG * Heparin gtt * IV Lasix; TTE * Cardiology consult * Bicarb infusion; monitor LA Chronic and stable conditions 1. Recurrent Depression. On Escitalopram. May need to stop @ DC due to QT prolongation 2. NIDDM2. HbA1c 8% Basal+correctional insulin regimen 3. CHFrEF. Not on diuretic Rx 4. CAD s/p CABG. 5. Dyslipidemia. On Atorvastatin Miscellaneous Care * Code status. Full * Nutrition. Heart healthy * VTE prophylaxis. SCDs; [facility] Quality VTE Prophylaxis VTE prophylaxis: mechanical ordered and pharmacologic ordered Hospitalist MIPS Advance Care Plan I have confirmed that the patient's Advanced Care Plan is present, code status is documented, or surrogate decision maker is listed in patient medical record.: Yes Medication Reconciliation I have utilized all available resources to obtain, update and review the patients current medications (includes all prescriptions, OTC, herbals, can nabis, and nutritional supplements).: Yes The patient is not eligible for med reconciliation; the patient is in a emergent medical situation where delaying treatment would jeopardize the patients health.: Yes
--- NOTE | 2024-06-28 01:29 | ADMGEN ---
This patient, Oksana Wheeler, was admitted to IMU Room 203 [id number]. Patient/family oriented to hospital policies and general routines including ID bracelet, bed and alarms, visiting hours, pain management, procedures, bathroom and other care routines, personal items, smoking policy, room service/diet, and visiting hours. Information on how to activate the Rapid Response Team has been discussed. Patient/Family are encouraged to report perceived risks to care and to ask questions if they do not understand what they are told or what they should do.
[2024-06-28 01:57] LABS: Lactic Acid Reflex 4.7 mmol/L (0.7-2.0)
[2024-06-28 02:10] LABS: Troponin I 0.611 ng/mL (0.000-0.034)
[2024-06-28] MEDS: SODIUM BICARBONATE 8.4% 50 MEQ/50 ML SYRINGE IV PUSH ×2 (02:12→02:17)
[2024-06-28] MEDS: HEPARIN SOD/D5W 100 UNITS/ML 25,000 UNITS/250 ML BAG 6 UNITS IV CONT (02:35)
[2024-06-28 03:41] LABS: Reflex Lactic Acid Yes or No Add Lactic
[2024-06-28 05:30] LABS: Basophils Percent Auto 0.3 % (0.2-1.2); Eosinophils Percent Auto 0.3 % (0-4.4); Hematocrit 30.9 % (37.0-47.0); Hemoglobin 9.3 g/dL (12.0-15.0); Immature Granulocyte Absolute 0.02 K/mm3 (0.00-0.031); Immature Granulocyte Percent A 0.3 % (0-0.5); Lymphocytes Absolute Auto 0.57 K/mm3 (0.9-3.2); Lymphocytes Percent Auto 9.9 % (18.3-44.2); Mean Corpuscular HGB Conc 30.1 g/dl (32-36); Mean Corpuscular Hemoglobin 26.4 pg (26-34); Mean Corpuscular Volume 87.8 fl (80-100); Monocytes Absolute Auto 0.5 K/mm3 (0.1-0.6); Monocytes Percent Auto 8.2 % (2.6-8.5); Neutrophils Absolute Auto 4.6 K/mm3 (1.3-6.7); Nucleated Red Blood Cells Perc 0.3 % (0.0-0.2); Platelet Count Result 271 k/mm3 (150-375); Red Blood Count 3.52 M/mm3 (4.2-5.4); Red Cell Distribution Width 16.2 % (11.5-14.5); White Blood Count 5.7 K/mm3 (4.5-10.0)
[2024-06-28 05:41] LABS: Alanine Aminotransferase 141 U/L (6-35); Albumin Level 3.7 g/dL (3.5-5.1); Alkaline Phosphatase 306 U/L (38-126); Anion Gap 20 mmol/L (4-12); Aspartate Amino Transferase 149 U/L (14-36); Bilirubin,Total 1.6 mg/dL (0.2-1.3); Blood Urea Nitrogen 76 mg/dL (7-17); Calcium 8.8 mg/dL (8.4-10.2); Carbon Dioxide 17 mmol/L (22-30); Chloride 107 mmol/L (98-107); Estimated CRCL calculation 19 ml/min; Estimated Glomerular Filt Rate 29; Glucose 175 mg/dL (65-110); Potassium 4.3 mmol/L (3.4-5.0); Sodium 144 mmol/L (137-145)
[2024-06-28 05:43] LABS: Lactic Acid Reflex 4.9 mmol/L (0.7-2.0)
[2024-06-28 05:48] LABS: INR 1.4; Partial Thromboplastin Time 30.7 Seconds (22.3-36.8); Prothrombin Time 17.6 Seconds (11.1-14.7)
[2024-06-28 08:41] LABS: Partial Thromboplastin Time 38.9 Seconds (22.3-36.8)
[2024-06-28] MEDS: HEPARIN SODIUM 5,000 UNITS/ML VIAL 4000 UNITS IV PUSH ×2 (08:55→23:27)
[2024-06-28] MEDS: FUROSEMIDE INJ 40 MG/4 ML VIAL IV PUSH ×2 (08:56→21:22)
[2024-06-28] MEDS: ASPIRIN 81 MG CHEWABLE TABLET PO (08:56)
--- NOTE | 2024-06-28 10:05 | P.CONCA_ITS ---
Assessment and Plan Assessment and plan (1) Acute on chronic heart failure: Code(s): I50.9 - Heart failure, unspecified Status: Acute (2) Non-ST elevation [place] (NSTEMI): Code(s): I21.4 - Non-ST elevation (NSTEMI) myocardial infarction Status: Acute (3) Moderate to severe mitral regurgitation: Code(s): I34.0 - Nonrheumatic mitral (valve) insufficiency Status: Acute Plan 79-year-old woman with CAD status post CABG (LAURA to LAD, SVG to RPL, radial to OM), chronic systolic heart failure (LVEF 25%), RV dysfunction, moderate to severe mitral regurgitation, chronic left bundle branch block, history of stroke, diabetes mellitus, and hyperlipidemia presented with exertional dyspnea and chest discomfort for the past 3-5 days Acute on chronic systolic heart failure -continue Lasix 40 mg IV b.i.d. -given evidence of end-organ dysfunction, would start low-dose milrinone at 0.125 microgram/kg/min Moderate to severe mitral regurgitation -repeat transthoracic echocardiogram Non ST-elevation [place] -possibly secondary to demand -complete 48 hours of heparin drip -should patient not improved medical therapy, may need a right/left heart catheterization which had been discussed with her and her daughter at bedside History of Present Illness History of Present Illness Consult date/time: 06/28/24 10:05 Requesting physician: Jose Luis Hamilton MD Consult reason: congestive heart failure Reason For Visit: CHF, Elevated troponin RAHUL Narrative: 79-year-old woman with CAD status post CABG (LAURA to LAD, SVG to RPL, radial to OM), chronic systolic heart failure (LVEF 25%), RV dysfunction, moderate to severe mitral regurgitation, chronic left bundle branch block, history of stroke, diabetes mellitus, and hyperlipidemia presented with exertional dyspnea and chest discomfort for the past 3-5 days. She lives at home with her daughter who takes care of her. She has been independent prior to development of her symptoms. Previously she would be able to ambulate within the home without any shortness of breath and would also walk outside to the mailbox and back home without any significant cardiopulmonary limitations. She also has baseline chest discomfort that occurs intermittently for which she takes aspirin and these last 3-5 days, her daughter did notice that she has been taking more aspirin. There has not been any noticeable orthopnea. The patient did complain of chills in the last few days as well. Denies syncopal events or lower extremity swelling. Review of Systems 2 Cardiovascular: Cardiovascular: Reports as per HPI Respiratory: Respiratory: Reports as per HPI [facility] Past Medical History Medical History Non-insulin dependent diabetes mellitus Proximal humeral fracture Congestive heart failure Fracture of left elbow Hyperlipidemia Hypertension CAD (coronary artery disease) Surgical History Surgical History Hx of CABG [facility] [place] Family History Family History Unknown Adopted Social History Social History (Updated 06/27/24 @ 18:57 by Daniela Neves MD) Social History: The patient is and has 2 children. She is retired from [employer] in the [employer] line. Previously living in a senior citizen apartment complex. Her daughter is the durable power real estate attorney for healthcare. Code status full code Smoking status: Never smoker Second hand tobacco smoke exposure: No Alcohol intake: never Substance use: never Substance use type: does not use Do You Feel Safe in your Home?: Yes Lack of Transportation: No Lack of Food: Never True Current Housing: I Have Housing Concerned About Future Housing: No Difficulty Paying Gas/Electric Bills: No Difficulty Paying for Meds: No Currently Unemployed: No Education: Grade School Difficulty w/ Childcare or Family Care: No Living arrangements: with family Additional living arrangements comments: daughter Gail Spiritual care concerns: No Meds Home Medications and Allergies Home Medications ?Medication ?Instructions ?Recorded ?Confirmed ?Type escitalopram oxalate 5 mg tablet 5 mg PO HS 07/14/22 06/28/24 History metoprolol succinate 25 mg 25 mg PO QAM #30 tabs 07/18/22 06/28/24 Rx tablet,extended release 24 hr (Toprol XL) empagliflozin 25 mg tablet 25 mg PO DAILY #30 tabs 09/01/22 06/28/24 Rx (Jardiance) metformin 500 mg tablet,extended 1,000 mg PO BID 05/26/24 06/28/24 History release 24hr (osmotic) sacubitril 49 mg-valsartan 51 mg 1 tablet PO BID 05/26/24 06/28/24 History tablet (Entresto) atorvastatin 40 mg tablet 40 mg PO QPM 06/28/24 06/28/24 History Allergies Allergy/AdvReac Type Severity Reaction Status Date / Time No Known Allergies Allergy Verified 05/26/24 11:52 Vital Signs Vital Signs - 24 hr 06/27/24 17:39 06/27/24 17:43 06/27/24 17:46 Temperature Pulse Rate 73 64 65 Respiratory Rate 14 22 H 15 Blood Pressure 126/76 124/78 Pulse Oximetry 98 100 Oxygen Delivery Room Air 06/27/24 17:52 06/27/24 18:00 06/27/24 18:23 Temperature Pulse Rate 64 64 66 Respiratory Rate 23 H 13 21 H Blood Pressure Pulse Oximetry 98 98 100 Oxygen Delivery 06/27/24 18:28 06/27/24 18:32 06/27/24 18:45 Temperature 36.6 C Pulse Rate 66 70 Respiratory Rate 22 H 21 H Blood Pressure Pulse Oximetry 100 100 Oxygen Delivery 06/27/24 19:00 06/27/24 19:15 06/27/24 19:42 Temperature Pulse Rate 66 58 L 66 Respiratory Rate 20 19 23 H Blood Pressure Pulse Oximetry 100 97 99 Oxygen Delivery 06/27/24 19:45 06/27/24 19:46 06/27/24 20:00 Temperature Pulse Rate 67 65 65 Respiratory Rate 19 16 18 Blood Pressure 121/72 Pulse Oximetry 100 100 97 Oxygen Delivery 06/27/24 20:01 06/27/24 21:07 06/27/24 21:15 Temperature Pulse Rate 65 67 68 Respiratory Rate 18 16 17 Blood Pressure 127/74 Pulse Oximetry 98 94 Oxygen Delivery 06/27/24 21:17 06/27/24 21:30 06/27/24 21:32 Temperature Pulse Rate 68 65 67 Respiratory Rate 16 18 19 Blood Pressure 128/74 133/76 Pulse Oximetry 66 L 97 Oxygen Delivery 06/27/24 21:45 06/27/24 21:46 06/27/24 22:00 Temperature Pulse Rate 66 66 65 Respiratory Rate 19 19 15 Blood Pressure 119/71 Pulse Oximetry 100 100 100 Oxygen Delivery 06/27/24 22:01 06/27/24 22:18 06/27/24 22:30 Temperature Pulse Rate 65 65 72 Respiratory Rate 24 H 17 23 H Blood Pressure 124/69 Pulse Oximetry 100 72 L Oxygen Delivery 06/27/24 22:31 06/27/24 23:20 06/27/24 23:43 Temperature Pulse Rate 67 66 71 Respiratory Rate 18 19 27 H Blood Pressure 125/73 Pulse Oximetry 100 Oxygen Delivery 06/27/24 23:58 06/28/24 00:17 06/28/24 00:28 Temperature 37.1 C 36.5 C Pulse Rate 74 100 72 Respiratory Rate 18 26 H 24 H Blood Pressure 121/89 125/100 H Pulse Oximetry 99 100 Oxygen Delivery 06/28/24 00:28 06/28/24 00:33 06/28/24 02:00 Temperature Pulse Rate 71 73 Respiratory Rate Blood Pressure Pulse Oximetry Oxygen Delivery Room Air 06/28/24 04:00 06/28/24 04:50 06/28/24 05:30 Temperature 36.6 C Pulse Rate 65 67 Respiratory Rate 22 H Blood Pressure 134/72 Pulse Oximetry 96 Oxygen Delivery Room Air 06/28/24 06:00 06/28/24 08:00 06/28/24 09:01 Temperature 36.7 C Pulse Rate 70 68 Respiratory Rate 14 Blood Pressure 142/78 H Pulse Oximetry 98 97 Oxygen Delivery Room Air Exam 2 Const: Other: Ill-appearing HENMT: Mouth: Yes moist mucous membranes Eyes: EOM: EOMs intact bilaterally Neck: Other: JVD 12-15 cm Resp: Auscultation: rales Other: Intermittent tachypnea; Kussmaul respirations Cardio: Rate: regular rate Rhythm: regular rhythm Heart sounds: Murmur heart sound present Other: 3/4 systolic murmur in apex GI: GI Palp: Yes Soft to palpation Extrem: General: no pedal edema Results Labs and Meds 06/28/24 05:19 06/28/24 05:19 Lab results: Cardiac Enzymes 06/27/24 06/27/24 06/28/24 Range/Units 18:05 22:30 01:39 AST 172 H (14-36) U/L Troponin I 0.549 H* 0.559 H* 0.611 H* (0.000-0.034) ng/mL 06/28/24 Range/Units 05:19 AST 149 H (14-36) U/L Troponin I (0.000-0.034) ng/mL Coagulation 06/27/24 06/28/24 06/28/24 Range/Units 18:05 05:19 08:18 PT 17.4 H 17.6 H (11.1-14.7) Seconds APTT 26.0 30.7 38.9 H (22.3-36.8) Seconds CBC 06/27/24 06/28/24 Range/Units 19:08 05:19 WBC 5.5 5.7 (4.5-10.0) K/mm3 RBC 3.39 L 3.52 L (4.2-5.4) M/mm3 Hgb 8.9 L 9.3 L (12.0-15.0) g/dL Hct 30.6 L 30.9 L (37.0-47.0) % Plt Count 239 271 (150-375) k/mm3 Lymph # (Auto) 0.44 L 0.57 L (0.9-3.2) K/mm3 [place] # (Auto) 0.4 0.5 (0.1-0.6) K/mm3 Eos # (Auto) 0.0 0.0 (0-0.3) K/mm3 Baso # (Auto) 0.0 0.0 (0.0-0.1) K/mm3 Comprehensive Metabolic Panel 06/27/24 06/27/24 06/28/24 Range/Units 18:05 22:30 05:19 Sodium 141 142 144 (137-145) mmol/L Potassium 4.7 4.0 4.3 (3.4-5.0) mmol/L Chloride 106 106 107 (98-107) mmol/L Carbon Dioxide 13 L 19 L 17 L (22-30) mmol/L BUN 70 H D 72 H 76 H (7-17) mg/dL Creatinine 1.51 H 1.57 H 1.70 H (0.7-1.0) mg/dL Glucose 233 H 136 H 175 H (65-110) mg/dL Calcium 9.0 8.7 8.8 (8.4-10.2) mg/dL AST 172 H 149 H (14-36) U/L ALT 138 H 141 H (6-35) U/L Alkaline Phosphatase 298 H 306 H (38-126) U/L Total Protein 8.0 7.0 (6.3-8.2) g/dL Albumin 4.2 3.7 (3.5-5.1) g/dL Intake and Output 06/27/24 06/28/24 06/28/24 23:59 07:59 15:59 Intake Total 500 398.3 Balance 500 398.3 Intake: IV 500 38.3 Heparin Sod/D5w 100 Units/ml 25 38.3 ,000 units In 250 ml @ 600 UNITS/HR 6 mls/hr IV CONT .Q24H [facility] Rx#:[id number] Sodium Chloride 0.9% IV 500 ml 500 @ 999 mls/hr IV CONT .Q31M [facility] Rx#:[id number] Oral 360 Patient Weight 06/28/24 23:59 Weight 54.2 kg
[2024-06-28] MEDS: MILRINONE LACTATE 20 MG in DEXTROSE 5% 80 ML 6.1 MG IV CONT (11:34)
--- NOTE | 2024-06-28 14:00 | PM.IMPN ---
Progress Note: A&P Assessment and Plan (1) Acute on chronic systolic CHF (congestive heart failure), NYHA class 4: Code(s): I50.23 - Acute on chronic systolic (congestive) heart failure Status: Acute Assessment and Plan: Patient presents with SOB. CXR showing cardiomegaly with cardiac decompensation and pulmonary edema. BNP > 30K. LA 4.7 -> 4.9. LFTs elevated. Concern for decompensated CHF. Could be related to worsening cardiac condition and/or related to her valve disease and/or from acute NSTEMI She is on ASA. She was started on Lasix. Discussed with Cardiology with plan to add Milrinone. Consider also sepsis but felt less likely. UA noted and UCx collected. BCx ordered and abx started. Cover for possible cholecystitis even though she does not have any pain Repeat lactic normal. Close monitoring. Echo ordered. [facility] RUQ US (2) Non-ST elevation CO (NSTEMI): Code(s): I21.4 - Non-ST elevation (NSTEMI) myocardial infarction Status: Acute Assessment and Plan: As above. EKG showing NSR, LAD, AE, LBBB. (LBBB is old) Continue ASA. Continue heparin gtt (3) Prolonged QT interval: Code(s): R94.31 - Abnormal electrocardiogram [ECG] [EKG] Status: Acute Assessment and Plan: QTc 558. This has been noted i the past and felt related to the BBB. Correct potassium and mag as needed. (4) RAHUL (acute kidney injury): Code(s): N17.9 - Acute kidney failure, unspecified Status: Acute Assessment and Plan: Cr 1,5 on admission and up to 1.7 now. [place] related to poor renal perfusion. CT scan showing a hyperdense area seen in the right kidney midpole which may be contrast. A stone is less likely. She has 2 right renal arteries. Check urine studies. Check renal US (5) Moderate to severe mitral regurgitation: Code(s): I34.0 - Nonrheumatic mitral (valve) insufficiency Status: Acute Assessment and Plan: As above. Repeat Echo to see if this has worsened. (6) Hypertension: Qualifiers: Hypertension type: primary hypertension Qualified Code(s): I10 - Essential (primary) hypertension Code(s): I10 - Essential (primary) hypertension Status: Chronic Assessment and Plan: Patient's blood pressure was reviewed on 06/28 Blood pressure remains reasonable well controlled. Will continue current medications. (7) Ischemic cardiomyopathy: Code(s): I25.5 - Ischemic cardiomyopathy Status: Chronic Assessment and Plan: As above Plan +DDimer - LE venous doppler negative for DVT. CTA negative for PE. +DDimer related to either CHF and/or sepsis. Possible Cholecystitis - GB showing thickened wall which may indicate cholecystitis. No stones seen. No pain on exam. Check US Possible proctitis - Thickened wall of the rectum which may indicate proctitis. again, no pain. Feel these findings related to passive congestion. Code status. Full VTE prophylaxis. SCDs; SONNY Subjective Date/time seen: 06/28/24 14:00 Interval history: 79yo female with CAD, CHF, HTN and mod-severe mitral regurg here for shortness of breath. Patient is Citizen Of [place]-speaking only. Daughter is available to translate. Patient feels well today and has no real complaints. Denies chest pain or shortness of breath. She has been feeling lightheaded with standing. Patient does have symptoms of nausea and vomiting usually 1 time per week on average and may be associated with chest pain. Patient's story changes during the interview Exam Narrative: AF 97.5 141/75 68 16 98% ra Gen - NARD Chest - bibasilar crackles CV - RRR S1/S2 with 2/6 apical murmur. Tele showing LBBB and PVCs Abd - Soft, NT/ND, Positive BS Ext - No pedal edema Psych - Nml mood and affect Skin - Warm and dry Objective Data Vital Signs Vital Signs: Vital Signs - 24 hr 06/27/24 17:39 06/27/24 17:43 06/27/24 17:46 Temperature Pulse Rate 73 64 65 Respiratory Rate 14 22 H 15 Blood Pressure 126/76 124/78 Pulse Oximetry 98 100 Oxygen Delivery Room Air 06/27/24 17:52 06/27/24 18:00 06/27/24 18:23 Temperature Pulse Rate 64 64 66 Respiratory Rate 23 H 13 21 H Blood Pressure Pulse Oximetry 98 98 100 Oxygen Delivery 06/27/24 18:28 06/27/24 18:32 06/27/24 18:45 Temperature 97.8 F Pulse Rate 66 70 Respiratory Rate 22 H 21 H Blood Pressure Pulse Oximetry 100 100 Oxygen Delivery 06/27/24 19:00 06/27/24 19:15 06/27/24 19:42 Temperature Pulse Rate 66 58 L 66 Respiratory Rate 20 19 23 H Blood Pressure Pulse Oximetry 100 97 99 Oxygen Delivery 06/27/24 19:45 06/27/24 19:46 06/27/24 20:00 Temperature Pulse Rate 67 65 65 Respiratory Rate 19 16 18 Blood Pressure 121/72 Pulse Oximetry 100 100 97 Oxygen Delivery 06/27/24 20:01 06/27/24 21:07 06/27/24 21:15 Temperature Pulse Rate 65 67 68 Respiratory Rate 18 16 17 Blood Pressure 127/74 Pulse Oximetry 98 94 Oxygen Delivery 06/27/24 21:17 06/27/24 21:30 06/27/24 21:32 Temperature Pulse Rate 68 65 67 Respiratory Rate 16 18 19 Blood Pressure 128/74 133/76 Pulse Oximetry 66 L 97 Oxygen Delivery 06/27/24 21:45 06/27/24 21:46 06/27/24 22:00 Temperature Pulse Rate 66 66 65 Respiratory Rate 19 19 15 Blood Pressure 119/71 Pulse Oximetry 100 100 100 Oxygen Delivery 06/27/24 22:01 06/27/24 22:18 06/27/24 22:30 Temperature Pulse Rate 65 65 72 Respiratory Rate 24 H 17 23 H Blood Pressure 124/69 Pulse Oximetry 100 72 L Oxygen Delivery 06/27/24 22:31 06/27/24 23:20 06/27/24 23:43 Temperature Pulse Rate 67 66 71 Respiratory Rate 18 19 27 H Blood Pressure 125/73 Pulse Oximetry 100 Oxygen Delivery 06/27/24 23:58 06/28/24 00:17 06/28/24 00:28 Temperature 98.7 F 97.7 F Pulse Rate 74 100 72 Respiratory Rate 18 26 H 24 H Blood Pressure 121/89 125/100 H Pulse Oximetry 99 100 Oxygen Delivery 06/28/24 00:28 06/28/24 00:33 06/28/24 02:00 Temperature Pulse Rate 71 73 Respiratory Rate Blood Pressure Pulse Oximetry Oxygen Delivery Room Air 06/28/24 04:00 06/28/24 04:50 06/28/24 05:30 Temperature 97.9 F Pulse Rate 65 67 Respiratory Rate 22 H Blood Pressure 134/72 Pulse Oximetry 96 Oxygen Delivery Room Air 06/28/24 06:00 06/28/24 08:00 06/28/24 08:15 Temperature 98.0 F Pulse Rate 70 68 74 Respiratory Rate 14 Blood Pressure 142/78 H Pulse Oximetry 98 Oxygen Delivery 06/28/24 09:01 06/28/24 10:00 06/28/24 11:34 Temperature Pulse Rate 65 66 Respiratory Rate Blood Pressure 143/79 H Pulse Oximetry 97 Oxygen Delivery Room Air 06/28/24 11:35 06/28/24 12:00 06/28/24 12:00 Temperature 97.5 F L 97.5 F L Pulse Rate 67 67 68 Respiratory Rate 16 Blood Pressure 143/79 H 141/75 H Pulse Oximetry 99 98 Oxygen Delivery Intake/Output Intake/Output: Intake & Output 06/25/24 06/26/24 06/27/24 06/28/24 23:59 23:59 23:59 23:59 Intake Total 500 398.3 Output Total 200 Balance 500 198.3 Meds/Results Medications: Active Medications Generic Name Dose Route Start Last Admin Trade Name Freq PRN Reason Stop Dose Admin Acetaminophen 650 mg 06/28/24 00:06 Acetaminophen 325 Mg Tablet PO Q4H PRN Mild Pain (1-3) or Fever Aspirin 81 mg 06/28/24 08:00 06/28/24 08:56 Aspirin 81 Mg Chewable Tablet PO 81 mg DAILY@0800 [facility] Administration Furosemide 40 mg 06/28/24 09:00 06/28/24 08:56 Furosemide Inj 40 Mg/4 Ml Vial IV PUSH 40 mg Q12HR SONNY Administration Heparin Sodium (Porcine) 4,000 units 06/28/24 02:16 06/28/24 08:55 Heparin Sodium 5,000 Units/Ml Vial IV PUSH 4,000 units PRN PRN Administration aPTT less than 55 seconds Heparin Sodium (Porcine) 2,000 units 06/28/24 02:16 Heparin Sodium 5,000 Units/Ml Vial IV PUSH PRN PRN aPTT 55 - 70 seconds Heparin Sodium/Dextrose 25,000 units in 250 mls @ 8 mls/hr 06/28/24 02:20 06/28/24 08:58 Heparin Sodium/D5w 100 Units/Ml IV CONT 800 units/hr .Q24H SONNY 8 mls/hr Titration Protocol 800 UNITS/HR Milrinone Lactate 20 mg/ 100 mls @ 6.098 mls/hr 06/28/24 10:20 06/28/24 11:34 Dextrose IV CONT 0.375 mcg/kg/min .[id number] SONNY 6.1 mls/hr Administration 0.375 MCG/KG/MIN Perflutren Lipid Microsphere 0 ml 06/27/24 23:28 Perflutren Lipid Microspheres 1.5 Ml Vial Diluted To 10 Ml Total Volume IV PUSH 06/30/24 23:30 ONCE PRN adequate visualization Protocol Prochlorperazine Edisylate 10 mg 06/28/24 02:05 Prochlorperazine Edisylate 10 Mg/2 Ml Vial IV PUSH Q6H PRN Nausea And Vomiting Radiology Results: ITS Impressions Chest X-Ray 06/27/24 18:23 IMPRESSION: Cardiomegaly with possible cardiac decompensation and pulmonary edema. Underlying fibrotic changes and interstitial edema is not excluded. Chest/Abdomen/Pelvis CTA 06/27/24 21:04 IMPRESSION: CHEST: 1. No pulmonary embolism. 2. No acute cardiopulmonary pathology. 3. Cardiomegaly. Right-sided heart failure is highly suggestive. Enlarged left ventricle. 4. Healing fractures in the left lower thorax. ABDOMEN/PELVIS: 1. Thickened wall of the gallbladder which may indicate cholecystitis. 2. Thickened wall of the rectum which may indicate proctitis. Clinical correlation advised. 3. Healing fracture in the left pubic bone. Labs Labs: Laboratory Results - last 24 hr 06/27/24 06/27/24 06/27/24 18:05 18:05 18:07 WBC RBC Hgb Hct MCV MCH MCHC RDW Plt Count MPV Immature Gran % (Auto) Neut % (Auto) Lymph % (Auto) [place] % (Auto) Eos % (Auto) Baso % (Auto) Lymph # (Auto) [place] # (Auto) Eos # (Auto) Baso # (Auto) Abs Immat Gran (auto) Absolute Neuts (auto) Absolute Nucleated RBC Band Neutrophils % Nucleated RBC % Platelet Estimate Hypochromasia Anisocytosis Schistocytes PT 17.4 H INR 1.4 APTT 26.0 D-Dimer 4.13 H Puncture Site ABG pH ABG pCO2 ABG pO2 ABG PO2/FiO2 Ratio ABG HCO3 ABG O2 Saturation ABG O2 Content ABG Base Excess A-a Gradient Oxyhemoglobin Total Hemoglobin O2 Delivery Device O2 Liters/Min FiO2 Sodium 141 Potassium 4.7 Chloride 106 Carbon Dioxide 13 L Anion Gap 22 H BUN 70 H D Creatinine 1.51 H Estim Creat Clear Calc 21 Estimated GFR 33 L Glucose 233 H POC Capillary Glucose Hemoglobin A1c Lactic Acid Calcium 9.0 Magnesium 2.3 Cancelled Total Bilirubin 1.8 H AST 172 H ALT 138 H Alkaline Phosphatase 298 H Troponin I 0.549 H* NT-Pro-B Natriuret Pep > 67232 H Total Protein 8.0 Albumin 4.2 Beta-Hydroxybutyrate/Acetoacetate 0.48 H Urine Color Urine Appearance Urine pH Ur Specific [place] Urine Protein Urine Glucose (UA) Urine Ketones Ur Blood (Man) Urine Nitrate Urine Bilirubin Urine Urobilinogen Add Ur Microanalysis Leukocyte Esterase Rfl Urine RBC Urine WBC Ur Squamous Epith Cells Urine Bacteria Urine Casts Influenza A (RT-PCR) Negative Influenza B (RT-PCR) Negative RSV (RT-PCR) Negative SARS-CoV-2 RNA (RT-PCR) Negative 06/27/24 06/27/24 06/27/24 19:01 19:08 19:26 WBC 5.5 RBC 3.39 L Hgb 8.9 L Hct 30.6 L MCV 90.3 MCH 26.3 MCHC 29.1 L RDW 16.1 H Plt Count 239 MPV 12.1 H Immature Gran % (Auto) 0.4 Neut % (Auto) 83.8 H Lymph % (Auto) 8.0 L [place] % (Auto) 7.1 Eos % (Auto) 0.2 Baso % (Auto) 0.5 Lymph # (Auto) 0.44 L [place] # (Auto) 0.4 Eos # (Auto) 0.0 Baso # (Auto) 0.0 Abs Immat Gran (auto) 0.02 Absolute Neuts (auto) 4.6 Absolute Nucleated RBC 0.030 H Band Neutrophils % 0 Nucleated RBC % 0.5 H Platelet Estimate Adequate Hypochromasia 1+ Anisocytosis 2+ Schistocytes None seen PT INR APTT D-Dimer Puncture Site Right radial ABG pH 7.352 ABG pCO2 28.2 L ABG pO2 84.8 ABG PO2/FiO2 Ratio 4.04 ABG HCO3 15.3 L ABG O2 Saturation 96.2 ABG O2 Content 13.9 L ABG Base Excess -9.1 A-a Gradient 31.2 Oxyhemoglobin 94.5 Total Hemoglobin 10.4 L O2 Delivery Device Room air O2 Liters/Min Not Reportable FiO2 21 Sodium Potassium Chloride Carbon Dioxide Anion Gap BUN Creatinine Estim Creat Clear Calc Estimated GFR Glucose POC Capillary Glucose Hemoglobin A1c 8.1 H Lactic Acid Calcium Magnesium Total Bilirubin AST ALT Alkaline Phosphatase Troponin I NT-Pro-B Natriuret Pep Total Protein Albumin Beta-Hydroxybutyrate/Acetoacetate Urine Color Urine Appearance Urine pH Ur Specific [place] Urine Protein Urine Glucose (UA) Urine Ketones Ur Blood (Man) Urine Nitrate Urine Bilirubin Urine Urobilinogen Add Ur Microanalysis Leukocyte Esterase Rfl Urine RBC Urine WBC Ur Squamous Epith Cells Urine Bacteria Urine Casts Influenza A (RT-PCR) Influenza B (RT-PCR) RSV (RT-PCR) SARS-CoV-2 RNA (RT-PCR) 06/27/24 06/27/24 06/27/24 19:39 22:19 22:30 WBC RBC Hgb Hct MCV MCH MCHC RDW Plt Count MPV Immature Gran % (Auto) Neut % (Auto) Lymph % (Auto) [place] % (Auto) Eos % (Auto) Baso % (Auto) Lymph # (Auto) [place] # (Auto) Eos # (Auto) Baso # (Auto) Abs Immat Gran (auto) Absolute Neuts (auto) Absolute Nucleated RBC Band Neutrophils % Nucleated RBC % Platelet Estimate Hypochromasia Anisocytosis Schistocytes PT INR APTT D-Dimer Puncture Site ABG pH ABG pCO2 ABG pO2 ABG PO2/FiO2 Ratio ABG HCO3 ABG O2 Saturation ABG O2 Content ABG Base Excess A-a Gradient Oxyhemoglobin Total Hemoglobin O2 Delivery Device O2 Liters/Min FiO2 Sodium 142 Potassium 4.0 Chloride 106 Carbon Dioxide 19 L Anion Gap 17 H BUN 72 H Creatinine 1.57 H Estim Creat Clear Calc 20 Estimated GFR 32 L Glucose 136 H POC Capillary Glucose 147 H Hemoglobin A1c Lactic Acid Calcium 8.7 Magnesium Total Bilirubin AST ALT Alkaline Phosphatase Troponin I 0.559 H* NT-Pro-B Natriuret Pep Total Protein Albumin Beta-Hydroxybutyrate/Acetoacetate Urine Color Yellow Urine Appearance Cloudy H Urine pH 5.0 Ur Specific [place] 1.032 Urine Protein 2+ H Urine Glucose (UA) 3+ H Urine Ketones Trace H Ur Blood (Man) Negative Urine Nitrate Negative Urine Bilirubin Negative Urine Urobilinogen 1.0 Add Ur Microanalysis Reviewed Leukocyte Esterase Rfl Negative Urine RBC 0-2 Urine WBC 11-20 H Ur Squamous Epith Cells Occasional Urine Bacteria None seen Urine Casts 11-20 Influenza A (RT-PCR) Influenza B (RT-PCR) RSV (RT-PCR) SARS-CoV-2 RNA (RT-PCR) 06/28/24 06/28/24 06/28/24 01:39 05:19 08:18 WBC 5.7 RBC 3.52 L Hgb 9.3 L Hct 30.9 L MCV 87.8 MCH 26.4 MCHC 30.1 L RDW 16.2 H Plt Count 271 MPV 12.0 H Immature Gran % (Auto) 0.3 Neut % (Auto) 81.0 H Lymph % (Auto) 9.9 L [place] % (Auto) 8.2 Eos % (Auto) 0.3 Baso % (Auto) 0.3 Lymph # (Auto) 0.57 L [place] # (Auto) 0.5 Eos # (Auto) 0.0 Baso # (Auto) 0.0 Abs Immat Gran (auto) 0.02 Absolute Neuts (auto) 4.6 Absolute Nucleated RBC 0.020 H Band Neutrophils % Nucleated RBC % 0.3 H Platelet Estimate Hypochromasia Anisocytosis Schistocytes PT 17.6 H INR 1.4 APTT 30.7 38.9 H D-Dimer Puncture Site ABG pH ABG pCO2 ABG pO2 ABG PO2/FiO2 Ratio ABG HCO3 ABG O2 Saturation ABG O2 Content ABG Base Excess A-a Gradient Oxyhemoglobin Total Hemoglobin O2 Delivery Device O2 Liters/Min FiO2 Sodium 144 Potassium 4.3 Chloride 107 Carbon Dioxide 17 L Anion Gap 20 H BUN 76 H Creatinine 1.70 H Estim Creat Clear Calc 19 Estimated GFR 29 L Glucose 175 H POC Capillary Glucose Hemoglobin A1c Lactic Acid 4.7 H* 4.9 H* Calcium 8.8 Magnesium Total Bilirubin 1.6 H AST 149 H ALT 141 H Alkaline Phosphatase 306 H Troponin I 0.611 H* NT-Pro-B Natriuret Pep Total Protein 7.0 Albumin 3.7 Beta-Hydroxybutyrate/Acetoacetate Urine Color Urine Appearance Urine pH Ur Specific [place] Urine Protein Urine Glucose (UA) Urine Ketones Ur Blood (Man) Urine Nitrate Urine Bilirubin Urine Urobilinogen Add Ur Microanalysis Leukocyte Esterase Rfl Urine RBC Urine WBC Ur Squamous Epith Cells Urine Bacteria Urine Casts Influenza A (RT-PCR) Influenza B (RT-PCR) RSV (RT-PCR) SARS-CoV-2 RNA (RT-PCR)
[2024-06-28 14:47] LABS: Immature Reticulocyte Fraction 38.3 % (3.0-15.9); Reticulocyte Hemoglobin Conten 29.1 pg (28.2-36.6); Reticulocyte Percent 2.84 % (0.7-4.3)
[2024-06-28] MEDS: AMPICILLIN SULB 3 GM/NS 100 ML 3 GM/100 ML VIAL IVPB (14:47)
[2024-06-28 15:01] LABS: Procalcitonin 0.1 ng/mL
[2024-06-28 15:11] LABS: Lactic Acid Reflex 1.8 mmol/L (0.7-2.0)
[2024-06-28 15:15] LABS: Iron 66 ug/dL (37-170)
[2024-06-28 15:15] LABS: Anion Gap 13 mmol/L (4-12); Blood Urea Nitrogen 81 mg/dL (7-17); Calcium 8.3 mg/dL (8.4-10.2); Carbon Dioxide 22 mmol/L (22-30); Chloride 104 mmol/L (98-107); Estimated CRCL calculation 18 ml/min; Estimated Glomerular Filt Rate 28; Glucose 275 mg/dL (65-110); Lactate Dehydrogenase 410 U/L (120-246); Potassium 3.8 mmol/L (3.4-5.0); Sodium 139 mmol/L (137-145)
[2024-06-28 15:16] LABS: Partial Thromboplastin Time 135.5 Seconds (22.3-36.8)
[2024-06-28 15:24] LABS: Percent Iron Saturation 23 % (20-50)
[2024-06-28] MEDS: VANCOMYCIN 1,000 MG/NS 250 ML 1,000 MG/250 ML BAG 250 MG IVPB (16:09)
[2024-06-28] MEDS: POTASSIUM CHLORIDE 20 MEQ ER TABLET PO (21:17)
[2024-06-28] MEDS: ESCITALOPRAM OXALATE 5 MG TABLET PO (21:17)
[2024-06-28 21:34] LABS: Glucose Point of Care 310 mg/dl (65-105)
[2024-06-28] MEDS: INSULIN ASPART (*BKC) 100 UNITS/ML SUB-Q (22:35)
[2024-06-28 22:52] LABS: Creatinine Urine 9.5 mg/dL; Urea Random Urine 246 MG/DL
[2024-06-28 22:53] LABS: Creatinine Urine 9.6 mg/dL; Total Protein Urine Random 13 mg/dL; Ur Ttl Prot Creatinine Ratio 1.35 mg/mg (0-0.20)
[2024-06-28 22:59] LABS: Sodium Urine Random 119 meq/L
[2024-06-28 22:59] LABS: Partial Thromboplastin Time 51.7 Seconds (22.3-36.8)
[2024-06-28 23:16] LABS: Urine Eos QC 2nd Tech Confirmed
[2024-06-28 23:17] LABS: Eosinophil Urine Rare % (None Seen)
[2024-06-28] MEDS: HEPARIN SOD/D5W 100 UNITS/ML 25,000 UNITS/250 ML BAG 8 UNITS IV CONT (23:26)
[2024-06-29] VITALS (17 sets, daily range): BP systolic 103–138; BP diastolic 43–62; PULSE 54–66; RESP 14–20; TEMP 36.3–36.9; O2SAT 95–100
[2024-06-29 00:20] LABS: Lactic Acid Reflex 1.6 mmol/L (0.7-2.0)
[2024-06-29 00:24] LABS: Alanine Aminotransferase 137 U/L (6-35); Albumin Level 3.4 g/dL (3.5-5.1); Alkaline Phosphatase 260 U/L (38-126); Anion Gap 12 mmol/L (4-12); Aspartate Amino Transferase 92 U/L (14-36); Bilirubin,Total 0.9 mg/dL (0.2-1.3); Blood Urea Nitrogen 69 mg/dL (7-17); Calcium 8.3 mg/dL (8.4-10.2); Carbon Dioxide 24 mmol/L (22-30); Chloride 102 mmol/L (98-107); Estimated CRCL calculation 19 ml/min; Estimated Glomerular Filt Rate 29; Glucose 258 mg/dL (65-110); Potassium 3.4 mmol/L (3.4-5.0); Sodium 138 mmol/L (137-145)
[2024-06-29] MEDS: MILRINONE LACTATE 20 MG in DEXTROSE 5% 80 ML 6.1 MG IV CONT ×2 (02:43→18:08)
[2024-06-29 04:38] LABS: Basophils Absolute Auto 0.1 K/mm3 (0.0-0.1); Basophils Percent Auto 1.1 % (0.2-1.2); Eosinophils Absolute Auto 0.2 K/mm3 (0-0.3); Eosinophils Percent Auto 3.3 % (0-4.4); Hematocrit 28.6 % (37.0-47.0); Hemoglobin 8.5 g/dL (12.0-15.0); Immature Granulocyte Absolute 0.02 K/mm3 (0.00-0.031); Immature Granulocyte Percent A 0.3 % (0-0.5); Lymphocytes Absolute Auto 0.73 K/mm3 (0.9-3.2); Mean Corpuscular HGB Conc 29.7 g/dl (32-36); Mean Corpuscular Hemoglobin 26.4 pg (26-34); Mean Corpuscular Volume 88.8 fl (80-100); Mean Platelet Volume 11.6 fl (7.4-10.4); Monocytes Absolute Auto 0.6 K/mm3 (0.1-0.6); Monocytes Percent Auto 8.7 % (2.6-8.5); Neutrophils Absolute Auto 5.6 K/mm3 (1.3-6.7); Neutrophils Percent Auto 76.6 % (45.5-73.1); Nucleated Red Blood Cells Perc 0.8 % (0.0-0.2); Platelet Count Result 250 k/mm3 (150-375); Red Blood Count 3.22 M/mm3 (4.2-5.4); Red Cell Distribution Width 16.4 % (11.5-14.5); White Blood Count 7.3 K/mm3 (4.5-10.0)
[2024-06-29 04:54] LABS: Alanine Aminotransferase 138 U/L (6-35); Albumin Level 3.3 g/dL (3.5-5.1); Alkaline Phosphatase 255 U/L (38-126); Anion Gap 7 mmol/L (4-12); Aspartate Amino Transferase 94 U/L (14-36); Blood Urea Nitrogen 63 mg/dL (7-17); Calcium 8.4 mg/dL (8.4-10.2); Carbon Dioxide 29 mmol/L (22-30); Chloride 104 mmol/L (98-107); Creatine Kinase 277 U/L (30-135); Estimated CRCL calculation 21 ml/min; Estimated Glomerular Filt Rate 32; Glucose 123 mg/dL (65-110); Phosphorus 3.1 mg/dL (2.5-4.5); Potassium 3.4 mmol/L (3.4-5.0); Sodium 140 mmol/L (137-145)
[2024-06-29 04:57] LABS: Lactic Acid Reflex 0.9 mmol/L (0.7-2.0)
[2024-06-29 05:17] LABS: Platelet Estimate Adequate (Adequate); Troponin I 0.388 ng/mL (0.000-0.034)
[2024-06-29 05:18] LABS: Anisocytosis 1+; Hypochromasia 1+; Ovalocytes 1+; Schistocytes None Seen
--- NOTE | 2024-06-29 06:00 | ECHO_ITS ---
Patient Info Name: Oksana Wheeler Age: 79 years : 1945 Gender: Female Ht: 62 in Wt: 122 lbs BSA: 1.56 m2 HR: 57 bpm BP: 134 / 56 mmHg Technical Quality: Good Exam Date: 06/29/2024 9:36 AM Exam Location: Echo Lab Patient Status: Inpatient Admit Date: 06/28/2024 Staff Ordering Physician: Jose Luis Doyle MD Freight Dispatcher: Aixa Wilson RDCS Attending Provider: Haider Street MD Referring Physician: Yanira VELÁZQUEZ; Exam Type: CA echo doppler color flow Study Info Indications - CHF Complete two-dimensional, color flow and Doppler transthoracic echocardiogram is performed. Summary 1. Complete two-dimensional, color flow and Doppler transthoracic echocardiogram is performed. 2. Left ventricular chamber dimension is moderately enlarged. 3. Left ventricular systolic function is normal, estimated at 35-40%. Hypokinesis anteroseptal and anterior wall. 4. The left ventricular diastolic function is grade II diastolic dysfunction. 5. There is mild to moderate mitral valve regurgitation. 6. There is mild tricuspid valve regurgitation. 7. No pulmonary hypertension, estimated pulmonary arterial systolic pressure is 37 mmHg. 8. There is mild pulmonic regurgitation. Left Ventricle Left ventricular chamber dimension is moderately enlarged. Left ventricular systolic function is normal, estimated at 35-40%. Hypokinesis anteroseptal and anterior wall. There is no increased left ventricular wall thickness. Left ventricular septal wall motion is normal. The left ventricular diastolic function is grade II diastolic dysfunction. Right Ventricle Right ventricular chamber dimension is normal. Right ventricular systolic function is normal. Left Atria Left atrial chamber dimension is normal. Right Atria Right atrial chamber dimension is normal. Atrial Septum Intact interatrial septum visualized by color flow imaging. Aortic Valve The aortic valve is trileaflet. There is no aortic valve sclerosis. There is no aortic valve stenosis. There is no aortic valve regurgitation. Pulmonic Valve The pulmonic valve is normal. There is no pulmonic valve stenosis. There is mild pulmonic regurgitation. Mitral Valve The mitral valve has normal leaflets. There is no mitral valve stenosis. There is mild to moderate mitral valve regurgitation. Tricuspid Valve The tricuspid valve leaflets are normal. There is no significant tricuspid valve stenosis. There is mild tricuspid valve regurgitation. No pulmonary hypertension, estimated pulmonary arterial systolic pressure is 37 mmHg. Pericardium/Pleural The pericardium appears normal. There is no pericardial effusion. Inferior Vena Cava Normal inferior vena cava with >50% collapse upon inspiration consistent with normal right atrial pressure, 10 mmHg. Aorta The aortic root size at the sinus of Valsalva is normal. The prox ascending aorta size is normal. Left Ventricular Outflow Tract Name Value Normal LVOT 2D LVOT Diameter 1.9 cm LVOT Doppler LVOT Peak Gradient 7 mmHg LVOT Mean Gradient 4 mmHg LVOT VTI 28 cm LVOT VTI/AV VTI Ratio 0.8 LVOT Stroke Volume 76 ml LVOT CO 15.7 l/min LVOT CI 10.1 l/min/m2 Pulmonic Valve Name Value Normal PV Doppler PV Peak Gradient 6 mmHg Mitral Valve Name Value Normal MV Doppler MV Decel [place] 421 cm/s2 MV PHT 68 ms MV Area (PHT) 3.2 cm2 4.0-5.0 MV Diastolic Function MV E Peak Velocity 99 cm/s MV A Peak Velocity 75 cm/s MV E/A 1.3 MV Decel Time 234 ms MV Annular TDI MV E/e' (Septal) 18.8 <=8.0 MV E/e' (Lateral) 10.0 <=8.0 MV E/e' (Average) 14.4 Tricuspid Valve Name Value Normal TV Regurgitation Doppler TR Peak Velocity 285 cm/s TR Peak Gradient 26 mmHg Estimated PAP/RSVP RA Pressure 10 mmHg <=5 PA Systolic Pressure 37 mmHg <36 RV Systolic Pressure 42 mmHg <36 Aorta Name Value Normal Ascending Aorta Ao Root Diameter (MM) 3.7 cm Ao Root Diam Index (MM) 2.3 cm/m2 Aortic Valve Name Value Normal AV Doppler AV Peak Velocity 153 cm/s AV Peak Gradient 9 mmHg AV Mean Gradient 5 mmHg AV VTI 35 cm AV Area (Cont Eq VTI) 2.2 cm2 >=3.0 AV Area (Cont Eq Leno) 2.4 cm2 AV Regurgitation 2D LVOT Area 2.7 cm2 Ventricles Name Value Normal LV Dimensions 2D/MM IVS Diastolic Thickness (2D) 0.9 cm 0.6-1.0 LVID Diastole (2D) 5.8 cm 3.8-5.2 LVIW Diastolic Thickness (2D) 1.0 cm 0.6-0.9 LVID Systole (2D) 4.7 cm 2.2-3.5 LVOT Diameter 1.9 cm LV Mass (2D Cubed) 217.76 g 67.00-162.00 LV Mass Index (2D Cubed) 140 g/m2 43-95 Relative Wall Thickness (2D) 0.34 LV Fractional Shortening/Ejection Fraction 2D/MM LV Fractional Shortening (2D) 19 % 27-45 LV EF (2D Teicholz) 38 % 54-74 LV Diastolic Volume (4C MOD) 157 ml LV EF (4C MOD) 29 % LV Diastolic Volume (2C MOD) 192 ml LV EF (2C MOD) 48 % LV Diastolic Volume (BP MOD) 175 ml 46-106 LV Diastolic Volume Index (BP MOD) 112 ml/m2 29-61 LV Systolic Volume (BP MOD) 111 ml 14-42 LV Systolic Volume Index (BP MOD) 71 ml/m2 8-24 LV EF (BP MOD) 37 % 54-74 LV Diastolic Length (4C) 8.2 cm LV Systolic Length (4C) 7.8 cm LV Stroke Volume (4C MOD) 46 ml RV Dimensions 2D/MM RVID Diastole (2D) 3.8 cm 2.5-3.5 Atria Name Value Normal LA Dimensions LA Dimension (MM) 4.7 cm 2.7-3.8 LA Volume (4C A-L) 83 ml LA Volume (BP A-L) 109 ml RA Dimensions RA Area (4C) 15.1 cm2 <=18.0 EchoPAC Name Value Normal AutoEF LVCO_BiP_Q (Dydz5ERS) 4.6 l/min LVEF_BiP_Q (Yclb5ENO) 41 % LVSV_BiP_Q (Mnhb6YBK) 81 ml LVVED_BiP_Q (Xhsc6BXJ) 196 ml LVVES_BiP_Q (Zlic3VGH) 116 ml HR_4Ch_Q (Iren0EAH) 57 bpm LVCO_4Ch_Q (Sbqd1NZI) 4.2 l/min LVEF_4Ch_Q (Mcin8KTB) 42 % LVLd_4Ch_Q (Jgxy6PYG) 8.2 cm LVLs_4Ch_Q (Mtrq0LLP) 7.3 cm LVSV_4Ch_Q (Fllo7KVW) 75 ml LVVED_4Ch_Q (Hifc6CXL) 177 ml LVVES_4Ch_Q (Pwkl4GWN) 102 ml HR_2Ch_Q (Ivri3XMI) 54 bpm LVCO_2Ch_Q (Nxul1VHF) 5.0 l/min LVEF_2Ch_Q (Exqe7CUC) 42 % LVLd_2Ch_Q (Zysa6WYA) 8.3 cm LVLs_2Ch_Q (Qfzf8GQE) 7.2 cm LVSV_2Ch_Q (Oyqj9FRF) 92 ml LVVED_2Ch_Q (Htzd5WZS) 218 ml LVVES_2Ch_Q (Hlxu5EKA) 126 ml Report Signatures
[2024-06-29] MEDS: AMPICILLIN SULB 3 GM/NS 100 ML 3 GM/100 ML VIAL IVPB ×2 (06:22→18:08)
[2024-06-29 06:25] LABS: Partial Thromboplastin Time 76.3 Seconds (22.3-36.8)
[2024-06-29 08:10] LABS: Glucose Point of Care 170 mg/dl (65-105)
[2024-06-29] MEDS: ASPIRIN 81 MG CHEWABLE TABLET PO (09:05)
[2024-06-29] MEDS: FUROSEMIDE INJ 40 MG/4 ML VIAL IV PUSH ×2 (10:21→20:40)
--- NOTE | 2024-06-29 11:16 | P.PNIM_ITS ---
Progress Note: A&P Assessment and Plan (1) Acute on chronic systolic CHF (congestive heart failure), NYHA class 4: Code(s): I50.23 - Acute on chronic systolic (congestive) heart failure Status: Acute Assessment and Plan: * Patient presents with SOB. CXR showing cardiomegaly with cardiac decompensation and pulmonary edema. BNP > 30K. * LA 4.7 -> 4.9. LFTs elevated. Concern for decompensated CHF. * Could be related to worsening cardiac condition and/or related to her valve disease and/or from acute NSTEMI * She is on ASA. Lasix 40 mg ivp q 12. * Cardiology consulted, appreciate recommendations. * Milrinone drip at 0.375 microgram/kg/min. * Consider also sepsis but felt less likely. UA noted and UCx collected. BCx ordered and abx started. * Cover for possible cholecystitis even though she does not have any pain * Repeat lactic normal. * Close monitoring. * Echocardiogram showed: Summary 1. Complete two-dimensional, color flow and Doppler transthoracic echocardiogram is performed. 2. Left ventricular chamber dimension is moderately enlarged. 3. Left ventricular systolic function is normal, estimated at 35-40%. Hypokinesis anteroseptal and anterior wall. 4. The left ventricular diastolic function is grade II diastolic dysfunction. 5. There is mild to moderate mitral valve regurgitation. 6. There is mild tricuspid valve regurgitation. 7. No pulmonary hypertension, estimated pulmonary arterial systolic pressure is 37 mmHg. 8. There is mild pulmonic regurgitation. * Renal ultrasound showed: IMPRESSION: No hydronephrosis or renal calculi. No sonographic findings to suggest medical renal disease. (2) Non-ST elevation PA (NSTEMI): Code(s): I21.4 - Non-ST elevation (NSTEMI) myocardial infarction Status: Acute Assessment and Plan: * As above. EKG showing NSR, LAD, AE, LBBB. (LBBB is old) * Continue ASA. Continue heparin gtt. * NPO after midnight for cardiac cath. (3) Prolonged QT interval: Code(s): R94.31 - Abnormal electrocardiogram [ECG] [EKG] Status: Acute Assessment and Plan: * QTc 536. This has been noted i the past and felt related to the BBB. * Correct potassium and mag as needed. (4) RAHUL (acute kidney injury): Code(s): N17.9 - Acute kidney failure, unspecified Status: Acute Assessment and Plan: * Cr 1,5 on admission and up to 1.54now. * Outing related to poor renal perfusion. CT scan showing a hyperdense area seen in the right kidney midpole which may be contrast. A stone is less likely. She has 2 right renal arteries. * Renal ultrasound showed: IMPRESSION: No hydronephrosis or renal calculi. No sonographic findings to suggest medical renal disease. (5) Moderate to severe mitral regurgitation: Code(s): I34.0 - Nonrheumatic mitral (valve) insufficiency Status: Acute Assessment and Plan: * As above. * Echocardiogram showed: Summary 1. Complete two-dimensional, color flow and Doppler transthoracic echocardiogram is performed. 2. Left ventricular chamber dimension is moderately enlarged. 3. Left ventricular systolic function is normal, estimated at 35-40%. Hypokinesis anteroseptal and anterior wall. 4. The left ventricular diastolic function is grade II diastolic dysfunction. 5. There is mild to moderate mitral valve regurgitation. 6. There is mild tricuspid valve regurgitation. 7. No pulmonary hypertension, estimated pulmonary arterial systolic pressure is 37 mmHg. 8. There is mild pulmonic regurgitation. * NPO after midnight for cardiac cath. (6) Hypertension: Qualifiers: Hypertension type: primary hypertension Qualified Code(s): I10 - Essential (primary) hypertension Code(s): I10 - Essential (primary) hypertension Status: Chronic Assessment and Plan: * blood pressure 126/57. * Blood pressure remains reasonable well controlled. * Will continue current medications. (7) Ischemic cardiomyopathy: Code(s): I25.5 - Ischemic cardiomyopathy Status: Chronic Assessment and Plan: * As above Plan +DDimer - LE venous doppler negative for DVT. CTA negative for PE. +DDimer related to either CHF and/or sepsis. Possible Cholecystitis - GB showing thickened wall which may indicate cholecystitis. No stones seen. No pain on exam. Check US Possible proctitis - Thickened wall of the rectum which may indicate proctitis. again, no pain. Feel these findings related to passive congestion. Code status. Full VTE prophylaxis. SCDs; SONNY Subjective Date/time seen: 06/29/24 11:16 Interval history: Patient denies chest pain, palpitations, headache, dizziness, nausea, or vomiting. Family at bedside. Patient reports feeling better with drip. Review of Systems Review of Systems: All systems reviewed & are unremarkable except as noted in HPI and below Exam Const: General: comfortable and no acute distress Resp: Effort & Inspection: normal respiratory effort Auscultation: clear to auscultation bilaterally Cardio: Rate: regular rate Rhythm: regular rhythm Heart sounds: Murmur heart sound present systolic GI: GI Palp: Yes Soft to palpation Auscultation: normal bowel sounds Neuro: Speech: normal speech Extrem: General: pedal edema bilaterally 1+ Psych: Mental Status: mental status grossly normal Affect: normal affect Objective Data Vital Signs Vital Signs: Vital Signs - 24 hr 06/28/24 11:34 06/28/24 11:35 06/28/24 12:00 Temperature 97.5 F L Pulse Rate 66 67 67 Respiratory Rate 16 Blood Pressure 143/79 H 143/79 H Pulse Oximetry 99 Oxygen Delivery 06/28/24 12:00 06/28/24 14:17 06/28/24 16:00 Temperature 97.5 F L 98.3 F Pulse Rate 68 70 69 Respiratory Rate 18 Blood Pressure 141/75 H 153/76 H 142/69 H Pulse Oximetry 98 96 98 Oxygen Delivery 06/28/24 16:30 06/28/24 18:00 06/28/24 18:00 Temperature Pulse Rate 70 82 70 Respiratory Rate Blood Pressure 119/52 L Pulse Oximetry 95 Oxygen Delivery 06/28/24 20:00 06/28/24 20:00 06/28/24 20:00 Temperature 98.8 F Pulse Rate 70 70 72 Respiratory Rate 18 18 Blood Pressure 136/64 Pulse Oximetry 95 93 Oxygen Delivery Room Air 06/28/24 22:00 06/28/24 22:00 06/28/24 22:00 Temperature 98.1 F Pulse Rate 66 64 64 Respiratory Rate 20 Blood Pressure 129/72 Pulse Oximetry 96 Oxygen Delivery 06/28/24 23:24 06/29/24 00:00 06/29/24 00:00 Temperature 98 F Pulse Rate 64 64 64 Respiratory Rate 16 16 Blood Pressure 126/64 Pulse Oximetry 97 97 Oxygen Delivery Room Air 06/29/24 00:00 06/29/24 02:00 06/29/24 02:00 Temperature Pulse Rate 65 65 63 Respiratory Rate 18 Blood Pressure 115/56 L Pulse Oximetry 97 Oxygen Delivery 06/29/24 02:43 06/29/24 02:43 06/29/24 04:00 Temperature 97.8 F Pulse Rate 58 L 58 L 63 Respiratory Rate 16 Blood Pressure 134/56 L Pulse Oximetry 95 Oxygen Delivery 06/29/24 04:00 06/29/24 04:00 06/29/24 04:00 Temperature Pulse Rate 59 L 59 L 60 Respiratory Rate 16 Blood Pressure Pulse Oximetry 95 Oxygen Delivery Room Air 06/29/24 06:00 06/29/24 06:00 06/29/24 06:00 Temperature 97.3 F L Pulse Rate 60 60 60 Respiratory Rate 16 Blood Pressure 133/55 L Pulse Oximetry 97 Oxygen Delivery 06/29/24 08:00 06/29/24 10:00 06/29/24 10:00 Temperature 97.4 F L Pulse Rate 60 57 L 57 L Respiratory Rate 18 14 Blood Pressure 138/58 L 117/48 L Pulse Oximetry 100 95 Oxygen Delivery Intake/Output Intake/Output: Intake & Output 06/26/24 06/27/24 06/28/24 06/29/24 23:59 23:59 23:59 23:59 Intake Total 500 1394.2 677.3 Output Total 800 800 Balance 500 594.2 -122.7 Meds/Results Medications: Active Medications Generic Name Dose Route Start Last Admin Trade Name Jaison PRN Reason Stop Dose Admin Acetaminophen 650 mg 06/28/24 00:06 Acetaminophen 325 Mg Tablet PO Q4H PRN Mild Pain (1-3) or Fever Aspirin 81 mg 06/28/24 08:00 06/29/24 09:05 Aspirin 81 Mg Chewable Tablet PO 81 mg DAILY@0800 SONNY Administration Dextrose 12.5 gm 06/28/24 22:22 Dextrose 50% 25 Gm/50 Ml Syringe IV PUSH PRN PRN Hypoglycemia Protocol Escitalopram Oxalate 5 mg 06/28/24 21:00 06/28/24 21:17 Escitalopram Oxalate 5 Mg Tablet PO 5 mg HS SONNY Administration Furosemide 40 mg 06/28/24 09:00 06/29/24 10:21 Furosemide Inj 40 Mg/4 Ml Vial IV PUSH 40 mg Q12HR SONNY Administration Glucagon 1 mg 06/28/24 22:22 Glucagon For Inj 1 Mg Vial IM PRN PRN Hypoglycemia Protocol Glucose 15 gm 06/28/24 22:22 Glucose Oral Gel 15 Gm Of Glucse In 37.5 Gm Tube PO PRN PRN Hypoglycemia Protocol Heparin Sodium (Porcine) 4,000 units 06/28/24 02:16 06/28/24 23:27 Heparin Sodium 5,000 Units/Ml Vial IV PUSH 4,000 units PRN PRN Administration aPTT less than 55 seconds Heparin Sodium (Porcine) 2,000 units 06/28/24 02:16 Heparin Sodium 5,000 Units/Ml Vial IV PUSH PRN PRN aPTT 55 - 70 seconds Heparin Sodium/Dextrose 25,000 units in 250 mls @ 8 mls/hr 06/28/24 02:20 06/29/24 05:30 Heparin Sodium/D5w 100 Units/Ml IV CONT 800 units/hr .Q24H SONNY 8 mls/hr Titration Protocol 800 UNITS/HR Milrinone Lactate 20 mg/ 100 mls @ 6.098 mls/hr 06/28/24 10:20 06/29/24 06:00 Dextrose IV CONT 0.375 mcg/kg/min .[id number] SONNY 6.1 mls/hr Infusion 0.375 MCG/KG/MIN Ampicillin Sodium/Sulbactam Sodium 3 gm in 100 mls @ 200 mls/hr 06/29/24 06:00 06/29/24 07:00 Unasyn 3 Gm/Ns 100 Ml IVPB Infused Q12H SONNY Infusion Dextrose 1,000 mls @ 100 mls/hr 06/28/24 22:22 Dextrose 5% 1,000 Ml IVPB PRN PRN Hypoglycemia Protocol Insulin Aspart 2 - 5 units 06/29/24 08:00 06/29/24 09:03 Insulin Aspart (*Bkc) 100 Units/Ml SUB-Q Not Given TIDWM SONNY Protocol Perflutren Lipid Microsphere 0 ml 06/27/24 23:28 Perflutren Lipid Microspheres 1.5 Ml Vial Diluted To 10 Ml Total Volume IV P USH 06/30/24 23:30 ONCE PRN adequate visualization Protocol Prochlorperazine Edisylate 10 mg 06/28/24 02:05 Prochlorperazine Edisylate 10 Mg/2 Ml Vial IV PUSH Q6H PRN Nausea And Vomiting Vancomycin HCl 1 each 06/28/24 14:26 Vancomycin For Acute Kidney Injury IVPB PRN PRN Vancomycin Protocol Radiology Results: ITS Impressions Chest X-Ray 06/27/24 18:23 IMPRESSION: Cardiomegaly with possible cardiac decompensation and pulmonary edema. Underlying fibrotic changes and interstitial edema is not excluded. Chest/Abdomen/Pelvis CTA 06/27/24 21:04 IMPRESSION: CHEST: 1. No pulmonary embolism. 2. No acute cardiopulmonary pathology. 3. Cardiomegaly. Right-sided heart failure is highly suggestive. Enlarged left ventricle. 4. Healing fractures in the left lower thorax. ABDOMEN/PELVIS: 1. Thickened wall of the gallbladder which may indicate cholecystitis. 2. Thickened wall of the rectum which may indicate proctitis. Clinical correlation advised. 3. Healing fracture in the left pubic bone. Venous Doppler Study 06/28/24 15:08 IMPRESSION: Patent bilateral lower extremity veins. No evidence of deep venous thrombosis. Upper Quadrant Ultrasound 06/28/24 20:11 Impression: Mild nonspecific gallbladder wall thickening. No gallstone evident. Renal Ultrasound 06/29/24 09:09 IMPRESSION: No hydronephrosis or renal calculi. No sonographic findings to suggest medical renal disease. Labs Labs: Laboratory Results - last 24 hr 06/28/24 06/28/24 06/28/24 05:10 05:14 14:52 WBC RBC Hgb Hct MCV MCH MCHC RDW Plt Count MPV Immature Gran % (Auto) Neut % (Auto) Lymph % (Auto) Ware % (Auto) Eos % (Auto) Baso % (Auto) Lymph # (Auto) Ware # (Auto) Eos # (Auto) Baso # (Auto) Abs Immat Gran (auto) Absolute Neuts (auto) Absolute Nucleated RBC Band Neutrophils % Nucleated RBC % Platelet Estimate Hypochromasia Anisocytosis Ovalocytes Schistocytes Absolute Retic 0.10 Percent Retic 2.84 Immature Retic Fraction 38.3 H Retic Hgb Content 29.1 APTT 135.5 H Sodium 139 Potassium 3.8 Chloride 104 Carbon Dioxide 22 Anion Gap 13 H BUN 81 H Creatinine 1.74 H Estim Creat Clear Calc 18 Estimated GFR 28 L Glucose 275 H POC Capillary Glucose Lactic Acid 1.8 Calcium 8.3 L Phosphorus Magnesium Iron 66 TIBC 282 % Saturation 23 Ferritin 176.00 Total Bilirubin Direct Bilirubin 0.0 AST ALT Alkaline Phosphatase Lactate Dehydrogenase 410 H Total Creatine Kinase Troponin I C-Reactive Protein 2.0 H Total Protein Albumin Vitamin B12 905.0 Folate 7.0 Procalcitonin 0.1 TSH (Reflex) 1.300 Urine Eosinophils U Random Total Protein Ur Random Sodium Ur Random Urea Urine Creatinine Protein/Creat Ratio 2 06/28/24 06/28/24 06/28/24 20:29 22:35 22:35 WBC RBC Hgb Hct MCV MCH MCHC RDW Plt Count MPV Immature Gran % (Auto) Neut % (Auto) Lymph % (Auto) Ware % (Auto) Eos % (Auto) Baso % (Auto) Lymph # (Auto) Ware # (Auto) Eos # (Auto) Baso # (Auto) Abs Immat Gran (auto) Absolute Neuts (auto) Absolute Nucleated RBC Band Neutrophils % Nucleated RBC % Platelet Estimate Hypochromasia Anisocytosis Ovalocytes Schistocytes Absolute Retic Percent Retic Immature Retic Fraction Retic Hgb Content APTT Sodium Potassium Chloride Carbon Dioxide Anion Gap BUN Creatinine Estim Creat Clear Calc Estimated GFR Glucose POC Capillary Glucose 310 H Lactic Acid Calcium Phosphorus Magnesium Iron TIBC % Saturation Ferritin Total Bilirubin Direct Bilirubin AST ALT Alkaline Phosphatase Lactate Dehydrogenase Total Creatine Kinase Troponin I C-Reactive Protein Total Protein Albumin Vitamin B12 Folate Procalcitonin TSH (Reflex) Urine Eosinophils Rare U Random Total Protein 13 Ur Random Sodium 119 Ur Random Urea 246 Urine Creatinine 9.6 9.5 Protein/Creat Ratio 2 1.35 H 06/28/24 06/29/24 06/29/24 22:42 04:26 05:34 WBC 7.3 RBC 3.22 L Hgb 8.5 L Hct 28.6 L MCV 88.8 MCH 26.4 MCHC 29.7 L RDW 16.4 H Plt Count 250 MPV 11.6 H Immature Gran % (Auto) 0.3 Neut % (Auto) 76.6 H Lymph % (Auto) 10.0 L Ware % (Auto) 8.7 H Eos % (Auto) 3.3 Baso % (Auto) 1.1 Lymph # (Auto) 0.73 L Ware # (Auto) 0.6 Eos # (Auto) 0.2 Baso # (Auto) 0.1 Abs Immat Gran (auto) 0.02 Absolute Neuts (auto) 5.6 Absolute Nucleated RBC 0.060 H Band Neutrophils % Not Reportable Nucleated RBC % 0.8 H Platelet Estimate Adequate Hypochromasia 1+ Anisocytosis 1+ Ovalocytes 1+ Schistocytes None seen Absolute Retic Percent Retic Immature Retic Fraction Retic Hgb Content APTT 51.7 H 76.3 H Sodium 138 140 Potassium 3.4 3.4 Chloride 102 104 Carbon Dioxide 24 29 Anion Gap 12 7 BUN 69 H D 63 H Creatinine 1.71 H 1.54 H Estim Creat Clear Calc 19 21 Estimated GFR 29 L 32 L Glucose 258 H 123 H POC Capillary Glucose Lactic Acid 1.6 0.9 Calcium 8.3 L 8.4 Phosphorus 3.1 Magnesium 2.0 Iron TIBC % Saturation Ferritin Total Bilirubin 0.9 1.0 Direct Bilirubin AST 92 H 94 H ALT 137 H 138 H Alkaline Phosphatase 260 H 255 H Lactate Dehydrogenase Total Creatine Kinase 277 H Troponin I 0.396 H* 0.388 H* C-Reactive Protein Total Protein 6.0 L 6.0 L Albumin 3.4 L 3.3 L Vitamin B12 Folate Procalcitonin TSH (Reflex) Urine Eosinophils U Random Total Protein Ur Random Sodium Ur Random Urea Urine Creatinine Protein/Creat Ratio 2 06/29/24 07:35 WBC RBC Hgb Hct MCV MCH MCHC RDW Plt Count MPV Immature Gran % (Auto) Neut % (Auto) Lymph % (Auto) Ware % (Auto) Eos % (Auto) Baso % (Auto) Lymph # (Auto) Ware # (Auto) Eos # (Auto) Baso # (Auto) Abs Immat Gran (auto) Absolute Neuts (auto) Absolute Nucleated RBC Band Neutrophils % Nucleated RBC % Platelet Estimate Hypochromasia Anisocytosis Ovalocytes Schistocytes Absolute Retic Percent Retic Immature Retic Fraction Retic Hgb Content APTT Sodium Potassium Chloride Carbon Dioxide Anion Gap BUN Creatinine Estim Creat Clear Calc Estimated GFR Glucose POC Capillary Glucose 170 H Lactic Acid Calcium Phosphorus Magnesium Iron TIBC % Saturation Ferritin Total Bilirubin Direct Bilirubin AST ALT Alkaline Phosphatase Lactate Dehydrogenase Total Creatine Kinase Troponin I C-Reactive Protein Total Protein Albumin Vitamin B12 Folate Procalcitonin TSH (Reflex) Urine Eosinophils U Random Total Protein Ur Random Sodium Ur Random Urea Urine Creatinine Protein/Creat Ratio 2 Quality VTE Prophylaxis VTE prophylaxis: mechanical ordered and pharmacologic ordered
[2024-06-29 11:43] LABS: Partial Thromboplastin Time 64.1 Seconds (22.3-36.8)
[2024-06-29 11:50] LABS: Glucose Point of Care 277 mg/dl (65-105)
--- NOTE | 2024-06-29 11:51 | P.PNCA_ITS ---
Progress Note: A&P Assessment and Plan (1) Acute on chronic systolic CHF (congestive heart failure), NYHA class 4: Code(s): I50.23 - Acute on chronic systolic (congestive) heart failure Status: Acute (2) Right ventricular dysfunction: Code(s): I51.9 - Heart disease, unspecified Status: Acute (3) Moderate to severe mitral regurgitation: Code(s): I34.0 - Nonrheumatic mitral (valve) insufficiency Status: Acute (4) CAD (coronary artery disease): Code(s): I25.10 - Atherosclerotic heart disease of [place] coronary artery without angina pectoris Status: Acute (5) Non-ST elevation AR (NSTEMI): Code(s): I21.4 - Non-ST elevation (NSTEMI) myocardial infarction Status: Acute (6) Hyperlipidemia: Code(s): E78.5 - Hyperlipidemia, unspecified Status: Acute (7) Hx of CABG: Code(s): Z95.1 - Presence of aortocoronary bypass graft Status: Acute (8) RAHUL (acute kidney injury): Code(s): N17.9 - Acute kidney failure, unspecified Status: Acute Plan 79-year-old woman with CAD status post CABG (LAURA to LAD, SVG to RPL, radial to OM), chronic systolic heart failure (LVEF 25%), RV dysfunction, moderate to severe mitral regurgitation, chronic left bundle branch block, history of stroke, diabetes mellitus, and hyperlipidemia presented with exertional dyspnea and chest discomfort for the past 3-5 days Acute on chronic systolic heart failure with LVEF 25% -continue Lasix 40 mg IV b.i.d. Monitor in's and out's, daily weights, renal function daily -continue low-dose milrinone at 0.125 microgram/kg/min -holding GDMT due to RAHUL Moderate to severe mitral regurgitation -repeat transthoracic echocardiogram Non ST-elevation AR; CAD status post CABG with LAURA to LAD, SVG to RPL, radial graft to OM -possibly secondary to demand -continue aspirin 81 mg daily, statin -complete 48 hours of heparin drip -plan for left and right heart catheterization in a.m. tomorrow. I discussed the risks and benefits of the procedure in detail with patient and her daughter and patient is willing to proceed. Keep NPO at midnight Subjective Date/time seen: 06/29/24 11:51 Interval history: Reason for encounter: Acute on chronic systolic heart failure, NSTEMI Relevant history: 79-year-old woman with CAD status post CABG (LAURA to LAD, SVG to RPL, radial to OM), chronic systolic heart failure (LVEF 25%), RV dysfunction, moderate to severe mitral regurgitation, chronic left bundle branch block, history of stroke, diabetes mellitus, and hyperlipidemia presented with exertional dyspnea and chest discomfort for the past 3-5 days. She has acute on chronic heart failure, NSTEMI, and RAHUL. She is on IV diuresis for heart failure. GDMT has been held due to RAHUL. TTE this morning. Interval history: Patient reports improved breathing today. No chest pain, dizziness, lightheadedness, palpitations, nausea, emesis, abdominal pain. Review of Systems Cardiovascular: Comments: Pertinent positives are mentioned in the HPI Respiratory: Comments: Pertinent positives are mentioned in the HPI Exam Narrative: General: Alert oriented x3, no acute distress Neck: Supple, JVD + Chest: Bilaterally clear to auscultation, no rales or rhonchi Cardiac: S1, S2 +, regular rate, regular rhythm, systolic ejection murmur grade 3 x 5 best heard over the apex Extremities: Bilateral lower extremity edema 1+, no skin rash Neurologic: Alert and oriented x3, no focal neurological deficits Objective Data Vital Signs Vital Signs: Vital Signs - 24 hr 06/28/24 12:00 06/28/24 12:00 06/28/24 14:17 Temperature 36.4 C L Pulse Rate 67 68 70 Respiratory Rate Blood Pressure 141/75 H 153/76 H Pulse Oximetry 98 96 Oxygen Delivery 06/28/24 16:00 06/28/24 16:30 06/28/24 18:00 Temperature 36.8 C Pulse Rate 69 70 82 Respiratory Rate 18 Blood Pressure 142/69 H Pulse Oximetry 98 Oxygen Delivery 06/28/24 18:00 06/28/24 20:00 06/28/24 20:00 Temperature Pulse Rate 70 70 70 Respiratory Rate 18 Blood Pressure 119/52 L Pulse Oximetry 95 95 Oxygen Delivery Room Air 06/28/24 20:00 06/28/24 22:00 06/28/24 22:00 Temperature 37.1 C 36.7 C Pulse Rate 72 66 64 Respiratory Rate 18 20 Blood Pressure 136/64 129/72 Pulse Oximetry 93 96 Oxygen Delivery 06/28/24 22:00 06/28/24 23:24 06/29/24 00:00 Temperature 36.6 C Pulse Rate 64 64 64 Respiratory Rate 16 16 Blood Pressure 126/64 Pulse Oximetry 97 97 Oxygen Delivery Room Air 06/29/24 00:00 06/29/24 00:00 06/29/24 02:00 Temperature Pulse Rate 64 65 65 Respiratory Rate Blood Pressure Pulse Oximetry Oxygen Delivery 06/29/24 02:00 06/29/24 02:43 06/29/24 02:43 Temperature Pulse Rate 63 58 L 58 L Respiratory Rate 18 Blood Pressure 115/56 L Pulse Oximetry 97 Oxygen Delivery 06/29/24 04:00 06/29/24 04:00 06/29/24 04:00 Temperature 36.6 C Pulse Rate 63 59 L 59 L Respiratory Rate 16 16 Blood Pressure 134/56 L Pulse Oximetry 95 95 Oxygen Delivery Room Air 06/29/24 04:00 06/29/24 06:00 06/29/24 06:00 Temperature Pulse Rate 60 60 60 Respiratory Rate Blood Pressure Pulse Oximetry Oxygen Delivery 06/29/24 06:00 06/29/24 08:00 06/29/24 10:00 Temperature 36.3 C L 36.3 C L Pulse Rate 60 60 57 L Respiratory Rate 16 18 Blood Pressure 133/55 L 138/58 L Pulse Oximetry 97 100 Oxygen Delivery 06/29/24 10:00 Temperature Pulse Rate 57 L Respiratory Rate 14 Blood Pressure 117/48 L Pulse Oximetry 95 Oxygen Delivery Intake/Output Intake/Output: Intake & Output 06/26/24 06/27/24 06/28/24 06/29/24 23:59 23:59 23:59 23:59 Intake Total 500 1394.2 677.3 Output Total 800 800 Balance 500 594.2 -122.7 Meds/Results Medications: Active Medications Generic Name Dose Route Start Last Admin Trade Name Freq PRN Reason Stop Dose Admin Acetaminophen 650 mg 06/28/24 00:06 Acetaminophen 325 Mg Tablet PO Q4H PRN Mild Pain (1-3) or Fever Aspirin 81 mg 06/28/24 08:00 06/29/24 09:05 Aspirin 81 Mg Chewable Tablet PO 81 mg DAILY@0800 SONNY Administration Dextrose 12.5 gm 06/28/24 22:22 Dextrose 50% 25 Gm/50 Ml Syringe IV PUSH PRN PRN Hypoglycemia Protocol Escitalopram Oxalate 5 mg 06/28/24 21:00 06/28/24 21:17 Escitalopram Oxalate 5 Mg Tablet PO 5 mg HS SONNY Administration Furosemide 40 mg 06/28/24 09:00 06/29/24 10:21 Furosemide Inj 40 Mg/4 Ml Vial IV PUSH 40 mg Q12HR SONNY Administration Glucagon 1 mg 06/28/24 22:22 Glucagon For Inj 1 Mg Vial IM PRN PRN Hypoglycemia Protocol Glucose 15 gm 06/28/24 22:22 Glucose Oral Gel 15 Gm Of Glucse In 37.5 Gm Tube PO PRN PRN Hypoglycemia Protocol Heparin Sodium (Porcine) 4,000 units 06/28/24 02:16 06/28/24 23:27 Heparin Sodium 5,000 Units/Ml Vial IV PUSH 4,000 units PRN PRN Administration aPTT less than 55 seconds Heparin Sodium (Porcine) 2,000 units 06/28/24 02:16 Heparin Sodium 5,000 Units/Ml Vial IV PUSH PRN PRN aPTT 55 - 70 seconds Heparin Sodium/Dextrose 25,000 units in 250 mls @ 8 mls/hr 06/28/24 02:20 06/29/24 05:30 Heparin Sodium/D5w 100 Units/Ml IV CONT 800 units/hr .Q24H SONNY 8 mls/hr Titration Protocol 800 UNITS/HR Milrinone Lactate 20 mg/ 100 mls @ 6.098 mls/hr 06/28/24 10:20 06/29/24 06:00 Dextrose IV CONT 0.375 mcg/kg/min .[id number] SONNY 6.1 mls/hr Infusion 0.375 MCG/KG/MIN Ampicillin Sodium/Sulbactam Sodium 3 gm in 100 mls @ 200 mls/hr 06/29/24 06:00 06/29/24 07:00 Unasyn 3 Gm/Ns 100 Ml IVPB Infused Q12H SONNY Infusion Dextrose 1,000 mls @ 100 mls/hr 06/28/24 22:22 Dextrose 5% 1,000 Ml IVPB PRN PRN Hypoglycemia Protocol Insulin Aspart 2 - 5 units 06/29/24 08:00 06/29/24 09:03 Insulin Aspart (*Bkc) 100 Units/Ml SUB-Q Not Given TIDWM SONNY Protocol Perflutren Lipid Microsphere 0 ml 06/27/24 23:28 Perflutren Lipid Microspheres 1.5 Ml Vial Diluted To 10 Ml Total Volume IV PUSH 06/30/24 23:30 ONCE PRN adequate visualization Protocol Polyethylene Glycol 17 gm 06/29/24 11:20 Polyethylene Glycol 3350 17 Gm Powd.Pack PO QAM SONNY Prochlorperazine Edisylate 10 mg 06/28/24 02:05 Prochlorperazine Edisylate 10 Mg/2 Ml Vial IV PUSH Q6H PRN Nausea And Vomiting Vancomycin HCl 1 each 06/28/24 14:26 Vancomycin For Acute Kidney Injury IVPB PRN PRN Vancomycin Protocol Radiology Results: ITS Impressions Chest X-Ray 06/27/24 18:23 IMPRESSION: Cardiomegaly with possible cardiac decompensation and pulmonary edema. Underlying fibrotic changes and interstitial edema is not excluded. Chest/Abdomen/Pelvis CTA 06/27/24 21:04 IMPRESSION: CHEST: 1. No pulmonary embolism. 2. No acute cardiopulmonary pathology. 3. Cardiomegaly. Right-sided heart failure is highly suggestive. Enlarged left ventricle. 4. Healing fractures in the left lower thorax. ABDOMEN/PELVIS: 1. Thickened wall of the gallbladder which may indicate cholecystitis. 2. Thickened wall of the rectum which may indicate proctitis. Clinical correlation advised. 3. Healing fracture in the left pubic bone. Venous Doppler Study 06/28/24 15:08 IMPRESSION: Patent bilateral lower extremity veins. No evidence of deep venous thrombosis. Upper Quadrant Ultrasound 06/28/24 20:11 Impression: Mild nonspecific gallbladder wall thickening. No gallstone evident. Renal Ultrasound 06/29/24 09:09 IMPRESSION: No hydronephrosis or renal calculi. No sonographic findings to suggest medical renal disease. Labs Labs: Laboratory Results - last 24 hr 06/28/24 06/28/24 06/28/24 05:10 05:14 14:52 WBC RBC Hgb Hct MCV MCH MCHC RDW Plt Count MPV Immature Gran % (Auto) Neut % (Auto) Lymph % (Auto) [place] % (Auto) Eos % (Auto) Baso % (Auto) Lymph # (Auto) [place] # (Auto) Eos # (Auto) Baso # (Auto) Abs Immat Gran (auto) Absolute Neuts (auto) Absolute Nucleated RBC Band Neutrophils % Nucleated RBC % Platelet Estimate Hypochromasia Anisocytosis Ovalocytes Schistocytes Absolute Retic 0.10 Percent Retic 2.84 Immature Retic Fraction 38.3 H Retic Hgb Content 29.1 APTT 135.5 H Sodium 139 Potassium 3.8 Chloride 104 Carbon Dioxide 22 Anion Gap 13 H BUN 81 H Creatinine 1.74 H Estim Creat Clear Calc 18 Estimated GFR 28 L Glucose 275 H POC Capillary Glucose Lactic Acid 1.8 Calcium 8.3 L Phosphorus Magnesium Iron 66 TIBC 282 % Saturation 23 Ferritin 176.00 Total Bilirubin Direct Bilirubin 0.0 AST ALT Alkaline Phosphatase Lactate Dehydrogenase 410 H Total Creatine Kinase Troponin I C-Reactive Protein 2.0 H Total Protein Albumin Vitamin B12 905.0 Folate 7.0 Procalcitonin 0.1 TSH (Reflex) 1.300 Urine Eosinophils U Random Total Protein Ur Random Sodium Ur Random Urea Urine Creatinine Protein/Creat Ratio 2 06/28/24 06/28/24 06/28/24 20:29 22:35 22:35 WBC RBC Hgb Hct MCV MCH MCHC RDW Plt Count MPV Immature Gran % (Auto) Neut % (Auto) Lymph % (Auto) [place] % (Auto) Eos % (Auto) Baso % (Auto) Lymph # (Auto) [place] # (Auto) Eos # (Auto) Baso # (Auto) Abs Immat Gran (auto) Absolute Neuts (auto) Absolute Nucleated RBC Band Neutrophils % Nucleated RBC % Platelet Estimate Hypochromasia Anisocytosis Ovalocytes Schistocytes Absolute Retic Percent Retic Immature Retic Fraction Retic Hgb Content APTT Sodium Potassium Chloride Carbon Dioxide Anion Gap BUN Creatinine Estim Creat Clear Calc Estimated GFR Glucose POC Capillary Glucose 310 H Lactic Acid Calcium Phosphorus Magnesium Iron TIBC % Saturation Ferritin Total Bilirubin Direct Bilirubin AST ALT Alkaline Phosphatase Lactate Dehydrogenase Total Creatine Kinase Troponin I C-Reactive Protein Total Protein Albumin Vitamin B12 Folate Procalcitonin TSH (Reflex) Urine Eosinophils Rare U Random Total Protein 13 Ur Random Sodium 119 Ur Random Urea 246 Urine Creatinine 9.6 9.5 Protein/Creat Ratio 2 1.35 H 06/28/24 06/29/24 06/29/24 22:42 04:26 05:34 WBC 7.3 RBC 3.22 L Hgb 8.5 L Hct 28.6 L MCV 88.8 MCH 26.4 MCHC 29.7 L RDW 16.4 H Plt Count 250 MPV 11.6 H Immature Gran % (Auto) 0.3 Neut % (Auto) 76.6 H Lymph % (Auto) 10.0 L [place] % (Auto) 8.7 H Eos % (Auto) 3.3 Baso % (Auto) 1.1 Lymph # (Auto) 0.73 L [place] # (Auto) 0.6 Eos # (Auto) 0.2 Baso # (Auto) 0.1 Abs Immat Gran (auto) 0.02 Absolute Neuts (auto) 5.6 Absolute Nucleated RBC 0.060 H Band Neutrophils % Not Reportable Nucleated RBC % 0.8 H Platelet Estimate Adequate Hypochromasia 1+ Anisocytosis 1+ Ovalocytes 1+ Schistocytes None seen Absolute Retic Percent Retic Immature Retic Fraction Retic Hgb Content APTT 51.7 H 76.3 H Sodium 138 140 Potassium 3.4 3.4 Chloride 102 104 Carbon Dioxide 24 29 Anion Gap 12 7 BUN 69 H D 63 H Creatinine 1.71 H 1.54 H Estim Creat Clear Calc 19 21 Estimated GFR 29 L 32 L Glucose 258 H 123 H POC Capillary Glucose Lactic Acid 1.6 0.9 Calcium 8.3 L 8.4 Phosphorus 3.1 Magnesium 2.0 Iron TIBC % Saturation Ferritin Total Bilirubin 0.9 1.0 Direct Bilirubin AST 92 H 94 H ALT 137 H 138 H Alkaline Phosphatase 260 H 255 H Lactate Dehydrogenase Total Creatine Kinase 277 H Troponin I 0.396 H* 0.388 H* C-Reactive Protein Total Protein 6.0 L 6.0 L Albumin 3.4 L 3.3 L Vitamin B12 Folate Procalcitonin TSH (Reflex) Urine Eosinophils U Random Total Protein Ur Random Sodium Ur Random Urea Urine Creatinine Protein/Creat Ratio 2 06/29/24 06/29/24 06/29/24 07:35 11:18 11:35 WBC RBC Hgb Hct MCV MCH MCHC RDW Plt Count MPV Immature Gran % (Auto) Neut % (Auto) Lymph % (Auto) [place] % (Auto) Eos % (Auto) Baso % (Auto) Lymph # (Auto) [place] # (Auto) Eos # (Auto) Baso # (Auto) Abs Immat Gran (auto) Absolute Neuts (auto) Absolute Nucleated RBC Band Neutrophils % Nucleated RBC % Platelet Estimate Hypochromasia Anisocytosis Ovalocytes Schistocytes Absolute Retic Percent Retic Immature Retic Fraction Retic Hgb Content APTT 64.1 H Sodium Potassium Chloride Carbon Dioxide Anion Gap BUN Creatinine Estim Creat Clear Calc Estimated GFR Glucose POC Capillary Glucose 170 H 277 H Lactic Acid Calcium Phosphorus Magnesium Iron TIBC % Saturation Ferritin Total Bilirubin Direct Bilirubin AST ALT Alkaline Phosphatase Lactate Dehydrogenase Total Creatine Kinase Troponin I C-Reactive Protein Total Protein Albumin Vitamin B12 Folate Procalcitonin TSH (Reflex) Urine Eosinophils U Random Total Protein Ur Random Sodium Ur Random Urea Urine Creatinine Protein/Creat Ratio 2
[2024-06-29] MEDS: polyethylene glycoL 3350 17 GM POWD.PACK PO (11:57)
[2024-06-29] MEDS: INSULIN ASPART (*BKC) 100 UNITS/ML SUB-Q ×2 (11:57→16:24)
[2024-06-29] MEDS: HEPARIN SODIUM 5,000 UNITS/ML VIAL 2000 UNITS IV PUSH (12:52)
[2024-06-29] MEDS: HEPARIN SOD/D5W 100 UNITS/ML 25,000 UNITS/250 ML BAG 9 UNITS IV CONT (12:59)
[2024-06-29 15:41] LABS: Vancomycin Trough 7.4 ug/mL (10.0-20.0)
[2024-06-29] MEDS: POTASSIUM CHLORIDE 20 MEQ ER TABLET 40 MEQ PO (16:11)
[2024-06-29] MEDS: VANCOMYCIN 1,000 MG/NS 250 ML 1,000 MG/250 ML BAG 250 MG IVPB (16:13)
[2024-06-29 16:20] LABS: Glucose Point of Care 356 mg/dl (65-105)
[2024-06-29 19:20] LABS: Partial Thromboplastin Time 81.2 Seconds (22.3-36.8)
[2024-06-29] MEDS: ESCITALOPRAM OXALATE 5 MG TABLET PO (20:41)
[2024-06-29 22:14] LABS: Glucose Point of Care 215 mg/dl (65-105)
[2024-06-30] VITALS (29 sets, daily range): BP systolic 101–159; BP diastolic 47–82; PULSE 48–71; RESP 10–18; TEMP 36.3–36.8; O2SAT 92–100
[2024-06-30 01:40] LABS: Partial Thromboplastin Time 82.6 Seconds (22.3-36.8)
[2024-06-30 04:47] LABS: Basophils Absolute Auto 0.1 K/mm3 (0.0-0.1); Basophils Percent Auto 0.9 % (0.2-1.2); Eosinophils Absolute Auto 0.3 K/mm3 (0-0.3); Eosinophils Percent Auto 5.8 % (0-4.4); Hematocrit 31.9 % (37.0-47.0); Hemoglobin 9.7 g/dL (12.0-15.0); Immature Granulocyte Absolute 0.02 K/mm3 (0.00-0.031); Immature Granulocyte Percent A 0.4 % (0-0.5); Lymphocytes Absolute Auto 0.85 K/mm3 (0.9-3.2); Lymphocytes Percent Auto 15.9 % (18.3-44.2); Mean Corpuscular HGB Conc 30.4 g/dl (32-36); Mean Corpuscular Hemoglobin 26.5 pg (26-34); Mean Corpuscular Volume 87.2 fl (80-100); Mean Platelet Volume 11.6 fl (7.4-10.4); Monocytes Absolute Auto 0.5 K/mm3 (0.1-0.6); Neutrophils Absolute Auto 3.6 K/mm3 (1.3-6.7); Nucleated Red Blood Cells Perc 0.4 % (0.0-0.2); Platelet Count Result 286 k/mm3 (150-375); Red Blood Count 3.66 M/mm3 (4.2-5.4); Red Cell Distribution Width 17.2 % (11.5-14.5); White Blood Count 5.4 K/mm3 (4.5-10.0)
[2024-06-30 05:10] LABS: Alanine Aminotransferase 134 U/L (6-35); Albumin Level 3.4 g/dL (3.5-5.1); Alkaline Phosphatase 226 U/L (38-126); Anion Gap 7 mmol/L (4-12); Aspartate Amino Transferase 80 U/L (14-36); Blood Urea Nitrogen 49 mg/dL (7-17); Calcium 8.6 mg/dL (8.4-10.2); Carbon Dioxide 33 mmol/L (22-30); Chloride 100 mmol/L (98-107); Estimated CRCL calculation 26 ml/min; Estimated Glomerular Filt Rate 43; Glucose 198 mg/dL (65-110); Magnesium 2.1 mg/dL (1.6-2.3); Phosphorus 2.7 mg/dL (2.5-4.5); Potassium 3.9 mmol/L (3.4-5.0); Sodium 140 mmol/L (137-145)
[2024-06-30] MEDS: AMPICILLIN SULB 3 GM/NS 100 ML 3 GM/100 ML VIAL IVPB (05:45)
--- NOTE | 2024-06-30 07:50 | PC.NURSE ---
Addendum entered by Dolores Allen RN 06/30/24 08:08: Also received order to go ahead and give morning medications, including aspirin and lasix. Original Note: Spoke with Dr Oviedo and received order to stop heparin gtt now and to stop milrinone gtt at 1000. Orders read back and verified.
[2024-06-30 07:53] LABS: Glucose Point of Care 168 mg/dl (65-105)
[2024-06-30] MEDS: ASPIRIN 81 MG CHEWABLE TABLET PO (08:17)
[2024-06-30] MEDS: FUROSEMIDE INJ 40 MG/4 ML VIAL IV PUSH ×2 (08:17→20:10)
--- NOTE | 2024-06-30 09:34 | PM.PNCARD ---
Progress Note: A&P Assessment and Plan (1) Acute on chronic systolic CHF (congestive heart failure), NYHA class 4: Code(s): I50.23 - Acute on chronic systolic (congestive) heart failure Status: Acute (2) Right ventricular dysfunction: Code(s): I51.9 - Heart disease, unspecified Status: Acute (3) Moderate to severe mitral regurgitation: Code(s): I34.0 - Nonrheumatic mitral (valve) insufficiency Status: Acute (4) CAD (coronary artery disease): Code(s): I25.10 - Atherosclerotic heart disease of [place] coronary artery without angina pectoris Status: Acute (5) Non-ST elevation MD (NSTEMI): Code(s): I21.4 - Non-ST elevation (NSTEMI) myocardial infarction Status: Acute (6) Hyperlipidemia: Code(s): E78.5 - Hyperlipidemia, unspecified Status: Acute (7) Hx of CABG: Code(s): Z95.1 - Presence of aortocoronary bypass graft Status: Acute (8) RAHUL (acute kidney injury): Code(s): N17.9 - Acute kidney failure, unspecified Status: Acute Plan 79-year-old woman with CAD status post CABG (LAURA to LAD, SVG to RPL, radial to OM), chronic systolic heart failure (LVEF 25%), RV dysfunction, moderate to severe mitral regurgitation, chronic left bundle branch block, history of stroke, diabetes mellitus, and hyperlipidemia presented with exertional dyspnea and chest discomfort for the past 3-5 days Acute on chronic systolic heart failure with LVEF 25% -TTE shows improvement in LVEF to 35-40%. There is anterior and anterolateral hypokinesis. MR is moderate -continue Lasix 40 mg IV b.i.d. Monitor in's and out's, daily weights, renal function daily -stop Milrinone at 48 hours -holding GDMT due to RAHUL Moderate mitral regurgitation -continue Lasix -TTE in 6 months to follow-up on severity of MR Non ST-elevation MD; CAD status post CABG with LAURA to LAD, SVG to RPL, radial graft to OM -possibly secondary to demand -continue aspirin 81 mg daily, statin -complete 48 hours of heparin drip -right and left heart catheterization this morning. I discussed the risks and benefits of the procedure in detail with patient and her daughter and patient is willing to proceed Subjective Date/time seen: 06/30/24 09:34 Interval history: Reason for encounter: Acute on chronic systolic heart failure, NSTEMI Relevant history: 79-year-old woman with CAD status post CABG (LAURA to LAD, SVG to RPL, radial to OM), chronic systolic heart failure (LVEF 25%), RV dysfunction, moderate to severe mitral regurgitation, chronic left bundle branch block, history of stroke, diabetes mellitus, and hyperlipidemia presented with exertional dyspnea and chest discomfort for the past 3-5 days. She has acute on chronic heart failure, NSTEMI, and RAHUL. She is on IV diuresis for heart failure. GDMT has been held due to RAHUL. TTE showed LVEF of 35-40%, hypokinesis of the anterior and anteroseptal avila, grade 2 diastolic dysfunction, mild to moderate MR, mild TR, mild VA, pulmonary artery systolic pressure 37 mm Hg. Interval history: She states that her breathing is good. She is not on oxygen. No chest pain, dizziness, lightheadedness, palpitations, nausea, emesis, abdominal pain. She continues to be on heparin and will in on drips. Review of Systems Review of Systems: Complete review of systems was performed and negative other than those mentioned in HPI Exam Narrative: General: Alert oriented x3, no acute distress Neck: Supple, JVD + Chest: Bilaterally clear to auscultation, no rales or rhonchi Cardiac: S1, S2 +, regular rate, regular rhythm, systolic ejection murmur grade 3 x 5 best heard over the apex Extremities: Bilateral lower extremity edema 1+, no skin rash Neurologic: Alert and oriented x3, no focal neurological deficits Objective Data Vital Signs Vital Signs: Vital Signs - 24 hr 06/29/24 10:06/29/24 10:06/29/24 11:37 Temperature 36.8 C Pulse Rate 57 L 57 L 59 L Respiratory Rate 14 18 Blood Pressure 117/48 L 126/57 L Pulse Oximetry 95 95 Oxygen Delivery 06/29/24 12:00 06/29/24 14:00 06/29/24 14:00 Temperature Pulse Rate 62 66 58 L Respiratory Rate 16 Blood Pressure 103/43 L Pulse Oximetry 98 Oxygen Delivery 06/29/24 16:00 06/29/24 16:00 06/29/24 16:06 Temperature 36.6 C Pulse Rate 58 L 62 61 Respiratory Rate 18 20 Blood Pressure 120/57 L Pulse Oximetry 96 98 Oxygen Delivery Room Air 06/29/24 17:51 06/29/24 18:08 06/29/24 18:08 Temperature 36.5 C Pulse Rate 59 L 61 62 Respiratory Rate 18 Blood Pressure 118/53 L Pulse Oximetry 96 Oxygen Delivery 06/29/24 19:24 06/29/24 20:00 06/29/24 20:00 Temperature 36.7 C Pulse Rate 58 L 58 L Respiratory Rate 17 Blood Pressure 116/53 L 116/53 L Pulse Oximetry 98 Oxygen Delivery Room Air 06/29/24 20:00 06/29/24 22:00 06/29/24 22:00 Temperature 36.9 C Pulse Rate 56 L 56 L 54 L Respiratory Rate 18 Blood Pressure 110/62 Pulse Oximetry Oxygen Delivery 06/29/24 22:00 06/29/24 23:32 06/30/24 00:00 Temperature Pulse Rate 54 L 57 L Respiratory Rate Blood Pressure 110/62 Pulse Oximetry Oxygen Delivery Room Air 06/30/24 00:00 06/30/24 00:15 06/30/24 02:00 Temperature 36.4 C Pulse Rate 56 L 56 L 58 L Respiratory Rate 17 Blood Pressure 133/66 133/66 Pulse Oximetry 97 Oxygen Delivery 06/30/24 02:21 06/30/24 03:51 06/30/24 04:00 Temperature 36.3 C L Pulse Rate 58 L 52 L Respiratory Rate 18 Blood Pressure 128/62 127/61 Pulse Oximetry 96 Oxygen Delivery Room Air 06/30/24 04:00 06/30/24 04:00 06/30/24 05:55 Temperature 36.6 C Pulse Rate 57 L 57 L 50 L Respiratory Rate 18 Blood Pressure 127/61 135/60 Pulse Oximetry 94 Oxygen Delivery 06/30/24 06:00 06/30/24 07:24 06/30/24 08:00 Temperature 36.4 C L Pulse Rate 52 L 57 L Respiratory Rate 18 Blood Pressure 140/68 Pulse Oximetry 95 Oxygen Delivery Room Air 06/30/24 08:00 Temperature Pulse Rate 50 L Respiratory Rate Blood Pressure Pulse Oximetry Oxygen Delivery Intake/Output Intake/Output: Intake & Output 04/12/25 04/13/25 04/14/25 04/15/25 23:59 23:59 23:59 23:59 Intake Total 500 1394.2 1475.0 147.6 Output Total 800 1560 500 Balance 500 594.2 -85.0 -352.4 Meds/Results Medications: Active Medications Generic Name Dose Route Start Last Admin Trade Name Freq PRN Reason Stop Dose Admin Acetaminophen 650 mg 06/28/24 00:06 Acetaminophen 325 Mg Tablet PO Q4H PRN Mild Pain (1-3) or Fever Aspirin 81 mg 06/28/24 08:00 06/30/24 08:17 Aspirin 81 Mg Chewable Tablet PO 81 mg DAILY@0800 SONNY Administration Dextrose 12.5 gm 06/28/24 22:22 Dextrose 50% 25 Gm/50 Ml Syringe IV PUSH PRN PRN Hypoglycemia Protocol Escitalopram Oxalate 5 mg 06/28/24 21:00 06/29/24 20:41 Escitalopram Oxalate 5 Mg Tablet PO 5 mg HS SONNY Administration Furosemide 40 mg 06/28/24 09:00 06/30/24 08:17 Furosemide Inj 40 Mg/4 Ml Vial IV PUSH 40 mg Q12HR SONNY Administration Glucagon 1 mg 06/28/24 22:22 Glucagon For Inj 1 Mg Vial IM PRN PRN Hypoglycemia Protocol Glucose 15 gm 06/28/24 22:22 Glucose Oral Gel 15 Gm Of Glucse In 37.5 Gm Tube PO PRN PRN Hypoglycemia Protocol Milrinone Lactate 20 mg/ 100 mls @ 6.098 mls/hr 06/28/24 10:20 06/30/24 04:00 Dextrose IV CONT 06/30/24 10:00 0.38 mcg/kg/min .[id number] SONNY 6.1 mls/hr Infusion 0.375 MCG/KG/MIN Ampicillin Sodium/Sulbactam Sodium 3 gm in 100 mls @ 200 mls/hr 06/29/24 06:00 06/30/24 05:45 Unasyn 3 Gm/Ns 100 Ml IVPB 200 mls/hr Q12H SONNY Administration Dextrose 1,000 mls @ 100 mls/hr 06/28/24 22:22 Dextrose 5% 1,000 Ml IVPB PRN PRN Hypoglycemia Protocol Insulin Aspart 2 - 5 units 06/29/24 08:00 06/30/24 08:23 Insulin Aspart (*Bkc) 100 Units/Ml SUB-Q Not Given TIDWM SONNY Protocol Perflutren Lipid Microsphere 0 ml 06/27/24 23:28 Perflutren Lipid Microspheres 1.5 Ml Vial Diluted To 10 Ml Total Volume IV PUSH 06/30/24 23:30 ONCE PRN adequate visualization Protocol Polyethylene Glycol 17 gm 06/29/24 11:20 06/30/24 08:18 Polyethylene Glycol 3350 17 Gm Powd.Pack PO Not Given QAM [facility] Prochlorperazine Edisylate 10 mg 06/28/24 02:05 Prochlorperazine Edisylate 10 Mg/2 Ml Vial IV PUSH Q6H PRN Nausea And Vomiting Vancomycin HCl 1 each 06/28/24 14:26 Vancomycin For Acute Kidney Injury IVPB PRN PRN Vancomycin Protocol Radiology Results: ITS Impressions Chest X-Ray 06/27/24 18:23 IMPRESSION: Cardiomegaly with possible cardiac decompensation and pulmonary edema. Underlying fibrotic changes and interstitial edema is not excluded. Chest/Abdomen/Pelvis CTA 06/27/24 21:04 IMPRESSION: CHEST: 1. No pulmonary embolism. 2. No acute cardiopulmonary pathology. 3. Cardiomegaly. Right-sided heart failure is highly suggestive. Enlarged left ventricle. 4. Healing fractures in the left lower thorax. ABDOMEN/PELVIS: 1. Thickened wall of the gallbladder which may indicate cholecystitis. 2. Thickened wall of the rectum which may indicate proctitis. Clinical correlation advised. 3. Healing fracture in the left pubic bone. Venous Doppler Study 06/28/24 15:08 IMPRESSION: Patent bilateral lower extremity veins. No evidence of deep venous thrombosis. Upper Quadrant Ultrasound 06/28/24 20:11 Impression: Mild nonspecific gallbladder wall thickening. No gallstone evident. Renal Ultrasound 06/29/24 09:09 IMPRESSION: No hydronephrosis or renal calculi. No sonographic findings to suggest medical renal disease. Labs Labs: Laboratory Results - last 24 hr 06/29/24 06/29/24 06/29/24 11:18 11:35 14:57 WBC RBC Hgb Hct MCV MCH MCHC RDW Plt Count MPV Immature Gran % (Auto) Neut % (Auto) Lymph % (Auto) [place] % (Auto) Eos % (Auto) Baso % (Auto) Lymph # (Auto) [place] # (Auto) Eos # (Auto) Baso # (Auto) Abs Immat Gran (auto) Absolute Neuts (auto) Absolute Nucleated RBC Nucleated RBC % APTT 64.1 H Sodium Potassium Chloride Carbon Dioxide Anion Gap BUN Creatinine Estim Creat Clear Calc Estimated GFR Glucose POC Capillary Glucose 277 H Calcium Phosphorus Magnesium Total Bilirubin AST ALT Alkaline Phosphatase Total Protein Albumin Vancomycin Trough 7.4 L 06/29/24 06/29/24 06/29/24 16:08 18:53 22:12 WBC RBC Hgb Hct MCV MCH MCHC RDW Plt Count MPV Immature Gran % (Auto) Neut % (Auto) Lymph % (Auto) [place] % (Auto) Eos % (Auto) Baso % (Auto) Lymph # (Auto) [place] # (Auto) Eos # (Auto) Baso # (Auto) Abs Immat Gran (auto) Absolute Neuts (auto) Absolute Nucleated RBC Nucleated RBC % APTT 81.2 H Sodium Potassium Chloride Carbon Dioxide Anion Gap BUN Creatinine Estim Creat Clear Calc Estimated GFR Glucose POC Capillary Glucose 356 H 215 H Calcium Phosphorus Magnesium Total Bilirubin AST ALT Alkaline Phosphatase Total Protein Albumin Vancomycin Trough 06/30/24 06/30/24 06/30/24 01:14 04:09 07:26 WBC 5.4 RBC 3.66 L Hgb 9.7 L Hct 31.9 L MCV 87.2 MCH 26.5 MCHC 30.4 L RDW 17.2 H Plt Count 286 MPV 11.6 H Immature Gran % (Auto) 0.4 Neut % (Auto) 68.0 Lymph % (Auto) 15.9 L [place] % (Auto) 9.0 H Eos % (Auto) 5.8 H Baso % (Auto) 0.9 Lymph # (Auto) 0.85 L [place] # (Auto) 0.5 Eos # (Auto) 0.3 Baso # (Auto) 0.1 Abs Immat Gran (auto) 0.02 Absolute Neuts (auto) 3.6 Absolute Nucleated RBC 0.020 H Nucleated RBC % 0.4 H APTT 82.6 H Sodium 140 Potassium 3.9 Chloride 100 Carbon Dioxide 33 H Anion Gap 7 BUN 49 H D Creatinine 1.21 H Estim Creat Clear Calc 26 Estimated GFR 43 L Glucose 198 H POC Capillary Glucose 168 H Calcium 8.6 Phosphorus 2.7 Magnesium 2.1 Total Bilirubin 1.0 AST 80 H ALT 134 H Alkaline Phosphatase 226 H Total Protein 7.0 Albumin 3.4 L Vancomycin Trough Imaging My impression: TTE showed LVEF of 35-40%, hypokinesis of the anterior and anteroseptal avila, grade 2 diastolic dysfunction, mild to moderate MR, mild TR, mild VA, pulmonary artery systolic pressure 37 mm Hg.
--- NOTE | 2024-06-30 10:11 | WPDMODSED ---
Moderate Sedation Note-Pt Data Patient Data Allergies Allergy/AdvReac Type Severity Reaction Status Date / Time No Known Allergies Allergy Verified 05/26/24 11:52 Home Medications ?Medication ?Instructions ?Recorded ?Confirmed ?Type escitalopram oxalate 5 mg tablet 5 mg PO HS 07/14/22 06/28/24 History metoprolol succinate 25 mg 25 mg PO QAM #30 tabs 07/18/22 06/28/24 Rx tablet,extended release 24 hr (Toprol XL) empagliflozin 25 mg tablet 25 mg PO DAILY #30 tabs 09/01/22 06/28/24 Rx (Jardiance) metformin 500 mg tablet,extended 1,000 mg PO BID 05/26/24 06/28/24 History release 24hr (osmotic) sacubitril 49 mg-valsartan 51 mg 1 tablet PO BID 05/26/24 06/28/24 History tablet (Entresto) atorvastatin 40 mg tablet 40 mg PO QPM 06/28/24 06/28/24 History Current Medications: Active Medications Acetaminophen (Acetaminophen 325 Mg Tablet) 650 mg PO Q4H PRN PRN Reason: Mild Pain (1-3) or Fever Aspirin (Aspirin 81 Mg Chewable Tablet) 81 mg PO DAILY@0800 [facility] Last Admin: 06/30/24 08:17 Dose: 81 mg Dextrose (Dextrose 50% 25 Gm/50 Ml Syringe) 12.5 gm IV PUSH PRN PRN; Protocol PRN Reason: Hypoglycemia Escitalopram Oxalate (Escitalopram Oxalate 5 Mg Tablet) 5 mg PO HS [facility] Last Admin: 06/29/24 20:41 Dose: 5 mg Furosemide (Furosemide Inj 40 Mg/4 Ml Vial) 40 mg IV PUSH Q12HR [facility] Last Admin: 06/30/24 08:17 Dose: 40 mg Glucagon (Glucagon For Inj 1 Mg Vial) 1 mg IM PRN PRN; Protocol PRN Reason: Hypoglycemia Glucose (Glucose Oral Gel 15 Gm Of Glucse In 37.5 Gm Tube) 15 gm PO PRN PRN; Protocol PRN Reason: Hypoglycemia Ampicillin Sodium/Sulbactam Sodium (Unasyn 3 Gm/Ns 100 Ml) 3 gm in 100 mls @ 200 mls/hr IVPB Q12H [facility] Last Admin: 06/30/24 05:45 Dose: 200 mls/hr Dextrose (Dextrose 5% 1,000 Ml) 1,000 mls @ 100 mls/hr IVPB PRN PRN; Protocol PRN Reason: Hypoglycemia Insulin Aspart (Insulin Aspart (*Bkc) 100 Units/Ml) 2 - 5 units SUB-Q TIDWM SONNY; Protocol Last Admin: 06/30/24 08:23 Dose: Not Given Perflutren Lipid Microsphere (Perflutren Lipid Microspheres 1.5 Ml Vial Diluted To 10 Ml Total Volume) 0 ml IV PUSH ONCE PRN; Protocol PRN Reason: adequate visualization Stop: 06/30/24 23:30 Polyethylene Glycol (Polyethylene Glycol 3350 17 Gm Powd.Pack) 17 gm PO QAM SONNY Last Admin: 06/30/24 08:18 Dose: Not Given Prochlorperazine Edisylate (Prochlorperazine Edisylate 10 Mg/2 Ml Vial) 10 mg IV PUSH Q6H PRN PRN Reason: Nausea And Vomiting Vancomycin HCl (Vancomycin For Acute Kidney Injury) 1 each IVPB PRN PRN PRN Reason: Vancomycin Protocol Sedation/Anesthesia: No previous sedation/anesthesia problems (including family history). [facility] Past Medical History Medical History (Updated 06/28/24 @ 10:21 by Kervin Mendoza MD) Non-insulin dependent diabetes mellitus Proximal humeral fracture Congestive heart failure Fracture of left elbow Hyperlipidemia Hypertension CAD (coronary artery disease) Surgical History Surgical History (Updated 06/29/24 @ 12:02 by Ira Oviedo MD) Hx of CABG [facility] Family History Family History Unknown Adopted Social History Social History (Updated 06/27/24 @ 18:57 by Daniela Neves MD) Social History: The patient is and has 2 children. 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 Previously living in a senior citizen apartment complex. Her daughter is the durable power mergers and acquisitions attorney for healthcare. Code status full code Smoking status: Never smoker Second hand tobacco smoke exposure: No Alcohol intake: never Substance use: never Substance use type: does not use Do You Feel Safe in your Home?: Yes Lack of Transportation: No Lack of Food: Never True Current Housing: I Have Housing Concerned About Future Housing: No Difficulty Paying Gas/Electric Bills: No Difficulty Paying for Meds: No Currently Unemployed: No Education: Grade School Difficulty w/ Childcare or Family Care: No Living arrangements: with family Additional living arrangements comments: daughter Gail Spiritual care concerns: No Mod Sed Physical Exam Physical Exam Pre Procedural Exam: Normal: Lungs, Heart Rate and Heart Rhythm Hours since solid foods: 12 Hours since liquid intake: 12 Mallampati Classification: class II Internal Medicine - PN: Obj Da Vital Signs Vital Signs: Vital Signs - 24 hr 06/29/24 11:37 06/29/24 12:00 06/29/24 14:00 Temperature 36.8 C Pulse Rate 59 L 62 66 Respiratory Rate 18 16 Blood Pressure 126/57 L 103/43 L Pulse Oximetry 95 98 Oxygen Delivery 06/29/24 14:00 06/29/24 16:00 06/29/24 16:00 Temperature Pulse Rate 58 L 58 L 62 Respiratory Rate 18 Blood Pressure Pulse Oximetry 96 Oxygen Delivery Room Air 06/29/24 16:06 06/29/24 17:51 06/29/24 18:08 Temperature 36.6 C 36.5 C Pulse Rate 61 59 L 61 Respiratory Rate 20 18 Blood Pressure 120/57 L 118/53 L Pulse Oximetry 98 96 Oxygen Delivery 06/29/24 18:08 06/29/24 19:24 06/29/24 20:00 Temperature 36.7 C Pulse Rate 62 58 L 58 L Respiratory Rate 17 Blood Pressure 116/53 L 116/53 L Pulse Oximetry 98 Oxygen Delivery 06/29/24 20:00 06/29/24 20:00 06/29/24 22:00 Temperature Pulse Rate 56 L 56 L Respiratory Rate Blood Pressure Pulse Oximetry Oxygen Delivery Room Air 06/29/24 22:00 06/29/24 22:00 06/29/24 23:32 Temperature 36.9 C Pulse Rate 54 L 54 L Respiratory Rate 18 Blood Pressure 110/62 110/62 Pulse Oximetry Oxygen Delivery Room Air 06/30/24 00:00 06/30/24 00:00 06/30/24 00:15 Temperature 36.4 C Pulse Rate 57 L 56 L 56 L Respiratory Rate 17 Blood Pressure 133/66 133/66 Pulse Oximetry 97 Oxygen Delivery 06/30/24 02:00 06/30/24 02:21 06/30/24 03:51 Temperature 36.3 C L Pulse Rate 58 L 58 L 52 L Respiratory Rate 18 Blood Pressure 128/62 127/61 Pulse Oximetry 96 Oxygen Delivery 06/30/24 04:00 06/30/24 04:00 06/30/24 04:00 Temperature Pulse Rate 57 L 57 L Respiratory Rate Blood Pressure 127/61 Pulse Oximetry Oxygen Delivery Room Air 06/30/24 05:55 06/30/24 06:00 06/30/24 07:24 Temperature 36.6 C 36.4 C L Pulse Rate 50 L 52 L 57 L Respiratory Rate 18 18 Blood Pressure 135/60 140/68 Pulse Oximetry 94 95 Oxygen Delivery 06/30/24 08:00 06/30/24 08:00 06/30/24 10:00 Temperature Pulse Rate 50 L 54 L Respiratory Rate Blood Pressure Pulse Oximetry Oxygen Delivery Room Air 06/30/24 10:00 06/30/24 10:05 Temperature Pulse Rate 54 L 54 L Respiratory Rate Blood Pressure 118/56 L 118/56 L Pulse Oximetry 96 Oxygen Delivery Intake/Output Intake/Output: Intake & Output 06/27/24 06/28/24 06/29/24 06/30/24 23:59 23:59 23:59 23:59 Intake Total 500 1394.2 1475.0 184.7 Output Total 800 1560 850 Balance 500 594.2 -85.0 -665.3 Meds/Results Medications: Active Medications Generic Name Dose Route Start Last Admin Trade Name [place] PRN Reason Stop Dose Admin Acetaminophen 650 mg 06/28/24 00:06 Acetaminophen 325 Mg Tablet PO Q4H PRN Mild Pain (1-3) or Fever Aspirin 81 mg 06/28/24 08:00 06/30/24 08:17 Aspirin 81 Mg Chewable Tablet PO 81 mg DAILY@0800 SONNY Administration Dextrose 12.5 gm 06/28/24 22:22 Dextrose 50% 25 Gm/50 Ml Syringe IV PUSH PRN PRN Hypoglycemia Protocol Escitalopram Oxalate 5 mg 06/28/24 21:00 06/29/24 20:41 Escitalopram Oxalate 5 Mg Tablet PO 5 mg HS SONNY Administration Furosemide 40 mg 06/28/24 09:00 06/30/24 08:17 Furosemide Inj 40 Mg/4 Ml Vial IV PUSH 40 mg Q12HR SONNY Administration Glucagon 1 mg 06/28/24 22:22 Glucagon For Inj 1 Mg Vial IM PRN PRN Hypoglycemia Protocol Glucose 15 gm 06/28/24 22:22 Glucose Oral Gel 15 Gm Of Glucse In 37.5 Gm Tube PO PRN PRN Hypoglycemia Protocol Ampicillin Sodium/Sulbactam Sodium 3 gm in 100 mls @ 200 mls/hr 06/29/24 06:00 06/30/24 05:45 Unasyn 3 Gm/Ns 100 Ml IVPB 200 mls/hr Q12H SONNY Administration Dextrose 1,000 mls @ 100 mls/hr 06/28/24 22:22 Dextrose 5% 1,000 Ml IVPB PRN PRN Hypoglycemia Protocol Insulin Aspart 2 - 5 units 06/29/24 08:00 06/30/24 08:23 Insulin Aspart (*Bkc) 100 Units/Ml SUB-Q Not Given TIDWM SONNY Protocol Perflutren Lipid Microsphere 0 ml 06/27/24 23:28 Perflutren Lipid Microspheres 1.5 Ml Vial Diluted To 10 Ml Total Volume IV PUSH 06/30/24 23:30 ONCE PRN adequate visualization Protocol Polyethylene Glycol 17 gm 06/29/24 11:20 06/30/24 08:18 Polyethylene Glycol 3350 17 Gm Powd.Pack PO Not Given QAM [facility] Prochlorperazine Edisylate 10 mg 06/28/24 02:05 Prochlorperazine Edisylate 10 Mg/2 Ml Vial IV PUSH Q6H PRN Nausea And Vomiting Vancomycin HCl 1 each 06/28/24 14:26 Vancomycin For Acute Kidney Injury IVPB PRN PRN Vancomycin Protocol Radiology Results: ITS Impressions Chest X-Ray 06/27/24 18:23 IMPRESSION: Cardiomegaly with possible cardiac decompensation and pulmonary edema. Underlying fibrotic changes and interstitial edema is not excluded. Chest/Abdomen/Pelvis CTA 06/27/24 21:04 IMPRESSION: CHEST: 1. No pulmonary embolism. 2. No acute cardiopulmonary pathology. 3. Cardiomegaly. Right-sided heart failure is highly suggestive. Enlarged left ventricle. 4. Healing fractures in the left lower thorax. ABDOMEN/PELVIS: 1. Thickened wall of the gallbladder which may indicate cholecystitis. 2. Thickened wall of the rectum which may indicate proctitis. Clinical correlation advised. 3. Healing fracture in the left pubic bone. Venous Doppler Study 06/28/24 15:08 IMPRESSION: Patent bilateral lower extremity veins. No evidence of deep venous thrombosis. Upper Quadrant Ultrasound 06/28/24 20:11 Impression: Mild nonspecific gallbladder wall thickening. No gallstone evident. Renal Ultrasound 06/29/24 09:09 IMPRESSION: No hydronephrosis or renal calculi. No sonographic findings to suggest medical renal disease. Labs 06/30/24 04:09 06/30/24 04:09 Labs: Laboratory Results - last 24 hr 06/29/24 06/29/24 06/29/24 11:18 11:35 14:57 WBC RBC Hgb Hct MCV MCH MCHC RDW Plt Count MPV Immature Gran % (Auto) Neut % (Auto) Lymph % (Auto) [place] % (Auto) Eos % (Auto) Baso % (Auto) Lymph # (Auto) [place] # (Auto) Eos # (Auto) Baso # (Auto) Abs Immat Gran (auto) Absolute Neuts (auto) Absolute Nucleated RBC Nucleated RBC % APTT 64.1 H Sodium Potassium Chloride Carbon Dioxide Anion Gap BUN Creatinine Estim Creat Clear Calc Estimated GFR Glucose POC Capillary Glucose 277 H Calcium Phosphorus Magnesium Total Bilirubin AST ALT Alkaline Phosphatase Total Protein Albumin Vancomycin Trough 7.4 L 06/29/24 06/29/24 06/29/24 16:08 18:53 22:12 WBC RBC Hgb Hct MCV MCH MCHC RDW Plt Count MPV Immature Gran % (Auto) Neut % (Auto) Lymph % (Auto) [place] % (Auto) Eos % (Auto) Baso % (Auto) Lymph # (Auto) [place] # (Auto) Eos # (Auto) Baso # (Auto) Abs Immat Gran (auto) Absolute Neuts (auto) Absolute Nucleated RBC Nucleated RBC % APTT 81.2 H Sodium Potassium Chloride Carbon Dioxide Anion Gap BUN Creatinine Estim Creat Clear Calc Estimated GFR Glucose POC Capillary Glucose 356 H 215 H Calcium Phosphorus Magnesium Total Bilirubin AST ALT Alkaline Phosphatase Total Protein Albumin Vancomycin Trough 06/30/24 06/30/24 06/30/24 01:14 04:09 07:26 WBC 5.4 RBC 3.66 L Hgb 9.7 L Hct 31.9 L MCV 87.2 MCH 26.5 MCHC 30.4 L RDW 17.2 H Plt Count 286 MPV 11.6 H Immature Gran % (Auto) 0.4 Neut % (Auto) 68.0 Lymph % (Auto) 15.9 L [place] % (Auto) 9.0 H Eos % (Auto) 5.8 H Baso % (Auto) 0.9 Lymph # (Auto) 0.85 L [place] # (Auto) 0.5 Eos # (Auto) 0.3 Baso # (Auto) 0.1 Abs Immat Gran (auto) 0.02 Absolute Neuts (auto) 3.6 Absolute Nucleated RBC 0.020 H Nucleated RBC % 0.4 H APTT 82.6 H Sodium 140 Potassium 3.9 Chloride 100 Carbon Dioxide 33 H Anion Gap 7 BUN 49 H D Creatinine 1.21 H Estim Creat Clear Calc 26 Estimated GFR 43 L Glucose 198 H POC Capillary Glucose 168 H Calcium 8.6 Phosphorus 2.7 Magnesium 2.1 Total Bilirubin 1.0 AST 80 H ALT 134 H Alkaline Phosphatase 226 H Total Protein 7.0 Albumin 3.4 L Vancomycin Trough ASA Classification/Sedation ASA Classification/Sedation ASA Class: III Emergent: No Risks: Risks, benefits and alternatives explained and patient/family accepted plan for sedation. Patient re-evaluated immediately prior to sedation.
--- NOTE | 2024-06-30 10:12 | WPDHPUPDATE1 ---
History and Physical Update Update Date/Time: 06/30/24 10:12 History and Physical has been reviewed, including an updated exam of the patient. There are NO changes in the patient's condition. Risks, benefits, and alternatives have been discussed and questions answered. Patient agrees to proceed with procedure.
[2024-06-30 11:52] LABS: Glucose Point of Care 190 mg/dl (65-105)
--- NOTE | 2024-06-30 13:25 | WPDCARDPROC ---
Cardiac Cath Procedure Note Date of procedure:: 06/30/24 Performing physician:: Ira Oviedo MD Indication:: Pre-op Diagnosis: Acute on chronic systolic heart failure NSTEMI Brief clinical history:: 79-year-old woman with CAD status post CABG (LAURA to LAD, SVG to RPL, radial to OM), chronic systolic heart failure (LVEF 25%), RV dysfunction, moderate to severe mitral regurgitation, chronic left bundle branch block, history of stroke, diabetes mellitus, and hyperlipidemia presented with exertional dyspnea and chest discomfort. She has acute on chronic heart failure, NSTEMI, and RAHUL. She is on IV diuresis for heart failure. GDMT has been held due to RAHUL. Milrinone drip was started for end organ damage. Heparin drip was started for NSTEMI. TTE showed LVEF of 35-40%, hypokinesis of the anterior and anteroseptal avila, grade 2 diastolic dysfunction, mild to moderate MR, mild TR, mild MS, pulmonary artery systolic pressure 37 mm Hg. Procedure Procedure performed:: Ultrasound-guided right common femoral artery access Ultrasound-guided right common femoral venous access Left heart catheterization with coronary and bypass graft angiography Sedation/Medication given:: Versed and Fentanyl were ordered and given in my presence at 12:21 p.m., procedure ended at 1:04 p.m.. Supervision of nurse monitored moderate sedation with Versed and Fentanyl was provided for 43 minutes. Access site:: Right common femoral artery Right common femoral vein Estimated blood loss:: 10 mL Procedure note:: All risks, benefits and alternatives to left heart catheterization with or without percutaneous coronary intervention was discussed at length with the patient. Risk of complications including but not limited to bleeding, infection, arrhythmia, stroke, worsening kidney function, blood loss, groin hematoma, limb loss, emergency coronary artery bypass grafting, and even were discussed with the patient and all questions were answered. The patient understood and wished to proceed. Time out called, patient name, date of , medical record number, allergies, procedure performed, identify Vending Mechanic, patient and staff member concurred with accurate data, procedure carried on. Description of Procedure: Informed consent signed and placed in the chart. Patient transferred to laboratory equipment cleaner room. Prepped and draped in usual sterile fashion. 2% lidocaine injected subcutaneously in right groin area. Right common femoral vein was accessed using micropuncture technique. 7-FR sheath placed. 6F [place]-Ava catheter was advanced into the right side of the heart chambers and pressures were measured. Hemostasis was achieved by manual pressure. Informed consent signed and placed in the chart. Patient transferred to laboratory equipment cleaner room. Prepped and draped in usual sterile fashion. 2% lidocaine in right groin area. Micropuncture needle used to access right common femoral artery with Seldinger technique under fluoroscopic guidance. J wire advanced, micropuncture cannula placed. Right iliofemoral angiogram performed, access confirmed and micropuncture cannula exchanged for 5-FR sheath. Five [place] JL 3.5 diagnostic catheter engaged Left Main Coronary Artery. Five [place] JR4 diagnostic catheter engaged Right Coronary Artery. Five [place] JR4 diagnostic catheter engaged SVG graft to RCA, radial artery graft to OM. Five [place] IM diagnostic catheter engaged LAURA graft to LAD Multiple orthogonal angiogram obtained and reviewed 5 [place] JR4 diagnostic catheter crossed aortic valve to obtain LVEDP, LV angiogram deferred. Hemostasis was achieved by 6 [place] Angio-Seal. Post Operative Condition: Stable No significant blood loss Disposition: Floor Findings:: LEFT HEART CATHETERIZATION FINDINGS: 1. Left main: The left main coronary artery is diffusely diseased and is a OPTICAL MECHANIC APPRENTICE in the distal vessel. 2. Left anterior descending: The left main is a CT0 before LAD takeoff. 3. Left circumflex: The left main is a OPTICAL MECHANIC APPRENTICE before LCX takeoff. 4. Right coronary artery: Right dominant circulation. 80% stenosis in ostial RPDA and 70% stenosis in the RPL. Grafts: LAURA to LAD is widely patent. The mid LAD has diffuse 50% stenosis. SVG to RCA is widely patent. Radial graft to OM is widely patent. 5. Left ventricle: A. End-diastolic pressure 9 mmHg. B. LV gram deferred. C. No significant gradient across aortic valve on catheter pullback. 6. Opening AO pressure 121/52/70 mm Hg and closing AO pressure 127/65/91 mm Hg RIGHT HEART CATHETERIZATION FINDINGS: Pressures (mmHg): RA: 3/0/0 RV: 27/3/3 PA: 26/5/11 PCWP: 3/2/2 Saturations (%): PA: 48.8 Arterial: 85.9 PCW: 82.4 RV: 50.6 RA: 50.8 CO/CI: [place]: 3.9/2.6 Conclusion:: Acute on chronic systolic heart failure with good diuresis and normal left and right-sided pressures Normal cardiac index and output post Milrinone drip Type 2 OH Severe multivessel coronary artery disease with left main coronary artery CT0, 80% stenosis distal RCA. Patent LAURA to LAD, patent SVG graft to RCA, patent radial artery graft to OM Assessment and Plan Assessment and plan (1) Acute on chronic systolic CHF (congestive heart failure), NYHA class 4: Code(s): I50.23 - Acute on chronic systolic (congestive) heart failure Status: Acute (2) Non-ST elevation [place] (NSTEMI): Code(s): I21.4 - Non-ST elevation (NSTEMI) myocardial infarction Status: Acute (3) CAD (coronary artery disease): Code(s): I25.10 - Atherosclerotic heart disease of three affiliated coronary artery without angina pectoris Status: Acute (4) Hx of CABG: Code(s): Z95.1 - Presence of aortocoronary bypass graft Status: Acute Plan The patient will be transferred back to her room in stable condition. Restart guideline directed medical therapy for systolic heart failure as tolerated. Continue aspirin and statin. Do not resume heparin drip. Do not resume Emanuel on drip. Switch Lasix to 20 mg p.o. daily. 500 mL normal saline at 100 mL per hour. Continue aggressive medical therapy and risk factor modification.
[2024-06-30 15:32] LABS: Vancomycin Random 11.3 ug/mL (10-20)
[2024-06-30] MEDS: INSULIN ASPART (*BKC) 100 UNITS/ML SUB-Q (16:49)
[2024-06-30 16:53] LABS: Glucose Point of Care 221 mg/dl (65-105)
[2024-06-30 16:54] LABS: Glucose Point of Care 289 mg/dl (65-105)
--- NOTE | 2024-06-30 17:20 | P.PNIM_ITS ---
Progress Note: A&P Assessment and Plan (1) Acute on chronic systolic CHF (congestive heart failure), NYHA class 4: Code(s): I50.23 - Acute on chronic systolic (congestive) heart failure Status: Acute Assessment and Plan: * Patient presents with SOB. CXR showing cardiomegaly with cardiac decompensation and pulmonary edema. BNP > 30K. * LA 4.7 -> 4.9. LFTs elevated. Concern for decompensated CHF. * Could be related to worsening cardiac condition and/or related to her valve disease and/or from acute NSTEMI * She is on ASA. Lasix 40 mg ivp q 12. * Cardiology consulted, appreciate recommendations. * Milrinone drip at 0.375 microgram/kg/min. * Consider also sepsis but felt less likely. UA noted and UCx collected. BCx ordered and abx started. * Cover for possible cholecystitis even though she does not have any pain * Repeat lactic normal. * Close monitoring. * Echocardiogram showed: Summary 1. Complete two-dimensional, color flow and Doppler transthoracic echocardiogram is performed. 2. Left ventricular chamber dimension is moderately enlarged. 3. Left ventricular systolic function is normal, estimated at 35-40%. Hypokinesis anteroseptal and anterior wall. 4. The left ventricular diastolic function is grade II diastolic dysfunction. 5. There is mild to moderate mitral valve regurgitation. 6. There is mild tricuspid valve regurgitation. 7. No pulmonary hypertension, estimated pulmonary arterial systolic pressure is 37 mmHg. 8. There is mild pulmonic regurgitation. * Renal ultrasound showed: IMPRESSION: No hydronephrosis or renal calculi. No sonographic findings to suggest medical renal disease. (2) Non-ST elevation MS (NSTEMI): Code(s): I21.4 - Non-ST elevation (NSTEMI) myocardial infarction Status: Acute Assessment and Plan: * As above. EKG showing NSR, LAD, AE, LBBB. (LBBB is old) * Continue ASA. Continue heparin gtt. * NPO after midnight for cardiac cath. (3) Prolonged QT interval: Code(s): R94.31 - Abnormal electrocardiogram [ECG] [EKG] Status: Acute Assessment and Plan: * QTc 536. This has been noted i the past and felt related to the BBB. * Correct potassium and mag as needed. (4) RAHUL (acute kidney injury): Code(s): N17.9 - Acute kidney failure, unspecified Status: Acute Assessment and Plan: * Cr 1,5 on admission and up to 1.54now. * [place] related to poor renal perfusion. CT scan showing a hyperdense area seen in the right kidney midpole which may be contrast. A stone is less likely. She has 2 right renal arteries. * Renal ultrasound showed: IMPRESSION: No hydronephrosis or renal calculi. No sonographic findings to suggest medical renal disease. (5) Moderate to severe mitral regurgitation: Code(s): I34.0 - Nonrheumatic mitral (valve) insufficiency Status: Acute Assessment and Plan: * As above. * Echocardiogram showed: Summary 1. Complete two-dimensional, color flow and Doppler transthoracic echocardiogram is performed. 2. Left ventricular chamber dimension is moderately enlarged. 3. Left ventricular systolic function is normal, estimated at 35-40%. Hypokinesis anteroseptal and anterior wall. 4. The left ventricular diastolic function is grade II diastolic dysfunction. 5. There is mild to moderate mitral valve regurgitation. 6. There is mild tricuspid valve regurgitation. 7. No pulmonary hypertension, estimated pulmonary arterial systolic pressure is 37 mmHg. 8. There is mild pulmonic regurgitation. * NPO after midnight for cardiac cath. (6) Hypertension: Qualifiers: Hypertension type: primary hypertension Qualified Code(s): I10 - Essential (primary) hypertension Code(s): I10 - Essential (primary) hypertension Status: Chronic Assessment and Plan: * blood pressure 126/57. * Blood pressure remains reasonable well controlled. * Will continue current medications. (7) Ischemic cardiomyopathy: Code(s): I25.5 - Ischemic cardiomyopathy Status: Chronic Assessment and Plan: * As above Plan +DDimer - LE venous doppler negative for DVT. CTA negative for PE. +DDimer related to either CHF and/or sepsis. Possible Cholecystitis - GB showing thickened wall which may indicate cholecystitis. No stones seen. No pain on exam. Check US Possible proctitis - Thickened wall of the rectum which may indicate proctitis. again, no pain. Feel these findings related to passive congestion. [age] year [place] female presented with complaint of dyspnea with exertion to further evaluate patient had a cardiac echo showed moderately reduced ejection fraction 30-40% patient was seen by scientific specialist and had a cardiac catheterization which showed significant coronary artery disease however unable to amendable to intervention recommended medical management. Today patient states feeling little better not a short of breath denies any chest pain or palpitation. Code status. Full VTE prophylaxis. SCDs; SONNY Subjective Date/time seen: 06/30/24 17:20 Interval history: Patient denies chest pain, palpitations, headache, dizziness, nausea, or vomiting. Family at bedside. Patient reports feeling better with drip. [age] year [place] female presented with complaint of dyspnea with exertion to further evaluate patient had a cardiac echo showed moderately reduced ejection fraction 30-40% patient was seen by scientific specialist and had a cardiac catheterization which showed significant coronary artery disease however unable to amendable to intervention recommended medical management. Today patient states feeling little better not a short of breath denies any chest pain or palpitation. Review of Systems Review of Systems: All systems reviewed & are unremarkable except as noted in HPI and below Exam Narrative: Elderly frail Patient is comfortable, NAD HEENT: eyes are clear and none icteric LUNGS:CTA HEART: RR S1S2 ABD: BS+, Soft and nontender Lower extremities: no edema SKIN: nonjaundiced Neuro: grossly intact. Objective Data Vital Signs Vital Signs: Vital Signs - 24 hr 06/29/24 17:51 06/29/24 18:08 06/29/24 18:08 Temperature 36.5 C Pulse Rate 59 L 61 62 Respiratory Rate 18 Blood Pressure 118/53 L Pulse Oximetry 96 Oxygen Delivery 06/29/24 19:24 06/29/24 20:00 06/29/24 20:00 Temperature 36.7 C Pulse Rate 58 L 58 L Respiratory Rate 17 Blood Pressure 116/53 L 116/53 L Pulse Oximetry 98 Oxygen Delivery Room Air 06/29/24 20:00 06/29/24 22:00 06/29/24 22:00 Temperature 36.9 C Pulse Rate 56 L 56 L 54 L Respiratory Rate 18 Blood Pressure 110/62 Pulse Oximetry Oxygen Delivery 06/29/24 22:00 06/29/24 23:32 06/30/24 00:00 Temperature Pulse Rate 54 L 57 L Respiratory Rate Blood Pressure 110/62 Pulse Oximetry Oxygen Delivery Room Air 06/30/24 00:00 06/30/24 00:15 06/30/24 02:00 Temperature 36.4 C Pulse Rate 56 L 56 L 58 L Respiratory Rate 17 Blood Pressure 133/66 133/66 Pulse Oximetry 97 Oxygen Delivery 06/30/24 02:21 06/30/24 03:51 06/30/24 04:00 Temperature 36.3 C L Pulse Rate 58 L 52 L Respiratory Rate 18 Blood Pressure 128/62 127/61 Pulse Oximetry 96 Oxygen Delivery Room Air 06/30/24 04:00 06/30/24 04:00 06/30/24 05:55 Temperature 36.6 C Pulse Rate 57 L 57 L 50 L Respiratory Rate 18 Blood Pressure 127/61 135/60 Pulse Oximetry 94 Oxygen Delivery 06/30/24 06:00 06/30/24 07:24 06/30/24 08:00 Temperature 36.4 C L Pulse Rate 52 L 57 L Respiratory Rate 18 Blood Pressure 140/68 Pulse Oximetry 95 Oxygen Delivery Room Air 06/30/24 08:00 06/30/24 10:00 06/30/24 10:00 Temperature Pulse Rate 50 L 54 L 54 L Respiratory Rate Blood Pressure 118/56 L Pulse Oximetry 96 Oxygen Delivery 06/30/24 10:05 06/30/24 12:00 06/30/24 12:00 Temperature 36.5 C Pulse Rate 54 L 54 L 58 L Respiratory Rate 16 Blood Pressure 118/56 L 117/52 L Pulse Oximetry 97 Oxygen Delivery 06/30/24 13:30 06/30/24 13:45 06/30/24 14:00 Temperature Pulse Rate 48 L 49 L 53 L Respiratory Rate 12 17 10 L Blood Pressure 141/70 H 128/65 128/72 Pulse Oximetry 98 98 98 Oxygen Delivery Room Air Room Air Room Air 06/30/24 14:15 06/30/24 14:26 06/30/24 14:45 Temperature 36.4 C L Pulse Rate 52 L 55 L 52 L Respiratory Rate 12 14 Blood Pressure 114/65 130/64 Pulse Oximetry 98 97 Oxygen Delivery Room Air 06/30/24 15:15 06/30/24 15:15 06/30/24 16:00 Temperature 36.3 C L 36.3 C L Pulse Rate 52 L 52 L Respiratory Rate 14 14 Blood Pressure 114/47 L 114/47 L Pulse Oximetry 98 98 Oxygen Delivery Room Air 06/30/24 16:00 06/30/24 16:15 Temperature Pulse Rate 59 L 48 L Respiratory Rate 14 Blood Pressure 121/52 L Pulse Oximetry 100 Oxygen Delivery Intake/Output Intake/Output: Intake & Output 06/27/24 06/28/24 06/29/24 06/30/24 23:59 23:59 23:59 23:59 Intake Total 500 1394.2 1475.0 184.7 Output Total 800 1560 1250 Balance 500 594.2 -85.0 -1065.3 Meds/Results Medications: Active Medications Generic Name Dose Route Start Last Admin Trade Name Freq PRN Reason Stop Dose Admin Acetaminophen 650 mg 06/28/24 00:06 Acetaminophen 325 Mg Tablet PO Q4H PRN Mild Pain (1-3) or Fever Aspirin 81 mg 06/28/24 08:00 06/30/24 08:17 Aspirin 81 Mg Chewable Tablet PO 81 mg DAILY@0800 SONNY Administration Cephalexin HCl 250 mg 06/30/24 21:00 Cephalexin 250 Mg Capsule PO 07/04/24 09:01 Q12HR SONNY Dextrose 12.5 gm 06/28/24 22:22 Dextrose 50% 25 Gm/50 Ml Syringe IV PUSH PRN PRN Hypoglycemia Protocol Escitalopram Oxalate 5 mg 06/28/24 21:00 06/29/24 20:41 Escitalopram Oxalate 5 Mg Tablet PO 5 mg HS SONNY Administration Furosemide 40 mg 06/28/24 09:00 06/30/24 08:17 Furosemide Inj 40 Mg/4 Ml Vial IV PUSH 40 mg Q12HR SONNY Administration Glucagon 1 mg 06/28/24 22:22 Glucagon For Inj 1 Mg Vial IM PRN PRN Hypoglycemia Protocol Glucose 15 gm 06/28/24 22:22 Glucose Oral Gel 15 Gm Of Glucse In 37.5 Gm Tube PO PRN PRN Hypoglycemia Protocol Dextrose 1,000 mls @ 100 mls/hr 06/28/24 22:22 Dextrose 5% 1,000 Ml IVPB PRN PRN Hypoglycemia Protocol Sodium Chloride 1,000 mls @ 100 mls/hr 06/30/24 13:40 06/30/24 15:31 Normal Saline Iv IV CONT 06/30/24 18:39 Not Given .Q10H SONNY Insulin Aspart 2 - 5 units 06/29/24 08:00 06/30/24 16:49 Insulin Aspart (*Bkc) 100 Units/Ml SUB-Q 3 units TIDWM SONNY Administration Protocol Perflutren Lipid Microsphere 0 ml 06/27/24 23:28 Perflutren Lipid Microspheres 1.5 Ml Vial Diluted To 10 Ml Total Volume IV PUSH 06/30/24 23:30 ONCE PRN adequate visualization Protocol Polyethylene Glycol 17 gm 06/29/24 11:20 06/30/24 08:18 Polyethylene Glycol 3350 17 Gm Powd.Pack PO Not Given QAM SONNY Prochlorperazine Edisylate 10 mg 06/28/24 02:05 Prochlorperazine Edisylate 10 Mg/2 Ml Vial IV PUSH Q6H PRN Nausea And Vomiting Radiology Results: ITS Impressions Chest X-Ray 06/27/24 18:23 IMPRESSION: Cardiomegaly with possible cardiac decompensation and pulmonary edema. Underlying fibrotic changes and interstitial edema is not excluded. Chest/Abdomen/Pelvis CTA 06/27/24 21:04 IMPRESSION: CHEST: 1. No pulmonary embolism. 2. No acute cardiopulmonary pathology. 3. Cardiomegaly. Right-sided heart failure is highly suggestive. Enlarged left ventricle. 4. Healing fractures in the left lower thorax. ABDOMEN/PELVIS: 1. Thickened wall of the gallbladder which may indicate cholecystitis. 2. Thickened wall of the rectum which may indicate proctitis. Clinical correlation advised. 3. Healing fracture in the left pubic bone. Venous Doppler Study 06/28/24 15:08 IMPRESSION: Patent bilateral lower extremity veins. No evidence of deep venous thrombosis. Upper Quadrant Ultrasound 06/28/24 20:11 Impression: Mild nonspecific gallbladder wall thickening. No gallstone evident. Renal Ultrasound 06/29/24 09:09 IMPRESSION: No hydronephrosis or renal calculi. No sonographic findings to suggest medical renal disease. Labs Labs: Laboratory Results - last 24 hr 06/29/24 06/29/24 06/30/24 18:53 22:12 01:14 WBC RBC Hgb Hct MCV MCH MCHC RDW Plt Count MPV Immature Gran % (Auto) Neut % (Auto) Lymph % (Auto) [place] % (Auto) Eos % (Auto) Baso % (Auto) Lymph # (Auto) [place] # (Auto) Eos # (Auto) Baso # (Auto) Abs Immat Gran (auto) Absolute Neuts (auto) Absolute Nucleated RBC Nucleated RBC % APTT 81.2 H 82.6 H Sodium Potassium Chloride Carbon Dioxide Anion Gap BUN Creatinine Estim Creat Clear Calc Estimated GFR Glucose POC Capillary Glucose 215 H Calcium Phosphorus Magnesium Total Bilirubin AST ALT Alkaline Phosphatase Total Protein Albumin Random Vancomycin 06/30/24 06/30/24 06/30/24 04:09 07:26 11:47 WBC 5.4 RBC 3.66 L Hgb 9.7 L Hct 31.9 L MCV 87.2 MCH 26.5 MCHC 30.4 L RDW 17.2 H Plt Count 286 MPV 11.6 H Immature Gran % (Auto) 0.4 Neut % (Auto) 68.0 Lymph % (Auto) 15.9 L [place] % (Auto) 9.0 H Eos % (Auto) 5.8 H Baso % (Auto) 0.9 Lymph # (Auto) 0.85 L [place] # (Auto) 0.5 Eos # (Auto) 0.3 Baso # (Auto) 0.1 Abs Immat Gran (auto) 0.02 Absolute Neuts (auto) 3.6 Absolute Nucleated RBC 0.020 H Nucleated RBC % 0.4 H APTT Sodium 140 Potassium 3.9 Chloride 100 Carbon Dioxide 33 H Anion Gap 7 BUN 49 H D Creatinine 1.21 H Estim Creat Clear Calc 26 Estimated GFR 43 L Glucose 198 H POC Capillary Glucose 168 H 190 H Calcium 8.6 Phosphorus 2.7 Magnesium 2.1 Total Bilirubin 1.0 AST 80 H ALT 134 H Alkaline Phosphatase 226 H Total Protein 7.0 Albumin 3.4 L Random Vancomycin 06/30/24 06/30/24 06/30/24 14:53 15:28 16:40 WBC RBC Hgb Hct MCV MCH MCHC RDW Plt Count MPV Immature Gran % (Auto) Neut % (Auto) Lymph % (Auto) [place] % (Auto) Eos % (Auto) Baso % (Auto) Lymph # (Auto) [place] # (Auto) Eos # (Auto) Baso # (Auto) Abs Immat Gran (auto) Absolute Neuts (auto) Absolute Nucleated RBC Nucleated RBC % APTT Sodium Potassium Chloride Carbon Dioxide Anion Gap BUN Creatinine Estim Creat Clear Calc Estimated GFR Glucose POC Capillary Glucose 221 H 289 H Calcium Phosphorus Magnesium Total Bilirubin AST ALT Alkaline Phosphatase Total Protein Albumin Random Vancomycin 11.3 Quality VTE Prophylaxis VTE prophylaxis: mechanical ordered and pharmacologic ordered
[2024-06-30 20:08] LABS: Glucose Point of Care 327 mg/dl (65-105)
[2024-06-30] MEDS: CEPHALEXIN 250 MG CAPSULE PO (20:10)
[2024-06-30] MEDS: ESCITALOPRAM OXALATE 5 MG TABLET PO (20:10)
[2024-07-01] VITALS (18 sets, daily range): BP systolic 90–140; BP diastolic 45–82; PULSE 50–71; RESP 12–18; TEMP 36.1–36.8; O2SAT 94–100
[2024-07-01 04:28] LABS: Basophils Percent Auto 0.5 % (0.2-1.2); Eosinophils Absolute Auto 0.3 K/mm3 (0-0.3); Hematocrit 36.2 % (37.0-47.0); Hemoglobin 10.7 g/dL (12.0-15.0); Immature Granulocyte Absolute 0.03 K/mm3 (0.00-0.031); Immature Granulocyte Percent A 0.5 % (0-0.5); Lymphocytes Absolute Auto 0.98 K/mm3 (0.9-3.2); Mean Corpuscular HGB Conc 29.6 g/dl (32-36); Mean Corpuscular Hemoglobin 26.2 pg (26-34); Mean Corpuscular Volume 88.7 fl (80-100); Mean Platelet Volume 11.7 fl (7.4-10.4); Monocytes Absolute Auto 0.8 K/mm3 (0.1-0.6); Monocytes Percent Auto 12.2 % (2.6-8.5); Neutrophils Percent Auto 65.8 % (45.5-73.1); Platelet Count Result 292 k/mm3 (150-375); Red Blood Count 4.08 M/mm3 (4.2-5.4); Red Cell Distribution Width 17.6 % (11.5-14.5); White Blood Count 6.1 K/mm3 (4.5-10.0)
[2024-07-01 04:45] LABS: Alanine Aminotransferase 109 U/L (6-35); Albumin Level 3.7 g/dL (3.5-5.1); Alkaline Phosphatase 209 U/L (38-126); Anion Gap 8 mmol/L (4-12); Aspartate Amino Transferase 51 U/L (14-36); Bilirubin,Total 0.8 mg/dL (0.2-1.3); Blood Urea Nitrogen 44 mg/dL (7-17); Calcium 8.9 mg/dL (8.4-10.2); Carbon Dioxide 33 mmol/L (22-30); Chloride 100 mmol/L (98-107); Estimated CRCL calculation 27 ml/min; Estimated Glomerular Filt Rate 45; Glucose 219 mg/dL (65-110); Phosphorus 3.8 mg/dL (2.5-4.5); Sodium 141 mmol/L (137-145)
[2024-07-01 04:56] LABS: Large Platelets Present; Platelet Estimate Adequate (Adequate); Schistocytes None Seen
[2024-07-01 04:57] LABS: Band Neutrophils Percent 0 % (0-6)
[2024-07-01 07:11] LABS: Glucose Point of Care 220 mg/dl (65-105)
--- NOTE | 2024-07-01 07:56 | PC.NURSE ---
Received orders from Dr Coe to change lasix to 20mg po daily and to start lovenox 40mg subq daily. orders read back and verified.
[2024-07-01] MEDS: INSULIN ASPART (*BKC) 100 UNITS/ML SUB-Q ×3 (08:03→16:31)
[2024-07-01] MEDS: CEPHALEXIN 250 MG CAPSULE PO ×2 (08:03→21:44)
[2024-07-01] MEDS: ASPIRIN 81 MG CHEWABLE TABLET PO (08:03)
[2024-07-01] MEDS: ENOXAPARIN 40 MG/0.4 ML SYRINGE SUB-Q (08:14)
[2024-07-01] MEDS: polyethylene glycoL 3350 17 GM POWD.PACK PO (08:15)
[2024-07-01] MEDS: FUROSEMIDE 20 MG TABLET PO (08:15)
--- NOTE | 2024-07-01 09:59 | PM.PNCARD ---
Progress Note: A&P Assessment and Plan (1) Acute on chronic systolic CHF (congestive heart failure), NYHA class 4: Code(s): I50.23 - Acute on chronic systolic (congestive) heart failure Status: Acute (2) Right ventricular dysfunction: Code(s): I51.9 - Heart disease, unspecified Status: Acute (3) Moderate to severe mitral regurgitation: Code(s): I34.0 - Nonrheumatic mitral (valve) insufficiency Status: Acute (4) CAD (coronary artery disease): Code(s): I25.10 - Atherosclerotic heart disease of [place] coronary artery without angina pectoris Status: Acute (5) Non-ST elevation [place] (NSTEMI): Code(s): I21.4 - Non-ST elevation (NSTEMI) myocardial infarction Status: Acute (6) Hyperlipidemia: Code(s): E78.5 - Hyperlipidemia, unspecified Status: Acute (7) Hx of CABG: Code(s): Z95.1 - Presence of aortocoronary bypass graft Status: Acute (8) RAHUL (acute kidney injury): Code(s): N17.9 - Acute kidney failure, unspecified Status: Acute Plan 79-year-old woman with CAD status post CABG (LAURA to LAD, SVG to RPL, radial to OM), chronic systolic heart failure (LVEF 25%), RV dysfunction, moderate to severe mitral regurgitation, chronic left bundle branch block, history of stroke, diabetes mellitus, and hyperlipidemia presented with exertional dyspnea and chest discomfort. TTE showed LVEF of 35-40%, hypokinesis of the anterior and anteroseptal avila, grade 2 diastolic dysfunction, mild to moderate MR, mild TR, mild TX, pulmonary artery systolic pressure 37 mm Hg. Cardiac cath showed severe MV CAD with patent LAURA to LAD, SVG to RPL, radial graft to OM. Right heart catheterization showed low normal right and pressures, cardiac index of 2.6 and cardiac output of 3.9. Acute on chronic systolic heart failure with LVEF 35 -40 % (improved from 25%) Moderate MR -switch to Lasix 40 mg p.o. daily. Monitor in's and out's, daily weights, renal function daily -resume metoprolol 25 mg q.a.m. -resume empagliflozin at lower dose of 10 mg daily -continue to hold Entresto Moderate mitral regurgitation -continue Lasix -TTE in 6 months to follow-up on severity of MR Type 2 DE CAD status post CABG with LAURA to LAD, SVG to RPL, radial graft to OM -cardiac catheterization shows severe multivessel CAD and patent grafts. Continue medical management for CAD -continue aspirin 81 mg daily, statin -restart metoprolol 25 mg q.day Subjective Date/time seen: 07/01/24 09:59 Interval history: Reason for encounter: Acute on chronic systolic heart failure, NSTEMI Relevant history: 79-year-old woman with CAD status post CABG (LAURA to LAD, SVG to RPL, radial to OM), chronic systolic heart failure (LVEF 25%), RV dysfunction, moderate to severe mitral regurgitation, chronic left bundle branch block, history of stroke, diabetes mellitus, and hyperlipidemia presented with exertional dyspnea and chest discomfort for the past 3-5 days. She has acute on chronic heart failure, NSTEMI, and RAHUL. TTE showed LVEF of 35-40%, hypokinesis of the anterior and anteroseptal avila, grade 2 diastolic dysfunction, mild to moderate MR, mild TR, mild TX, pulmonary artery systolic pressure 37 mm Hg. Cardiac cath showed severe MV CAD with patent LAURA to LAD, SVG to RPL, radial graft to OM. Right heart catheterization showed low normal right and pressures, cardiac index of 2.6 and cardiac output of 3.9. Interval history: Breathing much improved. No shortness of breath. Milrinone and heparin drips off since yesterday. Review of Systems Review of Systems: Complete review of systems was performed and negative other than those mentioned in HPI Exam Narrative: General: Alert oriented x3, no acute distress Neck: Supple, no JVD Chest: Bilaterally clear to auscultation, no rales or rhonchi Cardiac: S1, S2 +, regular rate, regular rhythm, systolic ejection murmur grade 3 x 5 best heard over the apex Extremities: No pedal edema, no skin rash Neurologic: Alert and oriented x3, no focal neurological deficits Objective Data Vital Signs Vital Signs: Vital Signs - 24 hr 06/30/24 10:00 06/30/24 10:06/30/24 10:05 Temperature Pulse Rate 54 L 54 L 54 L Respiratory Rate Blood Pressure 118/56 L 118/56 L Pulse Oximetry 96 Oxygen Delivery 06/30/24 12:00 06/30/24 12:00 06/30/24 13:30 Temperature 36.5 C Pulse Rate 54 L 58 L 48 L Respiratory Rate 16 12 Blood Pressure 117/52 L 141/70 H Pulse Oximetry 97 98 Oxygen Delivery Room Air 06/30/24 13:45 06/30/24 14:00 06/30/24 14:15 Temperature Pulse Rate 49 L 53 L 52 L Respiratory Rate 17 10 L 12 Blood Pressure 128/65 128/72 114/65 Pulse Oximetry 98 98 98 Oxygen Delivery Room Air Room Air Room Air 06/30/24 14:26 06/30/24 14:45 06/30/24 15:15 Temperature 36.4 C L 36.3 C L Pulse Rate 55 L 52 L 52 L Respiratory Rate 14 14 Blood Pressure 130/64 114/47 L Pulse Oximetry 97 98 Oxygen Delivery 06/30/24 15:15 06/30/24 16:00 06/30/24 16:00 Temperature 36.3 C L Pulse Rate 52 L 59 L Respiratory Rate 14 Blood Pressure 114/47 L Pulse Oximetry 98 Oxygen Delivery Room Air 06/30/24 16:15 06/30/24 17:15 06/30/24 18:00 Temperature 36.6 C Pulse Rate 48 L 58 L 65 Respiratory Rate 14 16 Blood Pressure 121/52 L 101/73 Pulse Oximetry 100 98 Oxygen Delivery 06/30/24 18:00 06/30/24 19:00 06/30/24 20:00 Temperature 36.8 C Pulse Rate 55 L 55 L 55 L Respiratory Rate 14 17 18 Blood Pressure 111/62 111/62 122/59 L Pulse Oximetry 99 92 92 Oxygen Delivery 06/30/24 20:00 06/30/24 20:00 06/30/24 22:00 Temperature Pulse Rate 63 57 L Respiratory Rate Blood Pressure Pulse Oximetry Oxygen Delivery Room Air 06/30/24 23:33 06/30/24 23:39 06/30/24 23:58 Temperature Pulse Rate 71 58 L Respiratory Rate 17 17 Blood Pressure 159/82 H 159/82 H Pulse Oximetry 92 92 Oxygen Delivery Room Air 07/01/24 00:00 07/01/24 02:00 07/01/24 03:13 Temperature Pulse Rate 59 L 51 L Respiratory Rate Blood Pressure Pulse Oximetry Oxygen Delivery Room Air 07/01/24 03:33 07/01/24 04:00 07/01/24 06:00 Temperature 36.5 C Pulse Rate 50 L 56 L 51 L Respiratory Rate 18 Blood Pressure 138/82 Pulse Oximetry 100 Oxygen Delivery 07/01/24 07:36 07/01/24 08:00 07/01/24 08:00 Temperature 36.6 C Pulse Rate 59 L 64 Respiratory Rate 12 Blood Pressure 140/81 Pulse Oximetry 97 Oxygen Delivery Room Air Intake/Output Intake/Output: Intake & Output 06/28/24 06/29/24 06/30/24 07/01/24 23:59 23:59 23:59 23:59 Intake Total 1394.2 1475.0 424.7 358 Output Total 800 1560 1650 Balance 594.2 -85.0 -1225.3 358 Meds/Results Medications: Active Medications Generic Name Dose Route Start Last Admin Trade Name Freq PRN Reason Stop Dose Admin Acetaminophen 650 mg 06/28/24 00:06 Acetaminophen 325 Mg Tablet PO Q4H PRN Mild Pain (1-3) or Fever Aspirin 81 mg 06/28/24 08:00 07/01/24 08:03 Aspirin 81 Mg Chewable Tablet PO 81 mg DAILY@0800 SONNY Administration Cephalexin HCl 250 mg 06/30/24 21:00 07/01/24 08:03 Cephalexin 250 Mg Capsule PO 07/04/24 09:01 250 mg Q12HR SONNY Administration Dextrose 12.5 gm 06/28/24 22:22 Dextrose 50% 25 Gm/50 Ml Syringe IV PUSH PRN PRN Hypoglycemia Protocol Enoxaparin Sodium 40 mg 07/01/24 09:00 07/01/24 08:14 Enoxaparin 40 Mg/0.4 Ml Syringe SUB-Q 40 mg DAILY SONNY Administration Escitalopram Oxalate 5 mg 06/28/24 21:00 06/30/24 20:10 Escitalopram Oxalate 5 Mg Tablet PO 5 mg HS SONNY Administration Furosemide 20 mg 07/01/24 09:00 07/01/24 08:15 Furosemide 20 Mg Tablet PO 20 mg DAILY SONNY Administration Glucagon 1 mg 06/28/24 22:22 Glucagon For Inj 1 Mg Vial IM PRN PRN Hypoglycemia Protocol Glucose 15 gm 06/28/24 22:22 Glucose Oral Gel 15 Gm Of Glucse In 37.5 Gm Tube PO PRN PRN Hypoglycemia Protocol Dextrose 1,000 mls @ 100 mls/hr 06/28/24 22:22 Dextrose 5% 1,000 Ml IVPB PRN PRN Hypoglycemia Protocol Insulin Aspart 2 - 5 units 06/29/24 08:00 07/01/24 08:03 Insulin Aspart (*Bkc) 100 Units/Ml SUB-Q 2 units TIDWM SONNY Administration Protocol Polyethylene Glycol 17 gm 06/29/24 11:20 07/01/24 08:15 Polyethylene Glycol 3350 17 Gm Powd.Pack PO 17 gm QAM SONNY Administration Prochlorperazine Edisylate 10 mg 06/28/24 02:05 Prochlorperazine Edisylate 10 Mg/2 Ml Vial IV PUSH Q6H PRN Nausea And Vomiting Radiology Results: ITS Impressions Chest X-Ray 06/27/24 18:23 IMPRESSION: Cardiomegaly with possible cardiac decompensation and pulmonary edema. Underlying fibrotic changes and interstitial edema is not excluded. Chest/Abdomen/Pelvis CTA 06/27/24 21:04 IMPRESSION: CHEST: 1. No pulmonary embolism. 2. No acute cardiopulmonary pathology. 3. Cardiomegaly. Right-sided heart failure is highly suggestive. Enlarged left ventricle. 4. Healing fractures in the left lower thorax. ABDOMEN/PELVIS: 1. Thickened wall of the gallbladder which may indicate cholecystitis. 2. Thickened wall of the rectum which may indicate proctitis. Clinical correlation advised. 3. Healing fracture in the left pubic bone. Venous Doppler Study 06/28/24 15:08 IMPRESSION: Patent bilateral lower extremity veins. No evidence of deep venous thrombosis. Upper Quadrant Ultrasound 06/28/24 20:11 Impression: Mild nonspecific gallbladder wall thickening. No gallstone evident. Renal Ultrasound 06/29/24 09:09 IMPRESSION: No hydronephrosis or renal calculi. No sonographic findings to suggest medical renal disease. Labs Labs: Laboratory Results - last 24 hr 06/30/24 06/30/24 06/30/24 11:47 14:53 15:28 WBC RBC Hgb Hct MCV MCH MCHC RDW Plt Count MPV Immature Gran % (Auto) Neut % (Auto) Lymph % (Auto) [place] % (Auto) Eos % (Auto) Baso % (Auto) Lymph # (Auto) [place] # (Auto) Eos # (Auto) Baso # (Auto) Abs Immat Gran (auto) Absolute Neuts (auto) Absolute Nucleated RBC Band Neutrophils % Nucleated RBC % Platelet Estimate Large Platelets Schistocytes Sodium Potassium Chloride Carbon Dioxide Anion Gap BUN Creatinine Estim Creat Clear Calc Estimated GFR Glucose POC Capillary Glucose 190 H 221 H Calcium Phosphorus Magnesium Total Bilirubin AST ALT Alkaline Phosphatase Total Protein Albumin Random Vancomycin 11.3 06/30/24 06/30/24 07/01/24 16:40 20:04 04:01 WBC 6.1 RBC 4.08 L Hgb 10.7 L Hct 36.2 L MCV 88.7 MCH 26.2 MCHC 29.6 L RDW 17.6 H Plt Count 292 MPV 11.7 H Immature Gran % (Auto) 0.5 Neut % (Auto) 65.8 Lymph % (Auto) 16.0 L [place] % (Auto) 12.2 H Eos % (Auto) 5.0 H Baso % (Auto) 0.5 Lymph # (Auto) 0.98 [place] # (Auto) 0.8 H Eos # (Auto) 0.3 Baso # (Auto) 0.0 Abs Immat Gran (auto) 0.03 Absolute Neuts (auto) 4.0 Absolute Nucleated RBC 0.000 Band Neutrophils % 0 Nucleated RBC % 0.0 Platelet Estimate Adequate Large Platelets Present Schistocytes None seen Sodium 141 Potassium 4.0 Chloride 100 Carbon Dioxide 33 H Anion Gap 8 BUN 44 H Creatinine 1.17 H Estim Creat Clear Calc 27 Estimated GFR 45 L Glucose 219 H POC Capillary Glucose 289 H 327 H Calcium 8.9 Phosphorus 3.8 Magnesium 2.0 Total Bilirubin 0.8 AST 51 H ALT 109 H Alkaline Phosphatase 209 H Total Protein 7.0 Albumin 3.7 Random Vancomycin 07/01/24 07:05 WBC RBC Hgb Hct MCV MCH MCHC RDW Plt Count MPV Immature Gran % (Auto) Neut % (Auto) Lymph % (Auto) [place] % (Auto) Eos % (Auto) Baso % (Auto) Lymph # (Auto) [place] # (Auto) Eos # (Auto) Baso # (Auto) Abs Immat Gran (auto) Absolute Neuts (auto) Absolute Nucleated RBC Band Neutrophils % Nucleated RBC % Platelet Estimate Large Platelets Schistocytes Sodium Potassium Chloride Carbon Dioxide Anion Gap BUN Creatinine Estim Creat Clear Calc Estimated GFR Glucose POC Capillary Glucose 220 H Calcium Phosphorus Magnesium Total Bilirubin AST ALT Alkaline Phosphatase Total Protein Albumin Random Vancomycin
[2024-07-01 11:10] LABS: Glucose Point of Care 498 mg/dl (65-105)
[2024-07-01 11:16] LABS: Troponin I 0.396 ng/mL (0.000-0.034)
--- NOTE | 2024-07-01 11:28 | PC.NURSE ---
Notified Dr Coe of patients POC glucose. Recevied order for 10units lantus and 5 units humalog. Order read back and verified.
[2024-07-01] MEDS: INSULIN GLARGINE (*BKC) 100 UNITS/ML 10 UNITS SUB-Q ×2 (11:44→18:11)
--- NOTE | 2024-07-01 13:21 | PCDIET ---
Nutrition note: Diet was changed to Heart healthy/consistent carbs because of hyperglycemia. Supplement changed to Glucerna BID. Following
[2024-07-01 16:22] LABS: Glucose Point of Care 438 mg/dl (65-105)
[2024-07-01 17:59] LABS: Glucose Point of Care 369 mg/dl (65-105)
--- NOTE | 2024-07-01 18:06 | PC.NURSE ---
Per Dr Coe, call back with POC glucose after 2 hours. POC glucose is 369. Received one time order for nelson claudio. order read back and verified.
--- NOTE | 2024-07-01 18:31 | P.PNIM_ITS ---
Progress Note: A&P Assessment and Plan (1) Acute on chronic systolic CHF (congestive heart failure), NYHA class 4: Code(s): I50.23 - Acute on chronic systolic (congestive) heart failure Status: Acute Assessment and Plan: * Patient presents with SOB. CXR showing cardiomegaly with cardiac decompensation and pulmonary edema. BNP > 30K. * LA 4.7 -> 4.9. LFTs elevated. Concern for decompensated CHF. * Could be related to worsening cardiac condition and/or related to her valve disease and/or from acute NSTEMI * She is on ASA. Lasix 40 mg ivp q 12. * Cardiology consulted, appreciate recommendations. * Milrinone drip at 0.375 microgram/kg/min. * Consider also sepsis but felt less likely. UA noted and UCx collected. BCx ordered and abx started. * Cover for possible cholecystitis even though she does not have any pain * Repeat lactic normal. * Close monitoring. * Echocardiogram showed: Summary 1. Complete two-dimensional, color flow and Doppler transthoracic echocardiogram is performed. 2. Left ventricular chamber dimension is moderately enlarged. 3. Left ventricular systolic function is normal, estimated at 35-40%. Hypokinesis anteroseptal and anterior wall. 4. The left ventricular diastolic function is grade II diastolic dysfunction. 5. There is mild to moderate mitral valve regurgitation. 6. There is mild tricuspid valve regurgitation. 7. No pulmonary hypertension, estimated pulmonary arterial systolic pressure is 37 mmHg. 8. There is mild pulmonic regurgitation. * Renal ultrasound showed: IMPRESSION: No hydronephrosis or renal calculi. No sonographic findings to suggest medical renal disease. (2) Non-ST elevation [place] (NSTEMI): Code(s): I21.4 - Non-ST elevation (NSTEMI) myocardial infarction Status: Acute Assessment and Plan: * As above. EKG showing NSR, LAD, AE, LBBB. (LBBB is old) * Continue ASA. Continue heparin gtt. * NPO after midnight for cardiac cath. (3) Prolonged QT interval: Code(s): R94.31 - Abnormal electrocardiogram [ECG] [EKG] Status: Acute Assessment and Plan: * QTc 536. This has been noted i the past and felt related to the BBB. * Correct potassium and mag as needed. (4) RAHUL (acute kidney injury): Code(s): N17.9 - Acute kidney failure, unspecified Status: Acute Assessment and Plan: * Cr 1,5 on admission and up to 1.54now. * Newton related to poor renal perfusion. CT scan showing a hyperdense area seen in the right kidney midpole which may be contrast. A stone is less likely. She has 2 right renal arteries. * Renal ultrasound showed: IMPRESSION: No hydronephrosis or renal calculi. No sonographic findings to suggest medical renal disease. (5) Moderate to severe mitral regurgitation: Code(s): I34.0 - Nonrheumatic mitral (valve) insufficiency Status: Acute Assessment and Plan: * As above. * Echocardiogram showed: Summary 1. Complete two-dimensional, color flow and Doppler transthoracic echocardiogram is performed. 2. Left ventricular chamber dimension is moderately enlarged. 3. Left ventricular systolic function is normal, estimated at 35-40%. Hypokinesis anteroseptal and anterior wall. 4. The left ventricular diastolic function is grade II diastolic dysfunction. 5. There is mild to moderate mitral valve regurgitation. 6. There is mild tricuspid valve regurgitation. 7. No pulmonary hypertension, estimated pulmonary arterial systolic pressure is 37 mmHg. 8. There is mild pulmonic regurgitation. * NPO after midnight for cardiac cath. (6) Hypertension: Qualifiers: Hypertension type: primary hypertension Qualified Code(s): I10 - Essential (primary) hypertension Code(s): I10 - Essential (primary) hypertension Status: Chronic Assessment and Plan: * blood pressure 126/57. * Blood pressure remains reasonable well controlled. * Will continue current medications. (7) Ischemic cardiomyopathy: Code(s): I25.5 - Ischemic cardiomyopathy Status: Chronic Assessment and Plan: * As above Plan +DDimer - LE venous doppler negative for DVT. CTA negative for PE. +DDimer related to either CHF and/or sepsis. Possible Cholecystitis - GB showing thickened wall which may indicate cholecystitis. No stones seen. No pain on exam. Check US Possible proctitis - Thickened wall of the rectum which may indicate proctitis. again, no pain. Feel these findings related to passive congestion. [age] year [place] female presented with complaint of dyspnea with exertion to further evaluate patient had a cardiac echo showed moderately reduced ejection fraction 30-40% patient was seen by manager [facility] and had a cardiac catheterization which showed significant coronary artery disease however unable to amendable to intervention recommended medical management. Today patient states feeling little better not a short of breath denies any chest pain or palpitation. will monitor and possibly discharge home tomorrow with her daughter. Code status. Full VTE prophylaxis. SCDs; SONNY Subjective Date/time seen: 07/01/24 18:31 Interval history: Patient denies chest pain, palpitations, headache, dizziness, nausea, or vomiting. Family at bedside. Patient reports feeling better with drip. [age] year [place] female presented with complaint of dyspnea with exertion to further evaluate patient had a cardiac echo showed moderately reduced ejection fraction 30-40% patient was seen by manager [employer] and had a cardiac catheterization which showed significant coronary artery disease however unable to amendable to intervention recommended medical management. Today patient states feeling little better not a short of breath denies any chest pain or palpitation. will monitor and possibly discharge home tomorrow with her daughter. Review of Systems Review of Systems: All systems reviewed & are unremarkable except as noted in HPI and below Exam Narrative: Elderly frail Patient is comfortable, NAD HEENT: eyes are clear and none icteric LUNGS:CTA HEART: RR S1S2 ABD: BS+, Soft and nontender Lower extremities: no edema SKIN: nonjaundiced Neuro: grossly intact. Const: General: comfortable and no acute distress HENMT: Ears: TM's normal bilaterally Face/Nose/Sinus: Normal nares present Eyes: General: appearance normal, both eyes and all related structures Pupils: Equal, round and reactive pupils present EOM: EOMs intact bilaterally Neck: Neck: supple Resp: Effort & Inspection: normal respiratory effort Auscultation: clear to auscultation bilaterally Cardio: Rate: regular rate Rhythm: regular rhythm Heart sounds: Murmur heart sound present systolic GI: Auscultation: normal bowel sounds Skin: General skin exam: normal color Neuro: General: gait normal Cranial nerves: Yes Equal, round and reactive pupils present Speech: normal speech Motor exam (neuro): 5/5 motor strength present throughout and Normal motor muscle tone present throughout Extrem: General: normal to inspection and pedal edema bilaterally 1+ Psych: Mental Status: mental status grossly normal Affect: normal affect Objective Data Vital Signs Vital Signs: Vital Signs - 24 hr 06/30/24 19:00 06/30/24 20:00 06/30/24 20:00 Temperature 36.8 C Pulse Rate 55 L 55 L Respiratory Rate 17 18 Blood Pressure 111/62 122/59 L Pulse Oximetry 92 92 Oxygen Delivery Room Air 06/30/24 20:00 06/30/24 22:00 06/30/24 23:33 Temperature Pulse Rate 63 57 L 71 Respiratory Rate 17 Blood Pressure 159/82 H Pulse Oximetry 92 Oxygen Delivery 06/30/24 23:39 06/30/24 23:58 07/01/24 00:00 Temperature Pulse Rate 58 L 59 L Respiratory Rate 17 Blood Pressure 159/82 H Pulse Oximetry 92 Oxygen Delivery Room Air 07/01/24 02:00 07/01/24 03:13 07/01/24 03:33 Temperature 36.5 C Pulse Rate 51 L 50 L Respiratory Rate 18 Blood Pressure 138/82 Pulse Oximetry 100 Oxygen Delivery Room Air 07/01/24 04:00 07/01/24 06:00 07/01/24 07:36 Temperature 36.6 C Pulse Rate 56 L 51 L 59 L Respiratory Rate 12 Blood Pressure 140/81 Pulse Oximetry 97 Oxygen Delivery 07/01/24 08:00 07/01/24 08:00 07/01/24 10:00 Temperature Pulse Rate 64 67 Respiratory Rate Blood Pressure Pulse Oximetry Oxygen Delivery Room Air 07/01/24 11:48 07/01/24 12:00 07/01/24 14:00 Temperature 36.1 C L Pulse Rate 68 71 63 Respiratory Rate 14 Blood Pressure 91/58 L Pulse Oximetry 95 Oxygen Delivery 07/01/24 15:21 07/01/24 16:00 07/01/24 16:00 Temperature 36.6 C Pulse Rate 65 63 Respiratory Rate 12 Blood Pressure 90/45 L Pulse Oximetry 98 Oxygen Delivery Room Air 07/01/24 16:26 07/01/24 18:00 Temperature Pulse Rate 65 Respiratory Rate Blood Pressure 91/46 L Pulse Oximetry Oxygen Delivery Intake/Output Intake/Output: Intake & Output 06/28/24 06/29/24 06/30/24 07/01/24 23:59 23:59 23:59 23:59 Intake Total 1394.2 1475.0 424.7 1612 Output Total 800 1560 1650 100 Balance 594.2 -85.0 -1225.3 1512 Meds/Results Medications: Active Medications Generic Name Dose Route Start Last Admin Trade Name Freq PRN Reason Stop Dose Admin Acetaminophen 650 mg 06/28/24 00:06 Acetaminophen 325 Mg Tablet PO Q4H PRN Mild Pain (1-3) or Fever Aspirin 81 mg 06/28/24 08:00 07/01/24 08:03 Aspirin 81 Mg Chewable Tablet PO 81 mg DAILY@0800 SONNY Administration Cephalexin HCl 250 mg 06/30/24 21:00 07/01/24 08:03 Cephalexin 250 Mg Capsule PO 07/04/24 09:01 250 mg Q12HR SONNY Administration Dextrose 12.5 gm 06/28/24 22:22 Dextrose 50% 25 Gm/50 Ml Syringe IV PUSH PRN PRN Hypoglycemia Protocol Empagliflozin 10 mg 07/02/24 09:00 Empagliflozin 10 Mg Tablet PO DAILY [facility] Enoxaparin Sodium 40 mg 07/01/24 09:00 07/01/24 08:14 Enoxaparin 40 Mg/0.4 Ml Syringe SUB-Q 40 mg DAILY SONNY Administration Escitalopram Oxalate 5 mg 06/28/24 21:00 06/30/24 20:10 Escitalopram Oxalate 5 Mg Tablet PO 5 mg HS SONNY Administration Furosemide 40 mg 07/02/24 09:00 Furosemide 40 Mg Tablet PO DAILY [facility] Glucagon 1 mg 06/28/24 22:22 Glucagon For Inj 1 Mg Vial IM PRN PRN Hypoglycemia Protocol Glucose 15 gm 06/28/24 22:22 Glucose Oral Gel 15 Gm Of Glucse In 37.5 Gm Tube PO PRN PRN Hypoglycemia Protocol Dextrose 1,000 mls @ 100 mls/hr 06/28/24 22:22 Dextrose 5% 1,000 Ml IVPB PRN PRN Hypoglycemia Protocol Insulin Aspart 2 - 5 units 06/29/24 08:00 07/01/24 16:31 Insulin Aspart (*Bkc) 100 Units/Ml SUB-Q 5 units TIDWM SONNY Administration Protocol Metoprolol Succinate 25 mg 07/02/24 09:00 Metoprolol Succinate Ext Rel 25 Mg Tabcr PO QAM SONNY Polyethylene Glycol 17 gm 06/29/24 11:20 07/01/24 08:15 Polyethylene Glycol 3350 17 Gm Powd.Pack PO 17 gm QAM SONNY Administration Prochlorperazine Edisylate 10 mg 06/28/24 02:05 Prochlorperazine Edisylate 10 Mg/2 Ml Vial IV PUSH Q6H PRN Nausea And Vomiting Radiology Results: ITS Impressions Chest X-Ray 06/27/24 18:23 IMPRESSION: Cardiomegaly with possible cardiac decompensation and pulmonary edema. Underlying fibrotic changes and interstitial edema is not excluded. Chest/Abdomen/Pelvis CTA 06/27/24 21:04 IMPRESSION: CHEST: 1. No pulmonary embolism. 2. No acute cardiopulmonary pathology. 3. Cardiomegaly. Right-sided heart failure is highly suggestive. Enlarged left ventricle. 4. Healing fractures in the left lower thorax. ABDOMEN/PELVIS: 1. Thickened wall of the gallbladder which may indicate cholecystitis. 2. Thickened wall of the rectum which may indicate proctitis. Clinical corre lation advised. 3. Healing fracture in the left pubic bone. Venous Doppler Study 06/28/24 15:08 IMPRESSION: Patent bilateral lower extremity veins. No evidence of deep venous thrombosis. Upper Quadrant Ultrasound 06/28/24 20:11 Impression: Mild nonspecific gallbladder wall thickening. No gallstone evident. Renal Ultrasound 06/29/24 09:09 IMPRESSION: No hydronephrosis or renal calculi. No sonographic findings to suggest medical renal disease. Labs Labs: Laboratory Results - last 24 hr 06/28/24 06/30/24 07/01/24 22:42 20:04 04:01 WBC 6.1 RBC 4.08 L Hgb 10.7 L Hct 36.2 L MCV 88.7 MCH 26.2 MCHC 29.6 L RDW 17.6 H Plt Count 292 MPV 11.7 H Immature Gran % (Auto) 0.5 Neut % (Auto) 65.8 Lymph % (Auto) 16.0 L Starr % (Auto) 12.2 H Eos % (Auto) 5.0 H Baso % (Auto) 0.5 Lymph # (Auto) 0.98 Starr # (Auto) 0.8 H Eos # (Auto) 0.3 Baso # (Auto) 0.0 Abs Immat Gran (auto) 0.03 Absolute Neuts (auto) 4.0 Absolute Nucleated RBC 0.000 Band Neutrophils % 0 Nucleated RBC % 0.0 Platelet Estimate Adequate Large Platelets Present Schistocytes None seen Sodium 141 Potassium 4.0 Chloride 100 Carbon Dioxide 33 H Anion Gap 8 BUN 44 H Creatinine 1.17 H Estim Creat Clear Calc 27 Estimated GFR 45 L Glucose 219 H POC Capillary Glucose 327 H Calcium 8.9 Phosphorus 3.8 Magnesium 2.0 Total Bilirubin 0.8 AST 51 H ALT 109 H Alkaline Phosphatase 209 H Troponin I 0.396 H* Total Protein 7.0 Albumin 3.7 07/01/24 07/01/24 07/01/24 07:05 11:05 16:15 WBC RBC Hgb Hct MCV MCH MCHC RDW Plt Count MPV Immature Gran % (Auto) Neut % (Auto) Lymph % (Auto) Starr % (Auto) Eos % (Auto) Baso % (Auto) Lymph # (Auto) Starr # (Auto) Eos # (Auto) Baso # (Auto) Abs Immat Gran (auto) Absolute Neuts (auto) Absolute Nucleated RBC Band Neutrophils % Nucleated RBC % Platelet Estimate Large Platelets Schistocytes Sodium Potassium Chloride Carbon Dioxide Anion Gap BUN Creatinine Estim Creat Clear Calc Estimated GFR Glucose POC Capillary Glucose 220 H 498 H 438 H Calcium Phosphorus Magnesium Total Bilirubin AST ALT Alkaline Phosphatase Troponin I Total Protein Albumin 07/01/24 17:57 WBC RBC Hgb Hct MCV MCH MCHC RDW Plt Count MPV Immature Gran % (Auto) Neut % (Auto) Lymph % (Auto) Starr % (Auto) Eos % (Auto) Baso % (Auto) Lymph # (Auto) Starr # (Auto) Eos # (Auto) Baso # (Auto) Abs Immat Gran (auto) Absolute Neuts (auto) Absolute Nucleated RBC Band Neutrophils % Nucleated RBC % Platelet Estimate Large Platelets Schistocytes Sodium Potassium Chloride Carbon Dioxide Anion Gap BUN Creatinine Estim Creat Clear Calc Estimated GFR Glucose POC Capillary Glucose 369 H Calcium Phosphorus Magnesium Total Bilirubin AST ALT Alkaline Phosphatase Troponin I Total Protein Albumin Quality VTE Prophylaxis VTE prophylaxis: mechanical ordered and pharmacologic ordered
[2024-07-01 20:22] LABS: Glucose Point of Care 262 mg/dl (65-105)
[2024-07-01] MEDS: ESCITALOPRAM OXALATE 5 MG TABLET PO (21:44)
[2024-07-02] VITALS (15 sets, daily range): BP systolic 76–131; BP diastolic 42–63; PULSE 50–73; RESP 16–18; TEMP 36.4–36.8; O2SAT 93–100
[2024-07-02 04:18] LABS: Basophils Percent Auto 0.4 % (0.2-1.2); Eosinophils Absolute Auto 0.3 K/mm3 (0-0.3); Eosinophils Percent Auto 4.6 % (0-4.4); Hemoglobin 10.5 g/dL (12.0-15.0); Immature Granulocyte Absolute 0.02 K/mm3 (0.00-0.031); Immature Granulocyte Percent A 0.3 % (0-0.5); Lymphocytes Absolute Auto 1.29 K/mm3 (0.9-3.2); Lymphocytes Percent Auto 17.6 % (18.3-44.2); Mean Corpuscular HGB Conc 29.2 g/dl (32-36); Mean Corpuscular Hemoglobin 26.1 pg (26-34); Mean Corpuscular Volume 89.6 fl (80-100); Mean Platelet Volume 11.4 fl (7.4-10.4); Monocytes Absolute Auto 0.9 K/mm3 (0.1-0.6); Monocytes Percent Auto 12.6 % (2.6-8.5); Neutrophils Absolute Auto 4.7 K/mm3 (1.3-6.7); Neutrophils Percent Auto 64.5 % (45.5-73.1); Platelet Count Result 293 k/mm3 (150-375); Red Blood Count 4.02 M/mm3 (4.2-5.4); Red Cell Distribution Width 17.5 % (11.5-14.5); White Blood Count 7.3 K/mm3 (4.5-10.0)
[2024-07-02 04:40] LABS: Hypochromasia 1+; Large Platelets Present; Platelet Estimate Adequate (Adequate); Schistocytes None Seen
[2024-07-02 04:41] LABS: Alanine Aminotransferase 87 U/L (6-35); Albumin Level 3.6 g/dL (3.5-5.1); Alkaline Phosphatase 208 U/L (38-126); Anion Gap 6 mmol/L (4-12); Aspartate Amino Transferase 49 U/L (14-36); Bilirubin,Total 0.6 mg/dL (0.2-1.3); Blood Urea Nitrogen 62 mg/dL (7-17); Calcium 8.7 mg/dL (8.4-10.2); Carbon Dioxide 33 mmol/L (22-30); Chloride 100 mmol/L (98-107); Estimated CRCL calculation 26 ml/min; Estimated Glomerular Filt Rate 45; Glucose 99 mg/dL (65-110); Magnesium 2.3 mg/dL (1.6-2.3); Phosphorus 3.4 mg/dL (2.5-4.5); Potassium 3.7 mmol/L (3.4-5.0); Sodium 139 mmol/L (137-145)
[2024-07-02 07:39] LABS: Glucose Point of Care 147 mg/dl (65-105)
[2024-07-02] MEDS: CEPHALEXIN 250 MG CAPSULE PO ×2 (08:14→20:28)
[2024-07-02] MEDS: ENOXAPARIN 40 MG/0.4 ML SYRINGE SUB-Q (08:15)
[2024-07-02] MEDS: EMPAGLIFLOZIN 10 MG TABLET PO (08:15)
[2024-07-02] MEDS: polyethylene glycoL 3350 17 GM POWD.PACK PO (08:15)
[2024-07-02] MEDS: METOPROLOL SUCCINATE EXT REL 25 MG TABCR PO (08:15)
[2024-07-02] MEDS: FUROSEMIDE 40 MG TABLET PO (08:15)
[2024-07-02] MEDS: ASPIRIN 81 MG CHEWABLE TABLET PO (08:15)
--- NOTE | 2024-07-02 08:27 | PM.PNCARD ---
Progress Note: A&P Assessment and Plan (1) Acute on chronic systolic CHF (congestive heart failure), NYHA class 4: Code(s): I50.23 - Acute on chronic systolic (congestive) heart failure Status: Acute (2) Right ventricular dysfunction: Code(s): I51.9 - Heart disease, unspecified Status: Acute (3) Moderate to severe mitral regurgitation: Code(s): I34.0 - Nonrheumatic mitral (valve) insufficiency Status: Acute (4) CAD (coronary artery disease): Code(s): I25.10 - Atherosclerotic heart disease of [place] coronary artery without angina pectoris Status: Acute (5) Non-ST elevation [place] (NSTEMI): Code(s): I21.4 - Non-ST elevation (NSTEMI) myocardial infarction Status: Acute (6) Hyperlipidemia: Code(s): E78.5 - Hyperlipidemia, unspecified Status: Acute (7) Hx of CABG: Code(s): Z95.1 - Presence of aortocoronary bypass graft Status: Acute (8) RAHUL (acute kidney injury): Code(s): N17.9 - Acute kidney failure, unspecified Status: Acute Plan 79-year-old woman with CAD status post CABG (LAURA to LAD, SVG to RPL, radial to OM), chronic systolic heart failure (LVEF 25%), RV dysfunction, moderate to severe mitral regurgitation, chronic left bundle branch block, history of stroke, diabetes mellitus, and hyperlipidemia presented with exertional dyspnea and chest discomfort. TTE showed LVEF of 35-40%, hypokinesis of the anterior and anteroseptal avila, grade 2 diastolic dysfunction, mild to moderate MR, mild TR, mild MD, pulmonary artery systolic pressure 37 mm Hg. Cardiac cath showed severe MV CAD with patent LAURA to LAD, SVG to RPL, radial graft to OM. The right and left-sided pressures normal, cardiac index of 2.6 and cardiac output of 3.9. Acute on chronic systolic heart failure with LVEF 35 -40 % (improved from 25%) Moderate MR -continue Lasix 40 mg daily as outpatient. Monitor in's and out's, daily weights, renal function daily -continue metoprolol 25 mg q.a.m. -continue empagliflozin 10 mg daily -hold Entresto at discharge. This can be restarted as an outpatient -follow-up with cardiology in 4 weeks post discharge with BMP. Entresto can be resumed at follow-up if renal function is stable and other guideline directed medical therapy can be uptitrated as tolerated Moderate mitral regurgitation -continue Lasix -TTE in 6 months to follow-up on severity of MR Type 2 [place] CAD status post CABG with LAURA to LAD, SVG to RPL, radial graft to OM -cardiac catheterization shows severe multivessel CAD and patent grafts. Continue medical management for CAD -continue aspirin 81 mg daily, statin -restart metoprolol 25 mg q.day Thank you for allowing us to participate in the care of Ms. Wheeler. Please arrange follow-up with Outpatient Cardiology in 4 weeks post discharge. Cardiology will sign off. Please call us with any questions. Subjective Date/time seen: 07/02/24 08:27 Interval history: Reason for encounter: Acute on chronic systolic heart failure, NSTEMI Relevant history: 79-year-old woman with CAD status post CABG (LAURA to LAD, SVG to RPL, radial to OM), chronic systolic heart failure (LVEF 25%), RV dysfunction, moderate to severe mitral regurgitation, chronic left bundle branch block, history of stroke, diabetes mellitus, and hyperlipidemia presented with exertional dyspnea and chest discomfort. She has acute on chronic heart failure, NSTEMI, and RAHUL. TTE showed LVEF of 35-40%, hypokinesis of the anterior and anteroseptal avila, grade 2 diastolic dysfunction, mild to moderate MR, mild TR, mild MD, pulmonary artery systolic pressure 37 mm Hg. Cardiac cath showed severe MV CAD with patent LAURA to LAD, SVG to RPL, radial graft to OM. Right and left sided pressures are normal. Cardiac index is 2.6 and cardiac output is 3.9. Interval history: No chest pain, shortness of breath. Review of Systems Review of Systems: Complete review of systems was performed and negative other than those mentioned in HPI Exam Narrative: General: Alert oriented x3, no acute distress Neck: Supple, no JVD Chest: Bilaterally clear to auscultation, no rales or rhonchi Cardiac: S1, S2 +, regular rate, regular rhythm, systolic ejection murmur grade 3 x 5 best heard over the apex Extremities: No pedal edema, no skin rash Neurologic: Alert and oriented x3, no focal neurological deficits Objective Data Vital Signs Vital Signs: Vital Signs - 24 hr 07/01/24 10:00 07/01/24 11:48 07/01/24 12:00 Temperature 36.1 C L Pulse Rate 67 68 71 Respiratory Rate 14 Blood Pressure 91/58 L Pulse Oximetry 95 Oxygen Delivery 07/01/24 14:00 07/01/24 15:21 07/01/24 16:00 Temperature 36.6 C Pulse Rate 63 65 Respiratory Rate 12 Blood Pressure 90/45 L Pulse Oximetry 98 Oxygen Delivery Room Air 07/01/24 16:00 07/01/24 16:26 07/01/24 18:00 Temperature Pulse Rate 63 65 Respiratory Rate Blood Pressure 91/46 L Pulse Oximetry Oxygen Delivery 07/01/24 19:54 07/01/24 20:00 07/01/24 20:00 Temperature 36.7 C Pulse Rate 63 64 Respiratory Rate 13 Blood Pressure 92/47 L Pulse Oximetry 94 Oxygen Delivery Room Air 07/01/24 22:00 07/01/24 23:24 07/02/24 00:00 Temperature 36.8 C Pulse Rate 71 59 L 57 L Respiratory Rate 17 Blood Pressure 115/57 L Pulse Oximetry 94 Oxygen Delivery 07/02/24 02:00 07/02/24 04:00 07/02/24 04:00 Temperature 36.8 C Pulse Rate 65 54 L 50 L Respiratory Rate 18 Blood Pressure 115/55 L Pulse Oximetry 98 Oxygen Delivery 07/02/24 06:00 07/02/24 07:54 07/02/24 08:15 Temperature 36.4 C L Pulse Rate 54 L 53 L 66 Respiratory Rate 16 Blood Pressure 109/58 L Pulse Oximetry 97 Oxygen Delivery Intake/Output Intake/Output: Intake & Output 06/29/24 06/30/24 07/01/24 07/02/24 23:59 23:59 23:59 23:59 Intake Total 1475.0 424.7 1612 Output Total 1560 1650 100 250 Balance -85.0 -1225.3 1512 -250 Meds/Results Medications: Active Medications Generic Name Dose Route Start Last Admin Trade Name Freq PRN Reason Stop Dose Admin Acetaminophen 650 mg 06/28/24 00:06 Acetaminophen 325 Mg Tablet PO Q4H PRN Mild Pain (1-3) or Fever Aspirin 81 mg 06/28/24 08:00 07/02/24 08:15 Aspirin 81 Mg Chewable Tablet PO 81 mg DAILY@0800 SONNY Administration Cephalexin HCl 250 mg 06/30/24 21:00 07/02/24 08:14 Cephalexin 250 Mg Capsule PO 07/04/24 09:01 250 mg Q12HR SONNY Administration Dextrose 12.5 gm 06/28/24 22:22 Dextrose 50% 25 Gm/50 Ml Syringe IV PUSH PRN PRN Hypoglycemia Protocol Empagliflozin 10 mg 07/02/24 09:00 07/02/24 08:15 Empagliflozin 10 Mg Tablet PO 10 mg DAILY SONNY Administration Enoxaparin Sodium 40 mg 07/01/24 09:00 07/02/24 08:15 Enoxaparin 40 Mg/0.4 Ml Syringe SUB-Q 40 mg DAILY SONNY Administration Escitalopram Oxalate 5 mg 06/28/24 21:00 07/01/24 21:44 Escitalopram Oxalate 5 Mg Tablet PO 5 mg HS SONNY Administration Furosemide 40 mg 07/02/24 09:00 07/02/24 08:15 Furosemide 40 Mg Tablet PO 40 mg DAILY SONNY Administration Glucagon 1 mg 06/28/24 22:22 Glucagon For Inj 1 Mg Vial IM PRN PRN Hypoglycemia Protocol Glucose 15 gm 06/28/24 22:22 Glucose Oral Gel 15 Gm Of Glucse In 37.5 Gm Tube PO PRN PRN Hypoglycemia Protocol Dextrose 1,000 mls @ 100 mls/hr 06/28/24 22:22 Dextrose 5% 1,000 Ml IVPB PRN PRN Hypoglycemia Protocol Insulin Aspart 2 - 5 units 06/29/24 08:00 07/02/24 08:16 Insulin Aspart (*Bkc) 100 Units/Ml SUB-Q Not Given TIDWM [facility] Protocol Metoprolol Succinate 25 mg 07/02/24 09:00 07/02/24 08:15 Metoprolol Succinate Ext Rel 25 Mg Tabcr PO 25 mg QAM SONNY Administration Polyethylene Glycol 17 gm 06/29/24 11:20 07/02/24 08:15 Polyethylene Glycol 3350 17 Gm Powd.Pack PO 17 gm QAM SONNY Administration Prochlorperazine Edisylate 10 mg 06/28/24 02:05 Prochlorperazine Edisylate 10 Mg/2 Ml Vial IV PUSH Q6H PRN Nausea And Vomiting Radiology Results: ITS Impressions Chest X-Ray 06/27/24 18:23 IMPRESSION: Cardiomegaly with possible cardiac decompensation and pulmonary edema. Underlying fibrotic changes and interstitial edema is not excluded. Chest/Abdomen/Pelvis CTA 06/27/24 21:04 IMPRESSION: CHEST: 1. No pulmonary embolism. 2. No acute cardiopulmonary pathology. 3. Cardiomegaly. Right-sided heart failure is highly suggestive. Enlarged left ventricle. 4. Healing fractures in the left lower thorax. ABDOMEN/PELVIS: 1. Thickened wall of the gallbladder which may indicate cholecystitis. 2. Thickened wall of the rectum which may indicate proctitis. Clinical correlation advised. 3. Healing fracture in the left pubic bone. Venous Doppler Study 06/28/24 15:08 IMPRESSION: Patent bilateral lower extremity veins. No evidence of deep venous thrombosis. Upper Quadrant Ultrasound 06/28/24 20:11 Impression: Mild nonspecific gallbladder wall thickening. No gallstone evident. Renal Ultrasound 06/29/24 09:09 IMPRESSION: No hydronephrosis or renal calculi. No sonographic findings to suggest medical renal disease. Labs Labs: Laboratory Results - last 24 hr 06/28/24 07/01/24 07/01/24 22:42 11:05 16:15 WBC RBC Hgb Hct MCV MCH MCHC RDW Plt Count MPV Immature Gran % (Auto) Neut % (Auto) Lymph % (Auto) [place] % (Auto) Eos % (Auto) Baso % (Auto) Lymph # (Auto) [place] # (Auto) Eos # (Auto) Baso # (Auto) Abs Immat Gran (auto) Absolute Neuts (auto) Absolute Nucleated RBC Band Neutrophils % Nucleated RBC % Platelet Estimate Large Platelets Hypochromasia Schistocytes Sodium Potassium Chloride Carbon Dioxide Anion Gap BUN Creatinine Estim Creat Clear Calc Estimated GFR Glucose POC Capillary Glucose 498 H 438 H Calcium Phosphorus Magnesium Total Bilirubin AST ALT Alkaline Phosphatase Troponin I 0.396 H* Total Protein Albumin 07/01/24 07/01/24 07/02/24 17:57 20:19 04:04 WBC 7.3 RBC 4.02 L Hgb 10.5 L Hct 36.0 L MCV 89.6 MCH 26.1 MCHC 29.2 L RDW 17.5 H Plt Count 293 MPV 11.4 H Immature Gran % (Auto) 0.3 Neut % (Auto) 64.5 Lymph % (Auto) 17.6 L [place] % (Auto) 12.6 H Eos % (Auto) 4.6 H Baso % (Auto) 0.4 Lymph # (Auto) 1.29 [place] # (Auto) 0.9 H Eos # (Auto) 0.3 Baso # (Auto) 0.0 Abs Immat Gran (auto) 0.02 Absolute Neuts (auto) 4.7 Absolute Nucleated RBC 0.000 Band Neutrophils % Not Reportable Nucleated RBC % 0.0 Platelet Estimate Adequate Large Platelets Present Hypochromasia 1+ Schistocytes None seen Sodium 139 Potassium 3.7 Chloride 100 Carbon Dioxide 33 H Anion Gap 6 BUN 62 H D Creatinine 1.17 H Estim Creat Clear Calc 26 Estimated GFR 45 L Glucose 99 POC Capillary Glucose 369 H 262 H Calcium 8.7 Phosphorus 3.4 Magnesium 2.3 Total Bilirubin 0.6 AST 49 H ALT 87 H Alkaline Phosphatase 208 H Troponin I Total Protein 7.0 Albumin 3.6 07/02/24 07:37 WBC RBC Hgb Hct MCV MCH MCHC RDW Plt Count MPV Immature Gran % (Auto) Neut % (Auto) Lymph % (Auto) [place] % (Auto) Eos % (Auto) Baso % (Auto) Lymph # (Auto) [place] # (Auto) Eos # (Auto) Baso # (Auto) Abs Immat Gran (auto) Absolute Neuts (auto) Absolute Nucleated RBC Band Neutrophils % Nucleated RBC % Platelet Estimate Large Platelets Hypochromasia Schistocytes Sodium Potassium Chloride Carbon Dioxide Anion Gap BUN Creatinine Estim Creat Clear Calc Estimated GFR Glucose POC Capillary Glucose 147 H Calcium Phosphorus Magnesium Total Bilirubin AST ALT Alkaline Phosphatase Troponin I Total Protein Albumin
--- NOTE | 2024-07-02 10:37 | PC.NURSE ---
On 07/02/24, the student, [Shalini Kent], provided care and completed [facility] documentation on this patient. I have reviewed the student's documentation and agree with the findings.
[2024-07-02 11:34] LABS: Glucose Point of Care 337 mg/dl (65-105)
[2024-07-02] MEDS: INSULIN ASPART (*BKC) 100 UNITS/ML SUB-Q ×3 (12:01→22:07)
[2024-07-02 13:34] LABS: Glucose Point of Care 319 mg/dl (65-105)
[2024-07-02] MEDS: SODIUM CHLORIDE 0.9% IV 1,000 ML 100 ML IV CONT (14:20)
[2024-07-02 16:03] LABS: Glucose Point of Care 257 mg/dl (65-105)
--- NOTE | 2024-07-02 16:43 | P.PNIM_ITS ---
Progress Note: A&P Assessment and Plan (1) Acute on chronic systolic CHF (congestive heart failure), NYHA class 4: Code(s): I50.23 - Acute on chronic systolic (congestive) heart failure Status: Acute Assessment and Plan: * Patient presents with SOB. CXR showing cardiomegaly with cardiac decompensation and pulmonary edema. BNP > 30K. * LA 4.7 -> 4.9. LFTs elevated. Concern for decompensated CHF. * Could be related to worsening cardiac condition and/or related to her valve disease and/or from acute NSTEMI * She is on ASA. Lasix 40 mg ivp q 12. * Cardiology consulted, appreciate recommendations. * Milrinone drip at 0.375 microgram/kg/min. * Consider also sepsis but felt less likely. UA noted and UCx collected. BCx ordered and abx started. * Cover for possible cholecystitis even though she does not have any pain * Repeat lactic normal. * Close monitoring. * Echocardiogram showed: Summary 1. Complete two-dimensional, color flow and Doppler transthoracic echocardiogram is performed. 2. Left ventricular chamber dimension is moderately enlarged. 3. Left ventricular systolic function is normal, estimated at 35-40%. Hypokinesis anteroseptal and anterior wall. 4. The left ventricular diastolic function is grade II diastolic dysfunction. 5. There is mild to moderate mitral valve regurgitation. 6. There is mild tricuspid valve regurgitation. 7. No pulmonary hypertension, estimated pulmonary arterial systolic pressure is 37 mmHg. 8. There is mild pulmonic regurgitation. * Renal ultrasound showed: IMPRESSION: No hydronephrosis or renal calculi. No sonographic findings to suggest medical renal disease. (2) Non-ST elevation MD (NSTEMI): Code(s): I21.4 - Non-ST elevation (NSTEMI) myocardial infarction Status: Acute Assessment and Plan: * As above. EKG showing NSR, LAD, AE, LBBB. (LBBB is old) * Continue ASA. Continue heparin gtt. * NPO after midnight for cardiac cath. (3) Prolonged QT interval: Code(s): R94.31 - Abnormal electrocardiogram [ECG] [EKG] Status: Acute Assessment and Plan: * QTc 536. This has been noted i the past and felt related to the BBB. * Correct potassium and mag as needed. (4) RAHUL (acute kidney injury): Code(s): N17.9 - Acute kidney failure, unspecified Status: Acute Assessment and Plan: * Cr 1,5 on admission and up to 1.54now. * [place] related to poor renal perfusion. CT scan showing a hyperdense area seen in the right kidney midpole which may be contrast. A stone is less likely. She has 2 right renal arteries. * Renal ultrasound showed: IMPRESSION: No hydronephrosis or renal calculi. No sonographic findings to suggest medical renal disease. (5) Moderate to severe mitral regurgitation: Code(s): I34.0 - Nonrheumatic mitral (valve) insufficiency Status: Acute Assessment and Plan: * As above. * Echocardiogram showed: Summary 1. Complete two-dimensional, color flow and Doppler transthoracic echocardiogram is performed. 2. Left ventricular chamber dimension is moderately enlarged. 3. Left ventricular systolic function is normal, estimated at 35-40%. Hypokinesis anteroseptal and anterior wall. 4. The left ventricular diastolic function is grade II diastolic dysfunction. 5. There is mild to moderate mitral valve regurgitation. 6. There is mild tricuspid valve regurgitation. 7. No pulmonary hypertension, estimated pulmonary arterial systolic pressure is 37 mmHg. 8. There is mild pulmonic regurgitation. * NPO after midnight for cardiac cath. (6) Hypertension: Qualifiers: Hypertension type: primary hypertension Qualified Code(s): I10 - Essential (primary) hypertension Code(s): I10 - Essential (primary) hypertension Status: Chronic Assessment and Plan: * blood pressure 126/57. * Blood pressure remains reasonable well controlled. * Will continue current medications. (7) Ischemic cardiomyopathy: Code(s): I25.5 - Ischemic cardiomyopathy Status: Chronic Assessment and Plan: * As above Plan +DDimer - LE venous doppler negative for DVT. CTA negative for PE. +DDimer related to either CHF and/or sepsis. Possible Cholecystitis - GB showing thickened wall which may indicate cholecystitis. No stones seen. No pain on exam. Check US Possible proctitis - Thickened wall of the rectum which may indicate proctitis. again, no pain. Feel these findings related to passive congestion. [age] year [place] female presented with complaint of dyspnea with exertion to further evaluate patient had a cardiac echo showed moderately reduced ejection fraction 30-40% patient was seen by lining cleaner and had a cardiac catheterization which showed significant coronary artery disease however unable to amendable to intervention recommended medical management. 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 will monitor and possibly discharge home tomorrow with her daughter. Code status. Full VTE prophylaxis. SCDs; SONNY Subjective Date/time seen: 07/02/24 16:43 Interval history: Patient denies chest pain, palpitations, headache, dizziness, nausea, or vomiting. Family at bedside. Patient reports feeling better with drip. [age] year [place] female presented with complaint of dyspnea with exertion to further evaluate patient had a cardiac echo showed moderately reduced ejection fraction 30-40% patient was seen by lining cleaner and had a cardiac catheterization which showed significant coronary artery disease however unable to amendable to intervention recommended medical management. 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 will monitor and possibly discharge home tomorrow with her daughter. Review of Systems Review of Systems: All systems reviewed & are unremarkable except as noted in HPI and below Exam Narrative: Elderly frail Patient is comfortable, NAD HEENT: eyes are clear and none icteric LUNGS:CTA HEART: RR S1S2 ABD: BS+, Soft and nontender Lower extremities: no edema SKIN: nonjaundiced Neuro: grossly intact. Objective Data Vital Signs Vital Signs: Vital Signs - 24 hr 07/01/24 18:00 07/01/24 19:54 07/01/24 20:00 Temperature 36.7 C Pulse Rate 65 63 Respiratory Rate 13 Blood Pressure 92/47 L Pulse Oximetry 94 Oxygen Delivery Room Air 07/01/24 20:00 07/01/24 22:00 07/01/24 23:24 Temperature 36.8 C Pulse Rate 64 71 59 L Respiratory Rate 17 Blood Pressure 115/57 L Pulse Oximetry 94 Oxygen Delivery 07/02/24 00:00 07/02/24 02:00 07/02/24 04:00 Temperature 36.8 C Pulse Rate 57 L 65 54 L Respiratory Rate 18 Blood Pressure 115/55 L Pulse Oximetry 98 Oxygen Delivery 07/02/24 04:00 07/02/24 06:00 07/02/24 07:54 Temperature 36.4 C L Pulse Rate 50 L 54 L 53 L Respiratory Rate 16 Blood Pressure 109/58 L Pulse Oximetry 97 Oxygen Delivery 07/02/24 08:00 07/02/24 08:15 07/02/24 11:42 Temperature 36.4 C L Pulse Rate 64 66 54 L Respiratory Rate 16 Blood Pressure 99/55 L Pulse Oximetry 96 Oxygen Delivery 07/02/24 12:00 07/02/24 13:34 07/02/24 13:34 Temperature 36.6 C Pulse Rate 62 58 L Respiratory Rate 18 Blood Pressure 76/42 L 84/52 L Pulse Oximetry 93 Oxygen Delivery 07/02/24 15:38 Temperature 36.5 C Pulse Rate 51 L Respiratory Rate 16 Blood Pressure 102/50 L Pulse Oximetry 97 Oxygen Delivery Intake/Output Intake/Output: Intake & Output 06/29/24 06/30/24 07/01/24 07/02/24 23:59 23:59 23:59 23:59 Intake Total 1475.0 424.7 1612 565 Output Total 1560 1650 100 250 Balance -85.0 -1225.3 1512 315 Meds/Results Medications: Active Medications Generic Name Dose Route Start Last Admin Trade Name [place] PRN Reason Stop Dose Admin Acetaminophen 650 mg 06/28/24 00:06 Acetaminophen 325 Mg Tablet PO Q4H PRN Mild Pain (1-3) or Fever Aspirin 81 mg 06/28/24 08:00 07/02/24 08:15 Aspirin 81 Mg Chewable Tablet PO 81 mg DAILY@0800 SONNY Administration Cephalexin HCl 250 mg 06/30/24 21:00 07/02/24 08:14 Cephalexin 250 Mg Capsule PO 07/04/24 09:01 250 mg Q12HR SONNY Administration Dextrose 12.5 gm 06/28/24 22:22 Dextrose 50% 25 Gm/50 Ml Syringe IV PUSH PRN PRN Hypoglycemia Protocol Empagliflozin 10 mg 07/02/24 09:00 07/02/24 08:15 Empagliflozin 10 Mg Tablet PO 10 mg DAILY SONNY Administration Enoxaparin Sodium 30 mg 07/03/24 09:00 Enoxaparin 30 Mg/0.3 Ml Syringe SUB-Q DAILY SONNY Escitalopram Oxalate 5 mg 06/28/24 21:00 07/01/24 21:44 Escitalopram Oxalate 5 Mg Tablet PO 5 mg HS SONNY Administration Furosemide 40 mg 07/02/24 09:00 07/02/24 08:15 Furosemide 40 Mg Tablet PO 40 mg DAILY SONNY Administration Glucagon 1 mg 06/28/24 22:22 Glucagon For Inj 1 Mg Vial IM PRN PRN Hypoglycemia Protocol Glucose 15 gm 06/28/24 22:22 Glucose Oral Gel 15 Gm Of Glucse In 37.5 Gm Tube PO PRN PRN Hypoglycemia Protocol Dextrose 1,000 mls @ 100 mls/hr 06/28/24 22:22 Dextrose 5% 1,000 Ml IVPB PRN PRN Hypoglycemia Protocol Sodium Chloride 1,000 mls @ 100 mls/hr 07/02/24 14:05 07/02/24 14:20 Normal Saline Iv IV CONT 07/03/24 00:04 100 mls/hr .Q10H ONE Administration Insulin Aspart 2 - 5 units 06/29/24 08:00 07/02/24 12:01 Insulin Aspart (*Bkc) 100 Units/Ml SUB-Q 4 units TIDWM SONNY Administration Protocol Metoprolol Succinate 25 mg 07/02/24 09:00 07/02/24 08:15 Metoprolol Succinate Ext Rel 25 Mg Tabcr PO 25 mg QAM SONNY Administration Polyethylene Glycol 17 gm 06/29/24 11:20 07/02/24 08:15 Polyethylene Glycol 3350 17 Gm Powd.Pack PO 17 gm QAM SONNY Administration Prochlorperazine Edisylate 10 mg 06/28/24 02:05 Prochlorperazine Edisylate 10 Mg/2 Ml Vial IV PUSH Q6H PRN Nausea And Vomiting Radiology Results: ITS Impressions Chest X-Ray 06/27/24 18:23 IMPRESSION: Cardiomegaly with possible cardiac decompensation and pulmonary edema. Underlying fibrotic changes and interstitial edema is not excluded. Chest/Abdomen/Pelvis CTA 06/27/24 21:04 IMPRESSION: CHEST: 1. No pulmonary embolism. 2. No acute cardiopulmonary pathology. 3. Cardiomegaly. Right-sided heart failure is highly suggestive. Enlarged left ventricle. 4. Healing fractures in the left lower thorax. ABDOMEN/PELVIS: 1. Thickened wall of the gallbladder which may indicate cholecystitis. 2. Thickened wall of the rectum which may indicate proctitis. Clinical correlation advised. 3. Healing fracture in the left pubic bone. Venous Doppler Study 06/28/24 15:08 IMPRESSION: Patent bilateral lower extremity veins. No evidence of deep venous thrombosis. Upper Quadrant Ultrasound 06/28/24 20:11 Impression: Mild nonspecific gallbladder wall thickening. No gallstone evident. Renal Ultrasound 06/29/24 09:09 IMPRESSION: No hydronephrosis or renal calculi. No sonographic findings to suggest medical renal disease. Labs Labs: Laboratory Results - last 24 hr 07/01/24 07/01/24 07/02/24 17:57 20:19 04:04 WBC 7.3 RBC 4.02 L Hgb 10.5 L Hct 36.0 L MCV 89.6 MCH 26.1 MCHC 29.2 L RDW 17.5 H Plt Count 293 MPV 11.4 H Immature Gran % (Auto) 0.3 Neut % (Auto) 64.5 Lymph % (Auto) 17.6 L [place] % (Auto) 12.6 H Eos % (Auto) 4.6 H Baso % (Auto) 0.4 Lymph # (Auto) 1.29 [place] # (Auto) 0.9 H Eos # (Auto) 0.3 Baso # (Auto) 0.0 Abs Immat Gran (auto) 0.02 Absolute Neuts (auto) 4.7 Absolute Nucleated RBC 0.000 Band Neutrophils % Not Reportable Nucleated RBC % 0.0 Platelet Estimate Adequate Large Platelets Present Hypochromasia 1+ Schistocytes None seen Sodium 139 Potassium 3.7 Chloride 100 Carbon Dioxide 33 H Anion Gap 6 BUN 62 H D Creatinine 1.17 H Estim Creat Clear Calc 26 Estimated GFR 45 L Glucose 99 POC Capillary Glucose 369 H 262 H Calcium 8.7 Phosphorus 3.4 Magnesium 2.3 Total Bilirubin 0.6 AST 49 H ALT 87 H Alkaline Phosphatase 208 H Total Protein 7.0 Albumin 3.6 07/02/24 07/02/24 07/02/24 07:37 11:30 13:27 WBC RBC Hgb Hct MCV MCH MCHC RDW Plt Count MPV Immature Gran % (Auto) Neut % (Auto) Lymph % (Auto) [place] % (Auto) Eos % (Auto) Baso % (Auto) Lymph # (Auto) [place] # (Auto) Eos # (Auto) Baso # (Auto) Abs Immat Gran (auto) Absolute Neuts (auto) Absolute Nucleated RBC Band Neutrophils % Nucleated RBC % Platelet Estimate Large Platelets Hypochromasia Schistocytes Sodium Potassium Chloride Carbon Dioxide Anion Gap BUN Creatinine Estim Creat Clear Calc Estimated GFR Glucose POC Capillary Glucose 147 H 337 H 319 H Calcium Phosphorus Magnesium Total Bilirubin AST ALT Alkaline Phosphatase Total Protein Albumin 07/02/24 16:00 WBC RBC Hgb Hct MCV MCH MCHC RDW Plt Count MPV Immature Gran % (Auto) Neut % (Auto) Lymph % (Auto) [place] % (Auto) Eos % (Auto) Baso % (Auto) Lymph # (Auto) [place] # (Auto) Eos # (Auto) Baso # (Auto) Abs Immat Gran (auto) Absolute Neuts (auto) Absolute Nucleated RBC Band Neutrophils % Nucleated RBC % Platelet Estimate Large Platelets Hypochromasia Schistocytes Sodium Potassium Chloride Carbon Dioxide Anion Gap BUN Creatinine Estim Creat Clear Calc Estimated GFR Glucose POC Capillary Glucose 257 H Calcium Phosphorus Magnesium Total Bilirubin AST ALT Alkaline Phosphatase Total Protein Albumin Quality VTE Prophylaxis VTE prophylaxis: mechanical ordered and pharmacologic ordered
[2024-07-02 17:07] LABS: Glucose Point of Care 232 mg/dl (65-105)
[2024-07-02 20:01] LABS: Glucose Point of Care 307 mg/dl (65-105)
[2024-07-02] MEDS: ESCITALOPRAM OXALATE 5 MG TABLET PO (20:28)
[2024-07-02 22:12] LABS: Glucose Point of Care 259 mg/dl (65-105)
[2024-07-03] VITALS: PULSE 53
[2024-07-03 04:00] VITALS: BP 115/65; PULSE 50; PULSE 56; RESP 17; TEMP 36.3; O2SAT 96
[2024-07-03 05:33] LABS: Basophils Percent Auto 0.5 % (0.2-1.2); Eosinophils Absolute Auto 0.3 K/mm3 (0-0.3); Eosinophils Percent Auto 5.1 % (0-4.4); Hematocrit 33.9 % (37.0-47.0); Hemoglobin 9.7 g/dL (12.0-15.0); Immature Granulocyte Absolute 0.01 K/mm3 (0.00-0.031); Immature Granulocyte Percent A 0.2 % (0-0.5); Lymphocytes Absolute Auto 1.22 K/mm3 (0.9-3.2); Mean Corpuscular HGB Conc 28.6 g/dl (32-36); Mean Corpuscular Volume 90.9 fl (80-100); Mean Platelet Volume 11.7 fl (7.4-10.4); Monocytes Absolute Auto 0.6 K/mm3 (0.1-0.6); Neutrophils Absolute Auto 3.9 K/mm3 (1.3-6.7); Neutrophils Percent Auto 64.2 % (45.5-73.1); Platelet Count Result 265 k/mm3 (150-375); Red Blood Count 3.73 M/mm3 (4.2-5.4); Red Cell Distribution Width 17.7 % (11.5-14.5); White Blood Count 6.1 K/mm3 (4.5-10.0)
[2024-07-03 05:41] LABS: Alanine Aminotransferase 70 U/L (6-35); Albumin Level 3.1 g/dL (3.5-5.1); Alkaline Phosphatase 173 U/L (38-126); Anion Gap 6 mmol/L (4-12); Aspartate Amino Transferase 40 U/L (14-36); Bilirubin,Total 0.7 mg/dL (0.2-1.3); Blood Urea Nitrogen 53 mg/dL (7-17); Calcium 8.5 mg/dL (8.4-10.2); Carbon Dioxide 28 mmol/L (22-30); Chloride 105 mmol/L (98-107); Estimated CRCL calculation 29 ml/min; Estimated Glomerular Filt Rate 49; Glucose 166 mg/dL (65-110); Magnesium 2.3 mg/dL (1.6-2.3); Potassium 3.9 mmol/L (3.4-5.0); Sodium 139 mmol/L (137-145)
[2024-07-03 06:11] LABS: Anisocytosis 1+; Hypochromasia 1+; Ovalocytes 1+; Platelet Estimate Adequate (Adequate)
[2024-07-03 06:12] LABS: Burr Cells 1+; Schistocytes None Seen
[2024-07-03 07:21] LABS: IFOB Positive Control Positive; Immunochemical Fecal Occult Bl Negative (N)
[2024-07-03 07:41] LABS: Glucose Point of Care 163 mg/dl (65-105)
[2024-07-03 07:50] VITALS: BP 112/59; PULSE 48; RESP 16; TEMP 36.8; O2SAT 96
[2024-07-03 08:00] VITALS: PULSE 55
[2024-07-03] MEDS: polyethylene glycoL 3350 17 GM POWD.PACK PO (08:06)
[2024-07-03] MEDS: ENOXAPARIN 30 MG/0.3 ML SYRINGE SUB-Q (08:06)
[2024-07-03 08:07] VITALS: PULSE 53
[2024-07-03] MEDS: CEPHALEXIN 250 MG CAPSULE PO (08:07)
[2024-07-03] MEDS: ASPIRIN 81 MG CHEWABLE TABLET PO (08:07)
[2024-07-03] MEDS: EMPAGLIFLOZIN 10 MG TABLET PO (08:07)
[2024-07-03] MEDS: METOPROLOL SUCCINATE EXT REL 25 MG TABCR PO (08:07)
[2024-07-03 11:18] LABS: Glucose Point of Care 266 mg/dl (65-105)
--- NOTE | 2024-07-03 11:29 | PC.NURSE ---
On 07/03/24, the student, [Danica Tony], provided care and completed [facility] documentation on this patient. I have reviewed the student's documentation and agree with the findings.
[2024-07-03] MEDS: INSULIN ASPART (*BKC) 100 UNITS/ML SUB-Q (11:53)
[2024-07-03 12:00] VITALS: PULSE 49
--- NOTE | 2024-07-03 15:38 | PM.DS ---
DS: Admitting Diagnosis Discharge Date 07/03/24 Admitting Diagnosis shortness of breath DS: Discharge Diagnosis Discharge Diagnosis (1) Acute on chronic systolic CHF (congestive heart failure), NYHA class 4: Code(s): I50.23 - Acute on chronic systolic (congestive) heart failure Status: Acute Assessment and Plan: Patient presents with SOB. CXR showing cardiomegaly with cardiac decompensation and pulmonary edema. BNP > 30K. LA 4.7 -> 4.9. LFTs elevated. Concern for decompensated CHF. Could be related to worsening cardiac condition and/or related to her valve disease and/or from acute NSTEMI She is on ASA. Lasix 40 mg ivp q 12. Cardiology consulted, appreciate recommendations. Milrinone drip at 0.375 microgram/kg/min. Consider also sepsis but felt less likely. UA noted and UCx collected. BCx ordered and abx started. Cover for possible cholecystitis even though she does not have any pain Repeat lactic normal. Close monitoring. Echocardiogram showed: Summary 1. Complete two-dimensional, color flow and Doppler transthoracic echocardiogram is performed. 2. Left ventricular chamber dimension is moderately enlarged. 3. Left ventricular systolic function is normal, estimated at 35-40%. Hypokinesis anteroseptal and anterior wall. 4. The left ventricular diastolic function is grade II diastolic dysfunction. 5. There is mild to moderate mitral valve regurgitation. 6. There is mild tricuspid valve regurgitation. 7. No pulmonary hypertension, estimated pulmonary arterial systolic pressure is 37 mmHg. 8. There is mild pulmonic regurgitation. Renal ultrasound showed: IMPRESSION: No hydronephrosis or renal calculi. No sonographic findings to suggest medical renal disease. (2) Non-ST elevation AL (NSTEMI): Code(s): I21.4 - Non-ST elevation (NSTEMI) myocardial infarction Status: Acute Assessment and Plan: As above. EKG showing NSR, LAD, AE, LBBB. (LBBB is old) Continue ASA. Continue heparin gtt. NPO after midnight for cardiac cath. (3) Prolonged QT interval: Code(s): R94.31 - Abnormal electrocardiogram [ECG] [EKG] Status: Acute Assessment and Plan: QTc 536. This has been noted i the past and felt related to the BBB. Correct potassium and mag as needed. (4) RAHUL (acute kidney injury): Code(s): N17.9 - Acute kidney failure, unspecified Status: Acute Assessment and Plan: Cr 1,5 on admission and up to 1.54now. [place] related to poor renal perfusion. CT scan showing a hyperdense area seen in the right kidney midpole which may be contrast. A stone is less likely. She has 2 right renal arteries. Renal ultrasound showed: IMPRESSION: No hydronephrosis or renal calculi. No sonographic findings to suggest medical renal disease. (5) Moderate to severe mitral regurgitation: Code(s): I34.0 - Nonrheumatic mitral (valve) insufficiency Status: Acute Assessment and Plan: As above. Echocardiogram showed: Summary 1. Complete two-dimensional, color flow and Doppler transthoracic echocardiogram is performed. 2. Left ventricular chamber dimension is moderately enlarged. 3. Left ventricular systolic function is normal, estimated at 35-40%. Hypokinesis anteroseptal and anterior wall. 4. The left ventricular diastolic function is grade II diastolic dysfunction. 5. There is mild to moderate mitral valve regurgitation. 6. There is mild tricuspid valve regurgitation. 7. No pulmonary hypertension, estimated pulmonary arterial systolic pressure is 37 mmHg. 8. There is mild pulmonic regurgitation. NPO after midnight for cardiac cath. (6) Hypertension: Qualifiers: Hypertension type: primary hypertension Qualified Code(s): I10 - Essential (primary) hypertension Code(s): I10 - Essential (primary) hypertension Status: Chronic Assessment and Plan: blood pressure 126/57. Blood pressure remains reasonable well controlled. Will continue current medications. (7) Ischemic cardiomyopathy: Code(s): I25.5 - Ischemic cardiomyopathy Status: Chronic Assessment and Plan: As above Plan +DDimer - LE venous doppler negative for DVT. CTA negative for PE. +DDimer related to either CHF and/or sepsis. Possible Cholecystitis - GB showing thickened wall which may indicate cholecystitis. No stones seen. No pain on exam. Check US Possible proctitis - Thickened wall of the rectum which may indicate proctitis. again, no pain. Feel these findings related to passive congestion. [age] year [place] female presented with complaint of dyspnea with exertion to further evaluate patient had a cardiac echo showed moderately reduced ejection fraction 30-40% patient was seen by elevator operator and had a cardiac catheterization which showed significant coronary artery disease however unable to amendable to intervention recommended medical management. 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 will monitor and possibly discharge home tomorrow with her daughter. Code status. Full VTE prophylaxis. SCDs; SONNY DS: Summary Hospital Course Hospital Course: [age] year [place] female presented with complaint of dyspnea with exertion to further evaluate patient had a cardiac echo showed moderately reduced ejection fraction 30-40% patient was seen by elevator operator and had a cardiac catheterization which showed significant coronary artery disease however unable to amendable to intervention recommended medical management. 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 will monitor and possibly discharge home tomorrow with her daughter. today patient daughter is present, patient is clinically stable and at her baseline I have discuss with patient daughter to closely observe patient blood pressure and any weight gain, please weight the patient daily and if the weight in more than 3lbs, and to limit her fluids intake and call her elevator operator. patient to follow up with her elevator operator as scheduled, patient to follow up with her primary care provider as soon as possible. If any symptoms worsen to go to nearest ER Time Spent with Patient Time attestation: Total time spent providing and/or coordinating discharge services: Exam Narrative: Elderly frail Patient is comfortable, NAD HEENT: eyes are clear and none icteric LUNGS:CTA HEART: RR S1S2 ABD: BS+, Soft and nontender Lower extremities: no edema SKIN: nonjaundiced Neuro: grossly intact. DS: Data Data Completed and Pending Labs on day of discharge: Labs from last 24 hours 07/03/24 07/03/24 07/03/24 11:15 07:28 06:08 WBC RBC Hgb Hct MCV MCH MCHC RDW Plt Count MPV Immature Gran % (Auto) Neut % (Auto) Lymph % (Auto) [place] % (Auto) Eos % (Auto) Baso % (Auto) Lymph # (Auto) [place] # (Auto) Eos # (Auto) Baso # (Auto) Abs Immat Gran (auto) Absolute Neuts (auto) Absolute Nucleated RBC Band Neutrophils % Nucleated RBC % Platelet Estimate Hypochromasia Anisocytosis Ovalocytes [place] Cells Schistocytes Sodium Potassium Chloride Carbon Dioxide Anion Gap BUN Creatinine Estim Creat Clear Calc Estimated GFR Glucose POC Capillary Glucose 266 H 163 H Calcium Magnesium Total Bilirubin AST ALT Alkaline Phosphatase Total Protein Albumin Stl Occult Blood (IFOB) Negative 07/03/24 07/02/24 07/02/24 04:40 22:06 19:53 WBC 6.1 RBC 3.73 L Hgb 9.7 L Hct 33.9 L MCV 90.9 MCH 26.0 MCHC 28.6 L RDW 17.7 H Plt Count 265 MPV 11.7 H Immature Gran % (Auto) 0.2 Neut % (Auto) 64.2 Lymph % (Auto) 20.0 [place] % (Auto) 10.0 H Eos % (Auto) 5.1 H Baso % (Auto) 0.5 Lymph # (Auto) 1.22 [place] # (Auto) 0.6 Eos # (Auto) 0.3 Baso # (Auto) 0.0 Abs Immat Gran (auto) 0.01 Absolute Neuts (auto) 3.9 Absolute Nucleated RBC 0.000 Band Neutrophils % Not Reportable Nucleated RBC % 0.0 Platelet Estimate Adequate Hypochromasia 1+ Anisocytosis 1+ Ovalocytes 1+ [place] Cells 1+ Schistocytes None seen Sodium 139 Potassium 3.9 Chloride 105 Carbon Dioxide 28 Anion Gap 6 BUN 53 H Creatinine 1.07 H Estim Creat Clear Calc 29 Estimated GFR 49 L Glucose 166 H POC Capillary Glucose 259 H 307 H Calcium 8.5 Magnesium 2.3 Total Bilirubin 0.7 AST 40 H ALT 70 H Alkaline Phosphatase 173 H Total Protein 6.0 L Albumin 3.1 L Stl Occult Blood (IFOB) 07/02/24 07/02/24 17:05 16:00 WBC RBC Hgb Hct MCV MCH MCHC RDW Plt Count MPV Immature Gran % (Auto) Neut % (Auto) Lymph % (Auto) [place] % (Auto) Eos % (Auto) Baso % (Auto) Lymph # (Auto) [place] # (Auto) Eos # (Auto) Baso # (Auto) Abs Immat Gran (auto) Absolute Neuts (auto) Absolute Nucleated RBC Band Neutrophils % Nucleated RBC % Platelet Estimate Hypochromasia Anisocytosis Ovalocytes [place] Cells Schistocytes Sodium Potassium Chloride Carbon Dioxide Anion Gap BUN Creatinine Estim Creat Clear Calc Estimated GFR Glucose POC Capillary Glucose 232 H 257 H Calcium Magnesium Total Bilirubin AST ALT Alkaline Phosphatase Total Protein Albumin Stl Occult Blood (IFOB) Preliminary micro results at discharge 06/28/24 08:39 Blood Culture - Preliminary Blood 06/28/24 08:48 Blood Culture - Preliminary Blood Discharge Plan Discharge Attending physician on discharge: Haider [address] Consulting providers: Kervin Mendoza; Russell Dodd; Daniela Neves; Jose Luis Hamilton; Molina Tinoco; Vicki Castorena; Ira Oviedo; Alonso Kerr; Mukul Malagon; Anoop White; Nilam Ayala Discharging Clinician: Chuy Coe Patient Disposition: Home Activity: as tolerated Diet: heart healthy Discharge Instructions: Care Coordination: [facility] and treat, and group home. Their phone number is [phone] if you have any questions; they will contact you to schedule their first visit. RN Please fax discharge instructions to [phone]. I have discuss with patient daughter to closely observe patient blood pressure and any weight gain, please weight the patient daily and if the weight in more than 3lbs, and to limit her fluids intake and call her elevator operator. patient to follow up with her elevator operator as scheduled, patient to follow up with her primary care provider as soon as possible. If any symptoms worsen to go to nearest ER Patient Instructions: Antibiotic Form, Heart Failure (GEN), Hypotension (GEN) Patient Language: [place]i Stand Alone Forms: General Discharge Information Follow-up/Referrals: Flip,NANDO Acosta [Primary Care Provider] - Kervin Mendoza MD [Physician] - Discharge Medications: New cephalexin 250 mg Capsule 250 mg PO Q12HR Qty: 10 0RF aspirin [Children's Aspirin] 81 mg Tablet,Chewable 81 mg PO DAILY@0800 Qty: 30 0RF Jardiance 10 mg Tablet 10 mg PO DAILY Qty: 30 0RF furosemide 20 mg tablet 20 mg PO DAILY Qty: 30 0RF Rx Instructions: please start 1 week from today on July 10. polyethylene glycol 3350 [Miralax] 17 gram Powder In Packet 17 g PO QAM Qty: 30 0RF Continued metformin 500 mg tablet extended release 24hr 1,000 mg PO BID escitalopram oxalate 5 mg Tablet 5 mg PO HS metoprolol succinate [Toprol XL] 25 mg Tablet Extended Release 24 Hr 25 mg PO QAM Qty: 30 0RF atorvastatin 40 mg tablet 40 mg PO QPM Held sacubitril-valsartan [Entresto] 49-51 mg tablet 1 tablet PO BID Hold Instructions: until seen by her elevator operator Discontinued Jardiance 25 mg Tablet 25 mg PO DAILY Qty: 30 0RF Date of admission: 06/28/24 08:08 Primary Care Provider: FlipJeannette Admitting Provider: Haider Street Attending physician on admission: Chuy Coe Condition: Stable
--- NOTE | 2024-07-06 07:11 | WPDCDIQUERY2 ---
CDI Query Clarification Request Please clarify if sepsis has been ruled in or ruled out. The medical chart reflects the following: Plan +DDimer - LE venous doppler negative for DVT. CTA negative for PE. +DDimer related to either CHF and/or sepsis. Lactic acid: 06/28: 4.7, 4.9. 06/29: 0.9 IV abx <Michelle Rojas RN - Last Filed: 07/06/24 07:15> Clarified Diagnosis Clarified Diagnosis: Patient elevated lactic acid most likely due to stress due to shortness of breath, Positive DDimer unlikely 2/2 sepsis as patient's white counts were normal, no, fever and blood culture was negative. <Chuy Coe MD - Last Filed: 07/08/24 10:56>
== END 2024-07-03 16:04 | disposition home or self-care (01) | DRG 280 ==
LOC: ANHED 20:03 → ANHIMU 06-28 00:11
PROVIDERS: Internal Medicine; Internal Medicine Cardiovascular Disease; Internal Medicine Interventional Cardiology; Nurse Practitioner Family; Student in an Organized Health Care Education/Training Program; Admitting Provider Internal Medicine; Emergency Provider Emergency Medicine; PCP Physician Assistant; Visit Provider Family Medicine
PROC: 4A023N8 Measurement of Cardiac Sampling and Pressure, Bilateral, Percutaneous Approach (ICD-10-PCS; CPT 93461; 2024-06-30 10:00)
DX: I11.0 Hypertensive heart disease with heart failure (principal); I50.43 Acute on chronic combined systolic (congestive) and diastolic (congestive) heart failure; I21.A1 Myocardial infarction type 2; N17.9 Acute kidney failure, unspecified; I25.10 Atherosclerotic heart disease of native coronary artery without angina pectoris; I44.7 Left bundle-branch block, unspecified; I25.5 Ischemic cardiomyopathy; I34.0 Nonrheumatic mitral (valve) insufficiency; K81.9 Cholecystitis, unspecified; E78.5 Hyperlipidemia, unspecified; E11.9 Type 2 diabetes mellitus without complications; K62.89 Other specified diseases of anus and rectum; Z95.1 Presence of aortocoronary bypass graft; Z86.73 Personal history of transient ischemic attack (TIA), and cerebral infarction without residual deficits
CPT/HCPCS: 36415; 36600; 71045; 71275; 74177; 76705; 76775; 80048; 80053; 80202; 81001; 82010; 82248; 82274; 82550; 82570; 82607; 82728; 82746; 82805; 82948; 83036; 83540; 83550; 83605; 83615; 83735; 83880; 84100; 84145; 84156; 84300; 84443; 84484; 84540; 85018; 85025; 85046; 85380; 85610; 85730; 85999; 86140; 87040; 87086; 87637; 93005; 93306; 93460; 93461; 93970; 96361; 96374; 96375; 96376; 97110; 97161; 97165; 97530; 99285; A9270; C1760; C1769; C1887; C1894; G0269; G0378; J0295; J1644; J1650; J1815; J1938; J2003; J2250; J2260; J2305; J2405; J3010; J3370; J7030; J7040; Q9967

== ENCOUNTER 2024-09-10 09:39 | Emergency (ER) | payer MEDICARE, MEDICAID, SELFPAY ==
[2024-09-10] VITALS (7 sets, daily range): BP systolic 118–149; BP diastolic 71–97; PULSE 58–72; RESP 20–23; TEMP 36.7; O2SAT 94–100
--- NOTE | ~2024-09-10 | XR_ITS ---
EXAM/PROCEDURE: XR chest 1V portable - 09/10/2024 10:40 CDT HISTORY: 79 years old Female with SOB, CHEST PAIN AND SOB, CHEST SURGERY X10YRS TECHNIQUE: Two view(s) of the chest. COMPARISON: None available. FINDINGS: LUNGS/ PLEURA: No focal consolidation. No appreciable pneumothorax or large pleural effusion. HEART/ MEDIASTINUM: Cardiomediastinal silhouette is unremarkable. Findings of prior median sternotomy are noted. BONES: No acute osseous abnormality. OTHER: Visualized upper abdomen is unremarkable. IMPRESSION: No acute process. Reviewed, dictated and finalized at location A. IMPRESSION: No acute process.
--- NOTE | 2024-09-10 10:04 | ECG_ITS ---
Test Date: 2024-09-10 10:20:23 Measurements Intervals [place] Rate: 55 P: 25 [place]: 169 QRS: -45 QRSD: 183 T: 140 QT: 553 QTc: 533 Interpretive Statements SINUS BRADYCARDIA WITH OCCASIONAL VENTRICULAR PREMATURE COMPLEXES LEFT AXIS DEVIATION LEFT BUNDLE BRANCH BLOCK ABNORMAL ECG Compared to ECG 06/27/2024 22:36:27 Ventricular premature complex(es) now present HEART RATE HAS DECREASED Electronically Signed On 09-10-2024 10:48:15 CDT by Russell Dodd D.O.
[2024-09-10 10:20] LABS: Basophils Percent Auto 0.8 % (0.2-1.2); Eosinophils Absolute Auto 0.4 K/mm3 (0-0.3); Eosinophils Percent Auto 7.3 % (0-4.4); Hematocrit 33.2 % (37.0-47.0); Hemoglobin 9.8 g/dL (12.0-15.0); Immature Granulocyte Absolute 0.02 K/mm3 (0.00-0.031); Immature Granulocyte Percent A 0.4 % (0-0.5); Lymphocytes Percent Auto 14.6 % (18.3-44.2); Mean Corpuscular HGB Conc 29.5 g/dl (32-36); Mean Corpuscular Hemoglobin 25.7 pg (26-34); Mean Corpuscular Volume 87.1 fl (80-100); Mean Platelet Volume 11.3 fl (7.4-10.4); Monocytes Absolute Auto 0.5 K/mm3 (0.1-0.6); Neutrophils Absolute Auto 3.2 K/mm3 (1.3-6.7); Neutrophils Percent Auto 66.9 % (45.5-73.1); Platelet Count Result 253 k/mm3 (150-375); Red Blood Count 3.81 M/mm3 (4.2-5.4); Red Cell Distribution Width 16.9 % (11.5-14.5); White Blood Count 4.8 K/mm3 (4.5-10.0)
[2024-09-10 10:31] LABS: Alanine Aminotransferase 121 U/L (6-35); Albumin Level 3.5 g/dL (3.5-5.1); Alkaline Phosphatase 109 U/L (38-126); Anion Gap 7 mmol/L (4-12); Aspartate Amino Transferase 156 U/L (14-36); Bilirubin,Total 0.9 mg/dL (0.2-1.3); Blood Urea Nitrogen 30 mg/dL (7-17); Carbon Dioxide 24 mmol/L (22-30); Chloride 109 mmol/L (98-107); Estimated CRCL calculation 35 ml/min; Estimated Glomerular Filt Rate 60; Glucose 245 mg/dL (65-110); Potassium 4.3 mmol/L (3.4-5.0); Sodium 140 mmol/L (137-145); Total Protein 6.7 g/dL (6.3-8.2)
[2024-09-10 10:38] LABS: Platelet Estimate Adequate (Adequate); Schistocytes None Seen
[2024-09-10 10:39] LABS: Anisocytosis 1+; Ovalocytes 1+
[2024-09-10 10:41] LABS: Acanthocytes 1+
--- NOTE | 2024-09-10 12:21 | ED.SOB ---
HPI - SOB/Dyspnea General Chief Complaint: Shortness of Breath/Dyspnea Stated Complaint: ?multiple complaints Time Seen by Provider: 09/10/24 11:47 79 years old female, does not speak Luxembourgish came from home by ambulance complaining of not feeling good for 1 week and her blood pressure is low. She reports having intermittent nausea, and chest pain since she had cardiac surgery 10 years ago. Currently patient denies any symptoms including fever, chills, nausea, vomiting, abdominal pain, chest pain, shortness of breath, back pain or any complain. Patient lives with her daughter who did not show up since arrival until the time of discharge. Related Data Home Medications ?Medication ?Instructions ?Recorded ?Confirmed ?Last Taken ?Type escitalopram oxalate 5 mg tablet 5 mg PO HS 07/14/22 06/28/24 06/27/24 History metformin 500 mg tablet,extended 1,000 mg PO BID 05/26/24 06/28/24 06/27/24 History release 24hr (osmotic) sacubitril 49 mg-valsartan 51 mg 1 tablet PO BID 05/26/24 06/28/24 06/27/24 History tablet (Entresto) atorvastatin 40 mg tablet 40 mg PO QPM 06/28/24 06/28/24 06/26/24 History Allergies Allergy/AdvReac Type Severity Reaction Status Date / Time No Known Allergies Allergy Verified 05/26/24 11:52 Review of Systems Review of Systems: All systems reviewed & are unremarkable except as noted in HPI and below PMFSH Past Medical History Medical History Non-insulin dependent diabetes mellitus Proximal humeral fracture Congestive heart failure Fracture of left elbow Hyperlipidemia Hypertension CAD (coronary artery disease) Surgical History Surgical History Hx of CABG Religion [place] Family History Family History Unknown Adopted Social History Social History Social History: The patient is and has 2 children. 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 Previously living in a senior citizen apartment complex. Her daughter is the durable power deputy attorney general for healthcare. Code status full code Smoking status: Never smoker Second hand tobacco smoke exposure: No Alcohol intake: never Substance use: never Substance use type: does not use Do You Feel Safe in your Home?: Yes Lack of Transportation: No Lack of Food: Never True Current Housing: I Have Housing Concerned About Future Housing: No Difficulty Paying Gas/Electric Bills: No Difficulty Paying for Meds: No Currently Unemployed: No Education: Grade School Difficulty w/ Childcare or Family Care: No Living arrangements: with family Additional living arrangements comments: daughter Gail Spiritual care concerns: No Exam Narrative: General appearance: Well-developed, well-nourished Skin: Normal color Head: Normocephalic, nontraumatic Eyes: Clear conjunctiva ENT: Oropharynx normal, ears normal, nose normal Neck: Supple, nontender Chest and respiratory: Airway patent, no respiratory distress, no accessory muscle use Heart: Regular rate/rhythm Abdomen: Soft, nontender, no organomegaly, quiet bowel sounds Vascular: Normal peripheral pulses, normal capillary refill. Musculoskeletal: Normal range of motion, nontender back Neurologic: Alert and oriented ?3, [employer] is normal as tested, no gross motor deficit Course Vital Signs Vital signs: Vital Signs Temperature 36.7 C 09/10/24 09:37 Pulse Rate 58 L 09/10/24 09:37 Respiratory Rate 20 09/10/24 09:37 Blood Pressure 130/75 09/10/24 09:37 Pulse Oximetry 97 09/10/24 09:37 Oxygen Delivery Room Air 09/10/24 09:37 Temperature 36.7 C 09/10/24 09:37 Pulse Rate 72 09/10/24 15:01 Respiratory Rate 21 H 09/10/24 15:01 Blood Pressure 149/97 H 09/10/24 15:01 Pulse Oximetry 100 09/10/24 15:01 Oxygen Delivery Room Air 09/10/24 10:30 MDM - SOB/Dyspnea MDM Narrative Medical decision making narrative: Patient came with chief complaint of not feeling good for 1 week, on arrival to the ED is asymptomatic Vital signs are stable Physical examination unremarkable Blood workup today includes CBC, CMP, troponin, coags showed hemoglobin 9.8, glucose 245, AST 156, ALT 121 Urinalysis showed no evidence of infection Chest x-ray showed no acute abnormalities Elevated liver enzymes could be secondary to viral infection and or atorvastatin or fatty liver disease Diagnosis: Weakness, transaminitis Differential Diagnosis Differential diagnosis: Likely other (As above) Medical Records Attestation: I reviewed the patient's medical records. Lab Data Attestation: I reviewed the patient's lab results. 09/10/24 10:14 09/10/24 10:14 Labs: Lab Results 09/10/24 09/10/24 Range/Units 10:14 15:25 WBC 4.8 (4.5-10.0) K/mm3 RBC 3.81 L (4.2-5.4) M/mm3 Hgb 9.8 L (12.0-15.0) g/dL Hct 33.2 L (37.0-47.0) % MCV 87.1 (80-100) fl MCH 25.7 L (26-34) pg MCHC 29.5 L (32-36) g/dl RDW 16.9 H (11.5-14.5) % Plt Count 253 (150-375) k/mm3 MPV 11.3 H (7.4-10.4) fl Immature Gran % (Auto) 0.4 (0-0.5) % Neut % (Auto) 66.9 (45.5-73.1) % Lymph % (Auto) 14.6 L (18.3-44.2) % [place] % (Auto) 10.0 H (2.6-8.5) % Eos % (Auto) 7.3 H (0-4.4) % Baso % (Auto) 0.8 (0.2-1.2) % Lymph # (Auto) 0.70 L (0.9-3.2) K/mm3 [place] # (Auto) 0.5 (0.1-0.6) K/mm3 Eos # (Auto) 0.4 H (0-0.3) K/mm3 Baso # (Auto) 0.0 (0.0-0.1) K/mm3 Abs Immat Gran (auto) 0.02 (0.00-0.031) K/mm3 Absolute Neuts (auto) 3.2 (1.3-6.7) K/mm3 Absolute Nucleated RBC 0.000 (0.0-0.012) K/mm3 Band Neutrophils % Not Reportable Nucleated RBC % 0.0 (0.0-0.2) % Platelet Estimate Adequate (Adequate) Anisocytosis 1+ Ovalocytes 1+ Acanthocytes (Sp[place]) 1+ Schistocytes None seen Sodium 140 (137-145) mmol/L Potassium 4.3 (3.4-5.0) mmol/L Chloride 109 H (98-107) mmol/L Carbon Dioxide 24 (22-30) mmol/L Anion Gap 7 (4-12) mmol/L BUN 30 H D (7-17) mg/dL Creatinine 0.90 (0.7-1.0) mg/dL Estim Creat Clear Calc 35 ml/min Estimated GFR 60 (59 - ) Glucose 245 H (65-110) mg/dL Calcium 9.0 (8.4-10.2) mg/dL Total Bilirubin 0.9 (0.2-1.3) mg/dL AST 156 H (14-36) U/L ALT 121 H (6-35) U/L Alkaline Phosphatase 109 (38-126) U/L Total Protein 6.7 (6.3-8.2) g/dL Albumin 3.5 (3.5-5.1) g/dL Urine Color Yellow (Yellow) Urine Appearance Clear (Clear) Urine pH 5.0 (5.0-9.0) Ur Specific [place] 1.036 H (1.001-1.035) Urine Protein 2+ H (Negative) mg/dL Urine Glucose (UA) 3+ H (Negative) mg/dL Urine Ketones Negative (Negative) mg/dL Ur Blood (Man) Negative (Negative) Urine Nitrate Negative (Negative) Urine Bilirubin Negative (Negative) Urine Urobilinogen 0.2 (<2.0) mg/dL Add Ur Microanalysis Reviewed Leukocyte Esterase Rfl Negative (Negative) JAGRUTI/UL Urine RBC 0-2 (0-2) /hpf Urine WBC 0-5 (0-3) /hpf Ur Squamous Epith Cells None seen (Few) /hpf Urine Bacteria None seen /hpf Urine Casts 0-2 Urine Mucus Present /lpf Imaging Data Radiologist's impression: Impressions Chest X-Ray 09/10/24 11:02 IMPRESSION: No acute process. ECG Data EKG #1: Attestation: I personally reviewed and interpreted this ECG as follows: ECG completion date: 09/10/24 Interpretation: Sinus bradycardia at 55 beats per minute, left axis deviation, left bundle-branch block, compared to previous EKG on June 27, 2024 heart rate has decreased. Discharge Plan Discharge Clinical Impression: Weakness, Elevated liver enzymes Patient Disposition: Home Condition: Stable Instructions: Weakness (ED), Transaminitis (ED) Additional Instructions: Return if symptoms are worsening , call your family physician for appointment, take Tylenol as as needed for aches and pain, continue home medications. Patient Language: Panamanian Prescriptions: No Action metformin 500 mg tablet extended release 24hr 1,000 mg PO BID sacubitril-valsartan [Entresto] 49-51 mg tablet 1 tablet PO BID escitalopram oxalate 5 mg Tablet 5 mg PO HS metoprolol succinate [Toprol XL] 25 mg Tablet Extended Release 24 Hr 25 mg PO QAM Qty: 30 0RF atorvastatin 40 mg tablet 40 mg PO QPM cephalexin 250 mg Capsule 250 mg PO Q12HR Qty: 10 0RF aspirin [Children's Aspirin] 81 mg Tablet,Chewable 81 mg PO DAILY@0800 Qty: 30 0RF Jardiance 10 mg Tablet 10 mg PO DAILY Qty: 30 0RF furosemide 20 mg tablet 20 mg PO DAILY Qty: 30 0RF Rx Instructions: please start 1 week from today on July 10. polyethylene glycol 3350 [Miralax] 17 gram Powder In Packet 17 g PO QAM Qty: 30 0RF Follow-up/Referrals: Flip,NANDO Acosta [Primary Care Provider] -
--- NOTE | 2024-09-10 14:32 | PC.NURSE ---
urine not obtained in a timely manner due to pt using bedpan before there was an order for it, pt felt dizzy and c/o SOB/chest pain when she got up to walk so this RN did not want to cause more distress. bladder scanned the pt a couple of times to see if any urine available, found 30mL at this time to cath
[2024-09-10] MEDS: SODIUM CHLORIDE 0.9% IV 1,000 ML 999 ML IV CONT (15:01)
[2024-09-10 15:49] LABS: Add Urine Microscopic? YES; Appearance Urine Clear (Clear); Bacteria Urine None Seen /hpf; Bilirubin Urine Negative (Negative); Blood Urine Negative (Negative); Color Urine Yellow (Yellow); Glucose Urine UA 3+ mg/dL (Negative); Ketones Urine Negative (Negative); Leukocyte Esterase Ur Negative LEU/UL (Negative); Mucus Urine Present /lpf; Need Manual Microscopic Reviewed; Nitrate Urine Negative (Negative); Non Pathogenic Casts 0-2; Protein Urine 2+ mg/dL (Negative); RBC Urine 0-2 /hpf (0-2); Specific Grav Ur 1.036 (1.001-1.035); Squamous Epithelial Cell Urine None Seen /hpf (Few); Urobilinogen Urine 0.2 mg/dL (<2.0); WBC Urine 0-5 /hpf (0-3)
== END 2024-09-10 16:56 | disposition home or self-care (01) ==
PROVIDERS: Emergency Provider Emergency Medicine; PCP Physician Assistant
DX: R53.1 Weakness (principal); R74.01 Elevation of levels of liver transaminase levels; I50.9 Heart failure, unspecified; I11.0 Hypertensive heart disease with heart failure; I25.10 Atherosclerotic heart disease of native coronary artery without angina pectoris; E78.5 Hyperlipidemia, unspecified; E11.9 Type 2 diabetes mellitus without complications; Z95.1 Presence of aortocoronary bypass graft; Z79.84 Long term (current) use of oral hypoglycemic drugs; Z79.82 Long term (current) use of aspirin; Z79.899 Other long term (current) drug therapy; R00.1 Bradycardia, unspecified; I49.3 Ventricular premature depolarization; I44.7 Left bundle-branch block, unspecified
CPT/HCPCS: 36415; 71045; 80053; 81001; 85025; 93005; 99283; J7030